=== PATIENT | male | born 1955 | race African-American/Black ===

== ENCOUNTER 2016-09-16 13:58 | Inpatient (IN) | payer OTHER ==
[2016-09-16 15:07] VITALS: BMI 22.8
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
[2016-09-16] MEDS ORDERED: guaiFENesin/D-METHORPHAN HB 10 ML UNIT-DOSE CUPS PO PRN (16:48)
[2016-09-16] MEDS ORDERED: LOPERAMIDE HCL 2 MG CAPSULE PO PRN (16:48)
[2016-09-16] MEDS ORDERED: chlordiazePOXIDE HCL 25 MG CAPSULE PO PRN (16:48)
[2016-09-16] MEDS ORDERED: MAG HYDROX/AL HYDROX/SIMETH 30 ML UNIT-DOSE CUP PO PRN (16:48)
[2016-09-16] MEDS ORDERED: ACETAMINOPHEN 325 MG TABLET (FP) PO PRN (16:48)
[2016-09-16] MEDS ORDERED: hydrOXYzine PAMOATE 25 MG CAPSULE (FP) PO PRN (16:48)
[2016-09-16] MEDS ORDERED: diphenhydrAMINE HCL 50 MG CAPSULE PO PRN (16:48)
[2016-09-16] MEDS ORDERED: P-EPHED 60MG/TRIPROLIDI 2.5MG TABLET PO PRN (16:48)
[2016-09-16] MEDS ORDERED: MAGNESIUM CITRATE 300 ML BOTTLE PO PRN (16:48)
[2016-09-16] MEDS ORDERED: MAGNESIUM HYDROX 2400MG/30ML ORAL SUSPENSION 30 ML CUP PO PRN (16:48)
[2016-09-16] MEDS ORDERED: MENTHOL/PHENOL 1 EACH UD MM PRN (16:48)
[2016-09-16] MEDS ORDERED: IBUPROFEN 400 MG TABLET (FP) PO PRN (16:48)
[2016-09-16] MEDS: chlordiazePOXIDE HCL 25 MG CAPSULE PO SCH ×2 (18:49→22:37)
[2016-09-16] MEDS: THIAMINE HCL 100 MG TABLET (FP) PO SCH (22:37)
[2016-09-16 22:38] LABS: URINE APPEARANCE CLEAR; URINE BILIRUBIN NEGATIVE (NEGATIVE); URINE BLOOD NEGATIVE (NEGATIVE); URINE COLOR STRAW; URINE GLUCOSE (UA) NEGATIVE (NEGATIVE); URINE KETONE NEGATIVE (NEGATIVE); URINE LEUK ESTERASE NEGATIVE (NEGATIVE); URINE NITRITE NEGATIVE (NEGATIVE); URINE PROTEIN NEGATIVE (NEGATIVE); URINE UROBILINOGEN NEGATIVE E.U./dl (0.2-1.0)
[2016-09-16] MEDS: LATANOPROST 0.005% OPHTH SOLN 2.5ML BOTTLE OD SCH (22:38)
[2016-09-16] MEDS: NICOTINE POLACRILEX 4 MG GUM BC PRN (22:43)
[2016-09-17] MEDS: chlordiazePOXIDE HCL 25 MG CAPSULE PO SCH ×4 (06:03→22:43)
[2016-09-17] MEDS: NICOTINE POLACRILEX 4 MG GUM BC PRN ×3 (06:06→22:47)
--- NOTE | 2016-09-17 09:26 | HP ---
Psychiatrist Admission - Data Date of interview: 09/17/16 Vital Signs: Vital Signs - 24 hr 09/16/16 09/16/16 09/17/16 15:04 22:09 00:42 Temperature 97.1 F L 98.2 F Pulse Rate 96 H 94 H Respiratory 20 19 18 Rate Blood Pressure 140/95 134/84 09/17/16 09/17/16 03:37 06:17 Temperature 98.1 F Pulse Rate 92 H Respiratory 18 18 Rate Blood Pressure 133/89 Allergies/Adverse Reactions: Allergies Allergy/AdvReac Type Severity Reaction Status Date / Time No Known Drug Allergies Allergy Verified 09/16/16 17:40 rice Allergy Verified 09/16/16 17:40 shellfish derived Allergy Verified 09/16/16 17:40
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
[2016-09-17 10:32] LABS: MCH 28.8 pg (25.7-33.7); MCHC 33.3 g/dl (32.0-35.9); MEAN CELL VOLUME 86.3 fl (80-96); PLATELET COUNT 248 K/MM3 (134-434)
[2016-09-17] MEDS: NICOTINE 14 MG/24 HOURS TOPICAL PATCH TD SCH (10:59)
[2016-09-17] MEDS: PRENATAL VITAMINS W/ FOLIC ACID TABLET (FP) PO SCH (10:59)
--- NOTE | 2016-09-17 11:09 | PN ---
[facility] CIWA - CIWA Score Nausea/Vomitin-No Nausea/No Vomiting Muscle Tremors: 4-Moderate,w/Arms Extend Anxiety: 4-Mod. Anxious/Guarded Agitation: 4-Moderately Restless Paroxysmal Sweats: 1-Minimal Palms Moist Orientation: 0-Oriented Tacttile Disturbances: 3-Moderate Itch/Numb/Burn Auditory Disturbances: 0-None Visual Disturbances: 0-None Headache: 0-None Present CIWA-Ar Total Score: 16 BHS Progress Note (SOAP) Subjective: ANXIETY,BODY ACHES,INTERMITTENT SLEEP. Objective: 09/17/16 11:09 Vital Signs Temperature 96.3 F L 09/17/16 09:38 Pulse Rate 80 09/17/16 09:38 Respiratory Rate 18 09/17/16 09:38 Blood Pressure 122/79 09/17/16 09:38 O2 Sat by Pulse Oximetry (%) Laboratory Last Values WBC 7.0 K/mm3 (4.0-10.0) 09/17/16 07:20 RBC 4.42 M/mm3 (4.00-5.60) 09/17/16 07:20 Hgb 12.7 GM/dL (11.7-16.9) 09/17/16 07:20 Hct 38.1 % (35.4-49) 09/17/16 07:20 MCV 86.3 fl (80-96) 09/17/16 07:20 MCHC 33.3 g/dl (32.0-35.9) 09/17/16 07:20 RDW 15.0 % (11.9-15.9) 09/17/16 07:20 Plt Count 248 K/MM3 (134-434) 09/17/16 07:20 MPV 8.0 fl (7.5-11.1) 09/17/16 07:20 Sodium 139 mmol/L (136-145) 09/17/16 07:20 Potassium 4.6 mmol/L (3.5-5.1) 09/17/16 07:20 Chloride 105 mmol/L (98-107) 09/17/16 07:20 Urine Color Straw 09/16/16 19:21 Urine Appearance Clear 09/16/16 19:21 Urine pH 5.0 (5.0-8.0) 09/16/16 19:21 Ur Specific [place] 1.008 (1.001-1.035) 09/16/16 19:21 Urine Protein Negative (NEGATIVE) 09/16/16 19:21 Urine Glucose (UA) Negative (NEGATIVE) 09/16/16 19:21 Urine Ketones Negative (NEGATIVE) 09/16/16 19:21 Urine Blood Negative (NEGATIVE) 09/16/16 19:21 Urine Nitrite Negative (NEGATIVE) 09/16/16 19:21 Urine Bilirubin Negative (NEGATIVE) 09/16/16 19:21 Urine Urobilinogen Negative E.U./dl (0.2-1.0) 09/16/16 19:21 Ur Leukocyte Esterase Negative (NEGATIVE) 09/16/16 19:21 RPR Titer Nonreactive (NONREACTIVE) 09/17/16 07:20 Assessment: 09/17/16 11:09 WITHDRAWAL SX Plan: CONTINUE DETOX
[2016-09-17 11:33] LABS: ALBUMIN 3.1 g/dl (3.4-5.0); ALK PHOS 50 U/L (45-117); ANION GAP 10 (8-16); BILIRUBIN,TOTAL 0.2 mg/dL (0.2-1.0); CALCIUM 8.2 mg/dL (8.5-10.1); CO2 24 mmol/L (21-32); CREATININE 1.2 mg/dL (0.7-1.3); GLUCOSE,RANDOM 105 mg/dL (74-106); SGOT/AST 14 U/L (15-37); SGPT/ALT 16 U/L (12-78); TOT PROT 6.4 g/dl (6.4-8.2)
[2016-09-17] MEDS: NAPROXEN 500 MG TABLET (FP) PO SCH ×2 (13:25→22:43)
--- NOTE | 2016-09-17 15:30 | EKG ---
Test Reason : Blood Pressure : / mmHG Vent. Rate : 074 BPM Atrial Rate : 074 BPM P-R Int : 158 ms QRS Dur : 096 ms QT Int : 382 ms P-R-T Axes : 069 063 044 degrees QTc Int : 424 ms NORMAL SINUS RHYTHM POSSIBLE LEFT ATRIAL ENLARGEMENT LEFT VENTRICULAR HYPERTROPHY ABNORMAL ECG NO PREVIOUS ECGS AVAILABLE Confirmed by RAE ONEILL MD ([id number]) on 09/17/2016 3:30:26 PM Referred By: Confirmed By:RAE ONEILL MD
[2016-09-17] MEDS: QUEtiapine FUMARATE 100 MG TABLET (FP) PO SCH (22:43)
[2016-09-17] MEDS: LATANOPROST 0.005% OPHTH SOLN 2.5ML BOTTLE OD SCH (22:43)
[2016-09-17] MEDS: THIAMINE HCL 100 MG TABLET (FP) PO SCH (22:43)
[2016-09-18] MEDS: chlordiazePOXIDE HCL 25 MG CAPSULE PO SCH ×2 (05:42→10:50)
[2016-09-18] MEDS: NICOTINE POLACRILEX 4 MG GUM BC PRN ×3 (05:44→22:48)
[2016-09-18] MEDS: NICOTINE 14 MG/24 HOURS TOPICAL PATCH TD SCH (10:50)
[2016-09-18] MEDS: NAPROXEN 500 MG TABLET (FP) PO SCH ×2 (10:50→22:43)
[2016-09-18] MEDS: PRENATAL VITAMINS W/ FOLIC ACID TABLET (FP) PO SCH (10:51)
--- NOTE | 2016-09-18 11:47 | PN ---
S CIWA - CIWA Score Nausea/Vomitin Muscle Tremors: 3 Anxiety: 3 Agitation: 2 Paroxysmal Sweats: 3 Orientation: 0-Oriented Tacttile Disturbances: 1-Very Mild Itch/Numbness Auditory Disturbances: 0-None Visual Disturbances: 0-None Headache: 2-Mild CIWA-Ar Total Score: 16 S Progress Note (SOAP) Subjective: shakes, sweats, irritability, N/V Objective: 09/18/16 11:46 Vital Signs - 8 hr 09/18/16 09/18/16 06:33 10:51 Temperature 97.2 F L 96.4 F L Pulse Rate 93 H 75 Respiratory 18 20 Rate Blood Pressure 144/95 138/86 Laboratory Last Values WBC 7.0 K/mm3 (4.0-10.0) 09/17/16 07:20 RBC 4.42 M/mm3 (4.00-5.60) 09/17/16 07:20 Hgb 12.7 GM/dL (11.7-16.9) 09/17/16 07:20 Hct 38.1 % (35.4-49) 09/17/16 07:20 MCV 86.3 fl (80-96) 09/17/16 07:20 MCHC 33.3 g/dl (32.0-35.9) 09/17/16 07:20 RDW 15.0 % (11.9-15.9) 09/17/16 07:20 Plt Count 248 K/MM3 (134-434) 09/17/16 07:20 MPV 8.0 fl (7.5-11.1) 09/17/16 07:20 Sodium 139 mmol/L (136-145) 09/17/16 07:20 Potassium 4.6 mmol/L (3.5-5.1) 09/17/16 07:20 Chloride 105 mmol/L (98-107) 09/17/16 07:20 Carbon Dioxide 24 mmol/L (21-32) 09/17/16 07:20 Anion Gap 10 (8-16) 09/17/16 07:20 BUN 17 mg/dL (7-18) D 09/17/16 07:20 Creatinine 1.2 mg/dL (0.7-1.3) 09/17/16 07:20 Creat Clearance w eGFR > 60 (>60) 09/17/16 07:20 Random Glucose 105 mg/dL (74-106) 09/17/16 07:20 Calcium 8.2 mg/dL (8.5-10.1) L 09/17/16 07:20 Total Bilirubin 0.2 mg/dL (0.2-1.0) D 09/17/16 07:20 AST 14 U/L (15-37) L 09/17/16 07:20 ALT 16 U/L (12-78) D 09/17/16 07:20 Alkaline Phosphatase 50 U/L (45-117) 09/17/16 07:20 Total Protein 6.4 g/dl (6.4-8.2) 09/17/16 07:20 Albumin 3.1 g/dl (3.4-5.0) L 09/17/16 07:20 Urine Color Straw 09/16/16 19:21 Urine Appearance Clear 09/16/16 19:21 Urine pH 5.0 (5.0-8.0) 09/16/16 19:21 Ur Specific [place] 1.008 (1.001-1.035) 09/16/16 19:21 Urine Protein Negative (NEGATIVE) 09/16/16 19:21 Urine Glucose (UA) Negative (NEGATIVE) 09/16/16 19:21 Urine Ketones Negative (NEGATIVE) 09/16/16 19:21 Urine Blood Negative (NEGATIVE) 09/16/16 19:21 Urine Nitrite Negative (NEGATIVE) 09/16/16 19:21 Urine Bilirubin Negative (NEGATIVE) 09/16/16 19:21 Urine Urobilinogen Negative E.U./dl (0.2-1.0) 09/16/16 19:21 Ur Leukocyte Esterase Negative (NEGATIVE) 09/16/16 19:21 RPR Titer Nonreactive (NONREACTIVE) 09/17/16 07:20 Labs noted Assessment: 09/18/16 11:47 withdrawal sx Plan: continue detox
[2016-09-18] MEDS: chlordiazePOXIDE 5 MG CAPSULE PO SCH ×2 (17:29→22:43)
[2016-09-18] MEDS: LATANOPROST 0.005% OPHTH SOLN 2.5ML BOTTLE OD SCH (22:42)
[2016-09-18] MEDS: QUEtiapine FUMARATE 100 MG TABLET (FP) PO SCH (22:43)
[2016-09-18] MEDS: THIAMINE HCL 100 MG TABLET (FP) PO SCH (22:44)
[2016-09-19] MEDS: chlordiazePOXIDE 5 MG CAPSULE PO SCH ×2 (05:52→10:17)
[2016-09-19] MEDS: NICOTINE 14 MG/24 HOURS TOPICAL PATCH TD SCH (10:17)
[2016-09-19] MEDS: PRENATAL VITAMINS W/ FOLIC ACID TABLET (FP) PO SCH (10:17)
[2016-09-19] MEDS: NAPROXEN 500 MG TABLET (FP) PO SCH ×2 (10:17→22:13)
[2016-09-19] MEDS: NICOTINE POLACRILEX 4 MG GUM BC PRN ×2 (10:19→22:15)
--- NOTE | 2016-09-19 12:13 | PN ---
BHS Progress Note (SOAP) Subjective: Body aches, tremor, sweating, nausea, anxious Objective: 09/19/16 12:12 Last Vital Signs Temp Pulse Resp BP Pulse Ox 95.9 F L 94 H 20 142/87 09/19/16 11:27 09/19/16 11:27 09/19/16 11:27 09/19/16 11:27 Laboratory Tests 09/16/16 09/17/16 09/17/16 19:21 07:20 07:20 WBC 7.0 RBC 4.42 Hgb 12.7 Hct 38.1 MCV 86.3 MCHC 33.3 RDW 15.0 Plt Count 248 MPV 8.0 Sodium 139 Potassium 4.6 Chloride 105 Carbon Dioxide 24 Anion Gap 10 BUN 17 D Creatinine 1.2 Creat Clearance w eGFR > 60 Random Glucose 105 Calcium 8.2 L Total Bilirubin 0.2 D AST 14 L ALT 16 D Alkaline Phosphatase 50 Total Protein 6.4 Albumin 3.1 L Urine Color Straw Urine Appearance Clear Urine pH 5.0 Ur Specific [place] 1.008 Urine Protein Negative Urine Glucose (UA) Negative Urine Ketones Negative Urine Blood Negative Urine Nitrite Negative Urine Bilirubin Negative Urine Urobilinogen Negative Ur Leukocyte Esterase Negative RPR Titer 09/17/16 07:20 WBC RBC Hgb Hct MCV MCHC RDW Plt Count MPV Sodium Potassium Chloride Carbon Dioxide Anion Gap BUN Creatinine Creat Clearance w eGFR Random Glucose Calcium Total Bilirubin AST ALT Alkaline Phosphatase Total Protein Albumin Urine Color Urine Appearance Urine pH Ur Specific [place] Urine Protein Urine Glucose (UA) Urine Ketones Urine Blood Urine Nitrite Urine Bilirubin Urine Urobilinogen Ur Leukocyte Esterase RPR Titer Nonreactive Labs noted Assessment: 09/19/16 12:13 Withdrawal symptoms Plan: Continue detox
[2016-09-19] MEDS: chlordiazePOXIDE HCL 10 MG CAPSULE PO SCH ×2 (17:02→22:13)
[2016-09-19] MEDS: THIAMINE HCL 100 MG TABLET (FP) PO SCH (22:12)
[2016-09-19] MEDS: LATANOPROST 0.005% OPHTH SOLN 2.5ML BOTTLE OD SCH (22:13)
[2016-09-19] MEDS: QUEtiapine FUMARATE 100 MG TABLET (FP) PO SCH (22:13)
[2016-09-20] MEDS: chlordiazePOXIDE HCL 10 MG CAPSULE PO SCH (05:53)
[2016-09-20] MEDS: NICOTINE POLACRILEX 4 MG GUM BC PRN (05:54)
[2016-09-20 06:11] VITALS: BP 143/83; PULSE 89; TEMP 996.8
--- NOTE | 2016-09-20 08:45 | PN ---
BHS Progress Note (SOAP) Subjective: no complaints, still has anxiety and agitation wants to go to rehab Objective: 09/20/16 08:45 Vital Signs - 8 hr 09/20/16 09/20/16 03:40 06:10 Temperature 996.8 F H Pulse Rate 89 Respiratory 18 18 Rate Blood Pressure 143/83 Laboratory Tests 09/16/16 09/17/16 09/17/16 19:21 07:20 07:20 WBC 7.0 RBC 4.42 Hgb 12.7 Hct 38.1 MCV 86.3 MCHC 33.3 RDW 15.0 Plt Count 248 MPV 8.0 Sodium 139 Potassium 4.6 Chloride 105 Carbon Dioxide 24 Anion Gap 10 BUN 17 D Creatinine 1.2 Creat Clearance w eGFR > 60 Random Glucose 105 Calcium 8.2 L Total Bilirubin 0.2 D AST 14 L ALT 16 D Alkaline Phosphatase 50 Total Protein 6.4 Albumin 3.1 L Urine Color Straw Urine Appearance Clear Urine pH 5.0 Ur Specific [place] 1.008 Urine Protein Negative Urine Glucose (UA) Negative Urine Ketones Negative Urine Blood Negative Urine Nitrite Negative Urine Bilirubin Negative Urine Urobilinogen Negative Ur Leukocyte Esterase Negative RPR Titer 09/17/16 07:20 WBC RBC Hgb Hct MCV MCHC RDW Plt Count MPV Sodium Potassium Chloride Carbon Dioxide Anion Gap BUN Creatinine Creat Clearance w eGFR Random Glucose Calcium Total Bilirubin AST ALT Alkaline Phosphatase Total Protein Albumin Urine Color Urine Appearance Urine pH Ur Specific [place] Urine Protein Urine Glucose (UA) Urine Ketones Urine Blood Urine Nitrite Urine Bilirubin Urine Urobilinogen Ur Leukocyte Esterase RPR Titer Nonreactive Assessment: 09/20/16 08:45 completed detox, medically stable Plan: d/c [facility] f/u PCP for medical care, would like to speak with counselor to arrange for rehab
--- NOTE | 2016-09-20 08:47 | DS ---
[facility] Detox Discharge Summary Admission Date: 09/16/16 Discharge Date: 09/20/16 - History Present History: Alcohol Dependence, Cocaine Dependence Pertinent Past History: HTN, glaucoma, nicotine dependence - Physical Exam Results Vital Signs: Vital Signs Temperature 996.8 F H 09/20/16 06:10 Pulse Rate 89 09/20/16 06:10 Respiratory Rate 18 09/20/16 06:10 Blood Pressure 143/83 09/20/16 06:10 O2 Sat by Pulse Oximetry (%) Pertinent Admission Physical Exam Findings: withdrawal sx - Treatment Hospital Course: Detox Protocol Followed, Detoxed Safely, Responded well, Discharged Condition Good, Rehab Referral Accepted Patient has Accepted a Rehab Referral to: Yes - Medication Discharge Medications: Ambulatory Orders Latanoprost 0.005% Eye Drops [Xalatan 0.005% Eye Drops -] 1 drop OD HS #1 drops 11/18/15 Haloperidol [Haldol -] 1 mg PO HS 09/16/16 Quetiapine Fumarate [Seroquel -] 100 mg PO HS 09/16/16 Quetiapine Fumarate [Seroquel] 100 mg PO HS #30 tablet 09/17/16 - Diagnosis (1) Cocaine dependence Current Visit: Yes Status: Acute (2) HTN (hypertension) Current Visit: Yes Status: Acute (3) Hyperlipidemia Current Visit: Yes Status: Acute (4) Impulse control disorder Current Visit: Yes Status: Acute (5) Substance-induced sleep disorder Current Visit: Yes Status: Acute (6) Alcohol dependence with uncomplicated withdrawal Current Visit: Yes Status: Chronic (7) Glaucoma Current Visit: Yes Status: Chronic Qualifiers: Glaucoma type: open-angle Open angle glaucoma type: unspecified type Laterality: bilateral Glaucoma stage: mild stage Qualified Code(s) : H40.10X1 - Unspecified open-angle glaucoma, mild stage - AMA Did Patient Leave Against Medical Advice: No
== END 2016-09-20 09:58 | disposition home or self-care (01) | DRG 774 ==
LOC: YASAS 13:58 → Y3N 18:10
PROVIDERS: ADMIT Internal Medicine; ATTEND Internal Medicine
PROC: HZ2ZZZZ Detoxification Services for Substance Abuse Treatment (ICD-10-PCS; principal; 2016-09-16)
DX: F10.230 Alcohol dependence with withdrawal, uncomplicated (principal); F14.20 Cocaine dependence, uncomplicated; F17.210 Nicotine dependence, cigarettes, uncomplicated; F19.282 Other psychoactive substance dependence with psychoactive substance-induced sleep disorder; F63.9 Impulse disorder, unspecified; I10 Essential (primary) hypertension; E78.5 Hyperlipidemia, unspecified; H40.10X1 Unspecified open-angle glaucoma, mild stage; K21.9 Gastro-esophageal reflux disease without esophagitis; M54.5 Low back pain; G89.29 Other chronic pain
CPT/HCPCS: 36415; 80053; 81003; 85027; 86593; 93005; 93010

== ENCOUNTER 2016-11-22 15:04 | Inpatient (IN) | payer OTHER ==
[2016-11-22 16:33] VITALS: BMI 23.1
[2016-11-22] MEDS ORDERED: MAGNESIUM CITRATE 300 ML BOTTLE PO PRN (19:42)
[2016-11-22] MEDS ORDERED: chlordiazePOXIDE HCL 25 MG CAPSULE PO PRN (19:42)
[2016-11-22] MEDS ORDERED: P-EPHED 60MG/TRIPROLIDI 2.5MG TABLET PO PRN (19:42)
[2016-11-22] MEDS ORDERED: MAGNESIUM HYDROX 2400MG/30ML ORAL SUSPENSION 30 ML CUP PO PRN (19:42)
[2016-11-22] MEDS ORDERED: LOPERAMIDE HCL 2 MG CAPSULE PO PRN (19:42)
[2016-11-22] MEDS ORDERED: MAG HYDROX/AL HYDROX/SIMETH 30 ML UNIT-DOSE CUP PO PRN (19:42)
[2016-11-22] MEDS ORDERED: hydrOXYzine PAMOATE 50 MG CAPSULE (FP) PO PRN (19:42)
[2016-11-22] MEDS ORDERED: ACETAMINOPHEN 325 MG TABLET (FP) PO PRN (19:42)
[2016-11-22] MEDS ORDERED: IBUPROFEN 400 MG TABLET (FP) PO PRN (19:42)
[2016-11-22] MEDS ORDERED: MENTHOL/PHENOL 1 EACH UD MM PRN (19:42)
[2016-11-22] MEDS ORDERED: guaiFENesin/D-METHORPHAN HB 10 ML UNIT-DOSE CUPS PO PRN (19:42)
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
[2016-11-22] MEDS: chlordiazePOXIDE HCL 25 MG CAPSULE PO SCH (22:13)
[2016-11-22] MEDS: diphenhydrAMINE HCL 50 MG CAPSULE PO PRN (22:14)
[2016-11-22] MEDS: THIAMINE HCL 100 MG TABLET (FP) PO SCH (22:14)
[2016-11-22] MEDS: LATANOPROST 0.005% OPHTH SOLN 2.5ML BOTTLE OU SCH (22:16)
[2016-11-23 03:56] LABS: URINE APPEARANCE CLEAR; URINE BILIRUBIN NEGATIVE (NEGATIVE); URINE BLOOD NEGATIVE (NEGATIVE); URINE COLOR COLORLESS; URINE GLUCOSE (UA) NEGATIVE (NEGATIVE); URINE KETONE NEGATIVE (NEGATIVE); URINE LEUK ESTERASE NEGATIVE (NEGATIVE); URINE NITRITE NEGATIVE (NEGATIVE); URINE PROTEIN NEGATIVE (NEGATIVE); URINE UROBILINOGEN NEGATIVE E.U./dl (0.2-1.0)
[2016-11-23] MEDS: chlordiazePOXIDE HCL 25 MG CAPSULE PO SCH ×4 (05:41→22:09)
[2016-11-23] MEDS: NICOTINE POLACRILEX 2 MG GUM BC PRN ×2 (05:44→22:11)
[2016-11-23] MEDS: PRENATAL VITAMINS W/ FOLIC ACID TABLET (FP) PO SCH (10:06)
[2016-11-23] MEDS: NICOTINE 14 MG/24 HOURS TOPICAL PATCH TD SCH (10:06)
[2016-11-23 10:08] LABS: MCH 28.4 pg (25.7-33.7); PLATELET COUNT 277 K/MM3 (134-434); RDW 15.3 % (11.9-15.9); WHITE BLOOD COUNT 5.6 K/mm3 (4.0-10.0)
[2016-11-23 10:24] LABS: BILIRUBIN,TOTAL 0.2 mg/dL (0.2-1.0); CALCIUM 8.6 mg/dL (8.5-10.1); CREATININE 1.3 mg/dL (0.7-1.3); TOT PROT 6.6 g/dl (6.4-8.2)
--- NOTE | 2016-11-23 10:35 | PN ---
S CIWA - CIWA Score Nausea/Vomitin Muscle Tremors: 3 Anxiety: 3 Agitation: 3 Paroxysmal Sweats: 1-Minimal Palms Moist Orientation: 0-Oriented Tacttile Disturbances: 1-Very Mild Itch/Numbness Auditory Disturbances: 1-Very Mild Visual Disturbances: 1-Very Mild Sensitivity Headache: 2-Mild CIWA-Ar Total Score: 18 BHS Progress Note (SOAP) Subjective: ALERT,IRRITABLE,ANXIOUS,INTERRUPTED SLEEP,TREMOR Objective: 11/23/16 10:33 Vital Signs Temperature 97 F L 11/23/16 09:56 Pulse Rate 72 11/23/16 09:56 Respiratory Rate 17 11/23/16 09:56 Blood Pressure 139/78 11/23/16 09:56 O2 Sat by Pulse Oximetry (%) EKG NSR,NORMAL ECG Laboratory Last Values Urine Color Colorless 11/23/16 01:00 Urine Appearance Clear 11/23/16 01:00 Urine pH 6.0 (5.0-8.0) 11/23/16 01:00 Ur Specific [place] 1.002 (1.001-1.035) 11/23/16 01:00 Urine Protein Negative (NEGATIVE) 11/23/16 01:00 Urine Glucose (UA) Negative (NEGATIVE) 11/23/16 01:00 Urine Ketones Negative (NEGATIVE) 11/23/16 01:00 Urine Blood Negative (NEGATIVE) 11/23/16 01:00 Urine Nitrite Negative (NEGATIVE) 11/23/16 01:00 Urine Bilirubin Negative (NEGATIVE) 11/23/16 01:00 Urine Urobilinogen Negative E.U./dl (0.2-1.0) 11/23/16 01:00 Ur Leukocyte Esterase Negative (NEGATIVE) 11/23/16 01:00 LABS PENDING Assessment: 11/23/16 10:34 WITHDRAWAL SYMPTOM Plan: CONTINUE DETOX
--- NOTE | 2016-11-23 13:42 | EKG ---
Test Reason : Blood Pressure : / mmHG Vent. Rate : 072 BPM Atrial Rate : 072 BPM P-R Int : 142 ms QRS Dur : 092 ms QT Int : 386 ms P-R-T Axes : 018 064 039 degrees QTc Int : 422 ms NORMAL SINUS RHYTHM NORMAL ECG WHEN COMPARED WITH ECG OF 16-SEP-2016 18:54, NO SIGNIFICANT CHANGE WAS FOUND Confirmed by DUANE FIGUEROA MD ([id number]) on 11/23/2016 1:42:19 PM Referred By: Confirmed By:DUANE FIGUEROA MD
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
[2016-11-23] MEDS: THIAMINE HCL 100 MG TABLET (FP) PO SCH (22:09)
[2016-11-23] MEDS: LATANOPROST 0.005% OPHTH SOLN 2.5ML BOTTLE OU SCH (22:09)
[2016-11-23] MEDS: QUEtiapine FUMARATE 100 MG TABLET (FP) PO SCH (22:09)
[2016-11-24] MEDS: chlordiazePOXIDE HCL 25 MG CAPSULE PO SCH ×3 (06:26→16:55)
[2016-11-24] MEDS: PRENATAL VITAMINS W/ FOLIC ACID TABLET (FP) PO SCH (10:39)
[2016-11-24] MEDS: NICOTINE 14 MG/24 HOURS TOPICAL PATCH TD SCH (10:39)
[2016-11-24] MEDS ORDERED: IBUPROFEN 600 MG TABLET (FP) PO PRN (11:13)
--- NOTE | 2016-11-24 11:18 | PN ---
[facility] CIWA - CIWA Score Nausea/Vomitin-No Nausea/No Vomiting Muscle Tremors: 3 Anxiety: 3 Agitation: 3 Paroxysmal Sweats: 3 Orientation: 0-Oriented Tacttile Disturbances: 0-None Auditory Disturbances: 0-None Visual Disturbances: 0-None Headache: 0-None Present CIWA-Ar Total Score: 12 [facility] Progress Note (SOAP) Subjective: shakes sweats muscle aches tired interrupted sleep Objective: 11/24/16 11:16 Vital Signs Temperature 96.6 F L 11/24/16 10:00 Pulse Rate 93 H 11/24/16 10:00 Respiratory Rate 16 11/24/16 10:00 Blood Pressure 147/74 11/24/16 10:00 O2 Sat by Pulse Oximetry (%) Laboratory Tests 11/23/16 11/23/16 11/23/16 01:00 07:00 07:00 WBC 5.6 RBC 4.73 Hgb 13.4 Hct 40.6 MCV 86.0 MCHC 33.0 RDW 15.3 Plt Count 277 MPV 8.0 Sodium 140 Potassium 4.2 Chloride 104 Carbon Dioxide 26 Anion Gap 10 BUN 17 Creatinine 1.3 Creat Clearance w eGFR 55.75 Random Glucose 123 H Calcium 8.6 Total Bilirubin 0.2 AST 15 ALT 18 Alkaline Phosphatase 54 Total Protein 6.6 Albumin 3.0 L Urine Color Colorless Urine Appearance Clear Urine pH 6.0 Ur Specific [place] 1.002 Urine Protein Negative Urine Glucose (UA) Negative Urine Ketones Negative Urine Blood Negative Urine Nitrite Negative Urine Bilirubin Negative Urine Urobilinogen Negative Ur Leukocyte Esterase Negative RPR Titer 11/23/16 07:00 WBC RBC Hgb Hct MCV MCHC RDW Plt Count MPV Sodium Potassium Chloride Carbon Dioxide Anion Gap BUN Creatinine Creat Clearance w eGFR Random Glucose Calcium Total Bilirubin AST ALT Alkaline Phosphatase Total Protein Albumin Urine Color Urine Appearance Urine pH Ur Specific [place] Urine Protein Urine Glucose (UA) Urine Ketones Urine Blood Urine Nitrite Urine Bilirubin Urine Urobilinogen Ur Leukocyte Esterase RPR Titer Nonreactive awake/alert ambulating no acute distress Assessment: 11/24/16 11:17 withdrawal sx Plan: continue detox increase fluids motrin 600mg prn
[2016-11-24] MEDS: LATANOPROST 0.005% OPHTH SOLN 2.5ML BOTTLE OU SCH (22:52)
[2016-11-24] MEDS: chlordiazePOXIDE 5 MG CAPSULE PO SCH (22:53)
[2016-11-24] MEDS: THIAMINE HCL 100 MG TABLET (FP) PO SCH (22:53)
[2016-11-24] MEDS: diphenhydrAMINE HCL 50 MG CAPSULE PO PRN (22:53)
[2016-11-24] MEDS: QUEtiapine FUMARATE 100 MG TABLET (FP) PO SCH (22:55)
[2016-11-25] MEDS: chlordiazePOXIDE 5 MG CAPSULE PO SCH ×3 (06:14→17:55)
[2016-11-25] MEDS: NICOTINE POLACRILEX 2 MG GUM BC PRN ×2 (06:17→22:46)
[2016-11-25] MEDS: PRENATAL VITAMINS W/ FOLIC ACID TABLET (FP) PO SCH (11:09)
[2016-11-25] MEDS: NICOTINE 14 MG/24 HOURS TOPICAL PATCH TD SCH (11:10)
[2016-11-25] MEDS ORDERED: CYCLOBENZAPRINE HCL 10 MG TABLET (FP) PO PRN (12:29)
--- NOTE | 2016-11-25 12:32 | PN ---
BHS Progress Note (SOAP) Subjective: interrupted sleep, sweats, diarrhea, spasms Objective: 11/25/16 12:31 Vital Signs Temperature 97.9 F 11/25/16 10:26 Pulse Rate 92 H 11/25/16 10:26 Respiratory Rate 18 11/25/16 10:26 Blood Pressure 137/75 11/25/16 10:26 O2 Sat by Pulse Oximetry (%) Laboratory Tests 11/23/16 11/23/16 11/23/16 01:00 07:00 07:00 WBC 5.6 RBC 4.73 Hgb 13.4 Hct 40.6 MCV 86.0 MCHC 33.0 RDW 15.3 Plt Count 277 MPV 8.0 Sodium 140 Potassium 4.2 Chloride 104 Carbon Dioxide 26 Anion Gap 10 BUN 17 Creatinine 1.3 Creat Clearance w eGFR 55.75 Random Glucose 123 H Calcium 8.6 Total Bilirubin 0.2 AST 15 ALT 18 Alkaline Phosphatase 54 Total Protein 6.6 Albumin 3.0 L Urine Color Colorless Urine Appearance Clear Urine pH 6.0 Ur Specific [place] 1.002 Urine Protein Negative Urine Glucose (UA) Negative Urine Ketones Negative Urine Blood Negative Urine Nitrite Negative Urine Bilirubin Negative Urine Urobilinogen Negative Ur Leukocyte Esterase Negative RPR Titer 11/23/16 07:00 WBC RBC Hgb Hct MCV MCHC RDW Plt Count MPV Sodium Potassium Chloride Carbon Dioxide Anion Gap BUN Creatinine Creat Clearance w eGFR Random Glucose Calcium Total Bilirubin AST ALT Alkaline Phosphatase Total Protein Albumin Urine Color Urine Appearance Urine pH Ur Specific [place] Urine Protein Urine Glucose (UA) Urine Ketones Urine Blood Urine Nitrite Urine Bilirubin Urine Urobilinogen Ur Leukocyte Esterase RPR Titer Nonreactive pt aox3 in nad lying in bed Assessment: 11/25/16 12:32 withdrawal sx;s Plan: cont. detox increase fluids imodium prn
[2016-11-25] MEDS: THIAMINE HCL 100 MG TABLET (FP) PO SCH (22:43)
[2016-11-25] MEDS: LATANOPROST 0.005% OPHTH SOLN 2.5ML BOTTLE OU SCH (22:43)
[2016-11-25] MEDS: chlordiazePOXIDE HCL 10 MG CAPSULE PO SCH (22:44)
[2016-11-25] MEDS: QUEtiapine FUMARATE 100 MG TABLET (FP) PO SCH (22:44)
[2016-11-26] MEDS: chlordiazePOXIDE HCL 10 MG CAPSULE PO SCH ×2 (05:36→10:17)
--- NOTE | 2016-11-26 08:25 | PN ---
S Progress Note (SOAP) Subjective: alert,no complaint Objective: 11/26/16 08:24 Vital Signs Temperature 97.9 F 11/26/16 06:00 Pulse Rate 86 11/26/16 06:00 Respiratory Rate 18 11/26/16 06:00 Blood Pressure 132/81 11/26/16 06:00 O2 Sat by Pulse Oximetry (%) Assessment: 11/26/16 08:24 detox completed,no withdrawal symptom Plan: discharge today,follow up with after care program as arrangement
--- NOTE | 2016-11-26 08:32 | DS ---
[facility] Detox Discharge Summary Admission Date: 11/22/16 Discharge Date: 11/26/16 - History Present History: Alcohol Dependence Additional Comments: follow up with after care program as arrangement Pertinent Past History: glaucoma nicotine dependence weight loss - Physical Exam Results Vital Signs: Vital Signs Temperature 97.9 F 11/26/16 06:00 Pulse Rate 86 11/26/16 06:00 Respiratory Rate 18 11/26/16 06:00 Blood Pressure 132/81 11/26/16 06:00 O2 Sat by Pulse Oximetry (%) Pertinent Admission Physical Exam Findings: withdrawal symptom - Treatment Hospital Course: Detox Protocol Followed, Detoxed Safely, Responded well, Discharged Condition Good, Rehab Referral Accepted Patient has Accepted a Rehab Referral to: [facility] - Medication Discharge Medications: Ambulatory Orders Latanoprost 0.005% Eye Drops [Xalatan 0.005% Eye Drops -] 1 drop OD HS #1 drops 11/18/15 Haloperidol [Haldol -] 1 mg PO HS 09/16/16 Quetiapine Fumarate [Seroquel -] 100 mg PO HS 09/16/16 Quetiapine Fumarate [Seroquel] 100 mg PO HS #30 tablet 11/23/16 - AMA Did Patient Leave Against Medical Advice: No
[2016-11-26] MEDS: PRENATAL VITAMINS W/ FOLIC ACID TABLET (FP) PO SCH (10:17)
[2016-11-26] MEDS: NICOTINE 14 MG/24 HOURS TOPICAL PATCH TD SCH (10:18)
[2016-11-26 10:25] VITALS: BP 132/80; PULSE 106; TEMP 97.3
== END 2016-11-26 11:55 | disposition home or self-care (01) | DRG 774 ==
LOC: YASAS 15:04 → Y6N 17:51
PROVIDERS: ADMIT Internal Medicine Addiction Medicine; ATTEND Internal Medicine Addiction Medicine
PROC: HZ2ZZZZ Detoxification Services for Substance Abuse Treatment (ICD-10-PCS; principal; 2016-11-22)
DX: F10.230 Alcohol dependence with withdrawal, uncomplicated (principal); F14.20 Cocaine dependence, uncomplicated; F17.210 Nicotine dependence, cigarettes, uncomplicated; F19.24 Other psychoactive substance dependence with psychoactive substance-induced mood disorder; H40.10X1 Unspecified open-angle glaucoma, mild stage; K21.9 Gastro-esophageal reflux disease without esophagitis; M54.5 Low back pain; G89.29 Other chronic pain; E78.5 Hyperlipidemia, unspecified; G47.00 Insomnia, unspecified; R00.0 Tachycardia, unspecified; Z87.898 Personal history of other specified conditions
CPT/HCPCS: 36415; 80053; 81003; 85027; 86593; 93005; 93010

== ENCOUNTER 2017-05-03 14:42 | Inpatient (IN) | payer OTHER ==
[2017-05-03 15:15] VITALS: BMI 22.9
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
[2017-05-03] MEDS ORDERED: MAGNESIUM HYDROX 2400MG/30ML ORAL SUSPENSION 30 ML CUP PO PRN (16:41)
[2017-05-03] MEDS ORDERED: ACETAMINOPHEN 325 MG TABLET (FP) PO PRN (16:41)
[2017-05-03] MEDS ORDERED: LOPERAMIDE HCL 2 MG CAPSULE PO PRN (16:41)
[2017-05-03] MEDS ORDERED: MENTHOL/PHENOL 1 EACH UD MM PRN (16:41)
[2017-05-03] MEDS ORDERED: hydrOXYzine PAMOATE 50 MG CAPSULE (FP) PO PRN (16:41)
[2017-05-03] MEDS ORDERED: NICOTINE POLACRILEX 2 MG GUM BC PRN (16:41)
[2017-05-03] MEDS ORDERED: diphenhydrAMINE HCL 50 MG CAPSULE PO PRN (16:41)
[2017-05-03] MEDS ORDERED: P-EPHED 60MG/TRIPROLIDI 2.5MG TABLET PO PRN (16:41)
[2017-05-03] MEDS ORDERED: guaiFENesin/D-METHORPHAN HB 10 ML UNIT-DOSE CUPS PO PRN (16:41)
[2017-05-03] MEDS ORDERED: MAGNESIUM CITRATE 300 ML BOTTLE PO PRN (16:41)
[2017-05-03] MEDS ORDERED: MAG HYDROX/AL HYDROX/SIMETH 30 ML UNIT-DOSE CUP PO PRN (16:41)
[2017-05-03] MEDS ORDERED: chlordiazePOXIDE HCL 25 MG CAPSULE PO PRN (16:41)
[2017-05-03] MEDS ORDERED: COLLOIDAL OATMEAL 1 BAR EACH TP PRN (16:45)
[2017-05-03 22:27] LABS: URINE APPEARANCE CLOUDY; URINE BILIRUBIN NEGATIVE (NEGATIVE); URINE BLOOD NEGATIVE (NEGATIVE); URINE COLOR LTYELLOW; URINE GLUCOSE (UA) NEGATIVE (NEGATIVE); URINE KETONE NEGATIVE (NEGATIVE); URINE LEUK ESTERASE NEGATIVE (NEGATIVE); URINE NITRITE NEGATIVE (NEGATIVE); URINE PROTEIN NEGATIVE (NEGATIVE); URINE UROBILINOGEN NEGATIVE mg/dL (0.2-1.0)
[2017-05-03] MEDS: THIAMINE HCL 100 MG TABLET (FP) PO SCH (22:54)
[2017-05-03] MEDS: RANITIDINE HCL 150 MG TABLET (FP) PO SCH (22:54)
[2017-05-03] MEDS: LATANOPROST 0.005% OPHTH SOLN 2.5ML BOTTLE OU SCH (22:54)
[2017-05-03] MEDS: CYCLOBENZAPRINE HCL 10 MG TABLET (FP) PO SCH (22:54)
[2017-05-03] MEDS: MINERAL OIL/PETROLAT/WATER TOPICAL CREAM 113 GM JAR TP SCH (22:54)
[2017-05-03] MEDS: chlordiazePOXIDE HCL 25 MG CAPSULE PO SCH (22:55)
[2017-05-04] MEDS: CYCLOBENZAPRINE HCL 10 MG TABLET (FP) PO SCH ×3 (05:35→22:15)
[2017-05-04] MEDS: chlordiazePOXIDE HCL 25 MG CAPSULE PO SCH ×5 (05:35→22:16)
[2017-05-04 09:49] LABS: MCH 27.8 pg (25.7-33.7); MCHC 32.9 g/dl (32.0-35.9); MEAN CELL VOLUME 84.5 fl (80-96); PLATELET COUNT 298 K/MM3 (134-434); RDW 15.5 % (11.9-15.9); WHITE BLOOD COUNT 5.8 K/mm3 (4.0-10.0)
[2017-05-04] MEDS: RANITIDINE HCL 150 MG TABLET (FP) PO SCH ×2 (10:31→22:15)
[2017-05-04] MEDS: PRENATAL VITAMINS W/ FOLIC ACID TABLET (FP) PO SCH (10:31)
[2017-05-04] MEDS: LIDOCAINE 5% TOPICAL PATCH TP SCH (10:32)
[2017-05-04] MEDS: NICOTINE 14 MG/24 HOURS TOPICAL PATCH TD SCH (10:32)
--- NOTE | 2017-05-04 10:45 | EKG ---
Test Reason : Blood Pressure : / mmHG Vent. Rate : 072 BPM Atrial Rate : 072 BPM P-R Int : 156 ms QRS Dur : 094 ms QT Int : 380 ms P-R-T Axes : 074 073 061 degrees QTc Int : 416 ms NORMAL SINUS RHYTHM POSSIBLE LEFT ATRIAL ENLARGEMENT BORDERLINE ECG WHEN COMPARED WITH ECG OF 22-NOV-2016 21:19, NO SIGNIFICANT CHANGE WAS FOUND Confirmed by DREW PRICE MD ([id number]) on 05/04/2017 10:45:13 AM Referred By: Confirmed By:DREW PRICE MD
[2017-05-04 11:09] LABS: ALK PHOS 54 U/L (45-117); ANION GAP 10 (8-16); BILIRUBIN,TOTAL 0.2 mg/dL (0.2-1.0); CALCIUM 8.9 mg/dL (8.5-10.1); CO2 25 mmol/L (21-32); CREATININE 1.1 mg/dL (0.7-1.3); GLUCOSE,RANDOM 103 mg/dL (74-106); SGOT/AST 11 U/L (15-37); SGPT/ALT 16 U/L (12-78); TOT PROT 6.3 g/dl (6.4-8.2)
--- NOTE | 2017-05-04 11:18 | PN ---
[facility] CIWA - CIWA Score Nausea/Vomitin-No Nausea/No Vomiting Muscle Tremors: 4-Moderate,w/Arms Extend Anxiety: 4-Mod. Anxious/Guarded Agitation: 4-Moderately Restless Paroxysmal Sweats: 1-Minimal Palms Moist Orientation: 0-Oriented Tacttile Disturbances: 3-Moderate Itch/Numb/Burn Auditory Disturbances: 0-None Visual Disturbances: 0-None Headache: 0-None Present CIWA-Ar Total Score: 16 BHS Progress Note (SOAP) Subjective: ANXIETY,SWEATS,TREMORS,INTERMITTENT SLEEP Objective: 05/04/17 11:17 Vital Signs Temperature 97.0 F L 05/04/17 09:38 Pulse Rate 82 05/04/17 09:38 Respiratory Rate 18 05/04/17 09:38 Blood Pressure 130/74 05/04/17 09:38 O2 Sat by Pulse Oximetry (%) Laboratory Last Values WBC 5.8 K/mm3 (4.0-10.0) 05/04/17 07:00 RBC 4.56 M/mm3 (4.00-5.60) 05/04/17 07:00 Hgb 12.7 GM/dL (11.7-16.9) 05/04/17 07:00 Hct 38.5 % (35.4-49) 05/04/17 07:00 MCV 84.5 fl (80-96) 05/04/17 07:00 MCH 27.8 pg (25.7-33.7) 05/04/17 07:00 MCHC 32.9 g/dl (32.0-35.9) 05/04/17 07:00 RDW 15.5 % (11.9-15.9) 05/04/17 07:00 Plt Count 298 K/MM3 (134-434) 05/04/17 07:00 MPV 8.0 fl (7.5-11.1) 05/04/17 07:00 Sodium 140 mmol/L (136-145) 05/04/17 07:00 Potassium 4.6 mmol/L (3.5-5.1) 05/04/17 07:00 Chloride 105 mmol/L (98-107) 05/04/17 07:00 Carbon Dioxide 25 mmol/L (21-32) 05/04/17 07:00 Anion Gap 10 (8-16) 05/04/17 07:00 BUN 14 mg/dL (7-18) 05/04/17 07:00 Creatinine 1.1 mg/dL (0.7-1.3) 05/04/17 07:00 Creat Clearance w eGFR > 60 (>60) 05/04/17 07:00 Random Glucose 103 mg/dL (74-106) 05/04/17 07:00 Calcium 8.9 mg/dL (8.5-10.1) 05/04/17 07:00 Total Bilirubin 0.2 mg/dL (0.2-1.0) 05/04/17 07:00 AST 11 U/L (15-37) L D 05/04/17 07:00 ALT 16 U/L (12-78) 05/04/17 07:00 Alkaline Phosphatase 54 U/L (45-117) 05/04/17 07:00 Total Protein 6.3 g/dl (6.4-8.2) L 05/04/17 07:00 Albumin 3.0 g/dl (3.4-5.0) L 05/04/17 07:00 Urine Color Ltyellow 05/03/17 21:57 Urine Appearance Cloudy 05/03/17 21:57 Urine pH 5.0 (5.0-8.0) 05/03/17 21:57 Ur Specific [place] >= 1.030 (1.005-1.025) H 05/03/17 21:57 Urine Protein Negative (NEGATIVE) 05/03/17 21:57 Urine Glucose (UA) Negative (NEGATIVE) 05/03/17 21:57 Urine Ketones Negative (NEGATIVE) 05/03/17 21:57 Urine Blood Negative (NEGATIVE) 05/03/17 21:57 Urine Nitrite Negative (NEGATIVE) 05/03/17 21:57 Urine Bilirubin Negative (NEGATIVE) 05/03/17 21:57 Urine Urobilinogen Negative mg/dL (0.2-1.0) 05/03/17 21:57 Ur Leukocyte Esterase Negative (NEGATIVE) 05/03/17 21:57 RPR Titer Nonreactive (NONREACTIVE) 05/04/17 07:00 Assessment: 05/04/17 11:18 WITHDRAWAL SX Plan: CONTINUE DETOX
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
[2017-05-04] MEDS: THIAMINE HCL 100 MG TABLET (FP) PO SCH (22:15)
[2017-05-04] MEDS: ZOLPIDEM TARTRATE 10 MG TABLET (PARK CARE ONLY) PO PRN (22:15)
[2017-05-04] MEDS: LATANOPROST 0.005% OPHTH SOLN 2.5ML BOTTLE OU SCH (22:16)
[2017-05-04] MEDS: LIDOCAINE PATCH REMOVAL MC SCH (22:16)
[2017-05-04] MEDS: MINERAL OIL/PETROLAT/WATER TOPICAL CREAM 113 GM JAR TP SCH (22:17)
[2017-05-05] MEDS: CYCLOBENZAPRINE HCL 10 MG TABLET (FP) PO SCH ×3 (06:16→22:26)
[2017-05-05] MEDS: chlordiazePOXIDE HCL 25 MG CAPSULE PO SCH ×3 (06:16→17:44)
[2017-05-05] MEDS: PRENATAL VITAMINS W/ FOLIC ACID TABLET (FP) PO SCH (10:50)
[2017-05-05] MEDS: LIDOCAINE 5% TOPICAL PATCH TP SCH (10:50)
[2017-05-05] MEDS: RANITIDINE HCL 150 MG TABLET (FP) PO SCH ×2 (10:50→22:26)
[2017-05-05] MEDS: NICOTINE 14 MG/24 HOURS TOPICAL PATCH TD SCH (10:51)
--- NOTE | 2017-05-05 11:36 | PN ---
[facility] CIWA - CIWA Score Nausea/Vomitin-No Nausea/No Vomiting Muscle Tremors: 4-Moderate,w/Arms Extend Anxiety: 4-Mod. Anxious/Guarded Agitation: 4-Moderately Restless Paroxysmal Sweats: 1-Minimal Palms Moist Orientation: 0-Oriented Tacttile Disturbances: 3-Moderate Itch/Numb/Burn Auditory Disturbances: 0-None Visual Disturbances: 0-None Headache: 0-None Present CIWA-Ar Total Score: 16 BHS Progress Note (SOAP) Subjective: ANXIETY,SWEATS,FATIGUE. Objective: 05/05/17 11:35 Vital Signs Temperature 98.1 F 05/05/17 09:42 Pulse Rate 77 05/05/17 09:42 Respiratory Rate 18 05/05/17 09:42 Blood Pressure 133/88 05/05/17 09:42 O2 Sat by Pulse Oximetry (%) Laboratory Last Values WBC 5.8 K/mm3 (4.0-10.0) 05/04/17 07:00 RBC 4.56 M/mm3 (4.00-5.60) 05/04/17 07:00 Hgb 12.7 GM/dL (11.7-16.9) 05/04/17 07:00 Hct 38.5 % (35.4-49) 05/04/17 07:00 MCV 84.5 fl (80-96) 05/04/17 07:00 MCH 27.8 pg (25.7-33.7) 05/04/17 07:00 MCHC 32.9 g/dl (32.0-35.9) 05/04/17 07:00 RDW 15.5 % (11.9-15.9) 05/04/17 07:00 Plt Count 298 K/MM3 (134-434) 05/04/17 07:00 MPV 8.0 fl (7.5-11.1) 05/04/17 07:00 Sodium 140 mmol/L (136-145) 05/04/17 07:00 Potassium 4.6 mmol/L (3.5-5.1) 05/04/17 07:00 Chloride 105 mmol/L (98-107) 05/04/17 07:00 Carbon Dioxide 25 mmol/L (21-32) 05/04/17 07:00 Anion Gap 10 (8-16) 05/04/17 07:00 BUN 14 mg/dL (7-18) 05/04/17 07:00 Creatinine 1.1 mg/dL (0.7-1.3) 05/04/17 07:00 Creat Clearance w eGFR > 60 (>60) 05/04/17 07:00 Random Glucose 103 mg/dL (74-106) 05/04/17 07:00 Calcium 8.9 mg/dL (8.5-10.1) 05/04/17 07:00 Total Bilirubin 0.2 mg/dL (0.2-1.0) 05/04/17 07:00 AST 11 U/L (15-37) L D 05/04/17 07:00 ALT 16 U/L (12-78) 05/04/17 07:00 Alkaline Phosphatase 54 U/L (45-117) 05/04/17 07:00 Total Protein 6.3 g/dl (6.4-8.2) L 05/04/17 07:00 Albumin 3.0 g/dl (3.4-5.0) L 05/04/17 07:00 Urine Color Ltyellow 05/03/17 21:57 Urine Appearance Cloudy 05/03/17 21:57 Urine pH 5.0 (5.0-8.0) 05/03/17 21:57 Ur Specific [place] >= 1.030 (1.005-1.025) H 05/03/17 21:57 Urine Protein Negative (NEGATIVE) 05/03/17 21:57 Urine Glucose (UA) Negative (NEGATIVE) 05/03/17 21:57 Urine Ketones Negative (NEGATIVE) 05/03/17 21:57 Urine Blood Negative (NEGATIVE) 05/03/17 21:57 Urine Nitrite Negative (NEGATIVE) 05/03/17 21:57 Urine Bilirubin Negative (NEGATIVE) 05/03/17 21:57 Urine Urobilinogen Negative mg/dL (0.2-1.0) 05/03/17 21:57 Ur Leukocyte Esterase Negative (NEGATIVE) 05/03/17 21:57 RPR Titer Nonreactive (NONREACTIVE) 05/04/17 07:00 Assessment: 05/05/17 11:36 WITHDRAWAL SX Plan: CONTINUE DETOX
[2017-05-05] MEDS: ZOLPIDEM TARTRATE 10 MG TABLET (PARK CARE ONLY) PO PRN (22:26)
[2017-05-05] MEDS: THIAMINE HCL 100 MG TABLET (FP) PO SCH (22:26)
[2017-05-05] MEDS: chlordiazePOXIDE 5 MG CAPSULE PO SCH (22:26)
[2017-05-05] MEDS: MINERAL OIL/PETROLAT/WATER TOPICAL CREAM 113 GM JAR TP SCH (23:09)
[2017-05-05] MEDS: LIDOCAINE PATCH REMOVAL MC SCH (23:10)
[2017-05-05] MEDS: LATANOPROST 0.005% OPHTH SOLN 2.5ML BOTTLE OU SCH (23:10)
[2017-05-06] MEDS: chlordiazePOXIDE 5 MG CAPSULE PO SCH ×3 (06:05→17:30)
[2017-05-06] MEDS: CYCLOBENZAPRINE HCL 10 MG TABLET (FP) PO SCH ×3 (06:05→22:22)
[2017-05-06] MEDS: NICOTINE 14 MG/24 HOURS TOPICAL PATCH TD SCH (10:54)
[2017-05-06] MEDS: RANITIDINE HCL 150 MG TABLET (FP) PO SCH ×2 (10:54→22:22)
[2017-05-06] MEDS: PRENATAL VITAMINS W/ FOLIC ACID TABLET (FP) PO SCH (10:54)
[2017-05-06] MEDS: LIDOCAINE 5% TOPICAL PATCH TP SCH (10:55)
--- NOTE | 2017-05-06 11:41 | PN ---
BHS Progress Note (SOAP) Subjective: DECREASED ANXIETY,SWEATS. Objective: 05/06/17 11:40 Vital Signs Temperature 96.5 F L 05/06/17 11:02 Pulse Rate 79 05/06/17 11:02 Respiratory Rate 18 05/06/17 11:02 Blood Pressure 125/83 05/06/17 11:02 O2 Sat by Pulse Oximetry (%) Laboratory Last Values WBC 5.8 K/mm3 (4.0-10.0) 05/04/17 07:00 RBC 4.56 M/mm3 (4.00-5.60) 05/04/17 07:00 Hgb 12.7 GM/dL (11.7-16.9) 05/04/17 07:00 Hct 38.5 % (35.4-49) 05/04/17 07:00 MCV 84.5 fl (80-96) 05/04/17 07:00 MCH 27.8 pg (25.7-33.7) 05/04/17 07:00 MCHC 32.9 g/dl (32.0-35.9) 05/04/17 07:00 RDW 15.5 % (11.9-15.9) 05/04/17 07:00 Plt Count 298 K/MM3 (134-434) 05/04/17 07:00 MPV 8.0 fl (7.5-11.1) 05/04/17 07:00 Sodium 140 mmol/L (136-145) 05/04/17 07:00 Potassium 4.6 mmol/L (3.5-5.1) 05/04/17 07:00 Chloride 105 mmol/L (98-107) 05/04/17 07:00 Carbon Dioxide 25 mmol/L (21-32) 05/04/17 07:00 Anion Gap 10 (8-16) 05/04/17 07:00 BUN 14 mg/dL (7-18) 05/04/17 07:00 Creatinine 1.1 mg/dL (0.7-1.3) 05/04/17 07:00 Creat Clearance w eGFR > 60 (>60) 05/04/17 07:00 Random Glucose 103 mg/dL (74-106) 05/04/17 07:00 Calcium 8.9 mg/dL (8.5-10.1) 05/04/17 07:00 Total Bilirubin 0.2 mg/dL (0.2-1.0) 05/04/17 07:00 AST 11 U/L (15-37) L D 05/04/17 07:00 ALT 16 U/L (12-78) 05/04/17 07:00 Alkaline Phosphatase 54 U/L (45-117) 05/04/17 07:00 Total Protein 6.3 g/dl (6.4-8.2) L 05/04/17 07:00 Albumin 3.0 g/dl (3.4-5.0) L 05/04/17 07:00 Urine Color Ltyellow 05/03/17 21:57 Urine Appearance Cloudy 05/03/17 21:57 Urine pH 5.0 (5.0-8.0) 05/03/17 21:57 Ur Specific [place] >= 1.030 (1.005-1.025) H 05/03/17 21:57 Urine Protein Negative (NEGATIVE) 05/03/17 21:57 Urine Glucose (UA) Negative (NEGATIVE) 05/03/17 21:57 Urine Ketones Negative (NEGATIVE) 05/03/17 21:57 Urine Blood Negative (NEGATIVE) 05/03/17 21:57 Urine Nitrite Negative (NEGATIVE) 05/03/17 21:57 Urine Bilirubin Negative (NEGATIVE) 05/03/17 21:57 Urine Urobilinogen Negative mg/dL (0.2-1.0) 05/03/17 21:57 Ur Leukocyte Esterase Negative (NEGATIVE) 05/03/17 21:57 RPR Titer Nonreactive (NONREACTIVE) 05/04/17 07:00 Assessment: 05/06/17 11:41 WITHDRAWAL SX Plan: CONTINUE DETOX
[2017-05-06] MEDS: chlordiazePOXIDE HCL 10 MG CAPSULE PO SCH (22:22)
[2017-05-06] MEDS: ZOLPIDEM TARTRATE 10 MG TABLET (PARK CARE ONLY) PO PRN (22:22)
[2017-05-06] MEDS: THIAMINE HCL 100 MG TABLET (FP) PO SCH (22:22)
[2017-05-06] MEDS: MINERAL OIL/PETROLAT/WATER TOPICAL CREAM 113 GM JAR TP SCH (22:22)
[2017-05-06] MEDS: LIDOCAINE PATCH REMOVAL MC SCH (22:22)
[2017-05-06] MEDS: LATANOPROST 0.005% OPHTH SOLN 2.5ML BOTTLE OU SCH (22:22)
[2017-05-07 06:54] VITALS: BP 127/86; PULSE 97; TEMP 95.8
[2017-05-07] MEDS: CYCLOBENZAPRINE HCL 10 MG TABLET (FP) PO SCH (07:46)
[2017-05-07] MEDS: chlordiazePOXIDE HCL 10 MG CAPSULE PO SCH (07:46)
--- NOTE | 2017-05-07 23:11 | DS ---
[facility] Detox Discharge Summary Admission Date: 05/03/17 Discharge Date: 05/07/17 - History Present History: Alcohol Dependence, Cocaine Dependence Additional Comments: PATIENT REPORTS THAT HE IS INTENT ON GOING TO [facility]. PATIENT WAS DISCHARGED FROM UNIT IN STABLE MEDICAL CONDITION. Pertinent Past History: G.E.R.D., Depression, Glaucoma, Chronic Low Back Pain, Insomnia. - Physical Exam Results Vital Signs: Vital Signs Temperature 95.8 F L 05/07/17 06:00 Pulse Rate 97 H 05/07/17 06:00 Respiratory Rate 18 05/07/17 06:00 Blood Pressure 127/86 05/07/17 06:00 O2 Sat by Pulse Oximetry (%) Pertinent Admission Physical Exam Findings: WITHDRAWAL SYMPTOMS. Laboratory Tests 05/03/17 05/04/17 05/04/17 21:57 07:00 07:00 WBC 5.8 RBC 4.56 Hgb 12.7 Hct 38.5 MCV 84.5 MCH 27.8 MCHC 32.9 RDW 15.5 Plt Count 298 MPV 8.0 Sodium 140 Potassium 4.6 Chloride 105 Carbon Dioxide 25 Anion Gap 10 BUN 14 Creatinine 1.1 Creat Clearance w eGFR > 60 Random Glucose 103 Calcium 8.9 Total Bilirubin 0.2 AST 11 L D ALT 16 Alkaline Phosphatase 54 Total Protein 6.3 L Albumin 3.0 L Urine Color Ltyellow Urine Appearance Cloudy Urine pH 5.0 Ur Specific [place] >= 1.030 H Urine Protein Negative Urine Glucose (UA) Negative Urine Ketones Negative Urine Blood Negative Urine Nitrite Negative Urine Bilirubin Negative Urine Urobilinogen Negative Ur Leukocyte Esterase Negative RPR Titer 05/04/17 07:00 WBC RBC Hgb Hct MCV MCH MCHC RDW Plt Count MPV Sodium Potassium Chloride Carbon Dioxide Anion Gap BUN Creatinine Creat Clearance w eGFR Random Glucose Calcium Total Bilirubin AST ALT Alkaline Phosphatase Total Protein Albumin Urine Color Urine Appearance Urine pH Ur Specific [place] Urine Protein Urine Glucose (UA) Urine Ketones Urine Blood Urine Nitrite Urine Bilirubin Urine Urobilinogen Ur Leukocyte Esterase RPR Titer Nonreactive LABS NOTED. - Treatment Hospital Course: Detox Protocol Followed, Detoxed Safely, Responded well, Discharged Condition Good, Rehab Referral Accepted Patient has Accepted a Rehab Referral to: [facility]. - Medication Discharge Medications: Ambulatory Orders Latanoprost 0.005% Eye Drops [Xalatan 0.005% Eye Drops -] 1 drop OD HS #1 drops 11/18/15 - Diagnosis (1) Alcohol dependence with uncomplicated withdrawal Status: Acute (2) Cocaine dependence, uncomplicated Status: Acute (3) Impulse control disorder Status: Acute (4) Insomnia Status: Acute Qualifiers: Insomnia type: unspecified Qualified Code(s): G47.00 - Insomnia, unspecified (5) Nicotine dependence Status: Chronic Qualifiers: Nicotine product type: cigarettes Substance use status: in withdrawal Qualified Code(s): F17.213 - Nicotine dependence, cigarettes, with withdrawal (6) Substance induced mood disorder Status: Acute (7) Chronic lower back pain Status: Chronic Qualifiers: Back pain laterality: right Sciatica presence: without sciatica Qualified Code(s): M54.5 - Low back pain; G89.29 - Other chronic pain (8) GERD (gastroesophageal reflux disease) Status: Chronic Qualifiers: Esophagitis presence: without esophagitis Qualified Code(s): K21.9 - Gastro-esophageal reflux disease without esophagitis (9) Glaucoma Status: Chronic Qualifiers: Glaucoma type: open-angle Open angle glaucoma type: unspecified type Laterality: bilateral Glaucoma stage: mild stage Qualified Code(s) : H40.10X1 - Unspecified open-angle glaucoma, mild stage (10) HTN (hypertension) Status: Chronic Qualifiers: Hypertension type: essential hypertension Qualified Code(s): I10 - Essential (primary) hypertension - AMA Did Patient Leave Against Medical Advice: No
== END 2017-05-07 09:37 | disposition home or self-care (01) | DRG 774 ==
LOC: YASAS 14:42 → Y3N 18:23
PROVIDERS: ADMIT Internal Medicine Addiction Medicine; ATTEND Internal Medicine Addiction Medicine
PROC: HZ2ZZZZ Detoxification Services for Substance Abuse Treatment (ICD-10-PCS; principal; 2017-05-03)
DX: F10.230 Alcohol dependence with withdrawal, uncomplicated (principal); F14.20 Cocaine dependence, uncomplicated; F17.213 Nicotine dependence, cigarettes, with withdrawal; F63.9 Impulse disorder, unspecified; F19.24 Other psychoactive substance dependence with psychoactive substance-induced mood disorder; I10 Essential (primary) hypertension; K21.9 Gastro-esophageal reflux disease without esophagitis; G47.00 Insomnia, unspecified; M54.5 Low back pain; G89.29 Other chronic pain; R00.0 Tachycardia, unspecified; H40.10X1 Unspecified open-angle glaucoma, mild stage; Z88.0 Allergy status to penicillin; Z91.013 Allergy to seafood; Z91.018 Allergy to other foods
CPT/HCPCS: 36415; 80053; 81003; 85027; 86593; 93005; 93010

== ENCOUNTER 2017-07-29 12:35 | Inpatient (IN) | payer OTHER ==
[2017-07-29 12:44] VITALS: BMI 21.8
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
[2017-07-29] MEDS ORDERED: NICOTINE POLACRILEX 2 MG GUM BC PRN (14:13)
[2017-07-29] MEDS ORDERED: MAGNESIUM HYDROX 2400MG/30ML ORAL SUSPENSION 30 ML CUP PO PRN (14:13)
[2017-07-29] MEDS ORDERED: LOPERAMIDE HCL 2 MG CAPSULE PO PRN (14:13)
[2017-07-29] MEDS ORDERED: guaiFENesin/D-METHORPHAN HB 10 ML UNIT-DOSE CUPS PO PRN (14:13)
[2017-07-29] MEDS ORDERED: IBUPROFEN 400 MG TABLET (FP) PO PRN (14:13)
[2017-07-29] MEDS ORDERED: chlordiazePOXIDE HCL 25 MG CAPSULE PO PRN (14:13)
[2017-07-29] MEDS ORDERED: P-EPHED 60MG/TRIPROLIDI 2.5MG TABLET PO PRN (14:13)
[2017-07-29] MEDS ORDERED: MAGNESIUM CITRATE 300 ML BOTTLE PO PRN (14:13)
[2017-07-29] MEDS ORDERED: MAG HYDROX/AL HYDROX/SIMETH 30 ML UNIT-DOSE CUP PO PRN (14:13)
[2017-07-29] MEDS ORDERED: ACETAMINOPHEN 325 MG TABLET (FP) PO PRN (14:13)
[2017-07-29] MEDS ORDERED: MENTHOL/PHENOL 1 EACH UD MM PRN (14:13)
[2017-07-29] MEDS: ONDANSETRON *ODT* 4 MG TABLET SL PRN ×2 (15:41→22:30)
[2017-07-29] MEDS: NICOTINE 14 MG/24 HOURS TOPICAL PATCH TD SCH (15:44)
[2017-07-29] MEDS ORDERED: chlordiazePOXIDE HCL 25 MG CAPSULE PO ONE (15:45)
[2017-07-29 16:40] LABS: MCH 28.5 pg (25.7-33.7); MCHC 33.3 g/dl (32.0-35.9); MEAN CELL VOLUME 85.5 fl (80-96); MEAN PLT VOLUME 8.2 fl (7.5-11.1); PLATELET COUNT 343 K/MM3 (134-434); RDW 15.2 % (11.9-15.9); WHITE BLOOD COUNT 7.5 K/mm3 (4.0-10.0)
[2017-07-29 16:55] LABS: ALBUMIN 3.6 g/dl (3.4-5.0); ANION GAP 6 (8-16); BILIRUBIN,TOTAL 0.7 mg/dL (0.2-1.0); CALCIUM 9.2 mg/dL (8.5-10.1); CO2 29 mmol/L (21-32); CREATININE 1.2 mg/dL (0.7-1.3); GLUCOSE,RANDOM 93 mg/dL (74-106); SGOT/AST 14 U/L (15-37); SGPT/ALT 20 U/L (12-78)
[2017-07-29 16:56] LABS: ALK PHOS 67 U/L (45-117)
[2017-07-29] MEDS: chlordiazePOXIDE HCL 25 MG CAPSULE PO SCH ×2 (17:34→22:26)
[2017-07-29] MEDS: THIAMINE HCL 100 MG TABLET (FP) PO SCH (22:26)
[2017-07-29] MEDS: LATANOPROST 0.005% OPHTH SOLN 2.5ML BOTTLE OU SCH (22:28)
[2017-07-29] MEDS: AMMONIUM LACTATE 12% LOTION 225 GM BOTTLE TP SCH (22:28)
[2017-07-30 01:37] LABS: URINE APPEARANCE CLEAR; URINE BILIRUBIN NEGATIVE (NEGATIVE); URINE BLOOD NEGATIVE (NEGATIVE); URINE COLOR YELLOW; URINE GLUCOSE (UA) NEGATIVE (NEGATIVE); URINE KETONE NEGATIVE (NEGATIVE); URINE NITRITE NEGATIVE (NEGATIVE); URINE PROTEIN NEGATIVE (NEGATIVE); URINE UROBILINOGEN NEGATIVE mg/dL (0.2-1.0)
[2017-07-30] MEDS: chlordiazePOXIDE HCL 25 MG CAPSULE PO SCH ×4 (06:20→22:16)
--- NOTE | 2017-07-30 09:03 | EKG ---
Test Reason : Blood Pressure : / mmHG Vent. Rate : 079 BPM Atrial Rate : 079 BPM P-R Int : 162 ms QRS Dur : 082 ms QT Int : 368 ms P-R-T Axes : 071 059 048 degrees QTc Int : 421 ms NORMAL SINUS RHYTHM POSSIBLE LEFT ATRIAL ENLARGEMENT BORDERLINE ECG WHEN COMPARED WITH ECG OF 03-MAY-2017 19:48, NO SIGNIFICANT CHANGE WAS FOUND Confirmed by DREW PRICE MD ([id number]) on 07/30/2017 9:02:57 AM Referred By: Confirmed By:DREW PRICE MD
[2017-07-30] MEDS: AMMONIUM LACTATE 12% LOTION 225 GM BOTTLE TP SCH ×2 (10:04→22:19)
[2017-07-30] MEDS: PRENATAL VITAMINS W/ FOLIC ACID TABLET (FP) PO SCH (10:04)
[2017-07-30] MEDS: NICOTINE 14 MG/24 HOURS TOPICAL PATCH TD SCH (10:05)
[2017-07-30] MEDS: PANTOPRAZOLE 40 MG TABLET (FP) PO SCH (10:07)
[2017-07-30 11:17] LABS: URINE LEUK ESTERASE Negative (NEGATIVE)
--- NOTE | 2017-07-30 14:24 | PN ---
S CIWA - CIWA Score Nausea/Vomitin-No Nausea/No Vomiting Muscle Tremors: 3 Anxiety: 3 Agitation: 4-Moderately Restless Paroxysmal Sweats: 3 Orientation: 0-Oriented Tacttile Disturbances: 1-Very Mild Itch/Numbness Auditory Disturbances: 0-None Visual Disturbances: 0-None Headache: 0-None Present CIWA-Ar Total Score: 14 BHS Progress Note (SOAP) Subjective: Anxiety,tremors,sweating,interrupted sleep,restless Objective: 07/30/17 14:23 Vital Signs - 8 hr 07/30/17 10:00 Temperature 97.7 F Pulse Rate 73 Respiratory 18 Rate Blood Pressure 123/78 Laboratory Tests 07/29/17 07/29/17 07/29/17 15:30 15:30 15:30 WBC 7.5 RBC 5.05 Hgb 14.4 D Hct 43.2 MCV 85.5 MCH 28.5 MCHC 33.3 RDW 15.2 Plt Count 343 MPV 8.2 Sodium 138 Potassium 4.7 Chloride 103 Carbon Dioxide 29 Anion Gap 6 L BUN 12 Creatinine 1.2 Creat Clearance w eGFR > 60 Random Glucose 93 Calcium 9.2 Total Bilirubin 0.7 D AST 14 L D ALT 20 D Alkaline Phosphatase 67 D Total Protein 8.0 D Albumin 3.6 Urine Color Urine Appearance Urine pH Ur Specific [place] Urine Protein Urine Glucose (UA) Urine Ketones Urine Blood Urine Nitrite Urine Bilirubin Urine Urobilinogen Ur Leukocyte Esterase RPR Titer Nonreactive 07/29/17 15:47 WBC RBC Hgb Hct MCV MCH MCHC RDW Plt Count MPV Sodium Potassium Chloride Carbon Dioxide Anion Gap BUN Creatinine Creat Clearance w eGFR Random Glucose Calcium Total Bilirubin AST ALT Alkaline Phosphatase Total Protein Albumin Urine Color Yellow Urine Appearance Clear Urine pH 5.0 Ur Specific [place] 1.020 Urine Protein Negative Urine Glucose (UA) Negative Urine Ketones Negative Urine Blood Negative Urine Nitrite Negative Urine Bilirubin Negative Urine Urobilinogen Negative Ur Leukocyte Esterase Negative RPR Titer labs noted Assessment: 07/30/17 14:24 Withdrawal sx. Plan: Continue detox
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
[2017-07-30] MEDS: LATANOPROST 0.005% OPHTH SOLN 2.5ML BOTTLE OU SCH (22:15)
[2017-07-30] MEDS: THIAMINE HCL 100 MG TABLET (FP) PO SCH (22:16)
[2017-07-30] MEDS: QUEtiapine FUMARATE 50 MG TABLET PO SCH (22:16)
[2017-07-30] MEDS: ONDANSETRON *ODT* 4 MG TABLET SL PRN (22:19)
[2017-07-31] MEDS: chlordiazePOXIDE HCL 25 MG CAPSULE PO SCH ×2 (05:37→10:12)
[2017-07-31] MEDS: PANTOPRAZOLE 40 MG TABLET (FP) PO SCH (10:12)
[2017-07-31] MEDS: AMMONIUM LACTATE 12% LOTION 225 GM BOTTLE TP SCH ×2 (10:12→22:10)
[2017-07-31] MEDS: PRENATAL VITAMINS W/ FOLIC ACID TABLET (FP) PO SCH (10:12)
[2017-07-31] MEDS: NICOTINE 14 MG/24 HOURS TOPICAL PATCH TD SCH (10:12)
[2017-07-31] MEDS: ONDANSETRON *ODT* 4 MG TABLET SL PRN (10:12)
--- NOTE | 2017-07-31 10:31 | PN ---
[facility] CIWA - CIWA Score Nausea/Vomitin-Mild Nausea/No Vomiting Muscle Tremors: 3 Anxiety: 2 Agitation: 1-Slight > Activity Paroxysmal Sweats: 2 Orientation: 0-Oriented Tacttile Disturbances: 0-None Auditory Disturbances: 0-None Visual Disturbances: 0-None Headache: 0-None Present CIWA-Ar Total Score: 9 BHS Progress Note (SOAP) Subjective: nausea tremor anxiety sweating Objective: 07/31/17 10:31 Vital Signs Temperature 96.1 F L 07/31/17 09:49 Pulse Rate 74 07/31/17 09:49 Respiratory Rate 18 07/31/17 09:49 Blood Pressure 140/92 07/31/17 09:49 O2 Sat by Pulse Oximetry (%) Laboratory Last Values WBC 7.5 K/mm3 (4.0-10.0) 07/29/17 15:30 RBC 5.05 M/mm3 (4.00-5.60) 07/29/17 15:30 Hgb 14.4 GM/dL (11.7-16.9) D 07/29/17 15:30 Hct 43.2 % (35.4-49) 07/29/17 15:30 MCV 85.5 fl (80-96) 07/29/17 15:30 MCH 28.5 pg (25.7-33.7) 07/29/17 15:30 MCHC 33.3 g/dl (32.0-35.9) 07/29/17 15:30 RDW 15.2 % (11.9-15.9) 07/29/17 15:30 Plt Count 343 K/MM3 (134-434) 07/29/17 15:30 MPV 8.2 fl (7.5-11.1) 07/29/17 15:30 Sodium 138 mmol/L (136-145) 07/29/17 15:30 Potassium 4.7 mmol/L (3.5-5.1) 07/29/17 15:30 Chloride 103 mmol/L (98-107) 07/29/17 15:30 Carbon Dioxide 29 mmol/L (21-32) 07/29/17 15:30 Anion Gap 6 (8-16) L 07/29/17 15:30 BUN 12 mg/dL (7-18) 07/29/17 15:30 Creatinine 1.2 mg/dL (0.7-1.3) 07/29/17 15:30 Creat Clearance w eGFR > 60 (>60) 07/29/17 15:30 Random Glucose 93 mg/dL (74-106) 07/29/17 15:30 Calcium 9.2 mg/dL (8.5-10.1) 07/29/17 15:30 Total Bilirubin 0.7 mg/dL (0.2-1.0) D 07/29/17 15:30 AST 14 U/L (15-37) L D 07/29/17 15:30 ALT 20 U/L (12-78) D 07/29/17 15:30 Alkaline Phosphatase 67 U/L (45-117) D 07/29/17 15:30 Total Protein 8.0 g/dl (6.4-8.2) D 07/29/17 15:30 Albumin 3.6 g/dl (3.4-5.0) 07/29/17 15:30 Urine Color Yellow 07/29/17 15:47 Urine Appearance Clear 07/29/17 15:47 Urine pH 5.0 (5.0-8.0) 07/29/17 15:47 Ur Specific [place] 1.020 (1.001-1.035) 07/29/17 15:47 Urine Protein Negative (NEGATIVE) 07/29/17 15:47 Urine Glucose (UA) Negative (NEGATIVE) 07/29/17 15:47 Urine Ketones Negative (NEGATIVE) 07/29/17 15:47 Urine Blood Negative (NEGATIVE) 07/29/17 15:47 Urine Nitrite Negative (NEGATIVE) 07/29/17 15:47 Urine Bilirubin Negative (NEGATIVE) 07/29/17 15:47 Urine Urobilinogen Negative mg/dL (0.2-1.0) 07/29/17 15:47 Ur Leukocyte Esterase Negative (NEGATIVE) 07/29/17 15:47 RPR Titer Nonreactive (NONREACTIVE) 07/29/17 15:30 lab noted Assessment: 07/31/17 10:31 withdrawal sx Plan: continue detox
[2017-07-31] MEDS: chlordiazePOXIDE 5 MG CAPSULE PO SCH ×2 (18:41→22:08)
[2017-07-31] MEDS: QUEtiapine FUMARATE 50 MG TABLET PO SCH (22:08)
[2017-07-31] MEDS: LATANOPROST 0.005% OPHTH SOLN 2.5ML BOTTLE OU SCH (22:08)
[2017-07-31] MEDS: THIAMINE HCL 100 MG TABLET (FP) PO SCH (22:09)
[2017-08-01] MEDS: chlordiazePOXIDE 5 MG CAPSULE PO SCH ×2 (06:04→10:13)
[2017-08-01] MEDS: NICOTINE 14 MG/24 HOURS TOPICAL PATCH TD SCH (10:12)
[2017-08-01] MEDS: PRENATAL VITAMINS W/ FOLIC ACID TABLET (FP) PO SCH (10:12)
[2017-08-01] MEDS: PANTOPRAZOLE 40 MG TABLET (FP) PO SCH (10:13)
[2017-08-01] MEDS: AMMONIUM LACTATE 12% LOTION 225 GM BOTTLE TP SCH ×2 (10:14→22:27)
--- NOTE | 2017-08-01 12:16 | PN ---
BHS Progress Note (SOAP) Subjective: body aches sweats Objective: 08/01/17 12:15 Vital Signs Temperature 98.1 F 08/01/17 09:37 Pulse Rate 99 H 08/01/17 09:37 Respiratory Rate 18 08/01/17 09:37 Blood Pressure 130/85 08/01/17 09:37 O2 Sat by Pulse Oximetry (%) aaox3 ambulating no acute distress Assessment: 08/01/17 12:16 withdrawal sx Plan: continue detox increase fluids d/c in am
[2017-08-01] MEDS: chlordiazePOXIDE HCL 10 MG CAPSULE PO SCH ×2 (18:08→22:24)
[2017-08-01] MEDS: LATANOPROST 0.005% OPHTH SOLN 2.5ML BOTTLE OU SCH (22:23)
[2017-08-01] MEDS: THIAMINE HCL 100 MG TABLET (FP) PO SCH (22:24)
[2017-08-01] MEDS: QUEtiapine FUMARATE 50 MG TABLET PO SCH (22:24)
[2017-08-02] MEDS: chlordiazePOXIDE HCL 10 MG CAPSULE PO SCH (06:05)
--- NOTE | 2017-08-02 09:08 | DS ---
[facility] Detox Discharge Summary Admission Date: 07/29/17 Discharge Date: 08/02/17 - History Present History: Alcohol Dependence, Cocaine Dependence - Physical Exam Results Vital Signs: Vital Signs Temperature 96.1 F L 08/02/17 06:10 Pulse Rate 92 H 08/02/17 06:10 Respiratory Rate 20 08/02/17 06:10 Blood Pressure 145/76 08/02/17 06:10 O2 Sat by Pulse Oximetry (%) - Treatment Hospital Course: Detox Protocol Followed, Detoxed Safely, Responded well, Discharged Condition Good, Rehab Referral Accepted - Medication Discharge Medications: Ambulatory Orders Latanoprost 0.005% Eye Drops [Xalatan 0.005% Eye Drops -] 1 drop OU HS 07/29/17 Pantoprazole Sodium [Protonix -] 40 mg PO DAILY 07/29/17 Quetiapine Fumarate [Seroquel -] 50 mg PO HS #30 tablet 07/30/17 - Diagnosis (1) Alcohol dependence with uncomplicated withdrawal Current Visit: Yes Status: Chronic (2) Cocaine dependence, uncomplicated Current Visit: Yes Status: Chronic (3) Insomnia Current Visit: Yes Status: Acute Qualifiers: Insomnia type: unspecified Qualified Code(s): G47.00 - Insomnia, unspecified (4) Nicotine dependence Current Visit: Yes Status: Chronic Qualifiers: Nicotine product type: cigarettes Substance use status: uncomplicated Qualified Code(s): F17.210 - Nicotine dependence, cigarettes, uncomplicated (5) Substance induced mood disorder Current Visit: Yes Status: Acute (6) Chronic lower back pain Current Visit: Yes Status: Chronic Qualifiers: Back pain laterality: right Sciatica presence: without sciatica Qualified Code(s): M54.5 - Low back pain (7) GERD (gastroesophageal reflux disease) Current Visit: Yes Status: Chronic Qualifiers: Esophagitis presence: esophagitis presence not specified Qualified Code(s) : K21.9 - Gastro-esophageal reflux disease without esophagitis (8) Glaucoma Current Visit: Yes Status: Chronic Qualifiers: Glaucoma type: open-angle Open angle glaucoma type: unspecified type Laterality: bilateral Glaucoma stage: mild stage Qualified Code(s): H40.10X1 - Unspecified open-angle glaucoma, mild stage (9) Depression (emotion) Current Visit: Yes Status: Suspected Qualifiers: Depression Type: unspecified Qualified Code(s): F32.9 - Major depressive disorder, single episode, unspecified (10) Cocaine dependence Current Visit: No Status: Acute Qualifiers: Substance use status: uncomplicated Qualified Code(s): F14.20 - Cocaine dependence, uncomplicated (11) Impulse control disorder Current Visit: No Status: Acute (12) Substance-induced sleep disorder Current Visit: No Status: Acute (13) Weight loss Current Visit: No Status: Acute (14) Gastroesophageal reflux disease Current Visit: No Status: Chronic (15) HTN (hypertension) Current Visit: No Status: Chronic Qualifiers: Hypertension type: essential hypertension Qualified Code(s): I10 - Essential (primary) hypertension (16) Herniated disc Current Visit: No Status: Chronic Qualifiers: Mid-cervical spinal level: unspecified (17) Hyperlipidemia Current Visit: No Status: Chronic (18) Superficial bruising of lower leg Current Visit: No Status: Chronic Qualifiers: Encounter type: initial encounter Laterality: right Qualified Code(s): S80.11XA - Contusion of right lower leg, initial encounter - AMA Did Patient Leave Against Medical Advice: No
[2017-08-02 09:30] VITALS: BP 143/99; PULSE 98; TEMP 97.7
[2017-08-02] MEDS: PANTOPRAZOLE 40 MG TABLET (FP) PO SCH (09:50)
[2017-08-02] MEDS: PRENATAL VITAMINS W/ FOLIC ACID TABLET (FP) PO SCH (09:50)
[2017-08-02] MEDS: NICOTINE 14 MG/24 HOURS TOPICAL PATCH TD SCH (09:52)
== END 2017-08-02 10:00 | disposition home or self-care (01) | DRG 774 ==
LOC: YASAS 12:35 → Y6N 13:32
PROVIDERS: ADMIT Internal Medicine; ATTEND Internal Medicine
PROC: HZ2ZZZZ Detoxification Services for Substance Abuse Treatment (ICD-10-PCS; principal; 2017-07-29)
DX: F14.20 Cocaine dependence, uncomplicated (principal); F10.230 Alcohol dependence with withdrawal, uncomplicated; F17.210 Nicotine dependence, cigarettes, uncomplicated; F19.24 Other psychoactive substance dependence with psychoactive substance-induced mood disorder; F19.282 Other psychoactive substance dependence with psychoactive substance-induced sleep disorder; F32.9 Major depressive disorder, single episode, unspecified; F63.9 Impulse disorder, unspecified; K21.9 Gastro-esophageal reflux disease without esophagitis; M54.5 Low back pain; G89.29 Other chronic pain; R63.4 Abnormal weight loss; Z68.21 Body mass index [BMI] 21.0-21.9, adult
CPT/HCPCS: 36415; 80053; 81003; 85027; 86593; 93005; 93010

== ENCOUNTER 2017-10-25 15:31 | Inpatient (IN) | payer OTHER ==
[2017-10-25 16:43] VITALS: BMI 21.2
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
[2017-10-25] MEDS ORDERED: MAG HYDROX/AL HYDROX/SIMETH 30 ML UNIT-DOSE CUP PO PRN (17:50)
[2017-10-25] MEDS ORDERED: MAGNESIUM HYDROX 2400MG/30ML ORAL SUSPENSION 30 ML CUP PO PRN (17:50)
[2017-10-25] MEDS ORDERED: guaiFENesin/D-METHORPHAN HB 10 ML UNIT-DOSE CUPS PO PRN (17:50)
[2017-10-25] MEDS ORDERED: MENTHOL/PHENOL 1 EACH UD MM PRN (17:50)
[2017-10-25] MEDS ORDERED: IBUPROFEN 400 MG TABLET (FP) PO PRN (17:50)
[2017-10-25] MEDS ORDERED: NICOTINE POLACRILEX 4 MG GUM BC PRN (17:50)
[2017-10-25] MEDS ORDERED: diazePAM 5 MG TABLET PO PRN (17:50)
[2017-10-25] MEDS ORDERED: P-EPHED 60MG/TRIPROLIDI 2.5MG TABLET PO PRN (17:50)
[2017-10-25] MEDS ORDERED: MAGNESIUM CITRATE 300 ML BOTTLE PO PRN (17:50)
[2017-10-25] MEDS ORDERED: LOPERAMIDE HCL 2 MG CAPSULE PO PRN (17:50)
[2017-10-25] MEDS ORDERED: ACETAMINOPHEN 325 MG TABLET (FP) PO PRN (17:50)
[2017-10-25] MEDS ORDERED: AMMONIUM LACTATE 12% LOTION 225 GM BOTTLE TP PRN (17:54)
[2017-10-25] MEDS ORDERED: diazePAM 5 MG TABLET PO ONE (19:45)
[2017-10-25] MEDS: hydrOXYzine PAMOATE 50 MG CAPSULE (FP) PO PRN (20:53)
[2017-10-25] MEDS: diazePAM 5 MG TABLET PO SCH (22:32)
[2017-10-25] MEDS: THIAMINE HCL 100 MG TABLET (FP) PO SCH (22:32)
[2017-10-25] MEDS: LIDOCAINE PATCH REMOVAL MC SCH (22:32)
[2017-10-25 23:12] LABS: URINE APPEARANCE CLEAR; URINE BILIRUBIN NEGATIVE (NEGATIVE); URINE BLOOD NEGATIVE (NEGATIVE); URINE COLOR YELLOW; URINE GLUCOSE (UA) NEGATIVE (NEGATIVE); URINE KETONE NEGATIVE (NEGATIVE); URINE LEUK ESTERASE NEGATIVE (NEGATIVE); URINE NITRITE NEGATIVE (NEGATIVE); URINE PROTEIN NEGATIVE (NEGATIVE)
[2017-10-26] MEDS: DORZOLAMIDE 2% HCL OPHTHALMIC SOLUTION 10 ML BOTTLE OU SCH ×3 (00:09→22:31)
[2017-10-26] MEDS: diazePAM 5 MG TABLET PO SCH ×3 (05:47→22:31)
[2017-10-26] MEDS: PANTOPRAZOLE 40 MG TABLET (FP) PO SCH (10:15)
[2017-10-26] MEDS: PRENATAL VITAMINS W/ FOLIC ACID TABLET (FP) PO SCH (10:15)
[2017-10-26] MEDS: LIDOCAINE 5% TOPICAL PATCH TP SCH (10:16)
[2017-10-26] MEDS: NICOTINE 14 MG/24 HOURS TOPICAL PATCH TD SCH (10:16)
[2017-10-26 10:29] LABS: ALBUMIN 3.4 g/dl (3.4-5.0); ANION GAP 4 (8-16); BILIRUBIN,TOTAL 0.5 mg/dL (0.2-1.0); BLOOD UREA NITROGEN 17 mg/dL (7-18); CALCIUM 8.6 mg/dL (8.5-10.1); CHLORIDE 105 mmol/L (98-107); CO2 28 mmol/L (21-32); CREATININE 1.3 mg/dL (0.7-1.3); GLUCOSE,RANDOM 105 mg/dL (74-106); HEMATOCRIT 43.4 % (35.4-49); HEMOGLOBIN 13.9 GM/dL (11.7-16.9); MCH 27.7 pg (25.7-33.7); MEAN CELL VOLUME 86.4 fl (80-96); MEAN PLT VOLUME 8.4 fl (7.5-11.1); PLATELET COUNT 293 K/MM3 (134-434); POTASSIUM 4.7 mmol/L (3.5-5.1); RBC 5.03 M/mm3 (4.00-5.60); RDW 15.8 % (11.9-15.9); SGOT/AST 15 U/L (15-37); SODIUM 137 mmol/L (136-145); TOT PROT 7.1 g/dl (6.4-8.2); WHITE BLOOD COUNT 6.4 K/mm3 (4.0-10.0)
--- NOTE | 2017-10-26 10:29 | EKG ---
Test Reason : Blood Pressure : / mmHG Vent. Rate : 080 BPM Atrial Rate : 080 BPM P-R Int : 154 ms QRS Dur : 084 ms QT Int : 368 ms P-R-T Axes : 058 064 056 degrees QTc Int : 424 ms NORMAL SINUS RHYTHM NORMAL ECG WHEN COMPARED WITH ECG OF 29-JUL-2017 15:50, NO SIGNIFICANT CHANGE WAS FOUND Confirmed by DREW PRICE MD ([id number]) on 10/26/2017 10:29:01 AM Referred By: Confirmed By:DREW PRICE MD
--- NOTE | 2017-10-26 10:33 | PN ---
S CIWA - CIWA Score Nausea/Vomitin-No Nausea/No Vomiting Muscle Tremors: 4-Moderate,w/Arms Extend Anxiety: 4-Mod. Anxious/Guarded Agitation: 4-Moderately Restless Paroxysmal Sweats: 1-Minimal Palms Moist Orientation: 0-Oriented Tacttile Disturbances: 3-Moderate Itch/Numb/Burn Auditory Disturbances: 0-None Visual Disturbances: 0-None Headache: 0-None Present CIWA-Ar Total Score: 16 BHS Progress Note (SOAP) Subjective: ANXIETY, SWEATS,SLIGHT TREMORS. Objective: 10/26/17 10:32 Vital Signs Temperature 95.6 F L 10/26/17 09:16 Pulse Rate 81 10/26/17 09:16 Respiratory Rate 18 10/26/17 09:16 Blood Pressure 139/89 10/26/17 09:16 O2 Sat by Pulse Oximetry (%) Laboratory Last Values Urine Color Yellow 10/25/17 21:44 Urine Appearance Clear 10/25/17 21:44 Urine pH 5.0 (5.0-8.0) 10/25/17 21:44 Ur Specific [place] 1.023 (1.001-1.035) 10/25/17 21:44 Urine Protein Negative (NEGATIVE) 10/25/17 21:44 Urine Glucose (UA) Negative (NEGATIVE) 10/25/17 21:44 Urine Ketones Negative (NEGATIVE) 10/25/17 21:44 Urine Blood Negative (NEGATIVE) 10/25/17 21:44 Urine Nitrite Negative (NEGATIVE) 10/25/17 21:44 Urine Bilirubin Negative (NEGATIVE) 10/25/17 21:44 Urine Urobilinogen 2.0 mg/dL (0.2-1.0) 10/25/17 21:44 Ur Leukocyte Esterase Negative (NEGATIVE) 10/25/17 21:44 OTHER LABS PENDING Assessment: 10/26/17 10:32 WITHDRAWAL SX Plan: CONTINUE DETOX
[2017-10-26 10:44] LABS: ALK PHOS 67 U/L (45-117); SGPT/ALT 18 U/L (12-78)
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
--- NOTE | 2017-10-26 13:58 | PN ---
[facility] Progress Note Note: PT HAS A HX OF HTN. HAD EEN GIVEN NORVASC 10 MG IN THE PAST AND MORE RECENTLY LOSARTAN 25 MG PO DAILY REGISTERED IN HIS HOME PHARMACY IN 2017. PT REPORTS TODAY THAT [place] STOPPED HIS HTN MED BECAUSE HIS BLOOD PRESSURE WAS UNDER CONTROL. PT DECLINED TO RESTART BP MED. ALERT O X 3. NAD. Vital Signs 10/26/17 10/26/17 10/26/17 06:36 09:16 13:22 Temperature 97.4 F L 95.6 F L 97.2 F L Pulse Rate 75 81 83 Respiratory 18 18 18 Rate Blood Pressure 133/89 139/89 125/78 PLAN: MONITOR BP AND RE-EVALUATE NEEDED.
[2017-10-26] MEDS: hydrOXYzine PAMOATE 50 MG CAPSULE (FP) PO PRN (20:13)
[2017-10-26] MEDS: THIAMINE HCL 100 MG TABLET (FP) PO SCH (22:30)
[2017-10-26] MEDS: LIDOCAINE PATCH REMOVAL MC SCH (22:31)
[2017-10-26] MEDS: QUEtiapine FUMARATE 50 MG TABLET PO SCH (22:31)
[2017-10-27] MEDS: LIDOCAINE 5% TOPICAL PATCH TP SCH (10:15)
[2017-10-27] MEDS: PRENATAL VITAMINS W/ FOLIC ACID TABLET (FP) PO SCH (10:15)
[2017-10-27] MEDS: NICOTINE 14 MG/24 HOURS TOPICAL PATCH TD SCH (10:16)
[2017-10-27] MEDS: diazePAM 5 MG TABLET PO SCH ×2 (10:17→22:18)
[2017-10-27] MEDS: DORZOLAMIDE 2% HCL OPHTHALMIC SOLUTION 10 ML BOTTLE OU SCH ×2 (10:17→22:18)
[2017-10-27] MEDS: PANTOPRAZOLE 40 MG TABLET (FP) PO SCH (10:17)
--- NOTE | 2017-10-27 10:18 | PN ---
[facility] CIWA - CIWA Score Nausea/Vomitin-No Nausea/No Vomiting Muscle Tremors: 4-Moderate,w/Arms Extend Anxiety: 4-Mod. Anxious/Guarded Agitation: 4-Moderately Restless Paroxysmal Sweats: 1-Minimal Palms Moist Orientation: 0-Oriented Tacttile Disturbances: 3-Moderate Itch/Numb/Burn Auditory Disturbances: 0-None Visual Disturbances: 0-None Headache: 0-None Present CIWA-Ar Total Score: 16 BHS Progress Note (SOAP) Subjective: ANXIETY,TREMORS,SWEATS. PT DECLINED TO GET BACK ON HIS BP MED LOSARTAN 25 MG DAILY OR NORVASC STATING HE HAS APPOINTMENT TO SEE HIS PRIMARY TRAVELING FREIGHT AGENT ONMONDAY AND WILL RATHER HAVE HIM RE-EVALUATE HIS HTN AFTER DETOX. MEANWHILE, PT WAS REMINDED BY THIS PLANT EQUIPMENT ENGINEER THAT WE WILL MONITOR HIS BP AND INTERVENE IF NEEDED. PT IS AGREEABLE. NO C/O HEADACHE OR DIZZINESS. Objective: 10/27/17 10:18 Vital Signs Temperature 96.0 F L 10/27/17 06:43 Pulse Rate 78 10/27/17 06:43 Respiratory Rate 19 10/27/17 06:43 Blood Pressure 141/84 10/27/17 06:43 O2 Sat by Pulse Oximetry (%) Laboratory Last Values WBC 6.4 K/mm3 (4.0-10.0) 10/26/17 06:15 RBC 5.03 M/mm3 (4.00-5.60) 10/26/17 06:15 Hgb 13.9 GM/dL (11.7-16.9) 10/26/17 06:15 Hct 43.4 % (35.4-49) 10/26/17 06:15 MCV 86.4 fl (80-96) 10/26/17 06:15 MCH 27.7 pg (25.7-33.7) 10/26/17 06:15 MCHC 32.0 g/dl (32.0-35.9) 10/26/17 06:15 RDW 15.8 % (11.9-15.9) 10/26/17 06:15 Plt Count 293 K/MM3 (134-434) 10/26/17 06:15 MPV 8.4 fl (7.5-11.1) 10/26/17 06:15 Sodium 137 mmol/L (136-145) 10/26/17 06:15 Potassium 4.7 mmol/L (3.5-5.1) 10/26/17 06:15 Chloride 105 mmol/L (98-107) 10/26/17 06:15 Carbon Dioxide 28 mmol/L (21-32) 10/26/17 06:15 Anion Gap 4 (8-16) L 10/26/17 06:15 BUN 17 mg/dL (7-18) D 10/26/17 06:15 Creatinine 1.3 mg/dL (0.7-1.3) 10/26/17 06:15 Creat Clearance w eGFR 55.58 (>60) 10/26/17 06:15 Random Glucose 105 mg/dL (74-106) 10/26/17 06:15 Calcium 8.6 mg/dL (8.5-10.1) 10/26/17 06:15 Total Bilirubin 0.5 mg/dL (0.2-1.0) D 10/26/17 06:15 AST 15 U/L (15-37) 10/26/17 06:15 ALT 18 U/L (12-78) 10/26/17 06:15 Alkaline Phosphatase 67 U/L (45-117) 10/26/17 06:15 Total Protein 7.1 g/dl (6.4-8.2) 10/26/17 06:15 Albumin 3.4 g/dl (3.4-5.0) 10/26/17 06:15 Urine Color Yellow 10/25/17 21:44 Urine Appearance Clear 10/25/17 21:44 Urine pH 5.0 (5.0-8.0) 10/25/17 21:44 Ur Specific [place] 1.023 (1.001-1.035) 10/25/17 21:44 Urine Protein Negative (NEGATIVE) 10/25/17 21:44 Urine Glucose (UA) Negative (NEGATIVE) 10/25/17 21:44 Urine Ketones Negative (NEGATIVE) 10/25/17 21:44 Urine Blood Negative (NEGATIVE) 10/25/17 21:44 Urine Nitrite Negative (NEGATIVE) 10/25/17 21:44 Urine Bilirubin Negative (NEGATIVE) 10/25/17 21:44 Urine Urobilinogen 2.0 mg/dL (0.2-1.0) 10/25/17 21:44 Ur Leukocyte Esterase Negative (NEGATIVE) 10/25/17 21:44 RPR Titer Nonreactive (NONREACTIVE) 10/26/17 06:15 Assessment: 10/27/17 10:18 WITHDRAWAL SX Plan: CONTINUE DETOX
[2017-10-27] MEDS: QUEtiapine FUMARATE 50 MG TABLET PO SCH (22:18)
[2017-10-27] MEDS: THIAMINE HCL 100 MG TABLET (FP) PO SCH (22:18)
[2017-10-27] MEDS: LIDOCAINE PATCH REMOVAL MC SCH (22:19)
[2017-10-28] MEDS: PRENATAL VITAMINS W/ FOLIC ACID TABLET (FP) PO SCH (10:15)
[2017-10-28] MEDS: DORZOLAMIDE 2% HCL OPHTHALMIC SOLUTION 10 ML BOTTLE OU SCH ×2 (10:15→22:19)
[2017-10-28] MEDS: PANTOPRAZOLE 40 MG TABLET (FP) PO SCH (10:15)
[2017-10-28] MEDS: diazePAM 5 MG TABLET PO SCH ×2 (10:15→22:20)
[2017-10-28] MEDS: NICOTINE 14 MG/24 HOURS TOPICAL PATCH TD SCH (10:15)
[2017-10-28] MEDS: LIDOCAINE 5% TOPICAL PATCH TP SCH (10:16)
--- NOTE | 2017-10-28 10:55 | PN ---
S Progress Note (SOAP) Subjective: DECREASED ANXIETY,TREMORS. ALERT O X 3. DETOX PROCEEDING WELL. Objective: 10/28/17 10:54 Vital Signs Temperature 96.9 F L 10/28/17 09:34 Pulse Rate 99 H 10/28/17 09:34 Respiratory Rate 20 10/28/17 09:34 Blood Pressure 133/82 10/28/17 09:34 O2 Sat by Pulse Oximetry (%) Laboratory Last Values WBC 6.4 K/mm3 (4.0-10.0) 10/26/17 06:15 RBC 5.03 M/mm3 (4.00-5.60) 10/26/17 06:15 Hgb 13.9 GM/dL (11.7-16.9) 10/26/17 06:15 Hct 43.4 % (35.4-49) 10/26/17 06:15 MCV 86.4 fl (80-96) 10/26/17 06:15 MCH 27.7 pg (25.7-33.7) 10/26/17 06:15 MCHC 32.0 g/dl (32.0-35.9) 10/26/17 06:15 RDW 15.8 % (11.9-15.9) 10/26/17 06:15 Plt Count 293 K/MM3 (134-434) 10/26/17 06:15 MPV 8.4 fl (7.5-11.1) 10/26/17 06:15 Sodium 137 mmol/L (136-145) 10/26/17 06:15 Potassium 4.7 mmol/L (3.5-5.1) 10/26/17 06:15 Chloride 105 mmol/L (98-107) 10/26/17 06:15 Carbon Dioxide 28 mmol/L (21-32) 10/26/17 06:15 Anion Gap 4 (8-16) L 10/26/17 06:15 BUN 17 mg/dL (7-18) D 10/26/17 06:15 Creatinine 1.3 mg/dL (0.7-1.3) 10/26/17 06:15 Creat Clearance w eGFR 55.58 (>60) 10/26/17 06:15 Random Glucose 105 mg/dL (74-106) 10/26/17 06:15 Calcium 8.6 mg/dL (8.5-10.1) 10/26/17 06:15 Total Bilirubin 0.5 mg/dL (0.2-1.0) D 10/26/17 06:15 AST 15 U/L (15-37) 10/26/17 06:15 ALT 18 U/L (12-78) 10/26/17 06:15 Alkaline Phosphatase 67 U/L (45-117) 10/26/17 06:15 Total Protein 7.1 g/dl (6.4-8.2) 10/26/17 06:15 Albumin 3.4 g/dl (3.4-5.0) 10/26/17 06:15 Urine Color Yellow 10/25/17 21:44 Urine Appearance Clear 10/25/17 21:44 Urine pH 5.0 (5.0-8.0) 10/25/17 21:44 Ur Specific [place] 1.023 (1.001-1.035) 10/25/17 21:44 Urine Protein Negative (NEGATIVE) 10/25/17 21:44 Urine Glucose (UA) Negative (NEGATIVE) 10/25/17 21:44 Urine Ketones Negative (NEGATIVE) 10/25/17 21:44 Urine Blood Negative (NEGATIVE) 10/25/17 21:44 Urine Nitrite Negative (NEGATIVE) 10/25/17 21:44 Urine Bilirubin Negative (NEGATIVE) 10/25/17 21:44 Urine Urobilinogen 2.0 mg/dL (0.2-1.0) 10/25/17 21:44 Ur Leukocyte Esterase Negative (NEGATIVE) 10/25/17 21:44 RPR Titer Nonreactive (NONREACTIVE) 10/26/17 06:15 Assessment: 10/28/17 10:54 WITHDRAWAL SX Plan: CONTINUE DETOX
[2017-10-28] MEDS: QUEtiapine FUMARATE 50 MG TABLET PO SCH (22:19)
[2017-10-28] MEDS: THIAMINE HCL 100 MG TABLET (FP) PO SCH (22:20)
[2017-10-28] MEDS: LIDOCAINE PATCH REMOVAL MC SCH (22:21)
[2017-10-29 06:22] VITALS: BP 143/92; PULSE 87; TEMP 97.6
[2017-10-29] MEDS ORDERED: diazePAM 5 MG TABLET PO SCH (10:00)
--- NOTE | 2017-10-29 10:02 | PN ---
S Progress Note Note: Psychiatry Attending's note : Patient declines script for seroquel. Mr Foreman is at his baseline.Stable.
--- NOTE | 2017-10-29 16:54 | DS ---
[facility] Detox Discharge Summary Admission Date: 10/25/17 Discharge Date: 10/29/17 - History Present History: Alcohol Dependence, Cocaine Dependence Additional Comments: NO BEDS ARE AVAILABLE AT [facility] ([facility] PATIENT WILL GO HOME FOR THE TIME BEING AND [facility] ON 10/31/2017 TO INQUIRE ABOUT POSSIBLE REHAB ADMISSION AT [facility] AT THAT TIME. PATIENT WAS DISCHARGED FROM DETOX UNIT IN STABLE MEDICAL CONDITION. Pertinent Past History: History of Anemia, GERD, Depression, Nicotine Dependence, Glaucoma, History of Herniated Disc in back, Osteoarthritis, Chronic Low Back Pain. - Physical Exam Results Vital Signs: Vital Signs Temperature 97.6 F 10/29/17 06:21 Pulse Rate 87 10/29/17 06:21 Respiratory Rate 18 10/29/17 06:21 Blood Pressure 143/92 10/29/17 06:21 O2 Sat by Pulse Oximetry (%) Pertinent Admission Physical Exam Findings: WITHDRAWAL SYMPTOMS. Laboratory Tests 10/25/17 10/26/17 10/26/17 21:44 06:15 06:15 WBC 6.4 RBC 5.03 Hgb 13.9 Hct 43.4 MCV 86.4 MCH 27.7 MCHC 32.0 RDW 15.8 Plt Count 293 MPV 8.4 Sodium 137 Potassium 4.7 Chloride 105 Carbon Dioxide 28 Anion Gap 4 L BUN 17 D Creatinine 1.3 Creat Clearance w eGFR 55.58 Random Glucose 105 Calcium 8.6 Total Bilirubin 0.5 D AST 15 ALT 18 Alkaline Phosphatase 67 Total Protein 7.1 Albumin 3.4 Urine Color Yellow Urine Appearance Clear Urine pH 5.0 Ur Specific [place] 1.023 Urine Protein Negative Urine Glucose (UA) Negative Urine Ketones Negative Urine Blood Negative Urine Nitrite Negative Urine Bilirubin Negative Urine Urobilinogen 2.0 Ur Leukocyte Esterase Negative RPR Titer 10/26/17 06:15 WBC RBC Hgb Hct MCV MCH MCHC RDW Plt Count MPV Sodium Potassium Chloride Carbon Dioxide Anion Gap BUN Creatinine Creat Clearance w eGFR Random Glucose Calcium Total Bilirubin AST ALT Alkaline Phosphatase Total Protein Albumin Urine Color Urine Appearance Urine pH Ur Specific [place] Urine Protein Urine Glucose (UA) Urine Ketones Urine Blood Urine Nitrite Urine Bilirubin Urine Urobilinogen Ur Leukocyte Esterase RPR Titer Nonreactive LABS NOTED. - Treatment Hospital Course: Detox Protocol Followed, Detoxed Safely, Responded well, Discharged Condition Good, Rehab Referral Accepted Patient has Accepted a Rehab Referral to: [facility] ([place] [address] ). - Medication Discharge Medications: Ambulatory Orders Latanoprost 0.005% Eye Drops [Xalatan 0.005% Eye Drops -] 1 drop OU HS 07/29/17 Pantoprazole Sodium [Protonix -] 40 mg PO DAILY 07/29/17 Quetiapine Fumarate [Seroquel -] 50 mg PO HS #30 tablet 07/30/17 Dorzolamide HCl [Trusopt 2%] 1 drop OU BID 10/25/17 - Diagnosis (1) Alcohol dependence with uncomplicated withdrawal Status: Acute (2) Cocaine dependence, uncomplicated Status: Acute (3) Nicotine dependence Status: Acute Qualifiers: Nicotine product type: cigarettes Substance use status: in withdrawal Qualified Code(s): F17.213 - Nicotine dependence, cigarettes, with withdrawal (4) Chronic lower back pain Status: Chronic Qualifiers: Back pain laterality: right Sciatica presence: without sciatica Qualified Code(s): M54.5 - Low back pain; G89.29 - Other chronic pain; G89.29 - Other chronic pain (5) GERD (gastroesophageal reflux disease) Status: Chronic Qualifiers: Esophagitis presence: esophagitis presence not specified Qualified Code(s) : K21.9 - Gastro-esophageal reflux disease without esophagitis (6) Glaucoma Status: Chronic Qualifiers: Glaucoma type: open-angle Open angle glaucoma type: unspecified type Laterality: bilateral Glaucoma stage: mild stage Qualified Code(s): H40.10X1 - Unspecified open-angle glaucoma, mild stage (7) Herniated disc Status: Chronic Qualifiers: Spinal region: mid-cervical Mid-cervical spinal level: unspecified Qualified Code(s): M50.220 - Other cervical disc displacement, mid-cervical region, unspecified level (8) Osteoarthritis Status: Chronic Qualifiers: Osteoarthritis location: unspecified site Osteoarthritis type: unspecified Qualified Code(s): M19.90 - Unspecified osteoarthritis, unspecified site (9) Insomnia Status: Acute Qualifiers: Insomnia type: unspecified Qualified Code(s): G47.00 - Insomnia, unspecified (10) Substance induced mood disorder Status: Acute - AMA Did Patient Leave Against Medical Advice: No
== END 2017-10-29 10:07 | disposition home or self-care (01) | DRG 774 ==
LOC: YASAS 15:31 → Y3N 19:34
PROVIDERS: ADMIT Internal Medicine; ATTEND Internal Medicine
PROC: HZ2ZZZZ Detoxification Services for Substance Abuse Treatment (ICD-10-PCS; principal; 2017-10-25)
DX: F10.230 Alcohol dependence with withdrawal, uncomplicated (principal); F14.20 Cocaine dependence, uncomplicated; F17.213 Nicotine dependence, cigarettes, with withdrawal; F19.24 Other psychoactive substance dependence with psychoactive substance-induced mood disorder; K21.9 Gastro-esophageal reflux disease without esophagitis; M54.5 Low back pain; G89.29 Other chronic pain; H40.10X1 Unspecified open-angle glaucoma, mild stage; M50.220 Other cervical disc displacement, mid-cervical region, unspecified level; D50.9 Iron deficiency anemia, unspecified; M19.90 Unspecified osteoarthritis, unspecified site; G47.00 Insomnia, unspecified; E78.5 Hyperlipidemia, unspecified; Z88.0 Allergy status to penicillin; Z91.013 Allergy to seafood; Z87.898 Personal history of other specified conditions
CPT/HCPCS: 36415; 80053; 81003; 85027; 86593; 93005; 93010

== ENCOUNTER 2017-12-29 08:44 | Inpatient (IN) | payer OTHER ==
[2017-12-29 09:14] VITALS: BMI 22.2
--- NOTE | 2017-12-29 12:02 | HP ---
CIWA Score - CIWA Score Nausea/Vomitin (N/V) Muscle Tremors: 3 Anxiety: 4-Mod. Anxious/Guarded Agitation: 3 Paroxysmal Sweats: 1-Minimal Palms Moist Orientation: 0-Oriented Tacttile Disturbances: 0-None Auditory Disturbances: 0-None Visual Disturbances: 0-None Headache: 1-Very Mild CIWA-Ar Total Score: 17 Admission ROS BHS - HPI Chief Complaint: ALCOHOL WITHDRAWAL SX Allergies/Adverse Reactions: Allergies Allergy/AdvReac Type Severity Reaction Status Date / Time Penicillins Allergy Severe Hives Verified 12/29/17 10:06 rice Allergy Hives Verified 12/29/17 10:06 shellfish derived Allergy Hives Verified 12/29/17 10:06 History of Present Illness: 62 Y/O AA/MALE WITH A HX OF ALCOHOL AND COCAINE DEPENDENCE SEEKING DETOX TX. PT HAS MULTIPLE DRUG TREATMENT EPISODES. Exam Limitations: No Limitations - Ebola screening Have you traveled outside of the country in the last 21 days: No (N) Have you had contact with anyone from an Ebola affected area: No Have you been sick,other than usual withdrawal symptoms: No Do you have a fever: No - Review of Systems Constitutional: Chills, Loss of Appetite, Night Sweats, Changes in sleep, Unintentional Wgt. Loss EENT: reports: Blurred Vision (HX GLAUCOMA BOTH EYES), Tearing, Tinnitus ( SOMETIMES), Nose Congestion, Dental Problems (UPPER/LOWER DENTURES. PT WITH ONLY UPPER TODAY.) Respiratory: reports: No Symptoms reported Cardiac: reports: Lightheadedness GI: reports: Constipated, Diarrhea, Nausea, Poor Appetite, Poor Fluid Intake, Vomiting, Indigestion (HX GERD--PRILOSEC) : reports: Frequency Musculoskeletal: reports: Back Pain (HX HERNIATED DISC), Joint Pain, Muscle Pain Integumentary: reports: Dryness Neuro: reports: Headache, Tremors, Unsteady Gait, Dizziness Endocrine: reports: No Symptoms Reported Hematology: reports: Anemia (ON IRON SUPPLEMENT) Psychiatric: reports: Orientated x3, Agitated, Anxious, Depressed Other Systems: Reviewed and Negative Patient History - Patient Medical History Hx Anemia: Yes (Iron-Deficiency type.) Hx Asthma: No Hx Chronic Obstructive Pulmonary Disease (COPD): No Hx Cancer: No Hx Cardiac Disorders: No Hx Congestive Heart Failure: No Hx Hypertension: Yes (NO CURRENT MED BUT WAS ON HCTZ) Hx Hypercholesterolemia: No Hx Pacemaker: No HX Cerebrovascular Accident: No Hx Seizures: No Hx Dementia: No Hx Diabetes: No Hx Gastrointestinal Disorders: Yes (acid reflux-PRILOSEC) Hx Liver Disease: No Hx Genitourinary Disorders: No Hx Sexually Transmitted Disorders: No Hx Renal Disease (ESRD): No Hx Thyroid Disease: No Hx Human Immunodeficiency Virus (HIV): No (NEGATIVE HX) Hx Hepatitis C: No Hx Depression: Yes (SEROQUEL) Hx Suicide Attempt: No (DENIES S/I) Hx Bipolar Disorder: No Hx Schizophrenia: No - Patient Surgical History Past Surgical History: Yes Hx Neurologic Surgery: No Hx Cataract Extraction: No Hx Cardiac Surgery: No Hx Lung Surgery: No Hx Breast Surgery: No Hx Breast Biopsy: No Hx Abdominal Surgery: No Hx Appendectomy: No Hx Cholecystectomy: No Hx Genitourinary Surgery: No Hx Orthopedic Surgery: Yes (fx, right forearm in 1997) Other Surgical History: Lipoma removed from Left shoulder 01/10 Anesthesia Reaction: No - PPD History Previous Implant?: Yes Documented Results: Negative w/proof Implanted On Prior [facility] Admission?: Yes Date: 05/05/17 Results: 0 mm PPD to be Administered?: No - Reproductive History Patient is a Female of Child Bearing Age (11 -55 yrs old): No (MALE) - Smoking Cessation Smoking history: Current every day smoker Have you smoked in the past 12 months: Yes Aproximately how many cigarettes per day: 10 Cigars Per Day: 0 Hx Chewing Tobacco Use: No Initiated information on smoking cessation: Yes 'Breaking Loose' booklet given: 12/29/17 - Substance & Tx. History Hx Alcohol Use: Yes (VODKA) Hx Substance Use: Yes (COCAINE) Substance Use Type: Alcohol, Cocaine Hx Substance Use Treatment: Yes (LAST TX AT [facility]) - Substances Abused Cocaine Route: Inhalation Frequency: Daily Amount used: $40-50 Age of first use: 26 Date of Last Use: 12/27/17 Alcohol-vodka/beer Route: Oral Frequency: Daily Amount used: 4 pts./2-6 pks. Age of first use: 12 Date of Last Use: 12/28/17 Family Disease History - Family Disease History Family Disease History: Diabetes: Grandparent (Lupus.), Mother (LUPUS,ARTHRITIS- MOTHER SIDE OF FAMILY), Heart Disease: Grandparent, Mother, Other: Grandparent, Father (unknown, ), Mother, Sister (lupus ) Admission Physical Exam S - Vital Signs Vital Signs: Vital Signs - 24 hr 12/29/17 09:05 Temperature 96.9 F L Pulse Rate 79 Respiratory 18 Rate Blood Pressure 140/83 - Physical General Appearance: Yes: Moderate Distress, Thin, Irritable, Anxious HEENTM: Yes: EOMI, Normocephalic, ARNIE, Pharynx Normal Respiratory: Yes: Chest Non-Tender, Lungs Clear, Normal Breath Sounds, No Respiratory Distress Neck: Yes: Supple, Trachea in good position Breast: Yes: Breast Exam Deferred Cardiology: Yes: Regular Rhythm, Regular Rate, S1, S2 Abdominal: Yes: Normal Bowel Sounds, Non Tender, Flat, Soft Genitourinary: Yes: Other (N/C) Back: Yes: Within Normal Limits Musculoskeletal: Yes: full range of Motion, Gait Steady Extremities: Yes: Normal Range of Motion, Non-Tender Neurological: Yes: 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 II-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 NML intact, Fully Oriented, Alert, Motor Strength 5/5 Integumentary: Yes: Dry, Warm Lymphatic: Yes: Within Normal Limits - Diagnostic (1) Alcohol dependence with uncomplicated withdrawal Current Visit: Yes Status: Acute (2) Cocaine dependence, uncomplicated Current Visit: Yes Status: Acute (3) Nicotine dependence Current Visit: Yes Status: Acute Qualifiers: Nicotine product type: cigarettes Substance use status: in withdrawal Qualified Code(s): F17.213 - Nicotine dependence, cigarettes, with withdrawal (4) Weight loss Current Visit: Yes Status: Acute (5) Chronic lower back pain Current Visit: Yes Status: Chronic Qualifiers: Back pain laterality: right Sciatica presence: without sciatica Qualified Code(s): M54.5 - Low back pain; G89.29 - Other chronic pain; G89.29 - Other chronic pain (6) GERD (gastroesophageal reflux disease) Current Visit: Yes Status: Chronic Qualifiers: Esophagitis presence: esophagitis presence not specified Qualified Code(s) : K21.9 - Gastro-esophageal reflux disease without esophagitis (7) Glaucoma Current Visit: Yes Status: Chronic Qualifiers: Glaucoma type: open-angle Open angle glaucoma type: unspecified type Laterality: bilateral Glaucoma stage: mild stage Qualified Code(s): H40.10X1 - Unspecified open-angle glaucoma, mild stage (8) HTN (hypertension) Current Visit: Yes Status: Chronic Qualifiers: Hypertension type: essential hypertension Qualified Code(s): I10 - Essential (primary) hypertension (9) Osteoarthritis Current Visit: Yes Status: Chronic Qualifiers: Osteoarthritis location: unspecified site Osteoarthritis type: unspecified Qualified Code(s): M19.90 - Unspecified osteoarthritis, unspecified site (10) Herniated disc Current Visit: Yes Status: Chronic Qualifiers: Spinal region: mid-cervical Mid-cervical spinal level: unspecified Qualified Code(s): M50.220 - Other cervical disc displacement, mid-cervical region, unspecified level Cleared for Admission BHS - Detox or Rehab S Level of Care: Medically Managed Detox Regimen/Protocol: Valium BHS Breath Alcohol Content Breath Alcohol Content: 0 Urine Drug Screen - Results Drug Screen Negative: No Urine Drug Screen Results: LEYLA-Cocaine
[2017-12-29] MEDS ORDERED: NICOTINE POLACRILEX 2 MG GUM BC PRN (12:13)
[2017-12-29] MEDS ORDERED: MAG HYDROX/AL HYDROX/SIMETH 30 ML UNIT-DOSE CUP PO PRN (12:13)
[2017-12-29] MEDS ORDERED: MAGNESIUM HYDROX 2400MG/30ML ORAL SUSPENSION 30 ML CUP PO PRN (12:13)
[2017-12-29] MEDS ORDERED: P-EPHED 60MG/TRIPROLIDI 2.5MG TABLET PO PRN (12:13)
[2017-12-29] MEDS ORDERED: IBUPROFEN 400 MG TABLET (FP) PO PRN (12:13)
[2017-12-29] MEDS ORDERED: MENTHOL/PHENOL 1 EACH UD MM PRN (12:13)
[2017-12-29] MEDS ORDERED: ACETAMINOPHEN 325 MG TABLET (FP) PO PRN (12:13)
[2017-12-29] MEDS ORDERED: MAGNESIUM CITRATE 300 ML BOTTLE PO PRN (12:13)
[2017-12-29] MEDS ORDERED: hydrOXYzine PAMOATE 50 MG CAPSULE (FP) PO PRN (12:13)
[2017-12-29] MEDS ORDERED: guaiFENesin/D-METHORPHAN HB 10 ML UNIT-DOSE CUPS PO PRN (12:13)
[2017-12-29] MEDS ORDERED: LOPERAMIDE HCL 2 MG CAPSULE PO PRN (12:13)
[2017-12-29] MEDS ORDERED: diazePAM 5 MG TABLET PO ONE (12:30)
[2017-12-29] MEDS: NICOTINE 14 MG/24 HOURS TOPICAL PATCH TD SCH (14:09)
[2017-12-29] MEDS: PANTOPRAZOLE 40 MG TABLET (FP) PO SCH (14:10)
--- NOTE | 2017-12-29 14:36 | EKG ---
Test Reason : Blood Pressure : / mmHG Vent. Rate : 078 BPM Atrial Rate : 078 BPM P-R Int : 156 ms QRS Dur : 086 ms QT Int : 368 ms P-R-T Axes : 060 063 048 degrees QTc Int : 419 ms NORMAL SINUS RHYTHM NORMAL ECG WHEN COMPARED WITH ECG OF 25-OCT-2017 21:03, NO SIGNIFICANT CHANGE WAS FOUND Confirmed by DEBORA STRINGER MD ([id number]) on 12/29/2017 2:36:00 PM Referred By: Confirmed By:DEBORA STRINGER MD
[2017-12-29 14:46] LABS: HEMOGLOBIN 12.5 GM/dL (11.7-16.9); MEAN CELL VOLUME 84.9 fl (80-96); MEAN PLT VOLUME 8.4 fl (7.5-11.1); PLATELET COUNT 288 K/MM3 (134-434); RBC 4.47 M/mm3 (4.00-5.60); RDW 15.5 % (11.9-15.9); WHITE BLOOD COUNT 6.1 K/mm3 (4.0-10.0)
[2017-12-29] MEDS: diazePAM 5 MG TABLET PO SCH ×2 (14:58→22:40)
[2017-12-29 15:11] LABS: ALBUMIN 3.4 g/dl (3.4-5.0); ANION GAP 10 (8-16); BLOOD UREA NITROGEN 15 mg/dL (7-18); CHLORIDE 104 mmol/L (98-107); CO2 24 mmol/L (21-32); CREATININE 1.2 mg/dL (0.7-1.3); GLUCOSE,RANDOM 121 mg/dL (74-106); POTASSIUM 4.9 mmol/L (3.5-5.1); SGOT/AST 16 U/L (15-37); SGPT/ALT 14 U/L (12-78); SODIUM 138 mmol/L (136-145)
[2017-12-29 15:13] LABS: ALK PHOS 62 U/L (45-117); BILIRUBIN,TOTAL 0.4 mg/dL (0.2-1.0); TOT PROT 7.7 g/dl (6.4-8.2)
[2017-12-29 17:13] LABS: URINE APPEARANCE CLEAR; URINE BILIRUBIN NEGATIVE (<2.0 mg/dL); URINE COLOR YELLOW; URINE GLUCOSE (UA) NEGATIVE (NEGATIVE); URINE KETONE NEGATIVE (NEGATIVE); URINE NITRITE NEGATIVE (NEGATIVE); URINE PROTEIN NEGATIVE (NEGATIVE); URINE UROBILINOGEN NEGATIVE mg/dL (0.2-1.0)
[2017-12-29 17:21] LABS: URINE LEUK ESTERASE 1+ (NEGATIVE)
[2017-12-29 17:31] LABS: EPI CELLS RARE /HPF (FEW)
[2017-12-29] MEDS ORDERED: MELATONIN 5 MG TABLETS PO PRN (22:00)
[2017-12-29] MEDS: THIAMINE HCL 100 MG TABLET (FP) PO SCH (22:40)
[2017-12-29] MEDS: DORZOLAMIDE 2% HCL OPHTHALMIC SOLUTION 10 ML BOTTLE OU SCH (22:41)
[2017-12-29] MEDS: LATANOPROST 0.005% OPHTH SOLN 2.5ML BOTTLE OU SCH (22:41)
[2017-12-30] MEDS: diazePAM 5 MG TABLET PO SCH ×3 (07:13→22:25)
--- NOTE | 2017-12-30 09:05 | CONSULT ---
[facility] Psychiatric Consult - Data Date of interview: 12/30/17 Admission source: [facility] Identifying data: Patient is a 62 year single male, father of five, unemployed, and living with mother. This is one of multiple admissions. Pt. admitted to for alcohol and cocaine dependence. Substance Abuse History: Following information confirmed with Mr. Foreman: Smoking Cessation. Smoking history: Current every day smoker. Have you smoked in the past 12 months: Yes. Aproximately how many cigarettes per day: 10. Cigars Per Day: 0. Hx Chewing Tobacco Use: No. Initiated information on smoking cessation: Yes. 'Breaking Loose' booklet given: 12/29/17. - Substance & Tx. History. Hx Alcohol Use: Yes (VODKA). Hx Substance Use: Yes (COCAINE). Substance Use Type: Alcohol, Cocaine. Hx Substance Use Treatment: Yes (LAST TX AT [facility]). - Substances Abused. Cocaine. Route: Inhalation. Frequency: Daily. Amount used: $40-50. Age of first use: 26. Date of Last Use: . Alcohol-vodka/beer. Route: Oral. Frequency: Daily. Amount used: 4 pts./2-6 pks. Age of first use: 12. Date of Last Use: 12/28/17 Medical History: Anemia, hypertension, acid reflux, Lipoma removed from Left shoulder 01/10 Psychiatric History: Patient denies h/o psychiatric hospitalizations, and suicide attempts. Patient is currently prescribed seroquel 50mg and states he was first prescribed seroquel while in detox at [facility]. [facility] and was continued on the seroquel. Reports receiving refills when he admits self to detox and rehab facilites. Pt. denies h/o suicide attempts. Physical/Sexual Abuse/Trauma History: Denies. Mental Status Exam - Mental Status Exam Alert and Oriented to: Time, Place, Person Cognitive Function: Good Patient Appearance: Well Groomed Mood: Hopeful Affect: Mood Congruent Patient Behavior: Appropriate, Cooperative Speech Pattern: Clear, Appropriate Voice Loudness: Normal Thought Process: Goal Oriented Thought Disorder: Not Present Hallucinations: Denies Suicidal Ideation: Denies Homicidal Ideation: Denies Insight/Judgement: Poor Sleep: Poorly Appetite: Fair Muscle strength/Tone: Normal Gait/Station: Normal Psychiatric Findings - Problem List ([place] 1, 2,3) (1) Alcohol dependence with uncomplicated withdrawal Current Visit: Yes Status: Acute (2) Cocaine dependence, uncomplicated Current Visit: Yes Status: Acute (3) Nicotine dependence Current Visit: Yes Status: Acute Qualifiers: Nicotine product type: cigarettes Substance use status: in withdrawal Qualified Code(s): F17.213 - Nicotine dependence, cigarettes, with withdrawal (4) Substance induced mood disorder Current Visit: Yes Status: Acute (5) Insomnia Current Visit: Yes Status: Acute Qualifiers: Insomnia type: unspecified Qualified Code(s): G47.00 - Insomnia, unspecified - Initial Treatment Plan Initial Treatment Plan: Psychoeducation provided. Detoxification in progress. Seroquel 50mg qhs ordered. Benefits and side effects discussed. Verbal consent given. Will continue to monitor.
[2017-12-30] MEDS: DORZOLAMIDE 2% HCL OPHTHALMIC SOLUTION 10 ML BOTTLE OU SCH ×2 (10:44→22:26)
[2017-12-30] MEDS: diazePAM 5 MG TABLET PO PRN (10:44)
[2017-12-30] MEDS: PRENATAL VITAMINS W/ FOLIC ACID TABLET (FP) PO SCH (10:44)
[2017-12-30] MEDS: PANTOPRAZOLE 40 MG TABLET (FP) PO SCH (10:44)
[2017-12-30] MEDS: NICOTINE 14 MG/24 HOURS TOPICAL PATCH TD SCH (10:45)
--- NOTE | 2017-12-30 11:11 | PN ---
[facility] CIWA - CIWA Score Nausea/Vomitin-Mild Nausea/No Vomiting Muscle Tremors: 4-Moderate,w/Arms Extend Anxiety: 4-Mod. Anxious/Guarded Agitation: 4-Moderately Restless Paroxysmal Sweats: 1-Minimal Palms Moist Orientation: 0-Oriented Tacttile Disturbances: 0-None Auditory Disturbances: 0-None Visual Disturbances: 0-None Headache: 0-None Present CIWA-Ar Total Score: 14 S Progress Note (SOAP) Subjective: sweat tremor trouble sleeping at night anxiety restlessness Objective: 12/30/17 11:10 Vital Signs Temperature 98.2 F 12/30/17 10:40 Pulse Rate 84 12/30/17 10:40 Respiratory Rate 20 12/30/17 10:40 Blood Pressure 143/79 12/30/17 10:40 O2 Sat by Pulse Oximetry (%) Laboratory Last Values WBC 6.1 K/mm3 (4.0-10.0) 12/29/17 12:40 RBC 4.47 M/mm3 (4.00-5.60) 12/29/17 12:40 Hgb 12.5 GM/dL (11.7-16.9) D 12/29/17 12:40 Hct 38.0 % (35.4-49) 12/29/17 12:40 MCV 84.9 fl (80-96) 12/29/17 12:40 MCH 28.0 pg (25.7-33.7) 12/29/17 12:40 MCHC 33.0 g/dl (32.0-35.9) 12/29/17 12:40 RDW 15.5 % (11.9-15.9) 12/29/17 12:40 Plt Count 288 K/MM3 (134-434) 12/29/17 12:40 MPV 8.4 fl (7.5-11.1) 12/29/17 12:40 Sodium 138 mmol/L (136-145) 12/29/17 12:40 Potassium 4.9 mmol/L (3.5-5.1) 12/29/17 12:40 Chloride 104 mmol/L (98-107) 12/29/17 12:40 Carbon Dioxide 24 mmol/L (21-32) 12/29/17 12:40 Anion Gap 10 (8-16) 12/29/17 12:40 BUN 15 mg/dL (7-18) 12/29/17 12:40 Creatinine 1.2 mg/dL (0.7-1.3) 12/29/17 12:40 Creat Clearance w eGFR > 60 (>60) 12/29/17 12:40 Random Glucose 121 mg/dL (74-106) H 12/29/17 12:40 Calcium 9.0 mg/dL (8.5-10.1) 12/29/17 12:40 Total Bilirubin 0.4 mg/dL (0.2-1.0) 12/29/17 12:40 AST 16 U/L (15-37) 12/29/17 12:40 ALT 14 U/L (12-78) D 12/29/17 12:40 Alkaline Phosphatase 62 U/L (45-117) 12/29/17 12:40 Total Protein 7.7 g/dl (6.4-8.2) 12/29/17 12:40 Albumin 3.4 g/dl (3.4-5.0) 12/29/17 12:40 Urine Color Yellow 12/29/17 14:40 Urine Appearance Clear 12/29/17 14:40 Urine pH 5.0 (5.0-8.0) 12/29/17 14:40 Ur Specific [place] 1.017 (1.001-1.035) 12/29/17 14:40 Urine Protein Negative (NEGATIVE) 12/29/17 14:40 Urine Glucose (UA) Negative (NEGATIVE) 12/29/17 14:40 Urine Ketones Negative (NEGATIVE) 12/29/17 14:40 Urine Blood Negative (NEGATIVE) 12/29/17 14:40 Urine Nitrite Negative (NEGATIVE) 12/29/17 14:40 Urine Bilirubin Negative (<2.0 mg/dL) 12/29/17 14:40 Urine Urobilinogen Negative mg/dL (0.2-1.0) 12/29/17 14:40 Ur Leukocyte Esterase 1+ (NEGATIVE) H 12/29/17 14:40 Urine WBC (Auto) 1 /hpf (3-5) 12/29/17 14:40 Urine RBC (Auto) 1 /hpf (0-3) 12/29/17 14:40 Ur Epithelial Cells Rare /HPF (FEW) 12/29/17 14:40 RPR Titer Nonreactive (NONREACTIVE) 12/29/17 12:40 lab noted Assessment: 12/30/17 11:11 withdrawal sx Plan: continue detox
[2017-12-30] MEDS: THIAMINE HCL 100 MG TABLET (FP) PO SCH (22:25)
[2017-12-30] MEDS: QUEtiapine FUMARATE 50 MG TABLET PO SCH (22:26)
[2017-12-30] MEDS: LATANOPROST 0.005% OPHTH SOLN 2.5ML BOTTLE OU SCH (22:27)
[2017-12-31] MEDS: DORZOLAMIDE 2% HCL OPHTHALMIC SOLUTION 10 ML BOTTLE OU SCH ×2 (10:21→22:14)
[2017-12-31] MEDS: diazePAM 5 MG TABLET PO SCH ×2 (10:21→22:14)
[2017-12-31] MEDS: PANTOPRAZOLE 40 MG TABLET (FP) PO SCH (10:21)
[2017-12-31] MEDS: PRENATAL VITAMINS W/ FOLIC ACID TABLET (FP) PO SCH (10:21)
[2017-12-31] MEDS: NICOTINE 14 MG/24 HOURS TOPICAL PATCH TD SCH (10:23)
--- NOTE | 2017-12-31 13:12 | PN ---
[facility] CIWA - CIWA Score Nausea/Vomitin Muscle Tremors: 2 Anxiety: 2 Agitation: 2 Paroxysmal Sweats: 2 Orientation: 0-Oriented Tacttile Disturbances: 2-Mild Itch/Numbness/Burn Auditory Disturbances: 0-None Visual Disturbances: 0-None Headache: 2-Mild CIWA-Ar Total Score: 15 S Progress Note (SOAP) Subjective: Back pain, restlessness, nausea, shakes, interrupted sleep Objective: 12/31/17 13:11 Vital Signs 12/31/17 12/31/17 06:22 10:00 Temperature 98.2 F 97.7 F Pulse Rate 84 90 Respiratory 18 18 Rate Blood Pressure 140/83 146/90 Laboratory Last Values WBC 6.1 K/mm3 (4.0-10.0) 12/29/17 12:40 RBC 4.47 M/mm3 (4.00-5.60) 12/29/17 12:40 Hgb 12.5 GM/dL (11.7-16.9) D 12/29/17 12:40 Hct 38.0 % (35.4-49) 12/29/17 12:40 MCV 84.9 fl (80-96) 12/29/17 12:40 MCH 28.0 pg (25.7-33.7) 12/29/17 12:40 MCHC 33.0 g/dl (32.0-35.9) 12/29/17 12:40 RDW 15.5 % (11.9-15.9) 12/29/17 12:40 Plt Count 288 K/MM3 (134-434) 12/29/17 12:40 MPV 8.4 fl (7.5-11.1) 12/29/17 12:40 Sodium 138 mmol/L (136-145) 12/29/17 12:40 Potassium 4.9 mmol/L (3.5-5.1) 12/29/17 12:40 Chloride 104 mmol/L (98-107) 12/29/17 12:40 Carbon Dioxide 24 mmol/L (21-32) 12/29/17 12:40 Anion Gap 10 (8-16) 12/29/17 12:40 BUN 15 mg/dL (7-18) 12/29/17 12:40 Creatinine 1.2 mg/dL (0.7-1.3) 12/29/17 12:40 Creat Clearance w eGFR > 60 (>60) 12/29/17 12:40 Random Glucose 121 mg/dL (74-106) H 12/29/17 12:40 Calcium 9.0 mg/dL (8.5-10.1) 12/29/17 12:40 Total Bilirubin 0.4 mg/dL (0.2-1.0) 12/29/17 12:40 AST 16 U/L (15-37) 12/29/17 12:40 ALT 14 U/L (12-78) D 12/29/17 12:40 Alkaline Phosphatase 62 U/L (45-117) 12/29/17 12:40 Total Protein 7.7 g/dl (6.4-8.2) 12/29/17 12:40 Albumin 3.4 g/dl (3.4-5.0) 12/29/17 12:40 Urine Color Yellow 12/29/17 14:40 Urine Appearance Clear 12/29/17 14:40 Urine pH 5.0 (5.0-8.0) 12/29/17 14:40 Ur Specific [place] 1.017 (1.001-1.035) 12/29/17 14:40 Urine Protein Negative (NEGATIVE) 12/29/17 14:40 Urine Glucose (UA) Negative (NEGATIVE) 12/29/17 14:40 Urine Ketones Negative (NEGATIVE) 12/29/17 14:40 Urine Blood Negative (NEGATIVE) 12/29/17 14:40 Urine Nitrite Negative (NEGATIVE) 12/29/17 14:40 Urine Bilirubin Negative (<2.0 mg/dL) 12/29/17 14:40 Urine Urobilinogen Negative mg/dL (0.2-1.0) 12/29/17 14:40 Ur Leukocyte Esterase 1+ (NEGATIVE) H 12/29/17 14:40 Urine WBC (Auto) 1 /hpf (3-5) 12/29/17 14:40 Urine RBC (Auto) 1 /hpf (0-3) 12/29/17 14:40 Ur Epithelial Cells Rare /HPF (FEW) 12/29/17 14:40 RPR Titer Nonreactive (NONREACTIVE) 12/29/17 12:40 HIV 1&2 Antibody Screen Negative 12/29/17 12:40 HIV P24 Antigen Negative 12/29/17 12:40 Labs noted Assessment: 12/31/17 13:11 Withdrawal sx Plan: Continue detox
[2017-12-31] MEDS: diazePAM 5 MG TABLET PO PRN (17:15)
[2017-12-31] MEDS: THIAMINE HCL 100 MG TABLET (FP) PO SCH (22:14)
[2017-12-31] MEDS: QUEtiapine FUMARATE 50 MG TABLET PO SCH (22:14)
[2017-12-31] MEDS: LATANOPROST 0.005% OPHTH SOLN 2.5ML BOTTLE OU SCH (22:14)
[2018-01-01] MEDS: PRENATAL VITAMINS W/ FOLIC ACID TABLET (FP) PO SCH (10:09)
[2018-01-01] MEDS: diazePAM 5 MG TABLET PO SCH ×2 (10:09→22:10)
[2018-01-01] MEDS: PANTOPRAZOLE 40 MG TABLET (FP) PO SCH (10:09)
[2018-01-01] MEDS: NICOTINE 14 MG/24 HOURS TOPICAL PATCH TD SCH (10:10)
[2018-01-01] MEDS: DORZOLAMIDE 2% HCL OPHTHALMIC SOLUTION 10 ML BOTTLE OU SCH ×2 (10:11→22:10)
[2018-01-01] MEDS ORDERED: diazePAM 5 MG TABLET PO ONE (14:44)
--- NOTE | 2018-01-01 15:03 | PN ---
S Progress Note (SOAP) Subjective: Nausea, chills, interrupted sleep, anxious Objective: 01/01/18 15:01 Last Vital Signs Temp Pulse Resp BP Pulse Ox 98.2 F 92 H 18 136/89 01/01/18 13:06 01/01/18 13:06 01/01/18 13:06 01/01/18 13:06 Laboratory Tests 12/29/17 12/29/17 12/29/17 12:40 12:40 12:40 WBC 6.1 RBC 4.47 Hgb 12.5 D Hct 38.0 MCV 84.9 MCH 28.0 MCHC 33.0 RDW 15.5 Plt Count 288 MPV 8.4 Sodium 138 Potassium 4.9 Chloride 104 Carbon Dioxide 24 Anion Gap 10 BUN 15 Creatinine 1.2 Creat Clearance w eGFR > 60 Random Glucose 121 H Calcium 9.0 Total Bilirubin 0.4 AST 16 ALT 14 D Alkaline Phosphatase 62 Total Protein 7.7 Albumin 3.4 Urine Color Urine Appearance Urine pH Ur Specific [place] Urine Protein Urine Glucose (UA) Urine Ketones Urine Blood Urine Nitrite Urine Bilirubin Urine Urobilinogen Ur Leukocyte Esterase Urine WBC (Auto) Urine RBC (Auto) Ur Epithelial Cells RPR Titer HIV 1&2 Antibody Screen Negative HIV P24 Antigen Negative 12/29/17 12/29/17 12:40 14:40 WBC RBC Hgb Hct MCV MCH MCHC RDW Plt Count MPV Sodium Potassium Chloride Carbon Dioxide Anion Gap BUN Creatinine Creat Clearance w eGFR Random Glucose Calcium Total Bilirubin AST ALT Alkaline Phosphatase Total Protein Albumin Urine Color Yellow Urine Appearance Clear Urine pH 5.0 Ur Specific [place] 1.017 Urine Protein Negative Urine Glucose (UA) Negative Urine Ketones Negative Urine Blood Negative Urine Nitrite Negative Urine Bilirubin Negative Urine Urobilinogen Negative Ur Leukocyte Esterase 1+ H Urine WBC (Auto) 1 Urine RBC (Auto) 1 Ur Epithelial Cells Rare RPR Titer Nonreactive HIV 1&2 Antibody Screen HIV P24 Antigen Labs noted Assessment: 01/01/18 15:01 Withdrawal symptoms Plan: Continue detox Valium 5mg PO x 1 dose for increased anxiety
[2018-01-01] MEDS: THIAMINE HCL 100 MG TABLET (FP) PO SCH (22:10)
[2018-01-01] MEDS: QUEtiapine FUMARATE 50 MG TABLET PO SCH (22:10)
[2018-01-01] MEDS: LATANOPROST 0.005% OPHTH SOLN 2.5ML BOTTLE OU SCH (22:11)
--- NOTE | 2018-01-02 08:44 | DS ---
[facility] Detox Discharge Summary Admission Date: 12/29/17 Discharge Date: 01/02/18 - History Present History: Alcohol Dependence Additional Comments: 62 years old male - Physical Exam Results Vital Signs: Vital Signs Temperature 97.7 F 01/02/18 06:37 Pulse Rate 105 H 01/02/18 06:37 Respiratory Rate 20 01/02/18 06:37 Blood Pressure 149/87 01/02/18 06:37 O2 Sat by Pulse Oximetry (%) Pertinent Admission Physical Exam Findings: 62 years old male admitted on 12/29/17 for alcohol withdrawal sx completed alcohol detox regimen, tolerated well, denies alcohol withdrawal sx alert oriented x 3 no acute distress wants to go [facility] continue abstinence longest sobriety 4 years and determines to remain sober Vital Signs Temperature 97.7 F 01/02/18 06:37 Pulse Rate 105 H 01/02/18 06:37 Respiratory Rate 20 01/02/18 06:37 Blood Pressure 149/87 01/02/18 06:37 O2 Sat by Pulse Oximetry (%) Laboratory Last Values WBC 6.1 K/mm3 (4.0-10.0) 12/29/17 12:40 RBC 4.47 M/mm3 (4.00-5.60) 12/29/17 12:40 Hgb 12.5 GM/dL (11.7-16.9) D 12/29/17 12:40 Hct 38.0 % (35.4-49) 12/29/17 12:40 MCV 84.9 fl (80-96) 12/29/17 12:40 MCH 28.0 pg (25.7-33.7) 12/29/17 12:40 MCHC 33.0 g/dl (32.0-35.9) 12/29/17 12:40 RDW 15.5 % (11.9-15.9) 12/29/17 12:40 Plt Count 288 K/MM3 (134-434) 12/29/17 12:40 MPV 8.4 fl (7.5-11.1) 12/29/17 12:40 Sodium 138 mmol/L (136-145) 12/29/17 12:40 Potassium 4.9 mmol/L (3.5-5.1) 12/29/17 12:40 Chloride 104 mmol/L (98-107) 12/29/17 12:40 Carbon Dioxide 24 mmol/L (21-32) 12/29/17 12:40 Anion Gap 10 (8-16) 12/29/17 12:40 BUN 15 mg/dL (7-18) 12/29/17 12:40 Creatinine 1.2 mg/dL (0.7-1.3) 12/29/17 12:40 Creat Clearance w eGFR > 60 (>60) 12/29/17 12:40 Random Glucose 121 mg/dL (74-106) H 12/29/17 12:40 Calcium 9.0 mg/dL (8.5-10.1) 12/29/17 12:40 Total Bilirubin 0.4 mg/dL (0.2-1.0) 12/29/17 12:40 AST 16 U/L (15-37) 12/29/17 12:40 ALT 14 U/L (12-78) D 12/29/17 12:40 Alkaline Phosphatase 62 U/L (45-117) 12/29/17 12:40 Total Protein 7.7 g/dl (6.4-8.2) 12/29/17 12:40 Albumin 3.4 g/dl (3.4-5.0) 12/29/17 12:40 Urine Color Yellow 12/29/17 14:40 Urine Appearance Clear 12/29/17 14:40 Urine pH 5.0 (5.0-8.0) 12/29/17 14:40 Ur Specific [place] 1.017 (1.001-1.035) 12/29/17 14:40 Urine Protein Negative (NEGATIVE) 12/29/17 14:40 Urine Glucose (UA) Negative (NEGATIVE) 12/29/17 14:40 Urine Ketones Negative (NEGATIVE) 12/29/17 14:40 Urine Blood Negative (NEGATIVE) 12/29/17 14:40 Urine Nitrite Negative (NEGATIVE) 12/29/17 14:40 Urine Bilirubin Negative (<2.0 mg/dL) 12/29/17 14:40 Urine Urobilinogen Negative mg/dL (0.2-1.0) 12/29/17 14:40 Ur Leukocyte Esterase 1+ (NEGATIVE) H 12/29/17 14:40 Urine WBC (Auto) 1 /hpf (3-5) 12/29/17 14:40 Urine RBC (Auto) 1 /hpf (0-3) 12/29/17 14:40 Ur Epithelial Cells Rare /HPF (FEW) 12/29/17 14:40 RPR Titer Nonreactive (NONREACTIVE) 12/29/17 12:40 HIV 1&2 Antibody Screen Negative 12/29/17 12:40 HIV P24 Antigen Negative 12/29/17 12:40 lab noted - Treatment Hospital Course: Detox Protocol Followed, Detoxed Safely, Responded well, Discharged Condition Good, Rehab Referral Accepted Patient has Accepted a Rehab Referral to: [facility] - Medication Discharge Medications: Ambulatory Orders Latanoprost 0.005% Eye Drops [Xalatan 0.005% Eye Drops -] 1 drop OU HS 07/29/17 Quetiapine Fumarate [Seroquel] 100 mg PO HS 12/29/17 Dorzolamide HCl [Trusopt 2% -] 1 drop OU BID #1 drops 01/02/18 Losartan Potassium [Cozaar -] 25 mg PO DAILY 01/02/18 Pantoprazole Sodium [Protonix -] 40 mg PO DAILY #14 tablet.ec 01/02/18 Thiamine HCl [Vitamin B1 -] 100 mg PO HS tablet 01/02/18 - Diagnosis (1) Alcohol dependence with uncomplicated withdrawal Current Visit: Yes Status: Acute (2) Weight loss Current Visit: Yes Status: Acute (3) GERD (gastroesophageal reflux disease) Current Visit: Yes Status: Chronic Qualifiers: Esophagitis presence: esophagitis presence not specified Qualified Code(s) : K21.9 - Gastro-esophageal reflux disease without esophagitis (4) Glaucoma Current Visit: Yes Status: Chronic Qualifiers: Glaucoma type: open-angle Open angle glaucoma type: unspecified type Laterality: bilateral Glaucoma stage: mild stage Qualified Code(s): H40.10X1 - Unspecified open-angle glaucoma, mild stage (5) Nicotine dependence Current Visit: Yes Status: Acute Qualifiers: Nicotine product type: cigarettes Substance use status: in withdrawal Qualified Code(s): F17.213 - Nicotine dependence, cigarettes, with withdrawal - AMA Did Patient Leave Against Medical Advice: No
[2018-01-02] MEDS ORDERED: diazePAM 5 MG TABLET PO SCH (10:00)
[2018-01-02] MEDS: NICOTINE 14 MG/24 HOURS TOPICAL PATCH TD SCH (10:05)
[2018-01-02] MEDS: DORZOLAMIDE 2% HCL OPHTHALMIC SOLUTION 10 ML BOTTLE OU SCH (10:05)
[2018-01-02] MEDS: PRENATAL VITAMINS W/ FOLIC ACID TABLET (FP) PO SCH (10:05)
[2018-01-02] MEDS: PANTOPRAZOLE 40 MG TABLET (FP) PO SCH (10:05)
[2018-01-02 10:20] VITALS: BP 154/98; PULSE 103; TEMP 98.2
== END 2018-01-02 10:22 | disposition home or self-care (01) | DRG 775 ==
LOC: YASAS 08:44 → Y6N 13:13
PROVIDERS: ADMIT Surgery; ATTEND Surgery
PROC: HZ2ZZZZ Detoxification Services for Substance Abuse Treatment (ICD-10-PCS; principal; 2017-12-29)
DX: F10.230 Alcohol dependence with withdrawal, uncomplicated (principal); F17.213 Nicotine dependence, cigarettes, with withdrawal; F19.24 Other psychoactive substance dependence with psychoactive substance-induced mood disorder; I10 Essential (primary) hypertension; K21.9 Gastro-esophageal reflux disease without esophagitis; G47.00 Insomnia, unspecified; H40.10X1 Unspecified open-angle glaucoma, mild stage; M54.5 Low back pain; G89.29 Other chronic pain; D50.8 Other iron deficiency anemias; R63.4 Abnormal weight loss; Z68.22 Body mass index [BMI] 22.0-22.9, adult
CPT/HCPCS: 36415; 80053; 81003; 81015; 85027; 86593; 87389; 93005; 93010

== ENCOUNTER 2018-02-28 12:55 | Inpatient (IN) | payer OTHER ==
[2018-02-28 14:06] VITALS: BMI 23.1
--- NOTE | 2018-02-28 19:14 | HP ---
CIWA Score - CIWA Score Nausea/Vomitin Muscle Tremors: 3 Anxiety: 2 Agitation: 1-Slight > Activity Paroxysmal Sweats: 3 Orientation: 0-Oriented Tacttile Disturbances: 2-Mild Itch/Numbness/Burn (bottom of feet and ankles b/l) Auditory Disturbances: 0-None Visual Disturbances: 0-None Headache: 3-Moderate CIWA-Ar Total Score: 17 Admission ROS S - HPI Chief Complaint: alcohol and xanax withdrawal symptoms Allergies/Adverse Reactions: Allergies Allergy/AdvReac Type Severity Reaction Status Date / Time Penicillins Allergy Severe Hives Verified 02/28/18 16:59 rice Allergy Hives Verified 02/28/18 16:59 shellfish derived Allergy Hives Verified 02/28/18 16:59 History of Present Illness: 62 yo male with hx of nicotine, alcohol,xanax, and cocaine dependence is here seeking detox, this is one of multiple admissions. Last detox 12/29/17 -01/02/18. PMHX: Hernia disc L3 - L, B/L carpal Tunnel, Plantar Faciatis (R), OA, GERD, HTN, glaucoma bilateral, depression and anxiety. Denies hx of seizures, reports frequent blackouts, last episode one week ago. Denies homicidal / homicidal ideation or hx of suicide attempt. Longest period of sobriety three years. Exam Limitations: No Limitations - Ebola screening Have you traveled outside of the country in the last 21 days: No (N) Have you had contact with anyone from an Ebola affected area: No Have you been sick,other than usual withdrawal symptoms: No Do you have a fever: No - Review of Systems Constitutional: Chills, Diaphoresis, Loss of Appetite, Changes in sleep, Unintentional Wgt. Loss (15 lbs in past month) EENT: reports: See HPI Respiratory: reports: SOB with Exertion (and with excessive heat) Cardiac: reports: No Symptoms Reported GI: reports: Diarrhea, Nausea, Poor Appetite, Poor Fluid Intake : reports: No Symptoms Reported Musculoskeletal: reports: Back Pain, Joint Pain Integumentary: reports: No Symptoms Reported Neuro: reports: Headache, Numbness (both feet and ankle) Endocrine: reports: Increased Thirst Hematology: reports: Anemia (no hx of blood tranfussion) Psychiatric: reports: Orientated x3, Depressed Other Systems: Reviewed and Negative Patient History - Patient Medical History Hx Anemia: Yes (Iron-Deficiency type.) Hx Asthma: No Hx Chronic Obstructive Pulmonary Disease (COPD): No Hx Cancer: No Hx Cardiac Disorders: No Hx Congestive Heart Failure: No Hx Hypertension: Yes (NO CURRENT MED BUT WAS ON HCTZ) Hx Hypercholesterolemia: No Hx Pacemaker: No HX Cerebrovascular Accident: No Hx Seizures: No Hx Dementia: No Hx Diabetes: No Hx Gastrointestinal Disorders: Yes (acid reflux-PRILOSEC) Hx Liver Disease: No Hx Genitourinary Disorders: No Hx Sexually Transmitted Disorders: No Hx Renal Disease (ESRD): No Hx Thyroid Disease: No Hx Human Immunodeficiency Virus (HIV): No (NEGATIVE HX) Hx Hepatitis C: No Hx Depression: Yes (SEROQUEL) Hx Suicide Attempt: No (DENIES S/I) Hx Bipolar Disorder: No Hx Schizophrenia: No - Patient Surgical History Past Surgical History: Yes Hx Neurologic Surgery: No Hx Cataract Extraction: No Hx Cardiac Surgery: No Hx Lung Surgery: No Hx Breast Surgery: No Hx Breast Biopsy: No Hx Abdominal Surgery: No Hx Appendectomy: No Hx Cholecystectomy: No Hx Genitourinary Surgery: No Hx Section: No Hx Orthopedic Surgery: Yes (fx, right forearm in 1997) Other Surgical History: Lipoma removed from Left shoulder 01/10 Anesthesia Reaction: No - PPD History Previous Implant?: Yes Documented Results: Negative w/proof Date: 05/05/17 Results: 0 mm PPD to be Administered?: No - Reproductive History Patient : No - Smoking Cessation Smoking history: Current every day smoker Have you smoked in the past 12 months: Yes Aproximately how many cigarettes per day: 10 Cigars Per Day: 0 Hx Chewing Tobacco Use: No Initiated information on smoking cessation: Yes 'Breaking Loose' booklet given: 02/28/18 - Substance & Tx. History Hx Alcohol Use: Yes Hx Substance Use: Yes Substance Use Type: Alcohol, Cocaine, Tranquilizers Hx Substance Use Treatment: Yes (Last detox 12/29/17 -01/02/18) - Substances Abused Alcohol Route: Oral Frequency: Daily Amount used: LIQUOR- 4 PINTS, BEER- 4 SIX PACK Age of first use: 15 Date of Last Use: 02/28/18 Cocaine Route: Inhalation Frequency: Daily Amount used: 8 BAGS Age of first use: 24 Date of Last Use: 02/27/18 Alprazolam (Xanax) Route: Oral Frequency: Daily Amount used: 4 - 6 ( 2mg tabs) Age of first use: 62 Date of Last Use: 02/28/18 Family Disease History - Family Disease History Family Disease History: Diabetes: Grandparent (Lupus.), Mother (LUPUS,ARTHRITIS- MOTHER SIDE OF FAMILY), Heart Disease: Grandparent, Mother, Other: Grandparent, Father (unknown, ), Mother, Sister (lupus ) Admission Physical Exam [facility] - Vital Signs Vital Signs: Vital Signs - 24 hr 02/28/18 14:03 Temperature 97.9 F Pulse Rate 68 Respiratory 18 Rate Blood Pressure 143/84 - Physical General Appearance: Yes: Mild Distress, Thin, Sweating, Anxious HEENTM: Yes: EOMI, Hearing grossly Normal, Normal ENT Inspection, Pharynx Normal , Tm's normal, Other (poor dentition) Respiratory: Yes: Chest Non-Tender, Lungs Clear, Normal Breath Sounds, No Respiratory Distress, No Accessory Muscle Use Neck: Yes: No masses,lesions,Nodules, Trachea in good position Breast: Yes: Breast Exam Deferred Cardiology: Yes: Regular Rhythm, Regular Rate Abdominal: Yes: Normal Bowel Sounds, Non Tender, Flat, Soft Genitourinary: Yes: Within Normal Limits Back: Yes: Normal Inspection Musculoskeletal: Yes: full range of Motion, Gait Steady, Pelvis Stable, Back pain Extremities: Yes: Normal Capillary Refill, Normal Inspection, Normal Range of Motion, Non-Tender 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 NML intact, Fully Oriented, Alert, Motor Strength 5/5, Depressed Affect Integumentary: Yes: Normal Color, Warm, Diaphoresis Lymphatic: Yes: Within Normal Limits - Diagnostic (1) Sedative, hypnotic or anxiolytic dependence with withdrawal, unspecified Current Visit: Yes Status: Acute (2) Alcohol dependence with uncomplicated withdrawal Current Visit: No Status: Acute (3) Nicotine dependence Current Visit: Yes Status: Acute Qualifiers: Nicotine product type: cigarettes Substance use status: in withdrawal Qualified Code(s): F17.213 - Nicotine dependence, cigarettes, with withdrawal (4) Weight loss Current Visit: Yes Status: Acute (5) Chronic lower back pain Current Visit: Yes Status: Chronic Qualifiers: Back pain laterality: right Sciatica presence: without sciatica Qualified Code(s): M54.5 - Low back pain; G89.29 - Other chronic pain (6) GERD (gastroesophageal reflux disease) Current Visit: Yes Status: Chronic Qualifiers: Esophagitis presence: esophagitis presence not specified Qualified Code(s) : K21.9 - Gastro-esophageal reflux disease without esophagitis (7) Glaucoma Current Visit: Yes Status: Chronic Qualifiers: Glaucoma type: open-angle Open angle glaucoma type: unspecified type Laterality: bilateral Glaucoma stage: mild stage Qualified Code(s): H40.10X1 - Unspecified open-angle glaucoma, mild stage (8) HTN (hypertension) Current Visit: Yes Status: Chronic Qualifiers: Hypertension type: essential hypertension Qualified Code(s): I10 - Essential (primary) hypertension (9) Herniated disc Current Visit: Yes Status: Chronic Qualifiers: Spinal region: mid-cervical Mid-cervical spinal level: unspecified Qualified Code(s): M50.220 - Other cervical disc displacement, mid-cervical region, unspecified level (10) Hyperlipidemia Current Visit: Yes Status: Chronic Qualifiers: Hyperlipidemia type: unspecified Qualified Code(s): E78.5 - Hyperlipidemia , unspecified (11) Osteoarthritis Current Visit: Yes Status: Chronic Qualifiers: Osteoarthritis location: unspecified site Osteoarthritis type: unspecified Qualified Code(s): M19.90 - Unspecified osteoarthritis, unspecified site (12) Depression (emotion) Current Visit: Yes Status: Acute Qualifiers: Depression Type: unspecified Qualified Code(s): F32.9 - Major depressive disorder, single episode, unspecified (13) Cocaine dependence Current Visit: Yes Status: Acute Qualifiers: Substance use status: uncomplicated Qualified Code(s): F14.20 - Cocaine dependence, uncomplicated Cleared for Admission S - Detox or Rehab [facility] Level of Care: Medically Managed Detox Regimen/Protocol: Valium [facility] Breath Alcohol Content Breath Alcohol Content: 0 Urine Drug Screen - Results Drug Screen Negative: No Urine Drug Screen Results: LEYLA-Cocaine, BZO-Benzodiazepines
[2018-02-28] MEDS ORDERED: P-EPHED 60MG/TRIPROLIDI 2.5MG TABLET PO PRN (19:23)
[2018-02-28] MEDS ORDERED: MAGNESIUM HYDROX 2400MG/30ML ORAL SUSPENSION 30 ML CUP PO PRN (19:23)
[2018-02-28] MEDS ORDERED: guaiFENesin/D-METHORPHAN HB 10 ML UNIT-DOSE CUPS PO PRN (19:23)
[2018-02-28] MEDS ORDERED: NICOTINE POLACRILEX 2 MG GUM BC PRN (19:23)
[2018-02-28] MEDS ORDERED: ACETAMINOPHEN 325 MG TABLET (FP) PO PRN (19:23)
[2018-02-28] MEDS ORDERED: chlordiazePOXIDE HCL 25 MG CAPSULE PO PRN (19:23)
[2018-02-28] MEDS ORDERED: LOPERAMIDE HCL 2 MG CAPSULE PO PRN (19:23)
[2018-02-28] MEDS ORDERED: MENTHOL/PHENOL 1 EACH UD MM PRN (19:23)
[2018-02-28] MEDS ORDERED: MAGNESIUM CITRATE 300 ML BOTTLE PO PRN (19:23)
[2018-02-28] MEDS ORDERED: MAG HYDROX/AL HYDROX/SIMETH 30 ML UNIT-DOSE CUP PO PRN (19:23)
[2018-02-28] MEDS ORDERED: hydrOXYzine PAMOATE 50 MG CAPSULE (FP) PO PRN (19:23)
[2018-02-28] MEDS ORDERED: IBUPROFEN 400 MG TABLET (FP) PO PRN (19:23)
[2018-02-28] MEDS ORDERED: chlordiazePOXIDE HCL 25 MG CAPSULE PO ONE (19:45)
[2018-02-28] MEDS ORDERED: MELATONIN 5 MG TABLETS PO PRN (22:00)
[2018-02-28] MEDS ORDERED: diazePAM 5 MG TABLET PO PRN (22:41)
[2018-02-28] MEDS ORDERED: diazePAM 5 MG TABLET PO ONE (22:45)
[2018-02-28] MEDS ORDERED: chlordiazePOXIDE HCL 25 MG CAPSULE PO SCH (23:00)
[2018-02-28] MEDS: THIAMINE HCL 100 MG TABLET (FP) PO SCH (23:06)
[2018-02-28] MEDS: LATANOPROST 0.005% OPHTH SOLN 2.5ML BOTTLE OU SCH (23:06)
[2018-02-28] MEDS: DORZOLAMIDE 2% HCL OPHTHALMIC SOLUTION 10 ML BOTTLE OU SCH (23:07)
[2018-02-28] MEDS: diazePAM 5 MG TABLET PO SCH (23:08)
[2018-03-01] MEDS: diazePAM 5 MG TABLET PO SCH ×3 (06:05→22:17)
--- NOTE | 2018-03-01 09:02 | EKG ---
Test Reason : Blood Pressure : / mmHG Vent. Rate : 065 BPM Atrial Rate : 065 BPM P-R Int : 154 ms QRS Dur : 096 ms QT Int : 412 ms P-R-T Axes : 016 060 044 degrees QTc Int : 428 ms NORMAL SINUS RHYTHM NORMAL ECG WHEN COMPARED WITH ECG OF 29-DEC-2017 13:57, NO SIGNIFICANT CHANGE WAS FOUND Confirmed by DREW PRICE MD ([id number]) on 03/01/2018 9:01:29 AM Referred By: Confirmed By:DREW PRICE MD
[2018-03-01 09:42] LABS: ALBUMIN 2.8 g/dl (3.4-5.0); BLOOD UREA NITROGEN 24 mg/dL (7-18); CHLORIDE 106 mmol/L (98-107); POTASSIUM 4.5 mmol/L (3.5-5.1); SGOT/AST 16 U/L (15-37); SGPT/ALT 20 U/L (12-78); SODIUM 139 mmol/L (136-145)
[2018-03-01 09:43] LABS: HEMATOCRIT 36.5 % (35.4-49); HEMOGLOBIN 12.1 GM/dL (11.7-16.9); MCHC 33.2 g/dl (32.0-35.9); MEAN CELL VOLUME 84.4 fl (80-96); MEAN PLT VOLUME 8.3 fl (7.5-11.1); PLATELET COUNT 301 K/MM3 (134-434); RBC 4.33 M/mm3 (4.00-5.60); RDW 15.6 % (11.9-15.9); WHITE BLOOD COUNT 6.5 K/mm3 (4.0-10.0)
[2018-03-01 10:14] LABS: ALK PHOS 60 U/L (45-117); ANION GAP 11 (8-16); BILIRUBIN,TOTAL 0.2 mg/dL (0.2-1.0); CALCIUM 8.3 mg/dL (8.5-10.1); CO2 22 mmol/L (21-32); CREATININE 1.1 mg/dL (0.7-1.3); GLUCOSE,RANDOM 131 mg/dL (74-106); TOT PROT 6.8 g/dl (6.4-8.2)
[2018-03-01] MEDS: PANTOPRAZOLE 40 MG TABLET (FP) PO SCH (10:39)
[2018-03-01] MEDS: DORZOLAMIDE 2% HCL OPHTHALMIC SOLUTION 10 ML BOTTLE OU SCH ×2 (10:39→22:17)
[2018-03-01] MEDS: PRENATAL VITAMINS W/ FOLIC ACID TABLET (FP) PO SCH (10:40)
[2018-03-01] MEDS: NICOTINE 14 MG/24 HOURS TOPICAL PATCH TD SCH (10:40)
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
[2018-03-01] MEDS: LIDOCAINE 5% TOPICAL PATCH TP SCH (11:42)
--- NOTE | 2018-03-01 17:04 | PN ---
S CIWA - CIWA Score Nausea/Vomitin Muscle Tremors: 4-Moderate,w/Arms Extend Anxiety: 2 Agitation: 2 Paroxysmal Sweats: No Perspiration Orientation: 0-Oriented Tacttile Disturbances: 3-Moderate Itch/Numb/Burn Auditory Disturbances: 0-None Visual Disturbances: 2-Mild Sensitivity Headache: 0-None Present CIWA-Ar Total Score: 16 BHS Progress Note (SOAP) Subjective: Nausea, Body Aches, Stomach Cramping, Tremors, H/A. Objective: PATIENT A & O X 3, OBSERVED AMBULATING ON UNIT. NO ACUTE DISTRESS. 03/01/18 17:03 Vital Signs Temperature 97.3 F L 03/01/18 14:12 Pulse Rate 73 03/01/18 14:12 Respiratory Rate 20 03/01/18 14:12 Blood Pressure 132/76 03/01/18 14:12 O2 Sat by Pulse Oximetry (%) Laboratory Tests 03/01/18 03/01/18 03/01/18 08:00 08:00 08:00 WBC 6.5 RBC 4.33 Hgb 12.1 Hct 36.5 MCV 84.4 MCH 28.0 MCHC 33.2 RDW 15.6 Plt Count 301 MPV 8.3 Sodium 139 Potassium 4.5 Chloride 106 Carbon Dioxide 22 Anion Gap 11 BUN 24 H Creatinine 1.1 Creat Clearance w eGFR > 60 Random Glucose 131 H Calcium 8.3 L Total Bilirubin 0.2 AST 16 ALT 20 D Alkaline Phosphatase 60 Total Protein 6.8 Albumin 2.8 L RPR Titer Nonreactive LABS NOTED. UA RESULTS PENDING. 03/01/18 17:04 Assessment: 03/01/18 17:03 WITHDRAWAL SYMPTOMS. Plan: CONTINUE DETOX. INCREASE DAILY PO FLUID INTAKE. LIDODERM PATCH FOR BACK PAIN.
[2018-03-01 17:55] LABS: URINE APPEARANCE CLEAR; URINE BILIRUBIN NEGATIVE (<2.0 mg/dL); URINE COLOR YELLOW; URINE GLUCOSE (UA) NEGATIVE (NEGATIVE); URINE KETONE NEGATIVE (NEGATIVE); URINE LEUK ESTERASE NEGATIVE (NEGATIVE); URINE NITRITE NEGATIVE (NEGATIVE); URINE PROTEIN NEGATIVE (NEGATIVE); URINE UROBILINOGEN NEGATIVE mg/dL (0.2-1.0)
[2018-03-01] MEDS ORDERED: QUEtiapine FUMARATE 100 MG TABLET (FP) ONE (20:36)
[2018-03-01] MEDS: THIAMINE HCL 100 MG TABLET (FP) PO SCH (22:17)
[2018-03-01] MEDS: QUEtiapine FUMARATE 50 MG TABLET PO SCH (22:17)
[2018-03-01] MEDS: LATANOPROST 0.005% OPHTH SOLN 2.5ML BOTTLE OU SCH (22:18)
[2018-03-01] MEDS: LIDOCAINE PATCH REMOVAL MC SCH (22:21)
[2018-03-01] MEDS ORDERED: chlordiazePOXIDE HCL 25 MG CAPSULE PO SCH (23:00)
[2018-03-02] MEDS: PANTOPRAZOLE 40 MG TABLET (FP) PO SCH (10:29)
[2018-03-02] MEDS: DORZOLAMIDE 2% HCL OPHTHALMIC SOLUTION 10 ML BOTTLE OU SCH ×2 (10:29→22:26)
[2018-03-02] MEDS: diazePAM 5 MG TABLET PO SCH ×2 (10:29→22:26)
[2018-03-02] MEDS: PRENATAL VITAMINS W/ FOLIC ACID TABLET (FP) PO SCH (10:29)
[2018-03-02] MEDS: NICOTINE 14 MG/24 HOURS TOPICAL PATCH TD SCH (10:29)
[2018-03-02] MEDS: LIDOCAINE 5% TOPICAL PATCH TP SCH (10:31)
[2018-03-02] MEDS ORDERED: diphenhydrAMINE HCL 50 MG CAPSULE PO PRN (13:10)
--- NOTE | 2018-03-02 13:12 | PN ---
S CIWA - CIWA Score Nausea/Vomitin-No Nausea/No Vomiting Muscle Tremors: 3 Anxiety: 3 Agitation: 2 Paroxysmal Sweats: 3 Orientation: 3-Disoriented Date>2 days Tacttile Disturbances: 0-None Auditory Disturbances: 1-Very Mild Visual Disturbances: 1-Very Mild Sensitivity Headache: 0-None Present CIWA-Ar Total Score: 16 BHS Progress Note (SOAP) Subjective: Tremors, Interrupted Sleep, Body Aches, Sweating. Objective: PATIENT A & O X 3, OBSERVED AMBULATING ON UNIT. NO ACUTE DISTRESS. 03/02/18 13:11 Vital Signs Temperature 96.8 F L 03/02/18 09:27 Pulse Rate 76 03/02/18 09:27 Respiratory Rate 18 03/02/18 09:27 Blood Pressure 129/79 03/02/18 09:27 O2 Sat by Pulse Oximetry (%) Laboratory Tests 03/01/18 03/01/18 03/01/18 08:00 08:00 08:00 WBC 6.5 RBC 4.33 Hgb 12.1 Hct 36.5 MCV 84.4 MCH 28.0 MCHC 33.2 RDW 15.6 Plt Count 301 MPV 8.3 Sodium 139 Potassium 4.5 Chloride 106 Carbon Dioxide 22 Anion Gap 11 BUN 24 H Creatinine 1.1 Creat Clearance w eGFR > 60 POC Glucometer Random Glucose 131 H Calcium 8.3 L Total Bilirubin 0.2 AST 16 ALT 20 D Alkaline Phosphatase 60 Total Protein 6.8 Albumin 2.8 L Urine Color Urine Appearance Urine pH Ur Specific [place] Urine Protein Urine Glucose (UA) Urine Ketones Urine Blood Urine Nitrite Urine Bilirubin Urine Urobilinogen Ur Leukocyte Esterase RPR Titer Nonreactive 03/01/18 03/02/18 16:45 06:34 WBC RBC Hgb Hct MCV MCH MCHC RDW Plt Count MPV Sodium Potassium Chloride Carbon Dioxide Anion Gap BUN Creatinine Creat Clearance w eGFR POC Glucometer 97 Random Glucose Calcium Total Bilirubin AST ALT Alkaline Phosphatase Total Protein Albumin Urine Color Yellow Urine Appearance Clear Urine pH 6.0 Ur Specific [place] 1.023 Urine Protein Negative Urine Glucose (UA) Negative Urine Ketones Negative Urine Blood Negative Urine Nitrite Negative Urine Bilirubin Negative Urine Urobilinogen Negative Ur Leukocyte Esterase Negative RPR Titer LABS NOTED. Assessment: 03/02/18 13:11 WITHDRAWAL SYMPTOMS. Plan: CONTINUE DETOX. INCREASE DAILY PO FLUID INTAKE.
[2018-03-02] MEDS: THIAMINE HCL 100 MG TABLET (FP) PO SCH (22:25)
[2018-03-02] MEDS: QUEtiapine FUMARATE 50 MG TABLET PO SCH (22:25)
[2018-03-02] MEDS: LATANOPROST 0.005% OPHTH SOLN 2.5ML BOTTLE OU SCH (22:26)
[2018-03-02] MEDS ORDERED: chlordiazePOXIDE 5 MG CAPSULE PO SCH (23:00)
[2018-03-02] MEDS: LIDOCAINE PATCH REMOVAL MC SCH (23:28)
[2018-03-03] MEDS: PANTOPRAZOLE 40 MG TABLET (FP) PO SCH (10:30)
[2018-03-03] MEDS: diazePAM 5 MG TABLET PO SCH ×2 (10:30→22:06)
[2018-03-03] MEDS: PRENATAL VITAMINS W/ FOLIC ACID TABLET (FP) PO SCH (10:30)
[2018-03-03] MEDS: LIDOCAINE 5% TOPICAL PATCH TP SCH (10:30)
[2018-03-03] MEDS: NICOTINE 14 MG/24 HOURS TOPICAL PATCH TD SCH (10:30)
[2018-03-03] MEDS: DORZOLAMIDE 2% HCL OPHTHALMIC SOLUTION 10 ML BOTTLE OU SCH ×2 (12:02→22:06)
--- NOTE | 2018-03-03 14:19 | PN ---
BHS Progress Note (SOAP) Subjective: Fatigue, Body Aches. Objective: PATIENT A & O X 3, OBSERVED AMBULATING ON UNIT. NO ACUTE DISTRESS. 03/03/18 14:17 Vital Signs Temperature 98 F 03/03/18 13:14 Pulse Rate 87 03/03/18 13:14 Respiratory Rate 18 03/03/18 13:14 Blood Pressure 115/71 03/03/18 13:14 O2 Sat by Pulse Oximetry (%) Laboratory Tests 03/01/18 03/01/18 03/01/18 08:00 08:00 08:00 WBC 6.5 RBC 4.33 Hgb 12.1 Hct 36.5 MCV 84.4 MCH 28.0 MCHC 33.2 RDW 15.6 Plt Count 301 MPV 8.3 Sodium 139 Potassium 4.5 Chloride 106 Carbon Dioxide 22 Anion Gap 11 BUN 24 H Creatinine 1.1 Creat Clearance w eGFR > 60 POC Glucometer Random Glucose 131 H Calcium 8.3 L Total Bilirubin 0.2 AST 16 ALT 20 D Alkaline Phosphatase 60 Total Protein 6.8 Albumin 2.8 L Urine Color Urine Appearance Urine pH Ur Specific Lane Urine Protein Urine Glucose (UA) Urine Ketones Urine Blood Urine Nitrite Urine Bilirubin Urine Urobilinogen Ur Leukocyte Esterase RPR Titer Nonreactive 03/01/18 03/02/18 03/03/18 16:45 06:34 06:25 WBC RBC Hgb Hct MCV MCH MCHC RDW Plt Count MPV Sodium Potassium Chloride Carbon Dioxide Anion Gap BUN Creatinine Creat Clearance w eGFR POC Glucometer 97 127 Random Glucose Calcium Total Bilirubin AST ALT Alkaline Phosphatase Total Protein Albumin Urine Color Yellow Urine Appearance Clear Urine pH [address] 1.023 Urine Protein Negative Urine Glucose (UA) Negative Urine Ketones Negative Urine Blood Negative Urine Nitrite Negative Urine Bilirubin Negative Urine Urobilinogen Negative Ur Leukocyte Esterase Negative RPR Titer LABS NOTED. Assessment: 03/03/18 14:17 WITHDRAWAL SYMPTOMS. Plan: CONTINUE DETOX. INCREASE DAILY PO FLUID INTAKE. PATIENT SCHEDULED FOR D/C TOMORROW.
[2018-03-03] MEDS: THIAMINE HCL 100 MG TABLET (FP) PO SCH (22:06)
[2018-03-03] MEDS: LATANOPROST 0.005% OPHTH SOLN 2.5ML BOTTLE OU SCH (22:06)
[2018-03-03] MEDS: QUEtiapine FUMARATE 50 MG TABLET PO SCH (22:06)
[2018-03-03] MEDS: LIDOCAINE PATCH REMOVAL MC SCH (22:15)
[2018-03-03] MEDS ORDERED: chlordiazePOXIDE HCL 10 MG CAPSULE PO SCH (23:00)
[2018-03-04] MEDS ORDERED: diazePAM 5 MG TABLET PO SCH (10:00)
[2018-03-04] MEDS: PANTOPRAZOLE 40 MG TABLET (FP) PO SCH (10:21)
[2018-03-04] MEDS: LIDOCAINE 5% TOPICAL PATCH TP SCH (10:22)
[2018-03-04] MEDS: DORZOLAMIDE 2% HCL OPHTHALMIC SOLUTION 10 ML BOTTLE OU SCH (10:22)
[2018-03-04] MEDS: NICOTINE 14 MG/24 HOURS TOPICAL PATCH TD SCH (10:23)
[2018-03-04] MEDS: PRENATAL VITAMINS W/ FOLIC ACID TABLET (FP) PO SCH (10:23)
[2018-03-04 11:05] VITALS: BP 140/91; PULSE 86; TEMP 97.9
--- NOTE | 2018-03-04 17:56 | PN ---
S Progress Note (SOAP) Subjective: Patient denies current Detox symptoms and reports that he feels well overall. Objective: PATIENT A & O X 3, OBSERVED AMBULATING ON UNIT. NO ACUTE DISTRESS. 03/04/18 17:55 Vital Signs Temperature 97.9 F 03/04/18 11:04 Pulse Rate 86 03/04/18 11:04 Respiratory Rate 20 03/04/18 11:04 Blood Pressure 140/91 03/04/18 11:04 O2 Sat by Pulse Oximetry (%) Laboratory Tests 03/01/18 03/01/18 03/01/18 08:00 08:00 08:00 WBC 6.5 RBC 4.33 Hgb 12.1 Hct 36.5 MCV 84.4 MCH 28.0 MCHC 33.2 RDW 15.6 Plt Count 301 MPV 8.3 Sodium 139 Potassium 4.5 Chloride 106 Carbon Dioxide 22 Anion Gap 11 BUN 24 H Creatinine 1.1 Creat Clearance w eGFR > 60 POC Glucometer Random Glucose 131 H Calcium 8.3 L Total Bilirubin 0.2 AST 16 ALT 20 D Alkaline Phosphatase 60 Total Protein 6.8 Albumin 2.8 L Urine Color Urine Appearance Urine pH Ur Specific [place] Urine Protein Urine Glucose (UA) Urine Ketones Urine Blood Urine Nitrite Urine Bilirubin Urine Urobilinogen Ur Leukocyte Esterase RPR Titer Nonreactive 03/01/18 03/02/18 03/03/18 16:45 06:34 06:25 WBC RBC Hgb Hct MCV MCH MCHC RDW Plt Count MPV Sodium Potassium Chloride Carbon Dioxide Anion Gap BUN Creatinine Creat Clearance w eGFR POC Glucometer 97 127 Random Glucose Calcium Total Bilirubin AST ALT Alkaline Phosphatase Total Protein Albumin Urine Color Yellow Urine Appearance Clear Urine pH 6.0 Ur Specific [place] 1.023 Urine Protein Negative Urine Glucose (UA) Negative Urine Ketones Negative Urine Blood Negative Urine Nitrite Negative Urine Bilirubin Negative Urine Urobilinogen Negative Ur Leukocyte Esterase Negative RPR Titer 03/04/18 06:22 WBC RBC Hgb Hct MCV MCH MCHC RDW Plt Count MPV Sodium Potassium Chloride Carbon Dioxide Anion Gap BUN Creatinine Creat Clearance w eGFR POC Glucometer 113 Random Glucose Calcium Total Bilirubin AST ALT Alkaline Phosphatase Total Protein Albumin Urine Color Urine Appearance Urine pH Ur Specific [place] Urine Protein Urine Glucose (UA) Urine Ketones Urine Blood Urine Nitrite Urine Bilirubin Urine Urobilinogen Ur Leukocyte Esterase RPR Titer LABS NOTED. Assessment: 03/04/18 17:56 COMPLETION OF DETOX REGIMEN. Plan: PATIENT SCHEDULED FOR DISCHARGE FROM DETOX UNIT TODAY.
--- NOTE | 2018-03-04 18:03 | DS ---
[facility] Detox Discharge Summary Admission Date: 02/28/18 Discharge Date: 03/04/18 - History Present History: Alcohol Dependence, Cocaine Dependence, Sedative Dependence Additional Comments: NO BEDS ARE AVAILABLE AT [facility] TODAY, PATIENT WILL CONTACT [facility] ADMISSION DEPT. ON 03/06/2018 TO INQUIRE ABOUT POSSIBLE ADMISSION AT THAT TIME. PATIENT WAS DISCHARGED FROM DETOX UNIT IN STABLE MEDICAL CONDITION. Pertinent Past History: HTN, G.E.R.D., History of Herniated Disc, Nicotine Dependence, Weight Loss, History of Glaucoma, History of Hyperlipidemia, Depression, History of Osteoarthritis, Chronic Low Back Pain, Insomnia. - Physical Exam Results Vital Signs: Vital Signs Temperature 97.9 F 03/04/18 11:04 Pulse Rate 86 03/04/18 11:04 Respiratory Rate 20 03/04/18 11:04 Blood Pressure 140/91 03/04/18 11:04 O2 Sat by Pulse Oximetry (%) Pertinent Admission Physical Exam Findings: WITHDRAWAL SYMPTOMS. Laboratory Tests 03/01/18 03/01/18 03/01/18 08:00 08:00 08:00 WBC 6.5 RBC 4.33 Hgb 12.1 Hct 36.5 MCV 84.4 MCH 28.0 MCHC 33.2 RDW 15.6 Plt Count 301 MPV 8.3 Sodium 139 Potassium 4.5 Chloride 106 Carbon Dioxide 22 Anion Gap 11 BUN 24 H Creatinine 1.1 Creat Clearance w eGFR > 60 POC Glucometer Random Glucose 131 H Calcium 8.3 L Total Bilirubin 0.2 AST 16 ALT 20 D Alkaline Phosphatase 60 Total Protein 6.8 Albumin 2.8 L Urine Color Urine Appearance Urine pH Ur Specific [place] Urine Protein Urine Glucose (UA) Urine Ketones Urine Blood Urine Nitrite Urine Bilirubin Urine Urobilinogen Ur Leukocyte Esterase RPR Titer Nonreactive 03/01/18 03/02/18 03/03/18 16:45 06:34 06:25 WBC RBC Hgb Hct MCV MCH MCHC RDW Plt Count MPV Sodium Potassium Chloride Carbon Dioxide Anion Gap BUN Creatinine Creat Clearance w eGFR POC Glucometer 97 127 Random Glucose Calcium Total Bilirubin AST ALT Alkaline Phosphatase Total Protein Albumin Urine Color Yellow Urine Appearance Clear Urine pH 6.0 Ur Specific [place] 1.023 Urine Protein Negative Urine Glucose (UA) Negative Urine Ketones Negative Urine Blood Negative Urine Nitrite Negative Urine Bilirubin Negative Urine Urobilinogen Negative Ur Leukocyte Esterase Negative RPR Titer 03/04/18 06:22 WBC RBC Hgb Hct MCV MCH MCHC RDW Plt Count MPV Sodium Potassium Chloride Carbon Dioxide Anion Gap BUN Creatinine Creat Clearance w eGFR POC Glucometer 113 Random Glucose Calcium Total Bilirubin AST ALT Alkaline Phosphatase Total Protein Albumin Urine Color Urine Appearance Urine pH Ur Specific [place] Urine Protein Urine Glucose (UA) Urine Ketones Urine Blood Urine Nitrite Urine Bilirubin Urine Urobilinogen Ur Leukocyte Esterase RPR Titer LABS NOTED. - Treatment Hospital Course: Detox Protocol Followed, Detoxed Safely, Responded well, Discharged Condition Good, Rehab Referral Accepted Patient has Accepted a Rehab Referral to: [facility] ([email or web address] . - Medication Discharge Medications: Ambulatory Orders Latanoprost 0.005% Eye Drops [Xalatan 0.005% Eye Drops -] 1 drop OU HS 07/29/17 Quetiapine Fumarate [Seroquel] 100 mg PO HS 12/29/17 Dorzolamide HCl [Trusopt 2% -] 1 drop OU BID #1 drops 01/02/18 Losartan Potassium [Cozaar -] 25 mg PO DAILY 01/02/18 Pantoprazole Sodium [Protonix -] 40 mg PO DAILY #14 tablet.ec 01/02/18 Thiamine HCl [Vitamin B1 -] 100 mg PO HS tablet 01/02/18 - Diagnosis (1) Nicotine dependence Status: Acute Qualifiers: Nicotine product type: cigarettes Substance use status: in withdrawal Qualified Code(s): F17.213 - Nicotine dependence, cigarettes, with withdrawal (2) Sedative, hypnotic or anxiolytic dependence with withdrawal, unspecified Status: Acute (3) Weight loss Status: Acute (4) GERD (gastroesophageal reflux disease) Status: Chronic Qualifiers: Esophagitis presence: esophagitis presence not specified Qualified Code(s) : K21.9 - Gastro-esophageal reflux disease without esophagitis (5) Alcohol dependence with uncomplicated withdrawal Status: Acute (6) Glaucoma Status: Chronic Qualifiers: Glaucoma type: open-angle Open angle glaucoma type: unspecified type Laterality: bilateral Glaucoma stage: mild stage Qualified Code(s): H40.10X1 - Unspecified open-angle glaucoma, mild stage (7) HTN (hypertension) Status: Chronic Qualifiers: Hypertension type: essential hypertension Qualified Code(s): I10 - Essential (primary) hypertension (8) Herniated disc Status: Chronic Qualifiers: Spinal region: mid-cervical Mid-cervical spinal level: unspecified Qualified Code(s): M50.220 - Other cervical disc displacement, mid-cervical region, unspecified level (9) Hyperlipidemia Status: Chronic Qualifiers: Hyperlipidemia type: unspecified Qualified Code(s): E78.5 - Hyperlipidemia , unspecified (10) Cocaine dependence Status: Acute Qualifiers: Substance use status: uncomplicated Qualified Code(s): F14.20 - Cocaine dependence, uncomplicated (11) Depression (emotion) Status: Acute Qualifiers: Depression Type: unspecified Qualified Code(s): F32.9 - Major depressive disorder, single episode, unspecified (12) Chronic lower back pain Status: Chronic Qualifiers: Back pain laterality: right Sciatica presence: without sciatica Qualified Code(s): M54.5 - Low back pain; G89.29 - Other chronic pain (13) Osteoarthritis Status: Chronic Qualifiers: Osteoarthritis location: unspecified site Osteoarthritis type: unspecified Qualified Code(s): M19.90 - Unspecified osteoarthritis, unspecified site (14) Insomnia Status: Acute Qualifiers: Insomnia type: unspecified Qualified Code(s): G47.00 - Insomnia, unspecified (15) Substance induced mood disorder Status: Acute - AMA Did Patient Leave Against Medical Advice: No
== END 2018-03-04 12:57 | disposition home or self-care (01) | DRG 774 ==
LOC: YASAS 12:55 → Y3N 17:48
PROVIDERS: ADMIT Surgery; ATTEND Surgery
PROC: HZ2ZZZZ Detoxification Services for Substance Abuse Treatment (ICD-10-PCS; principal; 2018-02-28)
DX: F10.230 Alcohol dependence with withdrawal, uncomplicated (principal); F13.230 Sedative, hypnotic or anxiolytic dependence with withdrawal, uncomplicated; F14.20 Cocaine dependence, uncomplicated; F17.213 Nicotine dependence, cigarettes, with withdrawal; F32.9 Major depressive disorder, single episode, unspecified; F19.24 Other psychoactive substance dependence with psychoactive substance-induced mood disorder; I10 Essential (primary) hypertension; E78.5 Hyperlipidemia, unspecified; M54.5 Low back pain; G89.29 Other chronic pain; D50.8 Other iron deficiency anemias; M19.90 Unspecified osteoarthritis, unspecified site; M50.220 Other cervical disc displacement, mid-cervical region, unspecified level; H40.10X1 Unspecified open-angle glaucoma, mild stage; K21.9 Gastro-esophageal reflux disease without esophagitis; R63.4 Abnormal weight loss; Z88.0 Allergy status to penicillin; Z91.018 Allergy to other foods
CPT/HCPCS: 36415; 80053; 81003; 82962; 85027; 86593; 93005; 93010

== ENCOUNTER 2018-04-25 14:19 | Inpatient (IN) | payer OTHER ==
[2018-04-25 15:43] VITALS: BMI 22.6
--- NOTE | 2018-04-25 17:25 | HP ---
COWS - Scale Resting Pulse: 0= [place] 80 or Below Sweatin= Chills/Flushing Restless Observation: 1= Difficult to Sit Still Pupil Size: 1= Pupils >than Normal Bone or Joint Aches: 1= Mild Discomfort Runny Nose/ Eye Tearin= Nasal Congestion GI Upset > 30mins: 3= Vomiting/Diarrhea Tremor Observation: 2= Slight Tremor Visible Yawning Observation: 1= 1-2x During Session Anxiety or Irritability: 2=Irritable/Anxious Goose Flesh Skin: 3=Piloerection COWS Score: 16 CIWA Score - CIWA Score Nausea/Vomitin-Int. Nausea w/Dry Heave Muscle Tremors: 2 Anxiety: 3 Agitation: 3 Paroxysmal Sweats: 2 Orientation: 1-Uncertain about Date (no distress) Tacttile Disturbances: 0-None Auditory Disturbances: 1-Very Mild Visual Disturbances: 0-None Headache: 2-Mild CIWA-Ar Total Score: 18 Admission ROS S - HPI Chief Complaint: alcohol and opioid withdrawal symptoms Allergies/Adverse Reactions: Allergies Allergy/AdvReac Type Severity Reaction Status Date / Time Penicillins Allergy Severe Hives Verified 04/25/18 16:52 rice Allergy Hives Verified 04/25/18 16:52 shellfish derived Allergy Hives Verified 04/25/18 16:52 History of Present Illness: 62 yo male with hx of nicotine, alcohol, and cocaine dependence is here seeking detox, this is one of multiple admissions. Last detox [facility] 02/28/18 -03/04/18. PMHX: Hernia disc L3 - L, B/L carpal Tunnel, Plantar Faciatis (R), OA, GERD, HTN (reports not taking meds), glaucoma bilateral, depression and anxiety. Reports frequent blackouts, about one month ago. Denies homicidal / homicidal ideation or hx of suicide attempt. Longest period of sobriety three years. Exam Limitations: No Limitations - Ebola screening Have you traveled outside of the country in the last 21 days: No Have you had contact with anyone from an Ebola affected area: No Have you been sick,other than usual withdrawal symptoms: No Do you have a fever: No - Review of Systems Constitutional: Chills, Loss of Appetite, Changes in sleep, Unintentional Wgt. Loss EENT: reports: See HPI Respiratory: reports: No Symptoms reported Cardiac: reports: No Symptoms Reported GI: reports: Diarrhea, Nausea, Poor Appetite, Poor Fluid Intake, Vomiting, Abdominal cramping : reports: No Symptoms Reported Musculoskeletal: reports: Back Pain, Joint Pain Integumentary: reports: No Symptoms Reported Neuro: reports: Headache Endocrine: reports: Increased Thirst Hematology: reports: No Symptoms Reported Psychiatric: reports: Orientated x3, Anxious, Depressed (97 yo mother medically deterriorating) Other Systems: Reviewed and Negative Patient History - Patient Medical History Hx Anemia: Yes (Iron-Deficiency type.) Hx Asthma: No Hx Chronic Obstructive Pulmonary Disease (COPD): No Hx Cancer: No Hx Cardiac Disorders: No Hx Congestive Heart Failure: No Hx Hypertension: No Hx Hypercholesterolemia: No Hx Pacemaker: No HX Cerebrovascular Accident: No Hx Seizures: No Hx Dementia: No Hx Diabetes: No Hx Gastrointestinal Disorders: Yes (ACID REFLUX) Hx Liver Disease: No Hx Genitourinary Disorders: No Hx Sexually Transmitted Disorders: No Hx Renal Disease (ESRD): No Hx Thyroid Disease: No Hx Human Immunodeficiency Virus (HIV): No (NEGATIVE HX) Hx Hepatitis C: No Hx Depression: Yes Hx Suicide Attempt: No Hx Bipolar Disorder: No Hx Schizophrenia: No - Patient Surgical History Past Surgical History: Yes Hx Neurologic Surgery: No Hx Cataract Extraction: No Hx Cardiac Surgery: No Hx Lung Surgery: No Hx Breast Surgery: No Hx Breast Biopsy: No Hx Abdominal Surgery: No Hx Appendectomy: No Hx Cholecystectomy: No Hx Genitourinary Surgery: No Hx Section: No Hx Orthopedic Surgery: Yes (fx, right forearm in 1997) Other Surgical History: Lipoma removed from Left shoulder 01/10 Anesthesia Reaction: No - PPD History Previous Implant?: Yes Documented Results: Negative w/proof Implanted On Prior [facility] Admission?: Yes Date: 05/05/17 Results: 0 MM PPD to be Administered?: Yes - Smoking Cessation Smoking history: Current every day smoker Have you smoked in the past 12 months: Yes Aproximately how many cigarettes per day: 10 Cigars Per Day: 0 Hx Chewing Tobacco Use: No Initiated information on smoking cessation: Yes 'Breaking Loose' booklet given: 04/25/18 - Substance & Tx. History Hx Alcohol Use: Yes Hx Substance Use: Yes Substance Use Type: Alcohol, Cocaine, Heroin, Tranquilizers - Substances Abused Alcohol Route: Oral Frequency: Daily Amount used: 1 QT VODKA/6PK BEER Age of first use: 13 Date of Last Use: 04/24/18 Cocaine Route: Smoking Frequency: Daily Amount used: $50 Age of first use: 25 Date of Last Use: 04/24/18 Heroin Route: Inhalation Frequency: 1-2 times per week Amount used: 2 BAGS Age of first use: 27 Date of Last Use: 04/22/18 Family Disease History - Family Disease History Family Disease History: Diabetes: Grandparent (Lupus.), Mother (LUPUS,ARTHRITIS- MOTHER SIDE OF FAMILY), Heart Disease: Grandparent, Mother, Other: Grandparent, Father (unknown, ), Mother, Sister (lupus ) Admission Physical Exam S - Vital Signs Vital Signs: Vital Signs - 24 hr 04/25/18 15:39 Temperature 98.1 F Pulse Rate 73 Respiratory 19 Rate Blood Pressure 152/83 - Physical General Appearance: Yes: Disheveled, Sweating, Anxious HEENTM: Yes: Other (poor dentition) Respiratory: Yes: Chest Non-Tender, Lungs Clear, Normal Breath Sounds, No Respiratory Distress, No Accessory Muscle Use Neck: Yes: Within Normal Limits Breast: Yes: Breast Exam Deferred Cardiology: Yes: Regular Rhythm, Regular Rate Abdominal: Yes: Normal Bowel Sounds, Non Tender, Flat, Soft Genitourinary: Yes: Within Normal Limits Back: Yes: Normal Inspection Musculoskeletal: Yes: full range of Motion, Gait Steady, Pelvis Stable Extremities: Yes: Normal Capillary Refill, Normal Inspection, Normal Range of Motion, Non-Tender Neurological: Yes: dado operator II-XII NML intact, Fully Oriented, Alert, Motor Strength 5/5, Depressed Affect Integumentary: Yes: Normal Color, Warm, Diaphoresis Lymphatic: Yes: Within Normal Limits - Diagnostic (1) Opioid dependence with withdrawal Current Visit: Yes Status: Acute (2) Alcohol dependence with uncomplicated withdrawal Current Visit: Yes Status: Acute (3) Cocaine dependence Current Visit: No Status: Acute Qualifiers: Substance use status: uncomplicated Qualified Code(s): F14.20 - Cocaine dependence, uncomplicated (4) Depression (emotion) Current Visit: Yes Status: Suspected Qualifiers: Depression Type: dysthymia Qualified Code(s): F34.1 - Dysthymic disorder (5) Nicotine dependence Current Visit: Yes Status: Acute Qualifiers: Nicotine product type: cigarettes Substance use status: in withdrawal Qualified Code(s): F17.213 - Nicotine dependence, cigarettes, with withdrawal (6) Weight loss Current Visit: Yes Status: Acute (7) Chronic lower back pain Current Visit: Yes Status: Chronic Qualifiers: Back pain laterality: right Sciatica presence: without sciatica Qualified Code(s): M54.5 - Low back pain; G89.29 - Other chronic pain (8) Glaucoma Current Visit: Yes Status: Chronic Qualifiers: Glaucoma type: open-angle Open angle glaucoma type: unspecified type Laterality: bilateral Glaucoma stage: mild stage Qualified Code(s): H40.10X1 - Unspecified open-angle glaucoma, mild stage (9) HTN (hypertension) Current Visit: Yes Status: Chronic Qualifiers: Hypertension type: essential hypertension Qualified Code(s): I10 - Essential (primary) hypertension (10) Herniated disc Current Visit: Yes Status: Chronic Qualifiers: Spinal region: mid-cervical Mid-cervical spinal level: unspecified Qualified Code(s): M50.220 - Other cervical disc displacement, mid-cervical region, unspecified level (11) Osteoarthritis Current Visit: Yes Status: Chronic Qualifiers: Osteoarthritis location: unspecified site Osteoarthritis type: unspecified Qualified Code(s): M19.90 - Unspecified osteoarthritis, unspecified site Cleared for Admission BHS - Detox or Rehab S Level of Care: Medically Managed Detox Regimen/Protocol: Methadone/Valium BHS Breath Alcohol Content Breath Alcohol Content: 0 Urine Drug Screen - Results Drug Screen Negative: No Urine Drug Screen Results: LEYLA-Cocaine, BZO-Benzodiazepines, MTD-Methadone
[2018-04-25] MEDS ORDERED: diazePAM 5 MG TABLET PO PRN (17:38)
[2018-04-25] MEDS ORDERED: diazePAM 5 MG TABLET PO ONE (18:30)
[2018-04-25] MEDS ORDERED: METHADONE HCL 10 MG TABLET (FOR DETOX USE ONLY) PO ONE ×2 (18:30→23:00)
[2018-04-25] MEDS ORDERED: MAGNESIUM HYDROX 2400MG/30ML ORAL SUSPENSION 30 ML CUP PO PRN (19:37)
[2018-04-25] MEDS ORDERED: LOPERAMIDE HCL 2 MG CAPSULE PO PRN (19:37)
[2018-04-25] MEDS ORDERED: hydrOXYzine PAMOATE 50 MG CAPSULE (FP) PO PRN (19:37)
[2018-04-25] MEDS ORDERED: ACETAMINOPHEN 325 MG TABLET (FP) PO PRN (19:37)
[2018-04-25] MEDS ORDERED: P-EPHED 60MG/TRIPROLIDI 2.5MG TABLET PO PRN (19:37)
[2018-04-25] MEDS ORDERED: guaiFENesin/D-METHORPHAN HB 10 ML UNIT-DOSE CUPS PO PRN (19:37)
[2018-04-25] MEDS ORDERED: MAG HYDROX/AL HYDROX/SIMETH 30 ML UNIT-DOSE CUP PO PRN (19:37)
[2018-04-25] MEDS ORDERED: IBUPROFEN 400 MG TABLET (FP) PO PRN (19:37)
[2018-04-25] MEDS ORDERED: MENTHOL/PHENOL 1 EACH UD MM PRN (19:37)
[2018-04-25] MEDS ORDERED: MAGNESIUM CITRATE 300 ML BOTTLE PO PRN (19:37)
[2018-04-25] MEDS ORDERED: NICOTINE POLACRILEX 2 MG GUM BC PRN (19:37)
[2018-04-25] MEDS ORDERED: MELATONIN 5 MG TABLETS PO PRN (22:00)
[2018-04-25] MEDS: DORZOLAMIDE 2% HCL OPHTHALMIC SOLUTION 10 ML BOTTLE OU SCH (22:47)
[2018-04-25] MEDS: diazePAM 5 MG TABLET PO SCH (22:47)
[2018-04-25] MEDS: THIAMINE HCL 100 MG TABLET (FP) PO SCH (22:48)
[2018-04-25 23:31] LABS: URINE APPEARANCE CLEAR; URINE BILIRUBIN NEGATIVE (<2.0 mg/dL); URINE COLOR YELLOW; URINE GLUCOSE (UA) NEGATIVE (NEGATIVE); URINE KETONE NEGATIVE (NEGATIVE); URINE LEUK ESTERASE NEGATIVE (NEGATIVE); URINE NITRITE NEGATIVE (NEGATIVE); URINE PROTEIN NEGATIVE (NEGATIVE); URINE UROBILINOGEN NEGATIVE mg/dL (0.2-1.0)
[2018-04-25] MEDS: LATANOPROST 0.005% OPHTH SOLN 2.5ML BOTTLE OU SCH (23:42)
[2018-04-26] MEDS: diazePAM 5 MG TABLET PO SCH ×3 (05:47→22:43)
--- NOTE | 2018-04-26 08:34 | CONSULT ---
[facility] Psychiatric Consult - Data Date of interview: 04/26/18 Admission source: [facility] Identifying data: This is a 62 years old male, single fathjer of five, living with family, unemployed, on PA, with no psychiatric hospitalization history, with hxistory of Alcohol, Heroin, Cocaine, Nicotine dependence is here reporting withdrawal symptoms and seeking detox, Substance Abuse History: Smoking history: Current every day smoker. Have you smoked in the past 12 months: Yes. Aproximately how many cigarettes per day: 10. Cigars Per Day: 0. Hx Chewing Tobacco Use: No. Initiated information on smoking cessation: Yes. 'Breaking Loose' booklet given: 04/25/18. - Substance & Tx. History. Hx Alcohol Use: Yes. Hx Substance Use: Yes. Substance Use Type : Alcohol, Cocaine, Heroin, Tranquilizers. - Substances Abused. Alcohol. Route: Oral. Frequency: Daily. Amount used: 1 QT VODKA/6PK BEER. Age of first use: 13. Date of Last Use: 04/24/18. Cocaine. Route: Smoking. Frequency: Daily. Amount used: $50. Age of first use: 25. Date of Last Use: 04/24/18. Heroin. Route: Inhalation. Frequency: 1-2 times per week. Amount used: 2 BAGS. Age of first use: 27. Date of Last Use: 04/22/18 Medical History: GERD, Weight loss history, Glaucoma, HTN, LBP, Osteoarthritis history Psychiatric History: Patient reports anxiety, depression and insomnia, reports taking prior to admission: Seroquel 100mg po qhs Physical/Sexual Abuse/Trauma History: Denies Additional Comment: Seroquel 100mg po qhs Mental Status Exam - Mental Status Exam Alert and Oriented to: Person Cognitive Function: Fair Patient Appearance: Unkempt Mood: Sad Affect: Flat Patient Behavior: Sedated Speech Pattern: Delayed Voice Loudness: Normal Thought Process: Goal Oriented Thought Disorder: Being Controlled Hallucinations: Denies Suicidal Ideation: Denies Homicidal Ideation: Denies Insight/Judgement: Fair Sleep: Difficulty falling asleep Appetite: Weight loss Muscle strength/Tone: Mild Hypotonicity Gait/Station: Shuffling Additional Comments: Seroquel 100mg po qhs Psychiatric Findings - Problem List (Industry 1, 2,3) (1) Alcohol dependence with uncomplicated withdrawal Current Visit: Yes Status: Chronic (2) Nicotine dependence Current Visit: Yes Status: Chronic Qualifiers: Nicotine product type: cigarettes Substance use status: in withdrawal Qualified Code(s): F17.213 - Nicotine dependence, cigarettes, with withdrawal (3) Opioid dependence with withdrawal Current Visit: Yes Status: Chronic (4) Cocaine dependence Current Visit: No Status: Acute Qualifiers: Substance use status: uncomplicated Qualified Code(s): F14.20 - Cocaine dependence, uncomplicated (5) Sedative, hypnotic or anxiolytic dependence with withdrawal, unspecified Current Visit: No Status: Acute (6) Substance induced mood disorder Current Visit: No Status: Acute (7) Substance-induced sleep disorder Current Visit: No Status: Acute (8) GERD (gastroesophageal reflux disease) Current Visit: No Status: Chronic Qualifiers: Esophagitis presence: esophagitis presence not specified Qualified Code(s) : K21.9 - Gastro-esophageal reflux disease without esophagitis (9) Hyperlipidemia Current Visit: No Status: Chronic Qualifiers: Hyperlipidemia type: unspecified Qualified Code(s): E78.5 - Hyperlipidemia , unspecified - Initial Treatment Plan Initial Treatment Plan: Seroquel 100mg po qhs
--- NOTE | 2018-04-26 09:22 | PN ---
[facility] CIWA - CIWA Score Nausea/Vomitin Muscle Tremors: 2 Anxiety: 2 Agitation: 2 Paroxysmal Sweats: 3 Orientation: 0-Oriented Tacttile Disturbances: 2-Mild Itch/Numbness/Burn Auditory Disturbances: 0-None Visual Disturbances: 0-None Headache: 0-None Present CIWA-Ar Total Score: 14 S COWS - Scale Resting Pulse: 0= [place] 80 or Below Sweatin=Flushed/Facial Moisture Restless Observation: 1= Difficult to Sit Still Pupil Size: 1= Pupils >than Normal Bone or Joint Aches: 2= Severe Diffuse Aches Runny Nose/ Eye Tearin= Nasal Congestion GI Upset > 30mins: 2= Nausea/Diarrhea Tremor Observation of Outstretched Hands: 1= Tremor [place], Not Seen Yawning Observation: 0= None Anxiety or Irritability: 1=Feels Anxious/Irritable Goose Flesh Skin: 0=Smooth Skin COWS Score: 11 [facility] Progress Note (SOAP) Subjective: interrupted sleep, sweats, shakes, diarrhea , lbp Objective: 04/26/18 09:19 Vital Signs Temperature 97.3 F L 04/26/18 06:41 Pulse Rate 72 04/26/18 06:41 Respiratory Rate 18 04/26/18 06:41 Blood Pressure 149/92 04/26/18 06:41 O2 Sat by Pulse Oximetry (%) pt aox3 in nad ambulating well Laboratory Tests 04/25/18 22:11 Urine Color Yellow Urine Appearance Clear Urine pH 5.0 Ur Specific [place] 1.029 Urine Protein Negative Urine Glucose (UA) Negative Urine Ketones Negative Urine Blood Negative Urine Nitrite Negative Urine Bilirubin Negative Urine Urobilinogen Negative Ur Leukocyte Esterase Negative pending labs Assessment: 04/26/18 09:20 withdrawal sx's 2 elevated bp /htn gerd lbp 04/26/18 09:24 Plan: cont. detox increase fluids imodium prn motrin prn f/up pending labs norvasc 5mg /d
[2018-04-26] MEDS ORDERED: METHADONE HCL 10 MG TABLET (FOR DETOX USE ONLY) PO SCH (10:00)
[2018-04-26 10:03] LABS: HEMATOCRIT 37.7 % (35.4-49); HEMOGLOBIN 12.2 GM/dL (11.7-16.9); MCH 27.3 pg (25.7-33.7); MCHC 32.5 g/dl (32.0-35.9); MEAN PLT VOLUME 8.2 fl (7.5-11.1); PLATELET COUNT 304 K/MM3 (134-434); RBC 4.48 M/mm3 (4.00-5.60); RDW 16.4 % (11.9-15.9); WHITE BLOOD COUNT 6.2 K/mm3 (4.0-10.0)
[2018-04-26 10:12] LABS: CHLORIDE 105 mmol/L (98-107); POTASSIUM 4.5 mmol/L (3.5-5.1); SODIUM 141 mmol/L (136-145)
[2018-04-26 10:20] LABS: ALBUMIN 3.2 g/dl (3.4-5.0); ALK PHOS 62 U/L (45-117); ANION GAP 8 MMOL/L (8-16); BILIRUBIN,TOTAL 0.2 mg/dL (0.2-1.0); BLOOD UREA NITROGEN 20 mg/dL (7-18); CALCIUM 8.7 mg/dL (8.5-10.1); CO2 28 mmol/L (21-32); GLUCOSE,RANDOM 96 mg/dL (74-106); SGOT/AST 17 U/L (15-37); SGPT/ALT 21 U/L (12-78)
[2018-04-26] MEDS: DORZOLAMIDE 2% HCL OPHTHALMIC SOLUTION 10 ML BOTTLE OU SCH ×2 (10:33→22:45)
[2018-04-26] MEDS: amLODIPine BESYLATE 5 MG TABLET (FP) PO SCH (10:33)
[2018-04-26] MEDS: PANTOPRAZOLE 40 MG TABLET (FP) PO SCH (10:33)
[2018-04-26] MEDS: NICOTINE 14 MG/24 HOURS TOPICAL PATCH TD SCH (10:33)
[2018-04-26] MEDS: PRENATAL VITAMINS W/ FOLIC ACID TABLET (FP) PO SCH (10:33)
--- NOTE | 2018-04-26 10:44 | EKG ---
Test Reason : Blood Pressure : / mmHG Vent. Rate : 067 BPM Atrial Rate : 067 BPM P-R Int : 158 ms QRS Dur : 092 ms QT Int : 414 ms P-R-T Axes : 050 060 043 degrees QTc Int : 437 ms NORMAL SINUS RHYTHM POSSIBLE LEFT ATRIAL ENLARGEMENT BORDERLINE ECG WHEN COMPARED WITH ECG OF 28-FEB-2018 22:00, NO SIGNIFICANT CHANGE WAS FOUND Confirmed by DREW PRICE MD ([id number]) on 04/26/2018 10:44:20 AM Referred By: Confirmed By:DREW PRICE MD
[2018-04-26] MEDS: THIAMINE HCL 100 MG TABLET (FP) PO SCH (22:43)
[2018-04-26] MEDS: QUEtiapine FUMARATE 100 MG TABLET (FP) PO SCH (22:43)
[2018-04-26] MEDS: LATANOPROST 0.005% OPHTH SOLN 2.5ML BOTTLE OU SCH (22:45)
[2018-04-27] MEDS: PRENATAL VITAMINS W/ FOLIC ACID TABLET (FP) PO SCH (10:15)
[2018-04-27] MEDS: NICOTINE 14 MG/24 HOURS TOPICAL PATCH TD SCH (10:15)
[2018-04-27] MEDS: PANTOPRAZOLE 40 MG TABLET (FP) PO SCH (10:15)
[2018-04-27] MEDS: diazePAM 5 MG TABLET PO SCH ×2 (10:15→22:24)
[2018-04-27] MEDS: METHADONE HCL 5 MG TABLET (FOR DETOX USE ONLY) PO SCH (10:15)
[2018-04-27] MEDS: amLODIPine BESYLATE 5 MG TABLET (FP) PO SCH (10:15)
[2018-04-27] MEDS: DORZOLAMIDE 2% HCL OPHTHALMIC SOLUTION 10 ML BOTTLE OU SCH ×2 (10:16→22:25)
--- NOTE | 2018-04-27 12:26 | PN ---
[facility] CIWA - CIWA Score Nausea/Vomitin-No Nausea/No Vomiting Muscle Tremors: 3 Anxiety: 3 Agitation: 3 Paroxysmal Sweats: 1-Minimal Palms Moist Orientation: 0-Oriented Tacttile Disturbances: 0-None Auditory Disturbances: 0-None Visual Disturbances: 0-None Headache: 0-None Present CIWA-Ar Total Score: 10 [facility] COWS - Scale Resting Pulse: 0= [place] 80 or Below Sweatin= Chills/Flushing Restless Observation: 1= Difficult to Sit Still Pupil Size: 0= Normal to Room Light Bone or Joint Aches: 2= Severe Diffuse Aches Runny Nose/ Eye Tearin= Nasal Congestion GI Upset > 30mins: 1= Stomach Cramp Tremor Observation of Outstretched Hands: 2= Slight Tremor Visible Yawning Observation: 1= 1-2x During Session Anxiety or Irritability: 1=Feels Anxious/Irritable Goose Flesh Skin: 0=Smooth Skin COWS Score: 10 [facility] Progress Note (SOAP) Subjective: JOINTS PAIN SWEAT TREMOR BODY ACHES ANXIETY TROUBLE SLEEP AT NIGHT Objective: 04/27/18 12:25 Vital Signs Temperature 97.9 F 04/27/18 09:28 Pulse Rate 72 04/27/18 09:28 Respiratory Rate 18 04/27/18 09:28 Blood Pressure 122/71 04/27/18 09:28 O2 Sat by Pulse Oximetry (%) Laboratory Last Values WBC 6.2 K/mm3 (4.0-10.0) 04/26/18 07:00 RBC 4.48 M/mm3 (4.00-5.60) 04/26/18 07:00 Hgb 12.2 GM/dL (11.7-16.9) 04/26/18 07:00 Hct 37.7 % (35.4-49) 04/26/18 07:00 MCV 84.0 fl (80-96) 04/26/18 07:00 MCH 27.3 pg (25.7-33.7) 04/26/18 07:00 MCHC 32.5 g/dl (32.0-35.9) 04/26/18 07:00 RDW 16.4 % (11.9-15.9) H 04/26/18 07:00 Plt Count 304 K/MM3 (134-434) 04/26/18 07:00 MPV 8.2 fl (7.5-11.1) 04/26/18 07:00 Sodium 141 mmol/L (136-145) 04/26/18 07:00 Potassium 4.5 mmol/L (3.5-5.1) 04/26/18 07:00 Chloride 105 mmol/L (98-107) 04/26/18 07:00 Carbon Dioxide 28 mmol/L (21-32) D 04/26/18 07:00 Anion Gap 8 MMOL/L (8-16) 04/26/18 07:00 BUN 20 mg/dL (7-18) H 04/26/18 07:00 Creatinine 1.0 mg/dL (0.7-1.3) 04/26/18 07:00 Creat Clearance w eGFR > 60 (>60) 04/26/18 07:00 Random Glucose 96 mg/dL (74-106) D 04/26/18 07:00 Calcium 8.7 mg/dL (8.5-10.1) 04/26/18 07:00 Total Bilirubin 0.2 mg/dL (0.2-1.0) 04/26/18 07:00 AST 17 U/L (15-37) 04/26/18 07:00 ALT 21 U/L (12-78) 04/26/18 07:00 Alkaline Phosphatase 62 U/L (45-117) 04/26/18 07:00 Total Protein 7.0 g/dl (6.4-8.2) 04/26/18 07:00 Albumin 3.2 g/dl (3.4-5.0) L 04/26/18 07:00 Urine Color Yellow 04/25/18 22:11 Urine Appearance Clear 04/25/18 22:11 Urine pH 5.0 (5.0-8.0) 04/25/18 22:11 Ur Specific [place] 1.029 (1.001-1.035) 04/25/18 22:11 Urine Protein Negative (NEGATIVE) 04/25/18 22:11 Urine Glucose (UA) Negative (NEGATIVE) 04/25/18 22:11 Urine Ketones Negative (NEGATIVE) 04/25/18 22:11 Urine Blood Negative (NEGATIVE) 04/25/18 22:11 Urine Nitrite Negative (NEGATIVE) 04/25/18 22:11 Urine Bilirubin Negative (<2.0 mg/dL) 04/25/18 22:11 Urine Urobilinogen Negative mg/dL (0.2-1.0) 04/25/18 22:11 Ur Leukocyte Esterase Negative (NEGATIVE) 04/25/18 22:11 RPR Titer Nonreactive (NONREACTIVE) 04/26/18 07:00 LAB NOTED Assessment: 04/27/18 12:26 WITHDRAWAL SX Plan: CONTINUE DETOX PATIENT REQUESTS REGULAR DIET, ENSURE, AND MEDICATION FOR GERD
[2018-04-27] MEDS ORDERED: RANITIDINE HCL 150 MG TABLET (FP) PO SCH (12:30)
[2018-04-27] MEDS: THIAMINE HCL 100 MG TABLET (FP) PO SCH (22:24)
[2018-04-27] MEDS: QUEtiapine FUMARATE 100 MG TABLET (FP) PO SCH (22:24)
[2018-04-27] MEDS: LATANOPROST 0.005% OPHTH SOLN 2.5ML BOTTLE OU SCH (22:25)
[2018-04-28] MEDS: NICOTINE 14 MG/24 HOURS TOPICAL PATCH TD SCH (11:00)
[2018-04-28] MEDS: PRENATAL VITAMINS W/ FOLIC ACID TABLET (FP) PO SCH (11:00)
[2018-04-28] MEDS: METHADONE HCL 5 MG TABLET (FOR DETOX USE ONLY) PO SCH (11:00)
[2018-04-28] MEDS: amLODIPine BESYLATE 5 MG TABLET (FP) PO SCH (11:00)
[2018-04-28] MEDS: DORZOLAMIDE 2% HCL OPHTHALMIC SOLUTION 10 ML BOTTLE OU SCH ×2 (11:01→22:29)
[2018-04-28] MEDS: diazePAM 5 MG TABLET PO SCH ×2 (11:01→22:32)
[2018-04-28] MEDS: PANTOPRAZOLE 40 MG TABLET (FP) PO SCH (11:01)
--- NOTE | 2018-04-28 11:03 | PN ---
[facility] Progress Note (SOAP) Subjective: interrupted sleep, sweats , lbp, leg pains Objective: 04/28/18 11:02 Vital Signs Temperature 98.1 F 04/28/18 06:00 Pulse Rate 62 04/28/18 06:00 Respiratory Rate 18 04/28/18 06:00 Blood Pressure 121/71 04/28/18 06:00 O2 Sat by Pulse Oximetry (%) Laboratory Tests 04/25/18 04/26/18 04/26/18 22:11 07:00 07:00 WBC 6.2 RBC 4.48 Hgb 12.2 Hct 37.7 MCV 84.0 MCH 27.3 MCHC 32.5 RDW 16.4 H Plt Count 304 MPV 8.2 Sodium 141 Potassium 4.5 Chloride 105 Carbon Dioxide 28 D Anion Gap 8 BUN 20 H Creatinine 1.0 Creat Clearance w eGFR > 60 Random Glucose 96 D Calcium 8.7 Total Bilirubin 0.2 AST 17 ALT 21 Alkaline Phosphatase 62 Total Protein 7.0 Albumin 3.2 L Urine Color Yellow Urine Appearance Clear Urine pH 5.0 Ur Specific [place] 1.029 Urine Protein Negative Urine Glucose (UA) Negative Urine Ketones Negative Urine Blood Negative Urine Nitrite Negative Urine Bilirubin Negative Urine Urobilinogen Negative Ur Leukocyte Esterase Negative RPR Titer 04/26/18 07:00 WBC RBC Hgb Hct MCV MCH MCHC RDW Plt Count MPV Sodium Potassium Chloride Carbon Dioxide Anion Gap BUN Creatinine Creat Clearance w eGFR Random Glucose Calcium Total Bilirubin AST ALT Alkaline Phosphatase Total Protein Albumin Urine Color Urine Appearance Urine pH Ur Specific [place] Urine Protein Urine Glucose (UA) Urine Ketones Urine Blood Urine Nitrite Urine Bilirubin Urine Urobilinogen Ur Leukocyte Esterase RPR Titer Nonreactive pt aox3 in nad ambulating well Assessment: 04/28/18 11:02 withdrawal sx's Plan: cont. detox increase fluids motrin prn
[2018-04-28] MEDS: QUEtiapine FUMARATE 100 MG TABLET (FP) PO SCH (22:28)
[2018-04-28] MEDS: THIAMINE HCL 100 MG TABLET (FP) PO SCH (22:28)
[2018-04-28] MEDS: LATANOPROST 0.005% OPHTH SOLN 2.5ML BOTTLE OU SCH (22:29)
[2018-04-29] MEDS ORDERED: METHADONE HCL 10 MG TABLET (FOR DETOX USE ONLY) PO SCH (10:00)
[2018-04-29] MEDS ORDERED: diazePAM 5 MG TABLET PO SCH (10:00)
[2018-04-29] MEDS: amLODIPine BESYLATE 5 MG TABLET (FP) PO SCH (10:01)
[2018-04-29] MEDS: PRENATAL VITAMINS W/ FOLIC ACID TABLET (FP) PO SCH (10:01)
[2018-04-29] MEDS: PANTOPRAZOLE 40 MG TABLET (FP) PO SCH (10:01)
[2018-04-29] MEDS: DORZOLAMIDE 2% HCL OPHTHALMIC SOLUTION 10 ML BOTTLE OU SCH ×2 (10:02→23:04)
[2018-04-29] MEDS: NICOTINE 14 MG/24 HOURS TOPICAL PATCH TD SCH (10:02)
--- NOTE | 2018-04-29 14:15 | PN ---
[facility] Progress Note (SOAP) Subjective: feeling better, no tremor less sweat no gi distress no body aches sleep better at night Objective: 04/29/18 14:14 Vital Signs Temperature 96.8 F L 04/29/18 13:47 Pulse Rate 88 04/29/18 13:47 Respiratory Rate 18 04/29/18 13:47 Blood Pressure 133/72 04/29/18 13:47 O2 Sat by Pulse Oximetry (%) Laboratory Last Values WBC 6.2 K/mm3 (4.0-10.0) 04/26/18 07:00 RBC 4.48 M/mm3 (4.00-5.60) 04/26/18 07:00 Hgb 12.2 GM/dL (11.7-16.9) 04/26/18 07:00 Hct 37.7 % (35.4-49) 04/26/18 07:00 MCV 84.0 fl (80-96) 04/26/18 07:00 MCH 27.3 pg (25.7-33.7) 04/26/18 07:00 MCHC 32.5 g/dl (32.0-35.9) 04/26/18 07:00 RDW 16.4 % (11.9-15.9) H 04/26/18 07:00 Plt Count 304 K/MM3 (134-434) 04/26/18 07:00 MPV 8.2 fl (7.5-11.1) 04/26/18 07:00 Sodium 141 mmol/L (136-145) 04/26/18 07:00 Potassium 4.5 mmol/L (3.5-5.1) 04/26/18 07:00 Chloride 105 mmol/L (98-107) 04/26/18 07:00 Carbon Dioxide 28 mmol/L (21-32) D 04/26/18 07:00 Anion Gap 8 MMOL/L (8-16) 04/26/18 07:00 BUN 20 mg/dL (7-18) H 04/26/18 07:00 Creatinine 1.0 mg/dL (0.7-1.3) 04/26/18 07:00 Creat Clearance w eGFR > 60 (>60) 04/26/18 07:00 Random Glucose 96 mg/dL (74-106) D 04/26/18 07:00 Calcium 8.7 mg/dL (8.5-10.1) 04/26/18 07:00 Total Bilirubin 0.2 mg/dL (0.2-1.0) 04/26/18 07:00 AST 17 U/L (15-37) 04/26/18 07:00 ALT 21 U/L (12-78) 04/26/18 07:00 Alkaline Phosphatase 62 U/L (45-117) 04/26/18 07:00 Total Protein 7.0 g/dl (6.4-8.2) 04/26/18 07:00 Albumin 3.2 g/dl (3.4-5.0) L 04/26/18 07:00 Urine Color Yellow 04/25/18 22:11 Urine Appearance Clear 04/25/18 22:11 Urine pH 5.0 (5.0-8.0) 04/25/18 22:11 Ur Specific [place] 1.029 (1.001-1.035) 04/25/18 22:11 Urine Protein Negative (NEGATIVE) 04/25/18 22:11 Urine Glucose (UA) Negative (NEGATIVE) 04/25/18 22:11 Urine Ketones Negative (NEGATIVE) 04/25/18 22:11 Urine Blood Negative (NEGATIVE) 04/25/18 22:11 Urine Nitrite Negative (NEGATIVE) 04/25/18 22:11 Urine Bilirubin Negative (<2.0 mg/dL) 04/25/18 22:11 Urine Urobilinogen Negative mg/dL (0.2-1.0) 04/25/18 22:11 Ur Leukocyte Esterase Negative (NEGATIVE) 04/25/18 22:11 RPR Titer Nonreactive (NONREACTIVE) 04/26/18 07:00 lab noted Assessment: 04/29/18 14:15 mild withdrawal sx Plan: medically supervised detox
[2018-04-29] MEDS: THIAMINE HCL 100 MG TABLET (FP) PO SCH (23:02)
[2018-04-29] MEDS: QUEtiapine FUMARATE 100 MG TABLET (FP) PO SCH (23:02)
[2018-04-29] MEDS: LATANOPROST 0.005% OPHTH SOLN 2.5ML BOTTLE OU SCH (23:03)
[2018-04-30] MEDS ORDERED: METHADONE HCL 5 MG TABLET (FOR DETOX USE ONLY) PO SCH (06:00)
[2018-04-30 07:00] VITALS: PULSE 76
[2018-04-30 09:33] VITALS: BP 137/76; TEMP 97.9
[2018-04-30] MEDS: PANTOPRAZOLE 40 MG TABLET (FP) PO SCH (09:57)
[2018-04-30] MEDS: PRENATAL VITAMINS W/ FOLIC ACID TABLET (FP) PO SCH (09:57)
[2018-04-30] MEDS: amLODIPine BESYLATE 5 MG TABLET (FP) PO SCH (09:57)
[2018-04-30] MEDS: NICOTINE 14 MG/24 HOURS TOPICAL PATCH TD SCH (09:58)
--- NOTE | 2018-04-30 10:28 | DS ---
[facility] Detox Discharge Summary Admission Date: 04/25/18 Discharge Date: 04/30/18 - History Present History: Alcohol Dependence, Opioid Dependence Additional Comments: 62 years old male admitted on 04/25/18 for alcohol and opiate withdrawal sx completed alcohol and opiate detox regimen tolerated well denies alcohol and opiate withdrawal sx alert oriented x 3 no acute distress aftercare [facility] - Physical Exam Results Vital Signs: Vital Signs Temperature 97.9 F 04/30/18 09:32 Pulse Rate 76 04/30/18 09:32 Respiratory Rate 16 04/30/18 09:32 Blood Pressure 137/76 04/30/18 09:32 O2 Sat by Pulse Oximetry (%) Pertinent Admission Physical Exam Findings: alcohol and opiate withdrawal sx Vital Signs Temperature 97.9 F 04/30/18 09:32 Pulse Rate 76 04/30/18 09:32 Respiratory Rate 16 04/30/18 09:32 Blood Pressure 137/76 04/30/18 09:32 O2 Sat by Pulse Oximetry (%) Laboratory Last Values WBC 6.2 K/mm3 (4.0-10.0) 04/26/18 07:00 RBC 4.48 M/mm3 (4.00-5.60) 04/26/18 07:00 Hgb 12.2 GM/dL (11.7-16.9) 04/26/18 07:00 Hct 37.7 % (35.4-49) 04/26/18 07:00 MCV 84.0 fl (80-96) 04/26/18 07:00 MCH 27.3 pg (25.7-33.7) 04/26/18 07:00 MCHC 32.5 g/dl (32.0-35.9) 04/26/18 07:00 RDW 16.4 % (11.9-15.9) H 04/26/18 07:00 Plt Count 304 K/MM3 (134-434) 04/26/18 07:00 MPV 8.2 fl (7.5-11.1) 04/26/18 07:00 Sodium 141 mmol/L (136-145) 04/26/18 07:00 Potassium 4.5 mmol/L (3.5-5.1) 04/26/18 07:00 Chloride 105 mmol/L (98-107) 04/26/18 07:00 Carbon Dioxide 28 mmol/L (21-32) D 04/26/18 07:00 Anion Gap 8 MMOL/L (8-16) 04/26/18 07:00 BUN 20 mg/dL (7-18) H 04/26/18 07:00 Creatinine 1.0 mg/dL (0.7-1.3) 04/26/18 07:00 Creat Clearance w eGFR > 60 (>60) 04/26/18 07:00 Random Glucose 96 mg/dL (74-106) D 04/26/18 07:00 Calcium 8.7 mg/dL (8.5-10.1) 04/26/18 07:00 Total Bilirubin 0.2 mg/dL (0.2-1.0) 04/26/18 07:00 AST 17 U/L (15-37) 04/26/18 07:00 ALT 21 U/L (12-78) 04/26/18 07:00 Alkaline Phosphatase 62 U/L (45-117) 04/26/18 07:00 Total Protein 7.0 g/dl (6.4-8.2) 04/26/18 07:00 Albumin 3.2 g/dl (3.4-5.0) L 04/26/18 07:00 Urine Color Yellow 04/25/18 22:11 Urine Appearance Clear 04/25/18 22:11 Urine pH 5.0 (5.0-8.0) 04/25/18 22:11 Ur Specific [place] 1.029 (1.001-1.035) 04/25/18 22:11 Urine Protein Negative (NEGATIVE) 04/25/18 22:11 Urine Glucose (UA) Negative (NEGATIVE) 04/25/18 22:11 Urine Ketones Negative (NEGATIVE) 04/25/18 22:11 Urine Blood Negative (NEGATIVE) 04/25/18 22:11 Urine Nitrite Negative (NEGATIVE) 04/25/18 22:11 Urine Bilirubin Negative (<2.0 mg/dL) 04/25/18 22:11 Urine Urobilinogen Negative mg/dL (0.2-1.0) 04/25/18 22:11 Ur Leukocyte Esterase Negative (NEGATIVE) 04/25/18 22:11 RPR Titer Nonreactive (NONREACTIVE) 04/26/18 07:00 lab noted - Treatment Hospital Course: Detox Protocol Followed, Detoxed Safely, Responded well, Discharged Condition Good, Rehab Referral Accepted Patient has Accepted a Rehab Referral to: [facility] - Medication Discharge Medications: Ambulatory Orders Quetiapine Fumarate [Seroquel] 100 mg PO HS 12/29/17 Pantoprazole Sodium [Protonix -] 40 mg PO DAILY #14 tablet.ec 01/02/18 Thiamine HCl [Vitamin B1 -] 100 mg PO HS tablet 01/02/18 Quetiapine Fumarate [Seroquel] 100 mg PO HS #30 tablet 04/26/18 Dorzolamide HCl [Trusopt 2% -] 1 drop OU BID #1 drops 04/29/18 Latanoprost 0.005% Eye Drops [Xalatan 0.005% Eye Drops -] 1 drop OU HS #1 drops 04/29/18 - Diagnosis (1) Alcohol dependence with uncomplicated withdrawal Current Visit: Yes Status: Acute (2) Glaucoma Current Visit: Yes Status: Chronic Qualifiers: Glaucoma type: open-angle Open angle glaucoma type: unspecified type Laterality: bilateral Glaucoma stage: mild stage Qualified Code(s): H40.10X1 - Unspecified open-angle glaucoma, mild stage (3) HTN (hypertension) Current Visit: Yes Status: Chronic Qualifiers: Hypertension type: essential hypertension Qualified Code(s): I10 - Essential (primary) hypertension (4) Nicotine dependence Current Visit: Yes Status: Acute Qualifiers: Nicotine product type: cigarettes Substance use status: in withdrawal Qualified Code(s): F17.213 - Nicotine dependence, cigarettes, with withdrawal (5) Opioid dependence with withdrawal Current Visit: Yes Status: Acute (6) GERD (gastroesophageal reflux disease) Current Visit: Yes Status: Chronic Qualifiers: Esophagitis presence: esophagitis presence not specified Qualified Code(s) : K21.9 - Gastro-esophageal reflux disease without esophagitis (7) Hyperlipidemia Current Visit: Yes Status: Chronic Qualifiers: Hyperlipidemia type: unspecified Qualified Code(s): E78.5 - Hyperlipidemia , unspecified - AMA Did Patient Leave Against Medical Advice: No
== END 2018-04-30 12:58 | disposition other institution (70) | DRG 773 ==
LOC: YASAS 14:19 → Y6N 18:02
PROC: HZ2ZZZZ Detoxification Services for Substance Abuse Treatment (ICD-10-PCS; principal; 2018-04-25)
DX: F11.23 Opioid dependence with withdrawal (principal); F10.230 Alcohol dependence with withdrawal, uncomplicated; F13.230 Sedative, hypnotic or anxiolytic dependence with withdrawal, uncomplicated; F14.10 Cocaine abuse, uncomplicated; F17.213 Nicotine dependence, cigarettes, with withdrawal; F32.9 Major depressive disorder, single episode, unspecified; F19.24 Other psychoactive substance dependence with psychoactive substance-induced mood disorder; F19.282 Other psychoactive substance dependence with psychoactive substance-induced sleep disorder; I10 Essential (primary) hypertension; E78.5 Hyperlipidemia, unspecified; K21.9 Gastro-esophageal reflux disease without esophagitis; H40.10X1 Unspecified open-angle glaucoma, mild stage; M50.222 Other cervical disc displacement at C5-C6 level; M19.90 Unspecified osteoarthritis, unspecified site; M54.5 Low back pain; G89.29 Other chronic pain; D50.9 Iron deficiency anemia, unspecified; R63.4 Abnormal weight loss; Z68.22 Body mass index [BMI] 22.0-22.9, adult
CPT/HCPCS: 36415; 80053; 81003; 85027; 86593; 93005; 93010

== ENCOUNTER 2018-04-30 14:35 | Inpatient (IN) | payer OTHER ==
--- NOTE | 2018-04-30 15:52 | PN ---
[facility] Progress Note Note: Psychiatrist credit controller: As per nursing report patient started on Seroquel 100mg po qhs
[2018-04-30] MEDS ORDERED: MAG HYDROX/AL HYDROX/SIMETH 30 ML UNIT-DOSE CUP PO PRN (15:59)
[2018-04-30] MEDS ORDERED: hydrOXYzine PAMOATE 50 MG CAPSULE (FP) PO PRN (15:59)
[2018-04-30] MEDS ORDERED: NICOTINE POLACRILEX 2 MG GUM BUC PRN (15:59)
[2018-04-30] MEDS ORDERED: IBUPROFEN 400 MG TABLET (FP) PO PRN (15:59)
[2018-04-30] MEDS ORDERED: ACETAMINOPHEN 325 MG TABLET (FP) PO PRN (15:59)
[2018-04-30] MEDS ORDERED: LOPERAMIDE HCL 2 MG CAPSULE PO PRN (15:59)
[2018-04-30] MEDS ORDERED: MAGNESIUM HYDROX 2400MG/30ML ORAL SUSPENSION 30 ML CUP PO PRN (15:59)
[2018-04-30] MEDS ORDERED: guaiFENesin/D-METHORPHAN HB 10 ML UNIT-DOSE CUPS PO PRN (15:59)
[2018-04-30] MEDS ORDERED: MENTHOL/PHENOL 1 EACH UD MM PRN (15:59)
[2018-04-30] MEDS ORDERED: MAGNESIUM CITRATE 300 ML BOTTLE PO PRN (15:59)
[2018-04-30] MEDS ORDERED: P-EPHED 60MG/TRIPROLIDI 2.5MG TABLET PO PRN (15:59)
[2018-04-30] MEDS: THIAMINE HCL 100 MG TABLET (FP) PO SCH (21:40)
[2018-04-30] MEDS: MELATONIN 5 MG TABLETS PO PRN (21:40)
[2018-04-30] MEDS: LATANOPROST 0.005% OPHTH SOLN 2.5ML BOTTLE OU SCH (21:40)
[2018-04-30] MEDS: QUEtiapine FUMARATE 100 MG TABLET (FP) PO SCH (21:40)
[2018-04-30] MEDS: DORZOLAMIDE 2% HCL OPHTHALMIC SOLUTION 10 ML BOTTLE OU SCH (21:41)
[2018-05-01] MEDS: PANTOPRAZOLE 40 MG TABLET (FP) PO SCH (09:39)
[2018-05-01] MEDS: PRENATAL VITAMINS W/ FOLIC ACID TABLET (FP) PO SCH (09:39)
[2018-05-01] MEDS: NICOTINE 14 MG/24 HOURS TOPICAL PATCH TD SCH (09:39)
[2018-05-01] MEDS: DORZOLAMIDE 2% HCL OPHTHALMIC SOLUTION 10 ML BOTTLE OU SCH ×2 (09:40→21:31)
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
[2018-05-01] MEDS: THIAMINE HCL 100 MG TABLET (FP) PO SCH (21:29)
[2018-05-01] MEDS: QUEtiapine FUMARATE 100 MG TABLET (FP) PO SCH (21:29)
[2018-05-01] MEDS: LATANOPROST 0.005% OPHTH SOLN 2.5ML BOTTLE OU SCH (21:30)
[2018-05-01] MEDS ORDERED: PT OWN MED DRAWER 7, Y5N ONE (21:33)
[2018-05-02] MEDS ORDERED: PT OWN MED DRAWER 7, Y5N ONE ×3 (08:47→20:04)
[2018-05-02] MEDS: DORZOLAMIDE 2% HCL OPHTHALMIC SOLUTION 10 ML BOTTLE OU SCH ×2 (09:45→21:20)
[2018-05-02] MEDS: PRENATAL VITAMINS W/ FOLIC ACID TABLET (FP) PO SCH (09:45)
[2018-05-02] MEDS: PANTOPRAZOLE 40 MG TABLET (FP) PO SCH (09:45)
[2018-05-02] MEDS: NICOTINE 14 MG/24 HOURS TOPICAL PATCH TD SCH (09:45)
--- NOTE | 2018-05-02 14:01 | PN ---
[facility] Progress Note Note: Vital Signs Temperature 97.6 F 05/02/18 06:53 Pulse Rate 88 05/02/18 09:57 Respiratory Rate 18 05/02/18 09:57 Blood Pressure 137/75 05/02/18 09:57 O2 Sat by Pulse Oximetry (%) Laboratory Last Values HIV 1&2 Antibody Screen Negative 05/01/18 07:30 HIV P24 Antigen Negative 05/01/18 07:30 Patient evaluated by membership coordinator rec: ensure [address] as per membership coordinator recommendations. Continue to monitor.
[2018-05-02] MEDS: LATANOPROST 0.005% OPHTH SOLN 2.5ML BOTTLE OU SCH (21:20)
[2018-05-02] MEDS: QUEtiapine FUMARATE 100 MG TABLET (FP) PO SCH (21:21)
[2018-05-02] MEDS: THIAMINE HCL 100 MG TABLET (FP) PO SCH (21:21)
[2018-05-03] MEDS: DORZOLAMIDE 2% HCL OPHTHALMIC SOLUTION 10 ML BOTTLE OU SCH ×2 (09:44→21:42)
[2018-05-03] MEDS: PRENATAL VITAMINS W/ FOLIC ACID TABLET (FP) PO SCH (09:45)
[2018-05-03] MEDS: PANTOPRAZOLE 40 MG TABLET (FP) PO SCH (09:45)
[2018-05-03] MEDS: NICOTINE 14 MG/24 HOURS TOPICAL PATCH TD SCH (09:45)
[2018-05-03] MEDS: LATANOPROST 0.005% OPHTH SOLN 2.5ML BOTTLE OU SCH (21:42)
[2018-05-03] MEDS: QUEtiapine FUMARATE 100 MG TABLET (FP) PO SCH (21:43)
[2018-05-03] MEDS: THIAMINE HCL 100 MG TABLET (FP) PO SCH (21:43)
[2018-05-04] MEDS: NICOTINE 14 MG/24 HOURS TOPICAL PATCH TD SCH (09:51)
[2018-05-04] MEDS: DORZOLAMIDE 2% HCL OPHTHALMIC SOLUTION 10 ML BOTTLE OU SCH ×2 (09:51→22:14)
[2018-05-04] MEDS: PRENATAL VITAMINS W/ FOLIC ACID TABLET (FP) PO SCH (09:51)
[2018-05-04] MEDS: PANTOPRAZOLE 40 MG TABLET (FP) PO SCH (09:51)
[2018-05-04] MEDS: LATANOPROST 0.005% OPHTH SOLN 2.5ML BOTTLE OU SCH (22:14)
[2018-05-04] MEDS: THIAMINE HCL 100 MG TABLET (FP) PO SCH (22:14)
[2018-05-04] MEDS: QUEtiapine FUMARATE 100 MG TABLET (FP) PO SCH (22:14)
[2018-05-05] MEDS: NICOTINE 14 MG/24 HOURS TOPICAL PATCH TD SCH (09:59)
[2018-05-05] MEDS: PRENATAL VITAMINS W/ FOLIC ACID TABLET (FP) PO SCH (09:59)
[2018-05-05] MEDS: DORZOLAMIDE 2% HCL OPHTHALMIC SOLUTION 10 ML BOTTLE OU SCH ×2 (09:59→21:59)
[2018-05-05] MEDS: PANTOPRAZOLE 40 MG TABLET (FP) PO SCH (09:59)
[2018-05-05] MEDS: LATANOPROST 0.005% OPHTH SOLN 2.5ML BOTTLE OU SCH (21:59)
[2018-05-05] MEDS: THIAMINE HCL 100 MG TABLET (FP) PO SCH (21:59)
[2018-05-05] MEDS: QUEtiapine FUMARATE 100 MG TABLET (FP) PO SCH (21:59)
[2018-05-06] MEDS: NICOTINE 14 MG/24 HOURS TOPICAL PATCH TD SCH (09:39)
[2018-05-06] MEDS: PRENATAL VITAMINS W/ FOLIC ACID TABLET (FP) PO SCH (09:39)
[2018-05-06] MEDS: PANTOPRAZOLE 40 MG TABLET (FP) PO SCH (09:39)
[2018-05-06] MEDS: DORZOLAMIDE 2% HCL OPHTHALMIC SOLUTION 10 ML BOTTLE OU SCH ×2 (09:40→21:41)
[2018-05-06] MEDS ORDERED: PT OWN MED DRAWER 7, Y5N ONE (19:48)
[2018-05-06] MEDS: THIAMINE HCL 100 MG TABLET (FP) PO SCH (21:41)
[2018-05-06] MEDS: LATANOPROST 0.005% OPHTH SOLN 2.5ML BOTTLE OU SCH (21:41)
[2018-05-06] MEDS: QUEtiapine FUMARATE 100 MG TABLET (FP) PO SCH (21:41)
[2018-05-07] MEDS: PRENATAL VITAMINS W/ FOLIC ACID TABLET (FP) PO SCH (09:37)
[2018-05-07] MEDS: DORZOLAMIDE 2% HCL OPHTHALMIC SOLUTION 10 ML BOTTLE OU SCH ×2 (09:37→21:12)
[2018-05-07] MEDS: NICOTINE 14 MG/24 HOURS TOPICAL PATCH TD SCH (09:37)
[2018-05-07] MEDS: PANTOPRAZOLE 40 MG TABLET (FP) PO SCH (09:37)
[2018-05-07] MEDS ORDERED: PT OWN MED DRAWER 7, Y5N ONE (18:50)
[2018-05-07] MEDS: THIAMINE HCL 100 MG TABLET (FP) PO SCH (21:12)
[2018-05-07] MEDS: MELATONIN 5 MG TABLETS PO PRN (21:12)
[2018-05-07] MEDS: QUEtiapine FUMARATE 100 MG TABLET (FP) PO SCH (21:12)
[2018-05-07] MEDS: LATANOPROST 0.005% OPHTH SOLN 2.5ML BOTTLE OU SCH (21:13)
[2018-05-08] MEDS: PRENATAL VITAMINS W/ FOLIC ACID TABLET (FP) PO SCH (10:02)
[2018-05-08] MEDS: DORZOLAMIDE 2% HCL OPHTHALMIC SOLUTION 10 ML BOTTLE OU SCH ×2 (10:02→21:46)
[2018-05-08] MEDS: PANTOPRAZOLE 40 MG TABLET (FP) PO SCH (10:03)
[2018-05-08] MEDS: NICOTINE 14 MG/24 HOURS TOPICAL PATCH TD SCH (10:03)
[2018-05-08] MEDS: QUEtiapine FUMARATE 100 MG TABLET (FP) PO SCH (21:46)
[2018-05-08] MEDS: LATANOPROST 0.005% OPHTH SOLN 2.5ML BOTTLE OU SCH (21:46)
[2018-05-08] MEDS: MELATONIN 5 MG TABLETS PO PRN (21:46)
[2018-05-08] MEDS: THIAMINE HCL 100 MG TABLET (FP) PO SCH (21:46)
[2018-05-09] MEDS: NICOTINE 14 MG/24 HOURS TOPICAL PATCH TD SCH (10:01)
[2018-05-09] MEDS: PANTOPRAZOLE 40 MG TABLET (FP) PO SCH (10:01)
[2018-05-09] MEDS: PRENATAL VITAMINS W/ FOLIC ACID TABLET (FP) PO SCH (10:01)
[2018-05-09] MEDS: DORZOLAMIDE 2% HCL OPHTHALMIC SOLUTION 10 ML BOTTLE OU SCH ×2 (10:01→22:13)
--- NOTE | 2018-05-09 12:15 | PN ---
Psychiatric Progress Note Vital Signs: Vital Signs Period Temp Pulse Resp BP Sys/Tello Pulse Ox Last 24 Hr 97.5 F 77 18-18 158/97 Date of Session: 05/09/18 Chief Complaint:: Discharge Note HPI: Patient addressing Alcohol, Opioid, Cocaine and Sedative Dependence comorbid with Nicotine Dependence, Substance-Induced Mood Disorder and Substance -Induced Sleep Disorder ROS: GERD, Glaucoma, Anemia Current Medications: Active Medications Generic Name Dose Route Start Last Admin Trade Name Freq PRN Reason Stop Dose Admin Acetaminophen 650 mg 04/30/18 15:59 Tylenol - PO Q4H PRN FEVER Al Hydroxide/Mg Hydroxide 30 ml 04/30/18 15:59 Mylanta Oral Suspension - PO Q6H PRN DYSPEPSIA Dorzolamide HCl 1 drop 04/30/18 22:00 05/09/18 10:01 Trusopt 2% OU 1 drop BID MIGUEL Administration Eucalyptus/Menthol/Phenol/Sorbitol 1 each 04/30/18 15:59 Cepastat Lozenge - MM Q4H PRN SORE THROAT Guaifenesin 10 ml 04/30/18 15:59 Robitussin Dm - PO Q6H PRN COUGH Hydroxyzine Pamoate 50 mg 04/30/18 15:59 Vistaril - PO Q4H PRN AGITATION Ibuprofen 400 mg 04/30/18 15:59 Motrin - PO Q6H PRN Pain Level 4-6 Latanoprost 1 drop 04/30/18 22:00 05/08/18 21:46 Xalatan 0.005% Eye Drops - OU 1 drop HS MIGUEL Administration Loperamide HCl 4 mg 04/30/18 15:59 Imodium - PO Q6H PRN DIARRHEA Magnesium Citrate 300 ml 04/30/18 15:59 Citroma - PO Q48H PRN CONSTIPATION Magnesium Hydroxide 30 ml 04/30/18 15:59 Milk Of Magnesia - PO DAILY PRN CONSTIPATION Melatonin 5 mg 04/30/18 22:00 05/08/18 21:46 Melatonin PO 5 mg HS PRN Administration INSOMNIA Nicotine 14 mg 05/01/18 10:00 05/09/18 10:01 Nicoderm Patch - TD 14 mg DAILY MIGUEL Administration Nicotine Polacrilex 2 mg 04/30/18 15:59 Nicorette Gum - BUC Q2H PRN NICOTINE REPLACEMENT RX Pantoprazole Sodium 40 mg 05/01/18 10:00 05/09/18 10:01 Protonix - PO 40 mg DAILY MIGUEL Administration Multivit/Folic Acid/Iron 1 tab 05/01/18 10:00 05/09/18 10:01 Vitamins (Sjr) - PO 1 tab DAILY MIGUEL Administration Pseudoephedrine/Triprolidine 1 combo 04/30/18 15:59 Actifed - PO TID PRN NASAL CONGESTION Quetiapine Fumarate 100 mg 04/30/18 22:00 05/08/18 21:46 Seroquel - PO 100 mg HS MIGUEL Administration Thiamine HCl 100 mg 04/30/18 22:00 05/08/18 21:46 Vitamin B1 - PO 100 mg HS MIGUEL Administration Current Side Effect: No Lab tests ordered: Yes Lab tests reviewed: Yes Provider note:: Patient will complete this program on 05/10/18. He has met his treatment goals and will continue to address his issues in outpatient treatment at [facility] at [address], [address], [place] [address]. Told publicity writer that from his participation in this program, he has learned. He responding well to Seroquel 100 mg po HDS. Script for 30 days supply of that medication will be electronically transmitted to [id number] at [address], [place] [address]. He is stable for discharge on 05/10/18 Total face to face time:: 35 Mental Status Exam - Mental Status Exam Alert and Oriented to: Time, Place, Person Cognitive Function: Fair Patient Appearance: Well Groomed Mood: Hopeful, Euthymic Affect: Appropriate Patient Behavior: Cooperative Speech Pattern: Clear Voice Loudness: Normal Thought Process: Intact, Goal Oriented Thought Disorder: Not Present Hallucinations: Denies Suicidal Ideation: Denies Homicidal Ideation: Denies Insight/Judgement: Fair Sleep: Fair Appetite: Good Muscle strength/Tone: Normal Gait/Station: Normal Psychiatric Treatment Plan - Problem List (1) Alcohol dependence Current Visit: Yes (2) Opioid dependence Current Visit: Yes (3) Cocaine dependence Current Visit: Yes Qualifiers: Substance use status: uncomplicated Qualified Code(s): F14.20 - Cocaine dependence, uncomplicated (4) Sedative hypnotic or anxiolytic dependence Current Visit: Yes (5) Nicotine dependence Current Visit: No Qualifiers: Nicotine product type: cigarettes Substance use status: in withdrawal Qualified Code(s): F17.213 - Nicotine dependence, cigarettes, with withdrawal (6) Substance induced mood disorder Current Visit: Yes (7) Substance-induced sleep disorder Current Visit: Yes (8) Chronic lower back pain Current Visit: No Qualifiers: Back pain laterality: right Sciatica presence: without sciatica Qualified Code(s): M54.5 - Low back pain; G89.29 - Other chronic pain (9) GERD (gastroesophageal reflux disease) Current Visit: No Qualifiers: Esophagitis presence: esophagitis presence not specified Qualified Code(s) : K21.9 - Gastro-esophageal reflux disease without esophagitis (10) Glaucoma Current Visit: No Qualifiers: Glaucoma type: open-angle Open angle glaucoma type: unspecified type Laterality: bilateral Glaucoma stage: mild stage Qualified Code(s): H40.10X1 - Unspecified open-angle glaucoma, mild stage (11) HTN (hypertension) Current Visit: No Qualifiers: Hypertension type: essential hypertension Qualified Code(s): I10 - Essential (primary) hypertension (12) Herniated disc Current Visit: No Qualifiers: Spinal region: mid-cervical Mid-cervical spinal level: unspecified Qualified Code(s): M50.220 - Other cervical disc displacement, mid-cervical region, unspecified level Initial treatment plan: Patient will be discharged tomorrow and referred to [facility] for outpatient treatment
--- NOTE | 2018-05-09 14:00 | PN ---
[facility] Progress Note Note: Vital Signs Temperature 97.5 F L 05/09/18 07:13 Pulse Rate 77 05/09/18 07:13 Respiratory Rate 18 05/09/18 07:13 Blood Pressure 158/97 05/09/18 07:13 O2 Sat by Pulse Oximetry (%) Patient medically stable, will complete this program on 05/10/18. Patient to follow up with primary care provider 1 - 2 weeks. Patient to follow up for after care at at [facility] at [address], [address], [place] [address].
[2018-05-09] MEDS: QUEtiapine FUMARATE 100 MG TABLET (FP) PO SCH (21:37)
[2018-05-09] MEDS: MELATONIN 5 MG TABLETS PO PRN (21:37)
[2018-05-09] MEDS: THIAMINE HCL 100 MG TABLET (FP) PO SCH (21:37)
[2018-05-09] MEDS: LATANOPROST 0.005% OPHTH SOLN 2.5ML BOTTLE OU SCH (22:13)
[2018-05-10 06:54] VITALS: BP 152/86; PULSE 73; TEMP 97.3
[2018-05-10] MEDS: PRENATAL VITAMINS W/ FOLIC ACID TABLET (FP) PO SCH (09:12)
[2018-05-10] MEDS: PANTOPRAZOLE 40 MG TABLET (FP) PO SCH (09:12)
[2018-05-10] MEDS: DORZOLAMIDE 2% HCL OPHTHALMIC SOLUTION 10 ML BOTTLE OU SCH (09:12)
[2018-05-10] MEDS ORDERED: PT OWN MED DRAWER 7, Y5N ONE (09:16)
[2018-05-10] MEDS: NICOTINE 14 MG/24 HOURS TOPICAL PATCH TD SCH (09:17)
== END 2018-05-10 09:25 | disposition home or self-care (01) | DRG 772 ==
LOC: YASAS 14:35 → Y3W 14:37
PROVIDERS: ADMIT Psychiatry & Neurology Psychiatry; ATTEND Psychiatry & Neurology Psychiatry
PROC: HZ42ZZZ Group Counseling for Substance Abuse Treatment, Cognitive-Behavioral (ICD-10-PCS; principal; 2018-04-30)
DX: F11.20 Opioid dependence, uncomplicated (principal); F10.20 Alcohol dependence, uncomplicated; F13.20 Sedative, hypnotic or anxiolytic dependence, uncomplicated; F14.20 Cocaine dependence, uncomplicated; F17.213 Nicotine dependence, cigarettes, with withdrawal; F19.24 Other psychoactive substance dependence with psychoactive substance-induced mood disorder; F19.282 Other psychoactive substance dependence with psychoactive substance-induced sleep disorder; I10 Essential (primary) hypertension; M54.5 Low back pain; G89.29 Other chronic pain; K21.9 Gastro-esophageal reflux disease without esophagitis; H40.10X1 Unspecified open-angle glaucoma, mild stage; M50.220 Other cervical disc displacement, mid-cervical region, unspecified level
CPT/HCPCS: 36415; 87389

== ENCOUNTER 2018-06-17 08:55 | Inpatient (IN) | payer OTHER ==
[2018-06-17 09:23] VITALS: BMI 23.1
--- NOTE | 2018-06-17 09:56 | HP ---
COWS - Scale Resting Pulse: 0= [place] 80 or Below Sweatin= Chills/Flushing Restless Observation: 0= Sits Still Pupil Size: 0= Normal to Room Light Bone or Joint Aches: 1= Mild Discomfort Runny Nose/ Eye Tearin= Nasal Congestion GI Upset > 30mins: 2= Nausea/Diarrhea Tremor Observation: 1= Tremor [place], Not Seen Yawning Observation: 0= None Anxiety or Irritability: 2=Irritable/Anxious Goose Flesh Skin: 0=Smooth Skin COWS Score: 8 Admission ROS S - HPI Chief Complaint: Some people I know , I relapsed, I want detox, it's critical now, I'm drawing the line on myself, I have to stop, I'm 63, it's time Allergies/Adverse Reactions: Allergies Allergy/AdvReac Type Severity Reaction Status Date / Time Penicillins Allergy Severe Hives Verified 04/25/18 16:52 rice Allergy Hives Verified 04/25/18 16:52 shellfish derived Allergy Hives Verified 04/25/18 16:52 History of Present Illness: 63 yo gentleman here for detox from opiates, alcohol, also using cocaine. This is one of multiple admissions for treatment. Was here in rehab in April but relapsed shortly after. Hoping to get into [facility] six month treatment program after detox. No seizures, no overdose, does have black outs. Only drinking 1-2 times/week. Exam Limitations: Clinical Condition - Ebola screening Have you traveled outside of the country in the last 21 days: No (N) Have you had contact with anyone from an Ebola affected area: No Have you been sick,other than usual withdrawal symptoms: No Do you have a fever: No - Review of Systems Constitutional: Loss of Appetite, Night Sweats, Changes in sleep EENT: reports: Blurred Vision, Nose Congestion Respiratory: reports: No Symptoms reported Cardiac: reports: No Symptoms Reported GI: reports: Nausea, Poor Appetite, Indigestion : reports: Frequency Musculoskeletal: reports: Back Pain, Joint Pain, Muscle Pain Integumentary: reports: Dryness Neuro: reports: Headache Endocrine: reports: No Symptoms Reported Hematology: reports: No Symptoms Reported Psychiatric: reports: Judgement Intact, Mood/Affect Appropiate, Orientated x3, Anxious Other Systems: Reviewed and Negative Patient History - Patient Medical History Hx Anemia: Yes (Iron-Deficiency type.) Hx Asthma: No Hx Chronic Obstructive Pulmonary Disease (COPD): No Hx Cancer: No Hx Cardiac Disorders: No Hx Congestive Heart Failure: No Hx Hypertension: Yes Hx Hypercholesterolemia: No Hx Pacemaker: No HX Cerebrovascular Accident: No Hx Seizures: No Hx Dementia: No Hx Diabetes: No Hx Gastrointestinal Disorders: Yes (hx GERD) Hx Liver Disease: No Hx Genitourinary Disorders: No Hx Sexually Transmitted Disorders: No Hx Renal Disease (ESRD): No Hx Thyroid Disease: No Hx Human Immunodeficiency Virus (HIV): No (NEGATIVE HX) Hx Hepatitis C: No Hx Depression: Yes (on meds, no psych seen on a regular basis) Hx Suicide Attempt: No Hx Bipolar Disorder: No Hx Schizophrenia: No - Patient Surgical History Past Surgical History: Yes Hx Neurologic Surgery: No Hx Cataract Extraction: No Hx Cardiac Surgery: No Hx Lung Surgery: No Hx Breast Surgery: No Hx Breast Biopsy: No Hx Abdominal Surgery: No Hx Appendectomy: No Hx Cholecystectomy: No Hx Genitourinary Surgery: No Hx Section: No Hx Orthopedic Surgery: Yes (fx, right forearm in 1997) Other Surgical History: Lipoma removed from Left shoulder 01/10 Anesthesia Reaction: No - PPD History Previous Implant?: Yes Documented Results: Negative w/proof Implanted On Prior R Admission?: Yes Date: 04/27/18 Results: 0 MM PPD to be Administered?: No - Reproductive History Patient is a Female of Child Bearing Age (11 -55 yrs old): No (male) - Smoking Cessation Smoking history: Current every day smoker Have you smoked in the past 12 months: Yes Aproximately how many cigarettes per day: 10 Cigars Per Day: 0 Hx Chewing Tobacco Use: No Initiated information on smoking cessation: Yes 'Breaking Loose' booklet given: 06/17/18 ( give on floor) - Substance & Tx. History Hx Alcohol Use: Yes (1-2 times/week) Hx Substance Use: Yes Substance Use Type: Alcohol, Cocaine, Heroin Hx Substance Use Treatment: Yes (detox, rehab, methadone years ago) - Substances Abused Alcohol Route: Smoking Frequency: 1-2 times per week Amount used: 2 pints Vodka Age of first use: 13 Date of Last Use: 06/17/18 Heroin Route: Inhalation Frequency: Daily Amount used: 6-7bags Age of first use: 26 Date of Last Use: 06/16/18 Cocaine Route: Inhalation Frequency: 3-6 times per week Amount used: 1 gram Age of first use: 23 Date of Last Use: 06/16/18 Family Disease History - Family Disease History Family Disease History: Diabetes: Grandparent (Lupus.), Heart Disease: Grandparent, Mother (mom with dementia age 98), Other: Grandparent, Father ( unknown, ), Mother, Sister (two living, one has lupus ), Son (four - healthy), Daughter (one - healthy) Admission Physical Exam [facility] - Vital Signs Vital Signs: Vital Signs - 24 hr 06/17/18 09:19 Temperature 97.6 F Pulse Rate 73 Respiratory 18 Rate Blood Pressure 142/86 - Physical General Appearance: Yes: Nourished, Appropriately Dressed, Mild Distress, Anxious HEENTM: Yes: EOMI, Hearing grossly Normal, Normocephalic, Normal Voice Respiratory: Yes: Normal Breath Sounds, No Respiratory Distress Neck: Yes: No masses,lesions,Nodules, Supple Breast: Yes: Breast Exam Deferred Cardiology: Yes: Regular Rhythm, Regular Rate Abdominal: Yes: Non Tender Genitourinary: Yes: Frequency Back: Yes: Normal Inspection, Other (mild kyphosis) Musculoskeletal: Yes: full range of Motion Extremities: Yes: Normal Capillary Refill, Normal Inspection, Normal Range of Motion Neurological: Yes: Fully Oriented, Alert, Motor Strength 5/5, Normal Mood/Affect , Normal Response Integumentary: Yes: Normal Color, Dry, Warm Lymphatic: Yes: Within Normal Limits - Diagnostic (1) Opioid dependence with withdrawal Current Visit: Yes Status: Chronic (2) Alcohol dependence, episodic Current Visit: Yes Status: Chronic (3) Cocaine dependence, uncomplicated Current Visit: Yes Status: Chronic (4) GERD (gastroesophageal reflux disease) Current Visit: Yes Status: Chronic Qualifiers: Esophagitis presence: esophagitis presence not specified Qualified Code(s) : K21.9 - Gastro-esophageal reflux disease without esophagitis (5) Glaucoma Current Visit: Yes Status: Chronic Qualifiers: Glaucoma type: open-angle Open angle glaucoma type: unspecified type Laterality: bilateral Glaucoma stage: mild stage Qualified Code(s): H40.10X1 - Unspecified open-angle glaucoma, mild stage (6) HTN (hypertension) Current Visit: Yes Status: Chronic Qualifiers: Hypertension type: essential hypertension Qualified Code(s): I10 - Essential (primary) hypertension (7) Herniated disc Current Visit: Yes Status: Chronic Qualifiers: Spinal region: mid-cervical Mid-cervical spinal level: unspecified Qualified Code(s): M50.220 - Other cervical disc displacement, mid-cervical region, unspecified level Cleared for Admission [facility] - Detox or Rehab [facility] Level of Care: Medically Managed Detox Regimen/Protocol: Methadone S Breath Alcohol Content Breath Alcohol Content: 0 Urine Drug Screen - Results Drug Screen Negative: No Urine Drug Screen Results: LEYLA-Cocaine, OPI-Opiates, MTD-Methadone, FEN-Fentanyl
[2018-06-17] MEDS ORDERED: IBUPROFEN 400 MG TABLET (FP) PO PRN (10:14)
[2018-06-17] MEDS ORDERED: guaiFENesin/D-METHORPHAN HB 10 ML UNIT-DOSE CUPS PO PRN (10:14)
[2018-06-17] MEDS ORDERED: ACETAMINOPHEN 325 MG TABLET (FP) PO PRN (10:14)
[2018-06-17] MEDS ORDERED: P-EPHED 60MG/TRIPROLIDI 2.5MG TABLET PO PRN (10:14)
[2018-06-17] MEDS ORDERED: MAGNESIUM CITRATE 300 ML BOTTLE PO PRN (10:14)
[2018-06-17] MEDS ORDERED: LOPERAMIDE HCL 2 MG CAPSULE PO PRN (10:14)
[2018-06-17] MEDS ORDERED: MENTHOL/PHENOL 1 EACH UD MM PRN (10:14)
[2018-06-17] MEDS ORDERED: MAG HYDROX/AL HYDROX/SIMETH 30 ML UNIT-DOSE CUP PO PRN (10:14)
[2018-06-17] MEDS ORDERED: MAGNESIUM HYDROX 2400MG/30ML ORAL SUSPENSION 30 ML CUP PO PRN (10:14)
[2018-06-17] MEDS ORDERED: METHADONE HCL 10 MG TABLET (FOR DETOX USE ONLY) PO ONE ×2 (11:00→23:00)
[2018-06-17] MEDS: NICOTINE 21 MG/24 HOURS TOPICAL PATCH TD SCH (12:06)
[2018-06-17] MEDS: diazePAM 5 MG TABLET PO PRN ×2 (17:32→22:13)
--- NOTE | 2018-06-17 18:09 | EKG ---
Test Reason : Blood Pressure : / mmHG Vent. Rate : 074 BPM Atrial Rate : 074 BPM P-R Int : 158 ms QRS Dur : 090 ms QT Int : 382 ms P-R-T Axes : 036 048 040 degrees QTc Int : 424 ms NORMAL SINUS RHYTHM NORMAL ECG WHEN COMPARED WITH ECG OF 25-APR-2018 19:16, NO SIGNIFICANT CHANGE WAS FOUND Confirmed by DEBORA STRINGER MD ([id number]) on 06/17/2018 6:09:07 PM Referred By: Confirmed By:DEBORA STRINGER MD
[2018-06-17 18:12] LABS: URINE APPEARANCE CLEAR; URINE BILIRUBIN NEGATIVE (<2.0 mg/dL); URINE COLOR YELLOW; URINE GLUCOSE (UA) NEGATIVE (NEGATIVE); URINE KETONE NEGATIVE (NEGATIVE); URINE LEUK ESTERASE NEGATIVE (NEGATIVE); URINE NITRITE NEGATIVE (NEGATIVE); URINE PROTEIN NEGATIVE (NEGATIVE); URINE UROBILINOGEN NEGATIVE mg/dL (0.2-1.0)
[2018-06-17] MEDS ORDERED: MELATONIN 5 MG TABLETS PO PRN (22:00)
[2018-06-17] MEDS: THIAMINE HCL 100 MG TABLET (FP) PO SCH (22:13)
[2018-06-17] MEDS: DORZOLAMIDE 2% HCL OPHTHALMIC SOLUTION 10 ML BOTTLE OU SCH (22:15)
[2018-06-17] MEDS: LATANOPROST 0.005% OPHTH SOLN 2.5ML BOTTLE OU SCH (22:17)
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
[2018-06-18] MEDS: diazePAM 5 MG TABLET PO PRN (09:03)
[2018-06-18] MEDS ORDERED: METHADONE HCL 10 MG TABLET (FOR DETOX USE ONLY) PO ONE (10:00)
[2018-06-18] MEDS: DORZOLAMIDE 2% HCL OPHTHALMIC SOLUTION 10 ML BOTTLE OU SCH ×2 (10:07→22:19)
[2018-06-18] MEDS: NICOTINE 21 MG/24 HOURS TOPICAL PATCH TD SCH (10:08)
[2018-06-18] MEDS: PRENATAL VITAMINS W/ FOLIC ACID TABLET (FP) PO SCH (10:08)
[2018-06-18] MEDS ORDERED: FLU VACCINE QUAD 60 MCG/0.5 ML (MDV 18-19) IM ONE (12:00)
[2018-06-18] MEDS: NICOTINE 14 MG/24 HOURS TOPICAL PATCH TD SCH (12:31)
--- NOTE | 2018-06-18 12:48 | PN ---
[facility] COWS - Scale Resting Pulse: 0= [place] 80 or Below Sweatin= Chills/Flushing Restless Observation: 3= Extraneous Movement Pupil Size: 1= Pupils >than Normal Bone or Joint Aches: 2= Severe Diffuse Aches Runny Nose/ Eye Tearin= Runny Nose/Eyes GI Upset > 30mins: 3= Vomiting/Diarrhea Tremor Observation of Outstretched Hands: 2= Slight Tremor Visible Yawning Observation: 1= 1-2x During Session Anxiety or Irritability: 2=Irritable/Anxious Goose Flesh Skin: 0=Smooth Skin COWS Score: 17 S Progress Note (SOAP) Subjective: Nausea, chills, tremor, interrupted sleep Objective: 06/18/18 12:44 Last Vital Signs Temp Pulse Resp BP Pulse Ox 96.8 F L 70 18 142/79 06/18/18 09:25 06/18/18 09:25 06/18/18 09:25 06/18/18 09:25 Laboratory Tests 06/17/18 15:49 Urine Color Yellow Urine Appearance Clear Urine pH 5.0 Ur Specific [place] 1.018 Urine Protein Negative Urine Glucose (UA) Negative Urine Ketones Negative Urine Blood Negative Urine Nitrite Negative Urine Bilirubin Negative Urine Urobilinogen Negative Ur Leukocyte Esterase Negative UA noted Admission CBC, CMP, RPR cancelled due to patient's refusal Assessment: 06/18/18 12:48 Withdrawal symptoms Plan: Continue detox Encouraged PO water intake Admission labs reordered in AM (CBC, CMP, RPR)
[2018-06-18] MEDS: LATANOPROST 0.005% OPHTH SOLN 2.5ML BOTTLE OU SCH (22:19)
[2018-06-18] MEDS: THIAMINE HCL 100 MG TABLET (FP) PO SCH (22:21)
[2018-06-18] MEDS: QUEtiapine FUMARATE 100 MG TABLET (FP) PO SCH (22:21)
[2018-06-19] MEDS ORDERED: METHADONE HCL 5 MG TABLET (FOR DETOX USE ONLY) PO ONE (10:00)
[2018-06-19] MEDS: DORZOLAMIDE 2% HCL OPHTHALMIC SOLUTION 10 ML BOTTLE OU SCH ×2 (10:13→22:02)
[2018-06-19] MEDS: PRENATAL VITAMINS W/ FOLIC ACID TABLET (FP) PO SCH (10:13)
[2018-06-19] MEDS: NICOTINE 14 MG/24 HOURS TOPICAL PATCH TD SCH (10:13)
[2018-06-19 11:25] LABS: BASO % 0.5 % (0-2.0); EOS % 2.6 % (0-4.5); HEMATOCRIT 38.8 % (35.4-49); HEMOGLOBIN 12.3 GM/dL (11.7-16.9); LYMPH % 19.9 % (8-40); MCH 26.8 pg (25.7-33.7); MCHC 31.6 g/dl (32.0-35.9); MEAN CELL VOLUME 84.7 fl (80-96); MEAN PLT VOLUME 8.2 fl (7.5-11.1); MONO % 9.4 % (3.8-10.2); NEUT % 67.6 % (42.8-82.8); PLATELET COUNT 279 K/MM3 (134-434); RBC 4.58 M/mm3 (4.00-5.60); RDW 18.1 % (11.9-15.9); WHITE BLOOD COUNT 6.4 K/mm3 (4.0-10.0)
--- NOTE | 2018-06-19 11:26 | PN ---
S CIWA - CIWA Score Nausea/Vomitin Muscle Tremors: 3 Anxiety: 3 Agitation: 2 Paroxysmal Sweats: 2 Orientation: 0-Oriented Tacttile Disturbances: 0-None Auditory Disturbances: 5-Severe Hallucinations Visual Disturbances: 0-None Headache: 0-None Present CIWA-Ar Total Score: 17 [facility] Progress Note (SOAP) Subjective: Sweats chills diarrhea Objective: 06/19/18 11:42 A & O x 3 Ambulating steadily Vital Signs Temperature 97.8 F 06/19/18 09:57 Pulse Rate 88 06/19/18 09:57 Respiratory Rate 20 06/19/18 09:57 Blood Pressure 135/78 06/19/18 09:57 O2 Sat by Pulse Oximetry (%) Assessment: 06/19/18 11:44 withdrawal sx Plan: Continue detox
[2018-06-19 11:31] LABS: ALBUMIN 3.4 g/dl (3.4-5.0); ALK PHOS 60 U/L (45-117); ANION GAP 9 MMOL/L (8-16); BILIRUBIN,TOTAL 0.4 mg/dL (0.2-1); BLOOD UREA NITROGEN 15 mg/dL (7-18); CALCIUM 8.5 mg/dL (8.5-10.1); CHLORIDE 104 mmol/L (98-107); CO2 26 mmol/L (21-32); GLUCOSE,RANDOM 101 mg/dL (74-106); POTASSIUM 4.7 mmol/L (3.5-5.1); SGOT/AST 12 U/L (15-37); SGPT/ALT 18 U/L (13-61); SODIUM 139 mmol/L (136-145); TOT PROT 7.2 g/dl (6.4-8.2)
[2018-06-19] MEDS: diazePAM 5 MG TABLET PO PRN (20:02)
[2018-06-19] MEDS: LATANOPROST 0.005% OPHTH SOLN 2.5ML BOTTLE OU SCH (22:02)
[2018-06-19] MEDS: QUEtiapine FUMARATE 100 MG TABLET (FP) PO SCH (22:02)
[2018-06-19] MEDS: THIAMINE HCL 100 MG TABLET (FP) PO SCH (22:02)
[2018-06-20] MEDS ORDERED: METHADONE HCL 5 MG TABLET (FOR DETOX USE ONLY) PO ONE (10:00)
[2018-06-20] MEDS: DORZOLAMIDE 2% HCL OPHTHALMIC SOLUTION 10 ML BOTTLE OU SCH ×2 (10:06→21:13)
[2018-06-20] MEDS: PRENATAL VITAMINS W/ FOLIC ACID TABLET (FP) PO SCH (10:07)
[2018-06-20] MEDS: diazePAM 5 MG TABLET PO PRN (10:07)
[2018-06-20] MEDS: NICOTINE 14 MG/24 HOURS TOPICAL PATCH TD SCH (10:07)
--- NOTE | 2018-06-20 11:06 | PN ---
[facility] Progress Note Note: PATIENT CONTINUES WITH DETOX REGIMEN. STATES " I FEEL BETTER TODAY". C/O MILD SWEATING. Vital Signs Temperature 100.3 F H 06/20/18 09:21 Pulse Rate 113 H 06/20/18 09:21 Respiratory Rate 18 06/20/18 09:21 Blood Pressure 151/83 06/20/18 09:21 O2 Sat by Pulse Oximetry (%) Laboratory Tests 06/17/18 06/19/18 06/19/18 15:49 07:00 07:00 WBC 6.4 RBC 4.58 Hgb 12.3 Hct 38.8 MCV 84.7 MCH 26.8 MCHC 31.6 L RDW 18.1 H Plt Count 279 MPV 8.2 Absolute Neuts (auto) 4.3 Neutrophils % 67.6 Lymphocytes % 19.9 Monocytes % 9.4 Eosinophils % 2.6 Basophils % 0.5 Nucleated RBC % 0 Sodium Potassium Chloride Carbon Dioxide Anion Gap BUN Creatinine Creat Clearance w eGFR Random Glucose Calcium Total Bilirubin AST ALT Alkaline Phosphatase Total Protein Albumin Urine Color Yellow Urine Appearance Clear Urine pH 5.0 Ur Specific [place] 1.018 Urine Protein Negative Urine Glucose (UA) Negative Urine Ketones Negative Urine Blood Negative Urine Nitrite Negative Urine Bilirubin Negative Urine Urobilinogen Negative Ur Leukocyte Esterase Negative RPR Titer Nonreactive 06/19/18 07:00 WBC RBC Hgb Hct MCV MCH MCHC RDW Plt Count MPV Absolute Neuts (auto) Neutrophils % Lymphocytes % Monocytes % Eosinophils % Basophils % Nucleated RBC % Sodium 139 Potassium 4.7 Chloride 104 Carbon Dioxide 26 Anion Gap 9 BUN 15 Creatinine 1.0 Creat Clearance w eGFR > 60 Random Glucose 101 Calcium 8.5 Total Bilirubin 0.4 AST 12 L ALT 18 Alkaline Phosphatase 60 Total Protein 7.2 Albumin 3.4 Urine Color Urine Appearance Urine pH Ur Specific [place] Urine Protein Urine Glucose (UA) Urine Ketones Urine Blood Urine Nitrite Urine Bilirubin Urine Urobilinogen Ur Leukocyte Esterase RPR Titer PE; SKIN WARM AND DRY CAR S1S2 RESP CTA BL EXT FULL ROM ALERT AND ORIENTED X 3 AMB AD SILVIA A/P WITHDRAWAL SX CONTINUE DETOX ORDERED REPEAT TEMPERATURE IN 1 HOUR ENCOURAGE ORAL FLUIDS CONTINUE TO MONITOR CLINICALLY
[2018-06-20] MEDS: QUEtiapine FUMARATE 100 MG TABLET (FP) PO SCH (21:12)
[2018-06-20] MEDS: THIAMINE HCL 100 MG TABLET (FP) PO SCH (21:12)
[2018-06-20] MEDS: LATANOPROST 0.005% OPHTH SOLN 2.5ML BOTTLE OU SCH (21:14)
[2018-06-21] MEDS ORDERED: CYCLOBENZAPRINE HCL 10 MG TABLET (FP) PO PRN (09:52)
[2018-06-21] MEDS ORDERED: METHADONE HCL 10 MG TABLET (FOR DETOX USE ONLY) PO ONE (10:00)
[2018-06-21] MEDS: DORZOLAMIDE 2% HCL OPHTHALMIC SOLUTION 10 ML BOTTLE OU SCH ×2 (10:13→22:13)
[2018-06-21] MEDS: PRENATAL VITAMINS W/ FOLIC ACID TABLET (FP) PO SCH (10:13)
[2018-06-21] MEDS: NICOTINE 14 MG/24 HOURS TOPICAL PATCH TD SCH (10:13)
[2018-06-21] MEDS: MINERAL OIL/PETROLAT/WATER TOPICAL CREAM 113 GM JAR TP SCH ×2 (10:14→23:07)
--- NOTE | 2018-06-21 16:11 | PN ---
[facility] Progress Note Note: PATIENT CONTINUES WITH DETOX REGIMEN. PATIENT STATES SHE FEELS WELL. Vital Signs Temperature 98.6 F 06/21/18 14:03 Pulse Rate 90 06/21/18 14:03 Respiratory Rate 20 06/21/18 14:03 Blood Pressure 143/89 06/21/18 14:03 O2 Sat by Pulse Oximetry (%) Laboratory Tests 06/17/18 06/19/18 06/19/18 15:49 07:00 07:00 WBC 6.4 RBC 4.58 Hgb 12.3 Hct 38.8 MCV 84.7 MCH 26.8 MCHC 31.6 L RDW 18.1 H Plt Count 279 MPV 8.2 Absolute Neuts (auto) 4.3 Neutrophils % 67.6 Lymphocytes % 19.9 Monocytes % 9.4 Eosinophils % 2.6 Basophils % 0.5 Nucleated RBC % 0 Sodium Potassium Chloride Carbon Dioxide Anion Gap BUN Creatinine Creat Clearance w eGFR Random Glucose Calcium Total Bilirubin AST ALT Alkaline Phosphatase Total Protein Albumin Urine Color Yellow Urine Appearance Clear Urine pH 5.0 Ur Specific [place] 1.018 Urine Protein Negative Urine Glucose (UA) Negative Urine Ketones Negative Urine Blood Negative Urine Nitrite Negative Urine Bilirubin Negative Urine Urobilinogen Negative Ur Leukocyte Esterase Negative RPR Titer Nonreactive 06/19/18 07:00 WBC RBC Hgb Hct MCV MCH MCHC RDW Plt Count MPV Absolute Neuts (auto) Neutrophils % Lymphocytes % Monocytes % Eosinophils % Basophils % Nucleated RBC % Sodium 139 Potassium 4.7 Chloride 104 Carbon Dioxide 26 Anion Gap 9 BUN 15 Creatinine 1.0 Creat Clearance w eGFR > 60 Random Glucose 101 Calcium 8.5 Total Bilirubin 0.4 AST 12 L ALT 18 Alkaline Phosphatase 60 Total Protein 7.2 Albumin 3.4 Urine Color Urine Appearance Urine pH Ur Specific [place] Urine Protein Urine Glucose (UA) Urine Ketones Urine Blood Urine Nitrite Urine Bilirubin Urine Urobilinogen Ur Leukocyte Esterase RPR Titer PE: ALERT AND ORIENTED AMB AD SILVIA EXT FULL ROM SKIN WARM AND DRY A/P WITHDRAWAL SX CONTINUE DETOX ENCOURAGE ORAL FLUIDS CONTINUE TO MONITOR
[2018-06-21] MEDS: LATANOPROST 0.005% OPHTH SOLN 2.5ML BOTTLE OU SCH (22:13)
[2018-06-21] MEDS: QUEtiapine FUMARATE 100 MG TABLET (FP) PO SCH (22:14)
[2018-06-21] MEDS: THIAMINE HCL 100 MG TABLET (FP) PO SCH (22:14)
[2018-06-22] MEDS ORDERED: METHADONE HCL 5 MG TABLET (FOR DETOX USE ONLY) PO ONE (06:00)
[2018-06-22 06:19] VITALS: BP 134/81; PULSE 75; TEMP 97.8
--- NOTE | 2018-06-22 11:18 | DS ---
[facility] Detox Discharge Summary Admission Date: 06/17/18 - History Present History: Alcohol Dependence, Opioid Dependence - Physical Exam Results Vital Signs: Vital Signs Temperature 97.8 F 06/22/18 06:18 Pulse Rate 75 06/22/18 06:18 Respiratory Rate 18 06/22/18 06:18 Blood Pressure 134/81 06/22/18 06:18 O2 Sat by Pulse Oximetry (%) Pertinent Admission Physical Exam Findings: PATIENT COMPLETED DETOX REGIMEN WITHOUT ADVERSE EVENT. PATIENT AWAKE AND ORIENTED X 3, AMB AD SILVIA. MEDICALLY STABLE UPON DISCHARGE. DENIES SI/HI. PATIENT ACCEPTED REHAB REFERRAL FOR PRISON REHAB. PATIENT ENCOURAGED TO COMPLETE REHAB TO PREVENT RELAPSE. D/C INSTRUCTIONS GIVEN TO PATIENT UPON D/C. - Treatment Hospital Course: Detox Protocol Followed, Detoxed Safely, Responded well, Discharged Condition Good, Rehab Referral Accepted Patient has Accepted a Rehab Referral to: PAT - Medication Discharge Medications: Ambulatory Orders Quetiapine Fumarate [Seroquel] 100 mg PO HS #30 tablet 05/09/18 Quetiapine Fumarate [Seroquel] 100 mg PO HS #30 tablet 06/18/18 Dorzolamide HCl [Trusopt 2% -] 1 drop OU BID #1 bottle 06/21/18 Latanoprost 0.005% Eye Drops [Xalatan 0.005% Eye Drops -] 1 drop OU HS #1 drops 06/21/18 - Diagnosis (1) Alcohol dependence with uncomplicated withdrawal Status: Resolved (2) Opioid dependence with withdrawal Status: Resolved - AMA Did Patient Leave Against Medical Advice: No
== END 2018-06-22 08:48 | disposition home or self-care (01) | DRG 773 ==
LOC: YASAS 08:55 → Y3N 10:07
PROC: HZ2ZZZZ Detoxification Services for Substance Abuse Treatment (ICD-10-PCS; principal; 2018-06-17)
DX: F11.23 Opioid dependence with withdrawal (principal); F10.230 Alcohol dependence with withdrawal, uncomplicated; F14.20 Cocaine dependence, uncomplicated; F17.213 Nicotine dependence, cigarettes, with withdrawal; F19.282 Other psychoactive substance dependence with psychoactive substance-induced sleep disorder; F34.1 Dysthymic disorder; I10 Essential (primary) hypertension; D50.9 Iron deficiency anemia, unspecified; M54.5 Low back pain; G89.29 Other chronic pain; K21.9 Gastro-esophageal reflux disease without esophagitis; H40.10X1 Unspecified open-angle glaucoma, mild stage; M50.220 Other cervical disc displacement, mid-cervical region, unspecified level; M15.0 Primary generalized (osteo)arthritis; Z88.0 Allergy status to penicillin; Z91.013 Allergy to seafood
CPT/HCPCS: 36415; 80053; 81003; 85025; 86593; 90688; 93005; 93010; G0008

== ENCOUNTER 2018-09-20 11:18 | Inpatient (IN) | payer OTHER ==
[2018-09-20 12:21] VITALS: BMI 22.6
--- NOTE | 2018-09-20 14:03 | HP ---
CIWA Score - Admission Criteria OASAS Guidelines: Admission for Medically Managed Detox: Requires at least one of the followin. CIWA greater than 12 2. Seizures within the past 24 hours 3. Delirium tremens within the past 24 hours 4. Hallucinations within the past 24 hours 5. Acute intervention needed for co occurring medical disorder 6. Acute intervention needed for co occurring psychiatric disorder 7. Severe withdrawal that cannot be handled at a lower level of care (continued vomiting, continued diarrhea, abnormal vital signs) requiring intravenous medication and/or fluids 8. Admission ROS S - HPI Chief Complaint: "I Want to Complete The Foundation of My Sobriety to Get My Life Back Together Again." Patient is here for Rehab for Alcohol and Cocaine. Allergies/Adverse Reactions: Allergies Allergy/AdvReac Type Severity Reaction Status Date / Time Penicillins Allergy Severe Hives Verified 09/20/18 11:58 rice Allergy Hives Verified 09/20/18 11:58 shellfish derived Allergy Hives Verified 09/20/18 11:58 History of Present Illness: Patient is a 63 YO male here for Rehab for Alcohol and Cocaine use. Patient has had several previous Detox / Rehab admissions at [facility] in the past (Last: Detox: 07/2018, Completed). [facility] I-Stop Registry Reviewed: No Controlled Substance Prescriptions noted for Patient over last 12 months. Exam Limitations: No Limitations - Ebola screening Have you traveled outside of the country in the last 21 days: No Have you had contact with anyone from an Ebola affected area: No Have you been sick,other than usual withdrawal symptoms: No Do you have a fever: No - Review of Systems Constitutional: Loss of Appetite, Changes in sleep, Unintentional Wgt. Loss ( Lost approx. 15 lbs. over last 2-3 weeks.) EENT: reports: Nose Congestion, Sinus Pressure Respiratory: reports: No Symptoms reported Cardiac: reports: No Symptoms Reported GI: reports: Other (Heartburn.) : reports: Frequency, Urgency Musculoskeletal: reports: Back Pain, Joint Pain, Joint Stiffness Integumentary: reports: No Symptoms Reported Neuro: reports: No Symptoms reported Endocrine: reports: No Symptoms Reported Hematology: reports: Anemia (History of Iron-Deficiency Type.) Psychiatric: reports: Judgement Intact, Mood/Affect Appropiate, Orientated x3, Anxious, Depressed (Primarily Due to current Life Circumstances.) Other Systems: Reviewed and Negative Patient History - Patient Medical History Hx Anemia: Yes (Iron-Deficiency - Not on medication.) Hx Asthma: No Hx Chronic Obstructive Pulmonary Disease (COPD): No Hx Cancer: No Hx Cardiac Disorders: No Hx Congestive Heart Failure: No Hx Hypertension: Yes (On Medication in Past, Stopped by Medical Provider approx. 3 years ago.) Hx Hypercholesterolemia: No Hx Pacemaker: No HX Cerebrovascular Accident: No Hx Seizures: No Hx Dementia: No Hx Diabetes: No (Reprots History of "Pre-Diabetes". No medication in past.) Hx Gastrointestinal Disorders: Yes (acid reflux) Hx Liver Disease: No Hx Genitourinary Disorders: No Hx Sexually Transmitted Disorders: No Hx Renal Disease (ESRD): No Hx Thyroid Disease: No Hx Human Immunodeficiency Virus (HIV): No (NEGATIVE, 2018) Hx Hepatitis C: No (Last Teested: 2015.) Hx Depression: Yes Hx Suicide Attempt: No Hx Bipolar Disorder: No Hx Schizophrenia: No Other Medical History: Herniated Disc: L3-L4; Plantar Fascitis (Bilateral), Carpal Tunnel S.(Both) - Patient Surgical History Past Surgical History: Yes Hx Neurologic Surgery: No Hx Cataract Extraction: No Hx Cardiac Surgery: No Hx Lung Surgery: No Hx Breast Surgery: No Hx Breast Biopsy: No Hx Abdominal Surgery: No Hx Appendectomy: No Hx Cholecystectomy: No Hx Genitourinary Surgery: No Hx Section: No Hx Orthopedic Surgery: Yes (fx, right forearm in 1997; Titanium Platet Placed.) Other Surgical History: Lipoma removed from Left shoulder 01/10 Anesthesia Reaction: No - PPD History Previous Implant?: Yes Documented Results: Negative w/proof Implanted On Prior [facility] Admission?: Yes Date: 04/27/18 Results: 0 mm PPD to be Administered?: No - Reproductive History Patient is a Female of Child Bearing Age (11 -55 yrs old): No (PATIENT IS MALE.) - Smoking Cessation Smoking history: Current every day smoker Have you smoked in the past 12 months: Yes Aproximately how many cigarettes per day: 10 Cigars Per Day: 0 Hx Chewing Tobacco Use: No Initiated information on smoking cessation: Yes 'Breaking Loose' booklet given: 09/20/18 (GIVEN ON UNIT.) - Substance & Tx. History Hx Alcohol Use: Yes Hx Substance Use: Yes Substance Use Type: Alcohol, Cocaine Hx Substance Use Treatment: Yes (Previous Detox/Rehab admissions at [facility]. Last ( Detox, [facility]: 07/2018).) - Substances Abused Cocaine Route: Smoking Frequency: Daily Amount used: $50-100 Age of first use: 26 Date of Last Use: 09/18/18 Alcohol-cognac/vodka/beer Route: Oral Frequency: Daily Amount used: 2 pts./1-6 pk. Age of first use: 13 Date of Last Use: 09/13/18 Family Disease History - Family Disease History Family Disease History: Diabetes: Grandparent (Lupus.), Heart Disease: Grandparent, Mother (mom with dementia age 98), Other: Grandparent, Father ( unknown, ), Mother, Sister (two living, one has lupus ), Son (four - healthy), Daughter (one - healthy) Admission Physical Exam [facility] - Vital Signs Vital Signs: Vital Signs - 24 hr 09/20/18 12:19 Temperature 98 F Pulse Rate 70 Respiratory 20 Rate Blood Pressure 138/94 - Physical General Appearance: Yes: No Apparent Distress, Nourished, Appropriately Dressed HEENTM: Yes: Hearing grossly Normal, Normocephalic, Normal Voice, ARNIE, Pharynx Normal Respiratory: Yes: Chest Non-Tender, Lungs Clear, No Respiratory Distress, No Accessory Muscle Use Neck: Yes: No masses,lesions,Nodules, Supple, Trachea in good position Breast: Yes: Breast Exam Deferred Cardiology: Yes: Regular Rhythm, Regular Rate, S1, S2 Abdominal: Yes: Normal Bowel Sounds, Non Tender, Flat, Soft Genitourinary: Yes: Frequency (Admission UA Ordered.), Uregency (Admission UA Ordered.) Back: Yes: Decreased Range of Motion Musculoskeletal: Yes: Gait Steady, Back pain (Bilateral Hands and Wrists.), Joint Stiffness Extremities: Yes: Normal Capillary Refill Neurological: Yes: Fully Oriented, Alert, Normal Mood/Affect, Normal Response Integumentary: Yes: Normal Color, Dry, Warm, Other (Dry Skin Noted on Bilateral Lower Legs.) Lymphatic: Yes: Within Normal Limits - Diagnostic (1) Uncomplicated alcohol dependence Current Visit: Yes Status: Chronic (2) History of anemia Current Visit: Yes Status: Suspected (3) Carpal tunnel syndrome, bilateral Current Visit: Yes Status: Chronic (4) Plantar fasciitis Current Visit: Yes Status: Chronic (5) Nicotine dependence Current Visit: Yes Status: Chronic Qualifiers: Nicotine product type: cigarettes Substance use status: uncomplicated Qualified Code(s): F17.210 - Nicotine dependence, cigarettes, uncomplicated (6) Weight loss Current Visit: Yes Status: Acute (7) Anxiety Current Visit: Yes Status: Chronic (8) Chronic lower back pain Current Visit: Yes Status: Chronic Qualifiers: Back pain laterality: right Sciatica presence: without sciatica Qualified Code(s): M54.5 - Low back pain; G89.29 - Other chronic pain (9) GERD (gastroesophageal reflux disease) Current Visit: Yes Status: Chronic Qualifiers: Esophagitis presence: esophagitis presence not specified Qualified Code(s) : K21.9 - Gastro-esophageal reflux disease without esophagitis (10) Glaucoma Current Visit: Yes Status: Chronic Qualifiers: Glaucoma type: open-angle Open angle glaucoma type: unspecified type Laterality: bilateral Glaucoma stage: mild stage Qualified Code(s): H40.10X1 - Unspecified open-angle glaucoma, mild stage (11) Herniated intervertebral disc of lumbar spine Current Visit: Yes Status: Chronic Comment: L3-L4. Cleared for Admission [facility] - Detox or Rehab Claeared for Rehab Admission: Yes [facility] Breath Alcohol Content Breath Alcohol Content: 0 Urine Drug Screen - Results Drug Screen Negative: No Urine Drug Screen Results: LEYLA-Cocaine, BZO-Benzodiazepines Inpatient Rehab Admission - Initial Determination Are CD services needed?: Yes Free of communicable disease: Yes Not in need of hospitalization: Yes - Rehab Admission Criteria Previous failed treatment: Yes Comorbidities: Yes Patient is meeting Inpatient Rehab admission criteria:: Yes
[2018-09-20] MEDS ORDERED: guaiFENesin/D-METHORPHAN HB 10 ML UNIT-DOSE CUPS PO PRN (14:30)
[2018-09-20] MEDS ORDERED: NICOTINE POLACRILEX 2 MG GUM BUC PRN (14:30)
[2018-09-20] MEDS ORDERED: MAGNESIUM CITRATE 300 ML BOTTLE PO PRN (14:30)
[2018-09-20] MEDS ORDERED: IBUPROFEN 400 MG TABLET (FP) PO PRN (14:30)
[2018-09-20] MEDS ORDERED: MENTHOL/PHENOL 1 EACH UD MM PRN (14:30)
[2018-09-20] MEDS ORDERED: MAG HYDROX/AL HYDROX/SIMETH 30 ML UNIT-DOSE CUP PO PRN (14:30)
[2018-09-20] MEDS ORDERED: ACETAMINOPHEN 325 MG TABLET (FP) PO PRN (14:30)
[2018-09-20] MEDS ORDERED: P-EPHED 60MG/TRIPROLIDI 2.5MG TABLET PO PRN (14:30)
[2018-09-20] MEDS ORDERED: MAGNESIUM HYDROX 2400MG/30ML ORAL SUSPENSION 30 ML CUP PO PRN (14:30)
[2018-09-20] MEDS ORDERED: LOPERAMIDE HCL 2 MG CAPSULE PO PRN (14:30)
--- NOTE | 2018-09-20 16:33 | HP ---
Psychiatrist Admission - Data Date of interview: 09/20/18 Admission source: [facility] Identifying data: this is one of the multiple admissions to inpatient rehab treatment for this 63 years old AA father 5 grown children,redides with his mother,supported by [facility]. Medical History: GERD,Disk disease. Psychiatric History: patient reports anxiety,insomnia on and of for a few years.He denies previous psychiatric admissions,no suicidal attempts reported.Patient obtains SEroquel 100 mg po hs from his family doctor. Physical/Sexual Abuse/Trauma History: patient denies Vital Signs: Vital Signs - 24 hr 09/20/18 09/20/18 12:19 16:13 Temperature 98 F 98.6 F Pulse Rate 70 74 Respiratory 20 18 Rate Blood Pressure 138/94 138/88 Allergies/Adverse Reactions: Allergies Allergy/AdvReac Type Severity Reaction Status Date / Time Penicillins Allergy Severe Hives Verified 09/20/18 11:58 rice Allergy Hives Verified 09/20/18 11:58 shellfish derived Allergy Hives Verified 09/20/18 11:58 Concur with the findings of this exam: Yes - Substance Abuse/Tx History Hx Alcohol Use: Yes (drinking since 13 yo,progressed to heavy drinker) Hx Substance Use: Yes (cocaine since 25 yo,spending $50-100 daily,Xnanx since 2 yo) Substance Use Type: Alcohol, Cocaine, Tranquilizers Hx Substance Use Treatment: Yes (longest abstinence 3 years) Mental Status Exam - Mental Status Exam Alert and Oriented to: Time, Place, Person Cognitive Function: Grossly Intact Patient Appearance: Unkempt Mood: Euthymic Affect: Appropriate, Normal Range Patient Behavior: Cooperative Speech Pattern: Clear Voice Loudness: Normal Thought Process: Goal Oriented Thought Disorder: Not Present Hallucinations: Denies Suicidal Ideation: Denies Homicidal Ideation: Denies Insight/Judgement: Fair Sleep: Fair Appetite: Good Muscle strength/Tone: Normal Gait/Station: Normal Psychiatric Findings - Problem List ([place] 1, 2,3) (1) Carpal tunnel syndrome, bilateral Current Visit: Yes Status: Chronic (2) Chronic lower back pain Current Visit: Yes Status: Chronic Qualifiers: Back pain laterality: right Sciatica presence: without sciatica Qualified Code(s): M54.5 - Low back pain; G89.29 - Other chronic pain (3) GERD (gastroesophageal reflux disease) Current Visit: Yes Status: Chronic Qualifiers: Esophagitis presence: esophagitis presence not specified Qualified Code(s) : K21.9 - Gastro-esophageal reflux disease without esophagitis (4) Glaucoma Current Visit: Yes Status: Chronic Qualifiers: Glaucoma type: open-angle Open angle glaucoma type: unspecified type Laterality: bilateral Glaucoma stage: mild stage Qualified Code(s): H40.10X1 - Unspecified open-angle glaucoma, mild stage (5) Herniated intervertebral disc of lumbar spine Current Visit: Yes Status: Chronic Comment: L3-L4. 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 Will monitor progress.
[2018-09-20] MEDS: NICOTINE 14 MG/24 HOURS TOPICAL PATCH TD SCH (18:42)
[2018-09-20] MEDS: THIAMINE HCL 100 MG TABLET (FP) PO SCH (21:44)
[2018-09-20] MEDS: QUEtiapine FUMARATE 100 MG TABLET (FP) PO SCH (21:44)
[2018-09-20] MEDS: LATANOPROST 0.005% OPHTH SOLN 2.5ML BOTTLE OU SCH (21:44)
[2018-09-20] MEDS: DORZOLAMIDE 2% HCL OPHTHALMIC SOLUTION 10 ML BOTTLE OU SCH (21:45)
[2018-09-20] MEDS ORDERED: MELATONIN 5 MG TABLETS PO PRN (22:00)
[2018-09-20 23:57] LABS: URINE APPEARANCE CLEAR; URINE BILIRUBIN NEGATIVE (<2.0 mg/dL); URINE COLOR YELLOW; URINE GLUCOSE (UA) NEGATIVE (NEGATIVE); URINE KETONE NEGATIVE (NEGATIVE); URINE LEUK ESTERASE NEGATIVE (NEGATIVE); URINE NITRITE NEGATIVE (NEGATIVE); URINE PROTEIN NEGATIVE (NEGATIVE); URINE UROBILINOGEN NEGATIVE mg/dL (0.2-1.0)
[2018-09-21 10:12] LABS: HEMATOCRIT 41.2 % (35.4-49); HEMOGLOBIN 13.5 GM/dL (11.7-16.9); MCH 28.5 pg (25.7-33.7); MCHC 32.9 g/dl (32.0-35.9); MEAN CELL VOLUME 86.5 fl (80-96); PLATELET COUNT 277 K/MM3 (134-434); RBC 4.76 M/mm3 (4.00-5.60); RDW 15.7 % (11.9-15.9); WHITE BLOOD COUNT 5.2 K/mm3 (4.0-10.0)
[2018-09-21 10:27] LABS: ALBUMIN 3.7 g/dl (3.4-5.0); ALK PHOS 62 U/L (45-117); ANION GAP 8 MMOL/L (8-16); BILIRUBIN,TOTAL 0.2 mg/dL (0.2-1); BLOOD UREA NITROGEN 17 mg/dL (7-18); CALCIUM 9.2 mg/dL (8.5-10.1); CHLORIDE 106 mmol/L (98-107); CO2 25 mmol/L (21-32); CREATININE 1.2 mg/dL (0.55-1.3); GLUCOSE,RANDOM 133 mg/dL (74-106); POTASSIUM 4.8 mmol/L (3.5-5.1); SGOT/AST 18 U/L (15-37); SGPT/ALT 24 U/L (13-61); SODIUM 139 mmol/L (136-145); TOT PROT 7.6 g/dl (6.4-8.2)
[2018-09-21] MEDS: PRENATAL VITAMINS W/ FOLIC ACID TABLET (FP) PO SCH (10:57)
[2018-09-21] MEDS: NICOTINE 14 MG/24 HOURS TOPICAL PATCH TD SCH (10:57)
[2018-09-21] MEDS: LIDOCAINE 5% TOPICAL PATCH TP SCH (10:57)
[2018-09-21] MEDS: PANTOPRAZOLE 40 MG TABLET (FP) PO SCH (10:58)
[2018-09-21] MEDS: DORZOLAMIDE 2% HCL OPHTHALMIC SOLUTION 10 ML BOTTLE OU SCH ×2 (10:58→21:40)
[2018-09-21] MEDS: AMMONIUM LACTATE 12% LOTION 225 GM BOTTLE TP SCH (11:00)
--- NOTE | 2018-09-21 12:26 | EKG ---
Test Reason : Blood Pressure : / mmHG Vent. Rate : 069 BPM Atrial Rate : 069 BPM P-R Int : 148 ms QRS Dur : 090 ms QT Int : 380 ms P-R-T Axes : 022 057 043 degrees QTc Int : 407 ms NORMAL SINUS RHYTHM MINIMAL VOLTAGE CRITERIA FOR LVH, MAY BE NORMAL VARIANT BORDERLINE ECG WHEN COMPARED WITH ECG OF 17-JUN-2018 11:47, NO SIGNIFICANT CHANGE WAS FOUND Confirmed by SIOMARA KAHN, DEBORA ([id number]) on 09/21/2018 12:25:49 PM Referred By: Confirmed By:DEBORA STRINGER MD
[2018-09-21] MEDS: THIAMINE HCL 100 MG TABLET (FP) PO SCH (21:39)
[2018-09-21] MEDS: QUEtiapine FUMARATE 100 MG TABLET (FP) PO SCH (21:39)
[2018-09-21] MEDS: LATANOPROST 0.005% OPHTH SOLN 2.5ML BOTTLE OU SCH (21:40)
[2018-09-21] MEDS: LIDOCAINE PATCH REMOVAL MC SCH (21:40)
[2018-09-22] MEDS: PRENATAL VITAMINS W/ FOLIC ACID TABLET (FP) PO SCH (10:24)
[2018-09-22] MEDS: PANTOPRAZOLE 40 MG TABLET (FP) PO SCH (10:24)
[2018-09-22] MEDS: LIDOCAINE 5% TOPICAL PATCH TP SCH (10:25)
[2018-09-22] MEDS: DORZOLAMIDE 2% HCL OPHTHALMIC SOLUTION 10 ML BOTTLE OU SCH ×2 (10:26→22:01)
[2018-09-22] MEDS: NICOTINE 14 MG/24 HOURS TOPICAL PATCH TD SCH (10:27)
[2018-09-22] MEDS: AMMONIUM LACTATE 12% LOTION 225 GM BOTTLE TP SCH (10:28)
[2018-09-22] MEDS: QUEtiapine FUMARATE 100 MG TABLET (FP) PO SCH (22:01)
[2018-09-22] MEDS: THIAMINE HCL 100 MG TABLET (FP) PO SCH (22:01)
[2018-09-22] MEDS: LATANOPROST 0.005% OPHTH SOLN 2.5ML BOTTLE OU SCH (22:01)
[2018-09-22] MEDS: LIDOCAINE PATCH REMOVAL MC SCH (22:05)
[2018-09-23] MEDS: PRENATAL VITAMINS W/ FOLIC ACID TABLET (FP) PO SCH (10:34)
[2018-09-23] MEDS: PANTOPRAZOLE 40 MG TABLET (FP) PO SCH (10:34)
[2018-09-23] MEDS: LIDOCAINE 5% TOPICAL PATCH TP SCH (10:34)
[2018-09-23] MEDS: NICOTINE 14 MG/24 HOURS TOPICAL PATCH TD SCH (10:34)
[2018-09-23] MEDS: DORZOLAMIDE 2% HCL OPHTHALMIC SOLUTION 10 ML BOTTLE OU SCH ×2 (10:35→21:32)
[2018-09-23] MEDS: AMMONIUM LACTATE 12% LOTION 225 GM BOTTLE TP SCH (11:29)
[2018-09-23] MEDS: QUEtiapine FUMARATE 100 MG TABLET (FP) PO SCH (21:31)
[2018-09-23] MEDS: THIAMINE HCL 100 MG TABLET (FP) PO SCH (21:32)
[2018-09-23] MEDS: LATANOPROST 0.005% OPHTH SOLN 2.5ML BOTTLE OU SCH (21:32)
[2018-09-23] MEDS: LIDOCAINE PATCH REMOVAL MC SCH (21:32)
[2018-09-24 07:22] VITALS: BP 151/77; PULSE 79; TEMP 97.3
--- NOTE | 2018-09-24 07:57 | PN ---
[facility] Progress Note Note: INFORMED CLIENT LEFT UNIT AFTER SIGNING OUT AMA. DID NOT WANT TO WAIT TO SEE MEDICAL PROVIDER INFORMED CLIENT LEFT UNIT A/O X3 NAD AMBULATING W/O DIFFICULTY ESCORTED BY SECURITY UNIT RN REPORTED THAT ATTENDING DR. SUERO INFORMED OF AMA. Vital Signs Temperature 97.3 F L 09/24/18 07:21 Pulse Rate 79 09/24/18 07:21 Respiratory Rate 18 09/24/18 07:21 Blood Pressure 151/77 09/24/18 07:21 O2 Sat by Pulse Oximetry (%) Laboratory Tests 09/20/18 09/21/18 09/21/18 22:37 06:00 06:00 WBC 5.2 RBC 4.76 Hgb 13.5 Hct 41.2 MCV 86.5 MCH 28.5 MCHC 32.9 RDW 15.7 D Plt Count 277 MPV 9.0 Sodium Potassium Chloride Carbon Dioxide Anion Gap BUN Creatinine Creat Clearance w eGFR Random Glucose Calcium Total Bilirubin AST ALT Alkaline Phosphatase Total Protein Albumin Urine Color Yellow Urine Appearance Clear Urine pH 5.0 Ur Specific Bruce 1.021 Urine Protein Negative Urine Glucose (UA) Negative Urine Ketones Negative Urine Blood Negative Urine Nitrite Negative Urine Bilirubin Negative Urine Urobilinogen Negative Ur Leukocyte Esterase Negative RPR Titer Hep C Ab Diagnostic HIV 1&2 Antibody Screen Negative HIV P24 Antigen Negative 09/21/18 09/21/18 09/21/18 06:00 06:00 06:00 WBC RBC Hgb Hct MCV MCH MCHC RDW Plt Count MPV Sodium 139 Potassium 4.8 Chloride 106 Carbon Dioxide 25 Anion Gap 8 BUN 17 Creatinine 1.2 Creat Clearance w eGFR > 60 Random Glucose 133 H Calcium 9.2 Total Bilirubin 0.2 AST 18 ALT 24 Alkaline Phosphatase 62 Total Protein 7.6 Albumin 3.7 Urine Color Urine Appearance Urine pH Ur Specific Bruce Urine Protein Urine Glucose (UA) Urine Ketones Urine Blood Urine Nitrite Urine Bilirubin Urine Urobilinogen Ur Leukocyte Esterase RPR Titer Nonreactive Hep C Ab Diagnostic 0.1 HIV 1&2 Antibody Screen HIV P24 Antigen LABS NOTED
== END 2018-09-24 07:35 | disposition left against medical advice (07) | DRG 894 ==
LOC: YASAS 11:18 → Y5N 14:06
PROVIDERS: ADMIT Psychiatry & Neurology Psychiatry; ATTEND Psychiatry & Neurology Psychiatry
PROC: HZ2ZZZZ Detoxification Services for Substance Abuse Treatment (ICD-10-PCS; principal; 2018-09-20)
DX: F11.20 Opioid dependence, uncomplicated (principal); F13.20 Sedative, hypnotic or anxiolytic dependence, uncomplicated; F14.20 Cocaine dependence, uncomplicated; F10.20 Alcohol dependence, uncomplicated; F19.24 Other psychoactive substance dependence with psychoactive substance-induced mood disorder; F41.9 Anxiety disorder, unspecified; D50.9 Iron deficiency anemia, unspecified; E78.5 Hyperlipidemia, unspecified; I10 Essential (primary) hypertension; M51.26 Other intervertebral disc displacement, lumbar region; H40.10X1 Unspecified open-angle glaucoma, mild stage; M54.5 Low back pain; G89.29 Other chronic pain; M72.2 Plantar fascial fibromatosis; R63.4 Abnormal weight loss; Z68.22 Body mass index [BMI] 22.0-22.9, adult; G56.03 Carpal tunnel syndrome, bilateral upper limbs; Z88.0 Allergy status to penicillin; Z91.013 Allergy to seafood
CPT/HCPCS: 36415; 80053; 81003; 85027; 86593; 86803; 87389; 93005; 93010

== ENCOUNTER 2018-11-10 15:51 | Inpatient (IN) | payer OTHER ==
[2018-11-10 20:33] VITALS: BMI 21.8
--- NOTE | 2018-11-11 01:23 | HP ---
CIWA Score Nausea/Vomitin-Mild Nausea/No Vomiting Muscle Tremors: 4-Moderate,w/Arms Extend Anxiety: 3 Agitation: 2 Paroxysmal Sweats: 3 (Increased facial moisture) Orientation: 0-Oriented Tacttile Disturbances: 0-None Auditory Disturbances: 0-None Visual Disturbances: 0-None Headache: 3-Moderate CIWA-Ar Total Score: 16 - Admission Criteria OASAS Guidelines: Admission for Medically Managed Detox: Requires at least one of the followin. CIWA greater than 12 2. Seizures within the past 24 hours 3. Delirium tremens within the past 24 hours 4. Hallucinations within the past 24 hours 5. Acute intervention needed for co occurring medical disorder 6. Acute intervention needed for co occurring psychiatric disorder 7. Severe withdrawal that cannot be handled at a lower level of care (continued vomiting, continued diarrhea, abnormal vital signs) requiring intravenous medication and/or fluids 8. Patient presents the following: CIWA greater than 12 Admission Criteria Met: Admission criteria met Admission ROS [facility] Chief Complaint: Here with alcohol withdrawal. Allergies/Adverse Reactions: Allergies Allergy/AdvReac Type Severity Reaction Status Date / Time Penicillins Allergy Severe Hives Verified 09/20/18 11:58 rice Allergy Hives Verified 09/20/18 11:58 shellfish derived Allergy Hives Verified 09/20/18 11:58 History of Present Illness: Here for alcohol detox, mainly. I also use a little cocaine. Alcohol use began at age 13. Cocaine use began at age 25. Nicotine use began at age 15. Denies benzo use. Longest length of sobriety 4 years. Hx: blackouts - last 2 months ago. Denies hx seizures or over doses. PMHx: Glaucoma (increased ocular pressure); acid reflux, perforated nasal septum. Herniated disc L3-L4 - intermittent LBP, Plantar fasciitis, borderline DM States HTN - resolved MHHx: Anxiety (on seroquel sometimes), Depression. Denies thoughts of harming self or others. Search Terms: Jose Foreman, 1955 Search Date: 11/11/2018 01:17:36 AM The Drug Utilization Report below displays all of the controlled substance prescriptions, if any, that your patient has filled in the last twelve months. The information displayed on this report is compiled from pharmacy submissions to the Department, and accurately reflects the information as submitted by the pharmacies. This report was requested by: Filomena Nguyen | Reference #: [id number] There are no results for the search terms that you entered. Exam Limitations: No Limitations - Ebola screening Have you traveled outside of the country in the last 21 days: No Have you had contact with anyone from an Ebola affected area: No Have you been sick,other than usual withdrawal symptoms: No Do you have a fever: No - Review of Systems Constitutional: Diaphoresis, Changes in sleep (Difficulty falling and staying asleep. Helped by seroquel.) EENT: reports: Blurred Vision (Wears contact lenses.), Dental Problems (Wears dentures. Chews and swallows okay.), Other (Glaucoma - both eyes) Respiratory: reports: No Symptoms reported Cardiac: reports: No Symptoms Reported GI: reports: Nausea, Indigestion (acid reflux) : reports: No Symptoms Reported Musculoskeletal: reports: Back Pain (Herniated disc L3-L4 - intermittent LBP - moving/sleeping the wrong way. Slight achy pain at this time is "3-4". Uses lidocaine patch.), Other (Plantar fasciitis) Integumentary: reports: Other (Athlete's foot) Neuro: reports: Headache (Moderate headache), Tremors Endocrine: reports: Increased Thirst Hematology: reports: No Symptoms Reported Psychiatric: reports: Judgement Intact, Orientated x3, Agitated, Anxious, Depressed ( Denies thoughts of harming self or others.) Patient History - Patient Medical History Hx Anemia: Yes (Iron-Deficiency - Not on medication.) Hx Asthma: No Hx Chronic Obstructive Pulmonary Disease (COPD): No Hx Cancer: No Hx Cardiac Disorders: No Hx Congestive Heart Failure: No Hx Hypertension: Yes (On Medication in Past, Stopped by Medical Provider approx. 3 years ago.) Hx Hypercholesterolemia: No Hx Pacemaker: No HX Cerebrovascular Accident: No Hx Seizures: No Hx Dementia: No Hx Diabetes: No (Reprots History of "Pre-Diabetes". No medication in past.) Hx Gastrointestinal Disorders: Yes (acid reflux) Hx Liver Disease: No Hx Genitourinary Disorders: No Hx Sexually Transmitted Disorders: No Hx Renal Disease (ESRD): No Hx Thyroid Disease: No Hx Human Immunodeficiency Virus (HIV): No (NEGATIVE, 2018) Hx Hepatitis C: No (Last Teested: 2016.) Hx Depression: Yes Hx Suicide Attempt: No Hx Bipolar Disorder: No Hx Schizophrenia: No - Patient Surgical History Past Surgical History: Yes Hx Neurologic Surgery: No Hx Cataract Extraction: No Hx Cardiac Surgery: No Hx Lung Surgery: No Hx Breast Surgery: No Hx Breast Biopsy: No Hx Abdominal Surgery: No Hx Appendectomy: No Hx Cholecystectomy: No Hx Genitourinary Surgery: No Hx Section: No Hx Orthopedic Surgery: Yes (fx, right forearm in 1997; Titanium Platet Placed.) Other Surgical History: Lipoma removed from Left shoulder 01/10 Anesthesia Reaction: No - PPD History Previous Implant?: Yes Documented Results: Negative w/proof Implanted On Prior [facility] Admission?: Yes Date: 04/27/18 Results: 0 mm PPD to be Administered?: No - Smoking Cessation Smoking history: Current every day smoker Have you smoked in the past 12 months: Yes Aproximately how many cigarettes per day: 10 Cigars Per Day: 0 Hx Chewing Tobacco Use: No Initiated information on smoking cessation: Yes 'Breaking Loose' booklet given: 11/11/18 - Substance & Tx. History Hx Alcohol Use: Yes Hx Substance Use: Yes Substance Use Type: Alcohol, Cocaine Hx Substance Use Treatment: Yes (detox, rehab) - Substances Abused Alcohol Route: Oral Frequency: Daily Amount used: 3 pints Age of first use: 13 Date of Last Use: 11/10/18 Cocaine Route: Inhalation Frequency: Daily Age of first use: 25 Date of Last Use: 11/09/18 Family Disease History - Family Disease History Family Disease History: Diabetes: Grandparent (Lupus.), Heart Disease: Grandparent, Mother (mom with dementia age 98), Other: Grandparent, Father ( unknown, ), Mother, Sister (two living, one has lupus ), Son (four - healthy), Daughter (one - healthy) Admission Physical Exam S - Vital Signs Vital Signs: Vital Signs - 24 hr 11/10/18 20:30 Temperature 98.8 F Pulse Rate 79 Respiratory 17 Rate Blood Pressure 134/86 - Physical General Appearance: Yes: Nourished, Appropriately Dressed, Mild Distress, Tremorous, Sweating, Anxious HEENTM: Yes: EOMI, Hearing grossly Normal, Normocephalic, Normal Voice, ARNIE, Other (Perforated nasal septum) Respiratory: Yes: Lungs Clear, Normal Breath Sounds, No Respiratory Distress Neck: Yes: No masses,lesions,Nodules, Supple Breast: Yes: Breast Exam Deferred Cardiology: Yes: Regular Rhythm, Regular Rate, S1, S2, Murmur Abdominal: Yes: Non Tender, Soft, Increased Bowel Sounds Genitourinary: Yes: Within Normal Limits Back: Yes: Normal Inspection Musculoskeletal: Yes: full range of Motion, Gait Steady Extremities: Yes: Normal Capillary Refill, Normal Range of Motion, Tremors ( gross tremors when hands extended) Neurological: Yes: records clerk II-XII NML intact, Fully Oriented, Alert, Motor Strength 5/5 Integumentary: Yes: Normal Color, Dry (Except for increased facial moisture), Warm, Other (Cracked, dry flaky skin at toes and feet) Lymphatic: Yes: Within Normal Limits - Diagnostic (1) History of herniated intervertebral disc Current Visit: Yes Status: Chronic (2) Alcohol dependence with uncomplicated withdrawal Current Visit: Yes Status: Acute (3) Cocaine dependence, uncomplicated Current Visit: Yes Status: Chronic (4) GERD (gastroesophageal reflux disease) Current Visit: Yes Status: Chronic Qualifiers: Esophagitis presence: esophagitis presence not specified Qualified Code(s) : K21.9 - Gastro-esophageal reflux disease without esophagitis (5) Glaucoma Current Visit: Yes Status: Chronic Qualifiers: Glaucoma type: open-angle Open angle glaucoma type: unspecified type Laterality: bilateral Glaucoma stage: stage unspecified Qualified Code(s): H40.10X0 - Unspecified open-angle glaucoma, stage unspecified (6) Nicotine dependence Current Visit: Yes Status: Chronic Qualifiers: Nicotine product type: cigarettes Substance use status: uncomplicated Qualified Code(s): F17.210 - Nicotine dependence, cigarettes, uncomplicated (7) Cardiac murmur Current Visit: Yes Status: Suspected Comment: Unsure if has a history of murmur (8) Nontraumatic perforated nasal septum Current Visit: Yes Status: Chronic (9) Tinea pedis Current Visit: Yes Status: Chronic Qualifiers: Laterality: bilateral Qualified Code(s): B35.3 - Tinea pedis (10) History of borderline diabetes mellitus Current Visit: Yes Status: Chronic Cleared for Admission [facility] - Detox or Rehab [facility] Level of Care: Medically Managed Detox Regimen/Protocol: Valium S Breath Alcohol Content Breath Alcohol Content: 0 Urine Drug Screen - Results Drug Screen Negative: No Urine Drug Screen Results: BZO-Benzodiazepines Inpatient Rehab Admission - Rehab Decision to Admit Inpatient rehab admission?: No
[2018-11-11] MEDS ORDERED: diazePAM 5 MG TABLET PO ONE (01:58)
[2018-11-11] MEDS ORDERED: MAGNESIUM CITRATE 300 ML BOTTLE PO PRN (01:58)
[2018-11-11] MEDS ORDERED: NICOTINE POLACRILEX 2 MG GUM BUC PRN (01:58)
[2018-11-11] MEDS ORDERED: IBUPROFEN 400 MG TABLET (FP) PO PRN (01:58)
[2018-11-11] MEDS ORDERED: MAGNESIUM HYDROX 2400MG/30ML ORAL SUSPENSION 30 ML CUP PO PRN (01:58)
[2018-11-11] MEDS ORDERED: MAG HYDROX/AL HYDROX/SIMETH 30 ML UNIT-DOSE CUP PO PRN (01:58)
[2018-11-11] MEDS ORDERED: BACLOFEN 10 MG TABLET (FP) PO PRN (01:58)
[2018-11-11] MEDS ORDERED: ACETAMINOPHEN 325 MG TABLET (FP) PO PRN ×2 (01:58)
[2018-11-11] MEDS ORDERED: BISMUTH SUBSALICYLATE 524 MG/30 ML UD PO PRN (01:58)
[2018-11-11] MEDS ORDERED: MELATONIN 5 MG TABLETS PO PRN (01:58)
[2018-11-11] MEDS ORDERED: MENTHOL/PHENOL 1 EACH UD MM PRN (01:58)
[2018-11-11] MEDS: diazePAM 5 MG TABLET PO SCH ×3 (05:40→23:10)
[2018-11-11] MEDS: PANTOPRAZOLE 40 MG TABLET (FP) PO SCH (09:59)
[2018-11-11] MEDS: PRENATAL VITAMINS W/ FOLIC ACID TABLET (FP) PO SCH (09:59)
[2018-11-11] MEDS: TOLNAFTATE 1% CREAM 15 GM TUBE TP SCH ×2 (09:59→23:11)
[2018-11-11] MEDS: NICOTINE 14 MG/24 HOURS TOPICAL PATCH TD SCH (10:00)
[2018-11-11] MEDS: LIDOCAINE 5% TOPICAL PATCH TP SCH (10:02)
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
[2018-11-11] MEDS: DORZOLAMIDE 2% HCL OPHTHALMIC SOLUTION 10 ML BOTTLE OU SCH ×2 (12:58→23:11)
[2018-11-11] MEDS ORDERED: ONDANSETRON *ODT* 4 MG TABLET SL PRN (14:58)
--- NOTE | 2018-11-11 15:00 | PN ---
[facility] CIWA - CIWA Score Nausea/Vomitin Muscle Tremors: 3 Anxiety: 2 Agitation: 1-Slight > Activity Paroxysmal Sweats: 2 Orientation: 0-Oriented Tacttile Disturbances: 0-None Auditory Disturbances: 2-Mild Harshness/Frighten Visual Disturbances: 1-Very Mild Sensitivity Headache: 0-None Present CIWA-Ar Total Score: 14 BHS Progress Note (SOAP) Subjective: Tremors, Sweating, Nausea, Fatigue. Objective: PATIENT A & O X 3, OBSERVED AMBULATING ON UNIT. IN NO ACUTE DISTRESS. 11/11/18 14:59 Vital Signs Temperature 98.5 F 11/11/18 13:54 Pulse Rate 83 11/11/18 13:54 Respiratory Rate 18 11/11/18 13:54 Blood Pressure 143/82 11/11/18 13:54 O2 Sat by Pulse Oximetry (%) Laboratory Tests 11/11/18 12:57 POC Glucometer 113 ADMISSION LAB RESULTS PENDING. 11/11/18 15:00 Assessment: 11/11/18 15:00 WITHDRAWAL SYMPTOMS. Plan: CONTINUE DETOX. PRN ZOFRAN SL FOR NAUSEA.
[2018-11-11] MEDS: diazePAM 5 MG TABLET PO PRN (17:22)
[2018-11-11] MEDS: LIDOCAINE PATCH REMOVAL MC SCH (23:10)
[2018-11-11] MEDS: QUEtiapine FUMARATE 100 MG TABLET (FP) PO SCH (23:10)
[2018-11-11] MEDS: THIAMINE HCL 100 MG TABLET (FP) PO SCH (23:11)
[2018-11-11] MEDS: LATANOPROST 0.005% OPHTH SOLN 2.5ML BOTTLE OU SCH (23:12)
[2018-11-12] MEDS: diazePAM 5 MG TABLET PO SCH ×2 (05:58→17:54)
[2018-11-12] MEDS: PANTOPRAZOLE 40 MG TABLET (FP) PO SCH (10:25)
[2018-11-12] MEDS: TOLNAFTATE 1% CREAM 15 GM TUBE TP SCH ×2 (10:25→22:57)
[2018-11-12] MEDS: PRENATAL VITAMINS W/ FOLIC ACID TABLET (FP) PO SCH (10:25)
[2018-11-12] MEDS: DORZOLAMIDE 2% HCL OPHTHALMIC SOLUTION 10 ML BOTTLE OU SCH ×2 (10:25→22:56)
[2018-11-12] MEDS: diazePAM 5 MG TABLET PO PRN (10:25)
[2018-11-12] MEDS: NICOTINE 14 MG/24 HOURS TOPICAL PATCH TD SCH (10:26)
[2018-11-12] MEDS: LIDOCAINE 5% TOPICAL PATCH TP SCH (10:26)
--- NOTE | 2018-11-12 11:24 | PN ---
S CIWA - CIWA Score Nausea/Vomitin-No Nausea/No Vomiting Muscle Tremors: 3 Anxiety: 1-Mildly Anxious Agitation: 2 Paroxysmal Sweats: 1-Minimal Palms Moist Orientation: 1-Uncertain about Date Tacttile Disturbances: 0-None Auditory Disturbances: 0-None Visual Disturbances: 0-None Headache: 1-Very Mild CIWA-Ar Total Score: 9 BHS Progress Note (SOAP) Subjective: feeling better less tremor mild sweating sleep better today Objective: 11/12/18 11:24 Vital Signs Temperature 97.1 F L 11/12/18 09:36 Pulse Rate 83 11/12/18 09:36 Respiratory Rate 20 11/12/18 09:36 Blood Pressure 133/85 11/12/18 09:36 O2 Sat by Pulse Oximetry (%) Laboratory Last Values POC Glucometer 118 UNITS (80-120) 11/12/18 05:57 11/12/18 11:25 patient refusing blood work last blood work 08/2018 Assessment: 11/12/18 11:26 mild alcohol withdrawal sx Plan: continue detox
[2018-11-12] MEDS: LATANOPROST 0.005% OPHTH SOLN 2.5ML BOTTLE OU SCH (22:56)
[2018-11-12] MEDS: LIDOCAINE PATCH REMOVAL MC SCH (22:56)
[2018-11-12] MEDS: THIAMINE HCL 100 MG TABLET (FP) PO SCH (22:56)
[2018-11-12] MEDS: QUEtiapine FUMARATE 100 MG TABLET (FP) PO SCH (22:57)
[2018-11-13] MEDS ORDERED: diazePAM 5 MG TABLET PO ONE (06:00)
[2018-11-13 06:11] VITALS: BP 137/79; PULSE 88; TEMP 97.4
[2018-11-13 09:58] LABS: URINE APPEARANCE CLEAR; URINE BILIRUBIN NEGATIVE (<2.0 mg/dL); URINE COLOR STRAW; URINE GLUCOSE (UA) NEGATIVE (NEGATIVE); URINE KETONE NEGATIVE (NEGATIVE); URINE LEUK ESTERASE NEGATIVE (NEGATIVE); URINE NITRITE NEGATIVE (NEGATIVE); URINE PROTEIN NEGATIVE (NEGATIVE); URINE UROBILINOGEN NEGATIVE mg/dL (0.2-1.0)
[2018-11-13] MEDS: PANTOPRAZOLE 40 MG TABLET (FP) PO SCH (10:25)
[2018-11-13] MEDS: PRENATAL VITAMINS W/ FOLIC ACID TABLET (FP) PO SCH (10:25)
[2018-11-13] MEDS: LIDOCAINE 5% TOPICAL PATCH TP SCH (10:25)
[2018-11-13] MEDS: NICOTINE 14 MG/24 HOURS TOPICAL PATCH TD SCH (10:25)
[2018-11-13] MEDS: DORZOLAMIDE 2% HCL OPHTHALMIC SOLUTION 10 ML BOTTLE OU SCH (10:26)
[2018-11-13] MEDS: TOLNAFTATE 1% CREAM 15 GM TUBE TP SCH (10:26)
--- NOTE | 2018-11-13 16:40 | DS ---
[facility] Detox Discharge Summary Admission Date: 11/11/18 Discharge Date: 11/13/18 - History Present History: Alcohol Dependence Additional Comments: 63 years old male admitted on 11/11/18 for alcohol withdrawal stabilization completed detox regimen aftercare [facility] - Physical Exam Results Vital Signs: Vital Signs Temperature 97.4 F L 11/13/18 06:11 Pulse Rate 88 11/13/18 06:11 Respiratory Rate 18 11/13/18 06:11 Blood Pressure 137/79 11/13/18 06:11 O2 Sat by Pulse Oximetry (%) Pertinent Admission Physical Exam Findings: alcohol withdrawal sx Laboratory Last Values POC Glucometer 107 UNITS (80-120) 11/13/18 11:13 Urine Color Straw 11/13/18 07:40 Urine Appearance Clear 11/13/18 07:40 Urine pH 5.0 (5.0-8.0) 11/13/18 07:40 Ur Specific [place] 1.011 (1.010-1.035) 11/13/18 07:40 Urine Protein Negative (NEGATIVE) 11/13/18 07:40 Urine Glucose (UA) Negative (NEGATIVE) 11/13/18 07:40 Urine Ketones Negative (NEGATIVE) 11/13/18 07:40 Urine Blood Negative (NEGATIVE) 11/13/18 07:40 Urine Nitrite Negative (NEGATIVE) 11/13/18 07:40 Urine Bilirubin Negative (<2.0 mg/dL) 11/13/18 07:40 Urine Urobilinogen Negative mg/dL (0.2-1.0) 11/13/18 07:40 Ur Leukocyte Esterase Negative (NEGATIVE) 11/13/18 07:40 lab noted - Treatment Hospital Course: Detox Protocol Followed, Detoxed Safely, Responded well, Discharged Condition Good, Rehab Referral Accepted Patient has Accepted a Rehab Referral to: [facility] - Medication Discharge Medications: Ambulatory Orders Quetiapine Fumarate [Seroquel] 100 mg PO HS #30 tablet 06/18/18 Pantoprazole Sodium [Protonix -] 40 mg PO DAILY 08/21/18 Dorzolamide HCl [Trusopt 2% -] 1 drop OU BID #1 bottle 11/12/18 Latanoprost 0.005% Eye Drops [Xalatan 0.005% Eye Drops -] 1 drop OU HS #1 drops 11/12/18 - Diagnosis (1) Alcohol dependence with uncomplicated withdrawal Status: Acute (2) Weight loss Status: Acute (3) GERD (gastroesophageal reflux disease) Status: Chronic Qualifiers: Esophagitis presence: esophagitis presence not specified Qualified Code(s) : K21.9 - Gastro-esophageal reflux disease without esophagitis (4) Glaucoma Status: Chronic Qualifiers: Glaucoma type: open-angle Open angle glaucoma type: unspecified type Laterality: bilateral Glaucoma stage: stage unspecified Qualified Code(s): H40.10X0 - Unspecified open-angle glaucoma, stage unspecified (5) HTN (hypertension) Status: Chronic Qualifiers: Hypertension type: essential hypertension Qualified Code(s): I10 - Essential (primary) hypertension (6) Nicotine dependence Status: Acute Qualifiers: Nicotine product type: cigarettes Substance use status: in withdrawal Qualified Code(s): F17.213 - Nicotine dependence, cigarettes, with withdrawal (7) Substance induced mood disorder Status: Suspected - AMA Did Patient Leave Against Medical Advice: No
--- NOTE | 2018-11-13 22:53 | EKG ---
Test Reason : Blood Pressure : / mmHG Vent. Rate : 070 BPM Atrial Rate : 070 BPM P-R Int : 144 ms QRS Dur : 096 ms QT Int : 384 ms P-R-T Axes : 036 065 049 degrees QTc Int : 414 ms NORMAL SINUS RHYTHM MINIMAL VOLTAGE CRITERIA FOR LVH, MAY BE NORMAL VARIANT BORDERLINE ECG WHEN COMPARED WITH ECG OF 20-SEP-2018 15:44, NO SIGNIFICANT CHANGE WAS FOUND Confirmed by CAROLINA KAHN, DUANE ([id number]) on 11/13/2018 10:53:30 PM Referred By: Confirmed By:DUANE FIGUEROA MD
== END 2018-11-13 12:45 | disposition home or self-care (01) | DRG 897 ==
LOC: YASAS 15:51 → Y6N 23:13 → UNDOADMIN 23:13 → Y3N 11-11 02:00
PROVIDERS: ADMIT Surgery; ATTEND Surgery
PROC: HZ2ZZZZ Detoxification Services for Substance Abuse Treatment (ICD-10-PCS; principal; 2018-11-11)
DX: F10.230 Alcohol dependence with withdrawal, uncomplicated (principal); F14.20 Cocaine dependence, uncomplicated; F17.210 Nicotine dependence, cigarettes, uncomplicated; F19.24 Other psychoactive substance dependence with psychoactive substance-induced mood disorder; E78.5 Hyperlipidemia, unspecified; I10 Essential (primary) hypertension; K21.9 Gastro-esophageal reflux disease without esophagitis; H40.10X0 Unspecified open-angle glaucoma, stage unspecified; G47.00 Insomnia, unspecified; M72.2 Plantar fascial fibromatosis; R01.1 Cardiac murmur, unspecified; J34.89 Other specified disorders of nose and nasal sinuses; E11.9 Type 2 diabetes mellitus without complications; R63.4 Abnormal weight loss; Z68.21 Body mass index [BMI] 21.0-21.9, adult; Z88.0 Allergy status to penicillin; Z91.013 Allergy to seafood
CPT/HCPCS: 81003; 82962; 93005; 93010; J0475

== ENCOUNTER 2018-12-18 10:43 | Inpatient (IN) | payer OTHER ==
[2018-12-18 12:23] VITALS: BMI 21.8
--- NOTE | 2018-12-18 13:36 | HP ---
CIWA Score Nausea/Vomitin Muscle Tremors: 1-None Visible, but [place] Anxiety: 2 Agitation: 0-Normal Activity Paroxysmal Sweats: 2 Orientation: 0-Oriented Tacttile Disturbances: 2-Mild Itch/Numbness/Burn Auditory Disturbances: 1-Very Mild Visual Disturbances: 1-Very Mild Sensitivity Headache: 0-None Present CIWA-Ar Total Score: 12 - Admission Criteria [facility] Guidelines: Admission for Medically Managed Detox: Requires at least one of the followin. CIWA greater than 12 2. Seizures within the past 24 hours 3. Delirium tremens within the past 24 hours 4. Hallucinations within the past 24 hours 5. Acute intervention needed for co occurring medical disorder 6. Acute intervention needed for co occurring psychiatric disorder 7. Severe withdrawal that cannot be handled at a lower level of care (continued vomiting, continued diarrhea, abnormal vital signs) requiring intravenous medication and/or fluids 8. Patient presents the following: CIWA greater than 12 Admission Criteria Met: Admission criteria met Admission ROS [facility] - [facility] Chief Complaint: " withdrawal symptoms" Allergies/Adverse Reactions: Allergies Allergy/AdvReac Type Severity Reaction Status Date / Time Penicillins Allergy Severe Hives Verified 12/18/18 12:16 rice Allergy Hives Verified 12/18/18 12:16 shellfish derived Allergy Hives Verified 12/18/18 12:16 History of Present Illness: Patient is a 63 yo male with hx of alcohol and cocaine dependence is here seeking detox d/t withdrawal symptoms. Last detox [facility] 11/11/18 -11/13/18 utox positive for MTD, BZO, LEYLA . EOTH blackouts with last episode three weeks ago. Denies hx of seizure or overdose. Alcohol use began at age 13. Cocaine use began at age 25. Nicotine use began at age 15. Longest length of sobriety 4 years. Hx: blackouts - last 2 months ago. Denies hx seizures or over doses. PMHx: Glaucoma bilateral, GERD, perforated nasal septum, Herniated disc L3-L4 - intermittent LBP, Plantar fascitis, borderline DM, HTN Psyhc; Anxiety (on seroquel sometimes), Depression. Denies thoughts of harming self or others. Plans to go to [facility] for rehab after completing detoxc Exam Limitations: No Limitations - Ebola screening Have you traveled outside of the country in the last 21 days: No Have you had contact with anyone from an Ebola affected area: No - Review of Systems Constitutional: Loss of Appetite, Changes in sleep, Unintentional Wgt. Loss EENT: reports: See HPI Respiratory: reports: No Symptoms reported Cardiac: reports: No Symptoms Reported GI: reports: Constipated (last BM yesterday), Nausea, Vomiting, Abdominal cramping : reports: No Symptoms Reported Musculoskeletal: reports: Back Pain Integumentary: reports: Dryness, Pruritus Neuro: reports: No Symptoms reported Endocrine: reports: Increased Thirst Hematology: reports: No Symptoms Reported Psychiatric: reports: Orientated x3, Anxious Other Systems: Reviewed and Negative Patient History - Patient Medical History Hx Anemia: Yes (Iron-Deficiency - Not on medication.) Hx Asthma: No Hx Chronic Obstructive Pulmonary Disease (COPD): No Hx Cancer: No Hx Cardiac Disorders: No Hx Congestive Heart Failure: No Hx Hypertension: Yes (On Medication in Past, Stopped by Medical Provider approx. 3 years ago.) Hx Hypercholesterolemia: No Hx Pacemaker: No HX Cerebrovascular Accident: No Hx Seizures: No Hx Dementia: No Hx Diabetes: No (Reprots History of "Pre-Diabetes". No medication in past.) Hx Gastrointestinal Disorders: Yes (acid reflux) Hx Liver Disease: No Hx Genitourinary Disorders: No Hx Sexually Transmitted Disorders: No Hx Renal Disease (ESRD): No Hx Thyroid Disease: No Hx Human Immunodeficiency Virus (HIV): No (NEGATIVE, 2018) Hx Hepatitis C: No (Last Teested: 2016.) Hx Depression: Yes Hx Suicide Attempt: No Hx Bipolar Disorder: No Hx Schizophrenia: No - Patient Surgical History Past Surgical History: Yes Hx Neurologic Surgery: No Hx Cataract Extraction: No Hx Cardiac Surgery: No Hx Lung Surgery: No Hx Breast Surgery: No Hx Breast Biopsy: No Hx Abdominal Surgery: No Hx Appendectomy: No Hx Cholecystectomy: No Hx Genitourinary Surgery: No Hx Section: No Hx Orthopedic Surgery: Yes (fx, right forearm in 1997; Titanium Platet Placed.) Other Surgical History: Lipoma removed from Left shoulder 01/10 Anesthesia Reaction: No - PPD History Previous Implant?: No Documented Results: Negative w/proof Date: 04/27/18 Results: 0 mm PPD to be Administered?: No - Smoking Cessation Smoking history: Current every day smoker Have you smoked in the past 12 months: Yes Aproximately how many cigarettes per day: 10 Cigars Per Day: 0 Hx Chewing Tobacco Use: No Initiated information on smoking cessation: Yes 'Breaking Loose' booklet given: 12/18/18 - Substance & Tx. History Hx Alcohol Use: Yes Hx Substance Use: Yes Substance Use Type: Alcohol, Cocaine Hx Substance Use Treatment: Yes (ast detox [facility] 11/11/18 -11/13/18) - Substances abused Alprazolam (Xanax) Substance route: Oral Frequency: Daily Amount used: "6 footballs" Age of first use: 53 (use increase in last two weeks ) Date of last use: 12/17/18 Alcohol Substance route: Oral Frequency: Daily Amount used: 1 1/2 pt. vodka Age of first use: 13 (reports has been drinking current amount in past month ) Date of last use: 12/18/18 Family Disease History - Family Disease History Family Disease History: Diabetes: Grandparent (Lupus.), Heart Disease: Grandparent, Mother (mom with dementia age 98), Other: Grandparent, Father ( unknown, ), Mother, Sister (two living, one has lupus ), Son (four - healthy), Daughter (one - healthy) Admission Physical Exam [facility] - Vital Signs Vital Signs: Vital Signs - 24 hr 12/18/18 12:18 Temperature 98 F Pulse Rate 70 Respiratory 18 Rate Blood Pressure 149/100 - Physical General Appearance: Yes: Disheveled, Thin, Anxious HEENTM: Yes: EOMI, Hearing grossly Normal, Normal ENT Inspection, Normocephalic , Normal Voice, ARNIE, Pharynx Normal, Tm's normal Respiratory: Yes: Chest Non-Tender, Lungs Clear, Normal Breath Sounds, No Respiratory Distress, No Accessory Muscle Use Neck: Yes: Within Normal Limits Breast: Yes: Breast Exam Deferred Cardiology: Yes: Regular Rhythm, Regular Rate, Murmur Abdominal: Yes: Normal Bowel Sounds, Non Tender, Flat, Soft Genitourinary: Yes: Within Normal Limits Back: Yes: Normal Inspection Musculoskeletal: Yes: full range of Motion, Gait Steady, Pelvis Stable, Back pain Extremities: Yes: Normal Capillary Refill, Normal Inspection, Normal Range of Motion Neurological: Yes: options advisor II-XII NML intact, Fully Oriented, Alert, Motor Strength 5/5 Integumentary: Yes: Normal Color, Warm, Diaphoresis Lymphatic: Yes: Within Normal Limits - Diagnostic (1) Alcohol dependence with uncomplicated withdrawal Current Visit: Yes Status: Acute (2) Sedative, hypnotic or anxiolytic dependence with withdrawal, unspecified Current Visit: Yes Status: Acute (3) Anemia Current Visit: Yes Status: Chronic Qualifiers: Anemia type: iron deficiency (4) Chronic lower back pain Current Visit: Yes Status: Chronic Qualifiers: Back pain laterality: right Sciatica presence: without sciatica Qualified Code(s): M54.5 - Low back pain; G89.29 - Other chronic pain (5) Cocaine dependence Current Visit: Yes Status: Chronic (6) GERD (gastroesophageal reflux disease) Current Visit: Yes Status: Chronic Qualifiers: Esophagitis presence: esophagitis presence not specified Qualified Code(s) : K21.9 - Gastro-esophageal reflux disease without esophagitis (7) Glaucoma Current Visit: Yes Status: Chronic Qualifiers: Glaucoma type: open-angle Open angle glaucoma type: unspecified type Laterality: bilateral Glaucoma stage: stage unspecified Qualified Code(s): H40.10X0 - Unspecified open-angle glaucoma, stage unspecified (8) HTN (hypertension) Current Visit: Yes Status: Chronic Qualifiers: Hypertension type: essential hypertension Qualified Code(s): I10 - Essential (primary) hypertension Cleared for Admission S - Detox or Rehab [facility] Level of Care: Medically Managed Detox Regimen/Protocol: Valium Breathalyzer - Breathalyzer Breathalyzer: 0 Urine Drug Screen - Test Device Lot number: [id number] Expiration date: 07/28/20 - Results Drug screen NEGATIVE: No Urine drug screen results: LEYLA-Cocaine, MTD-Methadone, BZO-Benzodiazepines Inpatient Rehab Admission - Rehab Decision to Admit Inpatient rehab admission?: No
[2018-12-18] MEDS ORDERED: NICOTINE POLACRILEX 2 MG GUM BUC PRN (13:47)
[2018-12-18] MEDS ORDERED: guaiFENesin 200 MG/10 ML 10 ML UNIT-DOSE CUPS PO PRN (13:47)
[2018-12-18] MEDS ORDERED: MAGNESIUM CITRATE 300 ML BOTTLE PO PRN (13:47)
[2018-12-18] MEDS ORDERED: IBUPROFEN 400 MG TABLET (FP) PO PRN (13:47)
[2018-12-18] MEDS ORDERED: MAGNESIUM HYDROX 2400MG/30ML ORAL SUSPENSION 30 ML CUP PO PRN (13:47)
[2018-12-18] MEDS ORDERED: MENTHOL/PHENOL 1 EACH UD MM PRN (13:47)
[2018-12-18] MEDS ORDERED: MAG HYDROX/AL HYDROX/SIMETH 30 ML UNIT-DOSE CUP PO PRN (13:47)
[2018-12-18] MEDS ORDERED: P-EPHED 60MG/TRIPROLIDI 2.5MG TABLET PO PRN (13:47)
[2018-12-18] MEDS ORDERED: ACETAMINOPHEN 325 MG TABLET (FP) PO PRN (13:47)
[2018-12-18] MEDS ORDERED: LOPERAMIDE HCL 2 MG CAPSULE PO PRN (13:47)
[2018-12-18] MEDS: diazePAM 5 MG TABLET PO PRN ×2 (15:29→19:33)
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
[2018-12-18] MEDS: METHOCARBAMOL 500 MG TABLET PO PRN (17:17)
[2018-12-18 18:27] LABS: HEMATOCRIT 42.5 % (35.4-49); HEMOGLOBIN 13.8 GM/dL (11.7-16.9); MCH 28.1 pg (25.7-33.7); MCHC 32.5 g/dl (32.0-35.9); MEAN CELL VOLUME 86.4 fl (80-96); MEAN PLT VOLUME 8.8 fl (7.5-11.1); PLATELET COUNT 351 K/MM3 (134-434); RBC 4.93 M/mm3 (4.00-5.60); RDW 15.4 % (11.9-15.9); WHITE BLOOD COUNT 5.7 K/mm3 (4.0-10.0)
[2018-12-18 18:32] LABS: URINE APPEARANCE TURBID; URINE BILIRUBIN NEGATIVE (NEGATIVE); URINE COLOR YELLOW; URINE GLUCOSE (UA) NEGATIVE (NEGATIVE); URINE KETONE TRACE (NEGATIVE); URINE LEUK ESTERASE NEGATIVE (NEGATIVE); URINE NITRITE NEGATIVE (NEGATIVE); URINE PROTEIN NEGATIVE (NEGATIVE)
[2018-12-18 18:35] LABS: ALBUMIN 3.6 g/dl (3.4-5.0); ALK PHOS 61 U/L (45-117); ANION GAP 5 MMOL/L (8-16); BILIRUBIN,TOTAL 0.4 mg/dL (0.2-1); BLOOD UREA NITROGEN 12 mg/dL (7-18); CALCIUM 9.5 mg/dL (8.5-10.1); CHLORIDE 105 mmol/L (98-107); CO2 28 mmol/L (21-32); CREATININE 1.1 mg/dL (0.55-1.3); GLUCOSE,RANDOM 94 mg/dL (74-106); POTASSIUM 4.6 mmol/L (3.5-5.1); SGOT/AST 18 U/L (15-37); SGPT/ALT 22 U/L (13-61); SODIUM 137 mmol/L (136-145)
[2018-12-18] MEDS ORDERED: MELATONIN 5 MG TABLETS PO PRN (22:00)
[2018-12-18] MEDS: diazePAM 5 MG TABLET PO SCH (22:23)
[2018-12-18] MEDS: QUEtiapine FUMARATE 100 MG TABLET (FP) PO SCH (22:23)
[2018-12-18] MEDS: THIAMINE HCL 100 MG TABLET (FP) PO SCH (22:23)
[2018-12-18] MEDS: LATANOPROST 0.005% OPHTH SOLN 2.5ML BOTTLE OU SCH (22:23)
[2018-12-18] MEDS: DORZOLAMIDE 2% HCL OPHTHALMIC SOLUTION 10 ML BOTTLE OU SCH (22:24)
[2018-12-19] MEDS: diazePAM 5 MG TABLET PO SCH ×3 (05:45→22:15)
[2018-12-19] MEDS: METHOCARBAMOL 500 MG TABLET PO PRN (05:47)
[2018-12-19] MEDS: PRENATAL VITAMINS W/ FOLIC ACID TABLET (FP) PO SCH (10:15)
[2018-12-19] MEDS: NICOTINE 14 MG/24 HOURS TOPICAL PATCH TD SCH (10:15)
[2018-12-19] MEDS: diazePAM 5 MG TABLET PO PRN (10:16)
[2018-12-19] MEDS: PANTOPRAZOLE 40 MG TABLET (FP) PO SCH (10:16)
[2018-12-19] MEDS: DORZOLAMIDE 2% HCL OPHTHALMIC SOLUTION 10 ML BOTTLE OU SCH ×2 (10:17→22:13)
[2018-12-19] MEDS: LIDOCAINE 5% TOPICAL PATCH TP SCH (11:00)
--- NOTE | 2018-12-19 17:10 | PN ---
S CIWA - CIWA Score Nausea/Vomitin-No Nausea/No Vomiting Muscle Tremors: 4-Moderate,w/Arms Extend Anxiety: 2 Agitation: 1-Slight > Activity Paroxysmal Sweats: 3 Orientation: 0-Oriented Tacttile Disturbances: 3-Moderate Itch/Numb/Burn Auditory Disturbances: 0-None Visual Disturbances: 2-Mild Sensitivity Headache: 0-None Present CIWA-Ar Total Score: 15 BHS Progress Note (SOAP) Subjective: Body Aches, Interrupted Sleep, Tremors, Chills, Sweating. Objective: PATIENT A & O X 3, OBSERVED AMBULATING ON UNIT UNASSISTED. IN NO ACUTE DISTRESS. 12/19/18 17:09 Vital Signs Temperature 98.2 F 12/19/18 13:24 Pulse Rate 86 12/19/18 13:24 Respiratory Rate 18 12/19/18 13:24 Blood Pressure 137/83 12/19/18 13:24 O2 Sat by Pulse Oximetry (%) Laboratory Tests 12/18/18 12/18/18 12/18/18 14:00 14:15 14:15 WBC 5.7 RBC 4.93 Hgb 13.8 Hct 42.5 MCV 86.4 MCH 28.1 MCHC 32.5 RDW 15.4 Plt Count 351 D MPV 8.8 Sodium Potassium Chloride Carbon Dioxide Anion Gap BUN Creatinine Creat Clearance w eGFR Random Glucose Calcium Total Bilirubin AST ALT Alkaline Phosphatase Total Protein Albumin Urine Color Yellow Urine Appearance Turbid Urine pH 5.0 Ur Specific [place] 1.024 Urine Protein Negative Urine Glucose (UA) Negative Urine Ketones Trace H Urine Blood Negative Urine Nitrite Negative Urine Bilirubin Negative Urine Urobilinogen 1.0 Ur Leukocyte Esterase Negative RPR Titer Nonreactive 12/18/18 14:15 WBC RBC Hgb Hct MCV MCH MCHC RDW Plt Count MPV Sodium 137 Potassium 4.6 Chloride 105 Carbon Dioxide 28 Anion Gap 5 L BUN 12 Creatinine 1.1 Creat Clearance w eGFR 67.18 Random Glucose 94 Calcium 9.5 Total Bilirubin 0.4 AST 18 ALT 22 Alkaline Phosphatase 61 Total Protein 8.0 Albumin 3.6 Urine Color Urine Appearance Urine pH Ur Specific [place] Urine Protein Urine Glucose (UA) Urine Ketones Urine Blood Urine Nitrite Urine Bilirubin Urine Urobilinogen Ur Leukocyte Esterase RPR Titer LABS NOTED. Assessment: 12/19/18 17:10 WITHDRAWAL SYMPTOMS. Plan: CONTINUE DETOX.
[2018-12-19] MEDS ORDERED: ONDANSETRON *ODT* 4 MG TABLET SL PRN (19:38)
[2018-12-19] MEDS ORDERED: LIDOCAINE PATCH REMOVAL MC SCH (22:00)
[2018-12-19] MEDS: LATANOPROST 0.005% OPHTH SOLN 2.5ML BOTTLE OU SCH (22:14)
[2018-12-19] MEDS: THIAMINE HCL 100 MG TABLET (FP) PO SCH (22:14)
[2018-12-19] MEDS: QUEtiapine FUMARATE 100 MG TABLET (FP) PO SCH (22:16)
[2018-12-20] MEDS ORDERED: diazePAM 5 MG TABLET PO SCH (10:00)
[2018-12-20] MEDS: DORZOLAMIDE 2% HCL OPHTHALMIC SOLUTION 10 ML BOTTLE OU SCH (10:19)
[2018-12-20] MEDS: PRENATAL VITAMINS W/ FOLIC ACID TABLET (FP) PO SCH (10:19)
[2018-12-20] MEDS: LIDOCAINE 5% TOPICAL PATCH TP SCH (10:19)
[2018-12-20] MEDS: PANTOPRAZOLE 40 MG TABLET (FP) PO SCH (10:19)
[2018-12-20] MEDS: NICOTINE 14 MG/24 HOURS TOPICAL PATCH TD SCH (10:20)
--- NOTE | 2018-12-20 13:00 | PN ---
S CIWA - CIWA Score Nausea/Vomitin-No Nausea/No Vomiting Muscle Tremors: None Anxiety: 0-No Anxiety, at Ease Agitation: 0-Normal Activity Paroxysmal Sweats: No Perspiration Orientation: 0-Oriented Tacttile Disturbances: 0-None Auditory Disturbances: 0-None Visual Disturbances: 0-None Headache: 0-None Present CIWA-Ar Total Score: 0 BHS Progress Note (SOAP) Subjective: pt states [facility], doing well with alcohol detox protocol O: Vital Signs - 24 hr 12/19/18 12/19/18 12/19/18 13:24 18:00 22:00 Temperature 98.2 F 98.8 F 98.1 F Pulse Rate 86 84 72 Respiratory 18 18 18 Rate Blood Pressure 137/83 128/76 134/85 12/20/18 12/20/18 12/20/18 00:30 03:30 06:46 Temperature 97.1 F L Pulse Rate 73 Respiratory 18 18 18 Rate Blood Pressure 124/78 12/20/18 09:43 Temperature 97.3 F L Pulse Rate 79 Respiratory 18 Rate Blood Pressure 132/83 Laboratory Tests 12/18/18 12/18/18 12/18/18 14:00 14:15 14:15 WBC 5.7 RBC 4.93 Hgb 13.8 Hct 42.5 MCV 86.4 MCH 28.1 MCHC 32.5 RDW 15.4 Plt Count 351 D MPV 8.8 Sodium Potassium Chloride Carbon Dioxide Anion Gap BUN Creatinine Creat Clearance w eGFR Random Glucose Calcium Total Bilirubin AST ALT Alkaline Phosphatase Total Protein Albumin Urine Color Yellow Urine Appearance Turbid Urine pH 5.0 Ur Specific [place] 1.024 Urine Protein Negative Urine Glucose (UA) Negative Urine Ketones Trace H Urine Blood Negative Urine Nitrite Negative Urine Bilirubin Negative Urine Urobilinogen 1.0 Ur Leukocyte Esterase Negative RPR Titer Nonreactive 12/18/18 14:15 WBC RBC Hgb Hct MCV MCH MCHC RDW Plt Count MPV Sodium 137 Potassium 4.6 Chloride 105 Carbon Dioxide 28 Anion Gap 5 L BUN 12 Creatinine 1.1 Creat Clearance w eGFR 67.18 Random Glucose 94 Calcium 9.5 Total Bilirubin 0.4 AST 18 ALT 22 Alkaline Phosphatase 61 Total Protein 8.0 Albumin 3.6 Urine Color Urine Appearance Urine pH Ur Specific [place] Urine Protein Urine Glucose (UA) Urine Ketones Urine Blood Urine Nitrite Urine Bilirubin Urine Urobilinogen Ur Leukocyte Esterase RPR Titer labs WNL, VS WNL a/p: continue alcohol detox protocol, d/c tomorrow to rehab
[2018-12-20 18:36] VITALS: BP 139/86; PULSE 74; TEMP 97.7
--- NOTE | 2018-12-20 18:58 | PN ---
BHS Progress Note Note: Vital Signs Temperature 97.7 F 12/20/18 18:00 Pulse Rate 74 12/20/18 18:00 Respiratory Rate 18 12/20/18 18:00 Blood Pressure 139/86 12/20/18 18:00 O2 Sat by Pulse Oximetry (%) Patient left AMA. No SI/HI. Refuse to complete tx.
--- NOTE | 2018-12-20 21:20 | DS ---
[facility] Detox Discharge Summary Admission Date: 12/18/18 Discharge Date: 12/20/18 - History Present History: Alcohol Dependence Additional Comments: Patient left AMA. Follow up with attached referrals. If worsening symptoms follow up with the ED. - Physical Exam Results Vital Signs: Vital Signs Temperature 97.7 F 12/20/18 18:00 Pulse Rate 74 12/20/18 18:00 Respiratory Rate 18 12/20/18 18:00 Blood Pressure 139/86 12/20/18 18:00 O2 Sat by Pulse Oximetry (%) - Treatment Hospital Course: Discharged Condition Good - Medication Discharge Medications: Ambulatory Orders Quetiapine Fumarate [Seroquel] 100 mg PO HS #30 tablet 06/18/18 Pantoprazole Sodium [Protonix -] 40 mg PO DAILY 08/21/18 Dorzolamide HCl [Trusopt 2% -] 1 drop OU BID #1 bottle 11/12/18 Latanoprost 0.005% Eye Drops [Xalatan 0.005% Eye Drops -] 1 drop OU HS #1 drops 11/12/18 - Diagnosis (1) Alcohol dependence with uncomplicated withdrawal Status: Acute (2) Sedative, hypnotic or anxiolytic dependence with withdrawal, unspecified Status: Acute (3) Anemia Status: Chronic Qualifiers: Anemia type: iron deficiency (4) Chronic lower back pain Status: Chronic Qualifiers: Back pain laterality: right Sciatica presence: without sciatica Qualified Code(s): M54.5 - Low back pain; G89.29 - Other chronic pain (5) Cocaine dependence Status: Chronic (6) GERD (gastroesophageal reflux disease) Status: Chronic Qualifiers: Esophagitis presence: esophagitis presence not specified Qualified Code(s) : K21.9 - Gastro-esophageal reflux disease without esophagitis (7) Glaucoma Status: Chronic Qualifiers: Glaucoma type: open-angle Open angle glaucoma type: unspecified type Laterality: bilateral Glaucoma stage: stage unspecified Qualified Code(s): H40.10X0 - Unspecified open-angle glaucoma, stage unspecified (8) HTN (hypertension) Status: Chronic Qualifiers: Hypertension type: essential hypertension Qualified Code(s): I10 - Essential (primary) hypertension - AMA Did Patient Leave Against Medical Advice: Yes
[2018-12-21] MEDS ORDERED: diazePAM 5 MG TABLET PO SCH (06:00)
== END 2018-12-20 19:33 | disposition left against medical advice (07) | DRG 894 ==
LOC: YASAS 10:43 → Y3N 14:43
PROVIDERS: ADMIT Surgery; ATTEND Surgery
PROC: HZ2ZZZZ Detoxification Services for Substance Abuse Treatment (ICD-10-PCS; principal; 2018-12-18)
DX: F10.230 Alcohol dependence with withdrawal, uncomplicated (principal); F14.20 Cocaine dependence, uncomplicated; F13.230 Sedative, hypnotic or anxiolytic dependence with withdrawal, uncomplicated; F17.210 Nicotine dependence, cigarettes, uncomplicated; F19.24 Other psychoactive substance dependence with psychoactive substance-induced mood disorder; I10 Essential (primary) hypertension; D50.9 Iron deficiency anemia, unspecified; M54.5 Low back pain; G89.29 Other chronic pain; K21.9 Gastro-esophageal reflux disease without esophagitis; H40.10X0 Unspecified open-angle glaucoma, stage unspecified; G47.00 Insomnia, unspecified; E78.5 Hyperlipidemia, unspecified; E01.1 Iodine-deficiency related multinodular (endemic) goiter; Z88.0 Allergy status to penicillin; Z91.19 Patient's noncompliance with other medical treatment and regimen; Z91.013 Allergy to seafood
CPT/HCPCS: 36415; 80053; 81003; 85027; 86593

== ENCOUNTER 2019-01-26 09:10 | Inpatient (IN) | payer OTHER ==
[2019-01-26 09:38] VITALS: BMI 22.1
--- NOTE | 2019-01-26 10:26 | HP ---
CIWA Score Nausea/Vomitin Muscle Tremors: 4-Moderate,w/Arms Extend Anxiety: 4-Mod. Anxious/Guarded Agitation: 1-Slight > Activity Paroxysmal Sweats: No Perspiration Orientation: 0-Oriented Tacttile Disturbances: 0-None Auditory Disturbances: 2-Mild Harshness/Frighten Visual Disturbances: 0-None Headache: 2-Mild CIWA-Ar Total Score: 15 - Admission Criteria OASAS Guidelines: Admission for Medically Managed Detox: Requires at least one of the followin. CIWA greater than 12 2. Seizures within the past 24 hours 3. Delirium tremens within the past 24 hours 4. Hallucinations within the past 24 hours 5. Acute intervention needed for co occurring medical disorder 6. Acute intervention needed for co occurring psychiatric disorder 7. Severe withdrawal that cannot be handled at a lower level of care (continued vomiting, continued diarrhea, abnormal vital signs) requiring intravenous medication and/or fluids 8. Admission ROS BHS - HPI Allergies/Adverse Reactions: Allergies Allergy/AdvReac Type Severity Reaction Status Date / Time Penicillins Allergy Severe Hives Verified 01/26/19 09:21 shellfish derived Allergy Severe Hives Verified 01/26/19 09:23 rice Allergy Intermediate Hives Verified 01/26/19 09:22 History of Present Illness: 63 yo male with hx of alcohol and cocaine dependence requesting detox from etoh use , curent daily use 3-4 pints liquor , starts drinking around 10 am , denies seizures, + seizures , + tremors . Almost monthly detox at this facility since December 2017 , first age of use 13 , longest sobriety 4 years utox positive for THC BZO, LEYLA . Cocaine : since age 25, 1 gr /day denies IVDU Nicotine : since age 15. cannabis - denies , admits to [facility] PMHx: Glaucoma bilateral, GERD, perforated nasal septum, Herniated disc L3-L4 - intermittent LBP, Plantar fascitis, borderline DM, HTN Psyhc; Anxiety (on seroquel sometimes), Depression. Denies thoughts of harming self or others. Exam Limitations: Clinical Condition - Ebola screening Have you traveled outside of the country in the last 21 days: No (N) Have you had contact with anyone from an Ebola affected area: No Do you have a fever: No - Review of Systems Constitutional: See HPI, Loss of Appetite EENT: reports: Other (contacts , dentures upper) Respiratory: reports: No Symptoms reported Cardiac: reports: No Symptoms Reported GI: reports: Nausea : reports: No Symptoms Reported Musculoskeletal: reports: Muscle Pain Integumentary: reports: No Symptoms Reported Neuro: reports: Headache Endocrine: reports: See HPI Psychiatric: reports: Orientated x3, Anxious Patient History - Patient Medical History Hx Anemia: Yes (Iron-Deficiency - Not on medication.) Hx Asthma: No Hx Chronic Obstructive Pulmonary Disease (COPD): No Hx Cancer: No Hx Cardiac Disorders: No Hx Congestive Heart Failure: No Hx Hypertension: Yes Hx Hypercholesterolemia: No Hx Pacemaker: No HX Cerebrovascular Accident: No Hx Seizures: No Hx Dementia: No Hx Diabetes: No Hx Gastrointestinal Disorders: No Hx Liver Disease: No Hx Genitourinary Disorders: No Hx Sexually Transmitted Disorders: No Hx Renal Disease (ESRD): No Hx Thyroid Disease: No Hx Human Immunodeficiency Virus (HIV): No (NEGATIVE, 2018) Hx Hepatitis C: No (Last Teested: 2015.) Hx Depression: Yes Hx Suicide Attempt: No Hx Bipolar Disorder: No Hx Schizophrenia: No - Patient Surgical History Past Surgical History: Yes Hx Neurologic Surgery: No Hx Cataract Extraction: No Hx Cardiac Surgery: No Hx Lung Surgery: No Hx Breast Surgery: No Hx Breast Biopsy: No Hx Abdominal Surgery: No Hx Appendectomy: No Hx Cholecystectomy: No Hx Genitourinary Surgery: No Hx Section: No Hx Orthopedic Surgery: Yes (fx, right forearm in 1997; Titanium Platet Placed.) Other Surgical History: Lipoma removed from Left shoulder 01/10 Anesthesia Reaction: No - PPD History Date: 04/27/18 Results: 0 mm - Smoking Cessation Smoking history: Current every day smoker Have you smoked in the past 12 months: Yes Aproximately how many cigarettes per day: 10 Cigars Per Day: 0 Hx Chewing Tobacco Use: No Initiated information on smoking cessation: No - Substances abused Alprazolam (Xanax) Substance route: Inhalation Frequency: Daily Amount used: "6 footballs" Age of first use: 53 Date of last use: 01/23/19 Alcohol Substance route: Oral Frequency: Daily Amount used: 3 pints Age of first use: 13 Date of last use: 01/25/19 Cocaine Substance route: Inhalation Frequency: 3-6 times per week Amount used: 1 gram Age of first use: 25 Date of last use: 01/24/19 Family Disease History - Family Disease History Family Disease History: Diabetes: Grandparent (Lupus.), Heart Disease: Grandparent, Mother (mom with dementia age 98), Other: Grandparent, Father ( unknown, ), Mother, Sister (two living, one has lupus ), Son (four - healthy), Daughter (one - healthy) Admission Physical Exam BHS - Vital Signs Vital Signs: Vital Signs - 24 hr 01/26/19 01/26/19 09:31 10:04 Temperature 97.9 F 97.9 F Pulse Rate 80 80 Respiratory 18 18 Rate Blood Pressure 145/101 H 145/101 H - Physical General Appearance: Yes: Anxious HEENTM: Yes: EOMI, Hearing grossly Normal, Normocephalic, Normal Voice, Other ( dentures) Respiratory: Yes: Chest Non-Tender, Lungs Clear, Normal Breath Sounds, No Respiratory Distress, No Accessory Muscle Use Neck: Yes: No masses,lesions,Nodules, Trachea in good position Cardiology: Yes: Regular Rhythm, Regular Rate, S1, S2 Abdominal: Yes: Non Tender, Soft Musculoskeletal: Yes: full range of Motion, Gait Steady Extremities: Yes: Non-Tender, Tremors Neurological: Yes: Fully Oriented, Alert, Motor Strength 5/5 Integumentary: Yes: Warm - Diagnostic (1) Alcohol dependence with uncomplicated withdrawal Current Visit: Yes Status: Acute (2) Cocaine dependence Current Visit: Yes Status: Chronic Qualifiers: Substance use status: uncomplicated Qualified Code(s): F14.20 - Cocaine dependence, uncomplicated (3) Nicotine dependence Current Visit: Yes Status: Chronic Qualifiers: Nicotine product type: cigarettes Breathalyzer - Breathalyzer Breathalyzer: 0 Urine Drug Screen - Test Device Lot number: [id number] Expiration date: 10/26/20 - Control Is test valid?: Yes - Results Drug screen NEGATIVE: No Urine drug screen results: THC-Marijuana, LEYLA-Cocaine, BZO-Benzodiazepines Inpatient Rehab Admission - Rehab Decision to Admit Inpatient rehab admission?: No
[2019-01-26] MEDS ORDERED: MELATONIN 5 MG TABLETS PO PRN (10:31)
[2019-01-26] MEDS ORDERED: MAG HYDROX/AL HYDROX/SIMETH 30 ML UNIT-DOSE CUP PO PRN (10:31)
[2019-01-26] MEDS ORDERED: MAGNESIUM HYDROX 2400MG/30ML ORAL SUSPENSION 30 ML CUP PO PRN (10:31)
[2019-01-26] MEDS ORDERED: MAGNESIUM CITRATE 300 ML BOTTLE PO PRN (10:31)
[2019-01-26] MEDS ORDERED: MENTHOL/PHENOL 1 EACH UD MM PRN (10:31)
[2019-01-26] MEDS ORDERED: NICOTINE POLACRILEX 2 MG GUM BUC PRN (10:31)
[2019-01-26] MEDS ORDERED: BISMUTH SUBSALICYLATE 262 MG/15 ML BTL PO PRN (10:31)
[2019-01-26] MEDS ORDERED: IBUPROFEN 400 MG TABLET (FP) PO PRN (10:31)
[2019-01-26] MEDS ORDERED: ACETAMINOPHEN 325 MG TABLET (FP) PO PRN ×2 (10:31)
[2019-01-26] MEDS: hydrOXYzine PAMOATE 25 MG CAPSULE (FP) PO PRN (11:34)
[2019-01-26] MEDS: DORZOLAMIDE 2% HCL OPHTHALMIC SOLUTION 10 ML BOTTLE OU SCH ×2 (13:35→22:50)
[2019-01-26] MEDS: diazePAM 5 MG TABLET PO SCH ×2 (13:35→22:45)
[2019-01-26] MEDS: diazePAM 5 MG TABLET PO PRN (17:01)
[2019-01-26] MEDS: LATANOPROST 0.005% OPHTH SOLN 2.5ML BOTTLE OU SCH (22:45)
[2019-01-26] MEDS: THIAMINE HCL 100 MG TABLET (FP) PO SCH (22:45)
[2019-01-26] MEDS: cloNIDine HCL 0.1 MG TABLET PO SCH (22:45)
[2019-01-27] MEDS: diazePAM 5 MG TABLET PO SCH ×3 (06:00→22:39)
[2019-01-27 10:32] LABS: HEMATOCRIT 37.9 % (35.4-49); HEMOGLOBIN 12.4 GM/dL (11.7-16.9); MCH 28.5 pg (25.7-33.7); MCHC 32.9 g/dl (32.0-35.9); MEAN CELL VOLUME 86.8 fl (80-96); MEAN PLT VOLUME 8.4 fl (7.5-11.1); PLATELET COUNT 352 K/MM3 (134-434); RBC 4.37 M/mm3 (4.00-5.60); RDW 15.7 % (11.9-15.9); WHITE BLOOD COUNT 6.2 K/mm3 (4.0-10.0)
[2019-01-27] MEDS: PANTOPRAZOLE 40 MG TABLET (FP) PO SCH (10:48)
[2019-01-27] MEDS: PRENATAL VITAMINS W/ FOLIC ACID TABLET (FP) PO SCH (10:48)
[2019-01-27] MEDS: cloNIDine HCL 0.1 MG TABLET PO SCH ×2 (10:48→22:39)
[2019-01-27] MEDS: METHOCARBAMOL 500 MG TABLET PO SCH ×2 (10:50→22:39)
[2019-01-27] MEDS: DORZOLAMIDE 2% HCL OPHTHALMIC SOLUTION 10 ML BOTTLE OU SCH ×2 (10:52→22:40)
[2019-01-27] MEDS: NICOTINE 14 MG/24 HOURS TOPICAL PATCH TD SCH (10:53)
[2019-01-27] MEDS: diazePAM 5 MG TABLET PO PRN ×2 (10:54→18:28)
[2019-01-27 11:22] LABS: ALBUMIN 3.2 g/dl (3.4-5.0); BILIRUBIN,TOTAL 0.2 mg/dL (0.2-1); CALCIUM 9.2 mg/dL (8.5-10.1); POTASSIUM 4.7 mmol/L (3.5-5.1)
--- NOTE | 2019-01-27 11:36 | PN ---
S CIWA - CIWA Score Nausea/Vomitin-No Nausea/No Vomiting Muscle Tremors: 2 Anxiety: 2 Agitation: 2 Paroxysmal Sweats: 3 Orientation: 0-Oriented Tacttile Disturbances: 0-None Auditory Disturbances: 0-None Visual Disturbances: 0-None Headache: 2-Mild CIWA-Ar Total Score: 11 S Progress Note (SOAP) Subjective: c/o sweats, chills, headache, and anxiety. Objective: 01/27/19 11:35 Vital Signs 01/27/19 01/27/19 06:00 09:05 Temperature 97.9 F 98.7 F Pulse Rate 89 78 Respiratory 18 18 Rate Blood Pressure 123/81 130/72 Lab Results WBC 6.2 K/mm3 (4.0-10.0) 01/27/19 07:35 RBC 4.37 M/mm3 (4.00-5.60) 01/27/19 07:35 Hgb 12.4 GM/dL (11.7-16.9) 01/27/19 07:35 Hct 37.9 % (35.4-49) 01/27/19 07:35 MCV 86.8 fl (80-96) 01/27/19 07:35 MCHC 32.9 g/dl (32.0-35.9) 01/27/19 07:35 RDW 15.7 % (11.9-15.9) 01/27/19 07:35 Plt Count 352 K/MM3 (134-434) 01/27/19 07:35 Sodium 138 mmol/L (136-145) 01/27/19 07:35 Potassium 4.7 mmol/L (3.5-5.1) 01/27/19 07:35 Chloride 106 mmol/L (98-107) 01/27/19 07:35 Carbon Dioxide 25 mmol/L (21-32) 01/27/19 07:35 Anion Gap 8 MMOL/L (8-16) 01/27/19 07:35 BUN 17 mg/dL (7-18) 01/27/19 07:35 Creatinine 1.0 mg/dL (0.55-1.3) 01/27/19 07:35 Random Glucose 102 mg/dL (74-106) 01/27/19 07:35 Calcium 9.2 mg/dL (8.5-10.1) 01/27/19 07:35 Labs noted. Assessment: 01/27/19 11:36 AOX3, in no acute distress. full rom, ambulating in the unit withdrawal symptoms. Plan: continue detox increase fluids.
[2019-01-27] MEDS: THIAMINE HCL 100 MG TABLET (FP) PO SCH (22:39)
[2019-01-27] MEDS: LATANOPROST 0.005% OPHTH SOLN 2.5ML BOTTLE OU SCH (22:40)
[2019-01-28] MEDS ORDERED: diazePAM 5 MG TABLET PO ONE (06:00)
[2019-01-28] MEDS: PANTOPRAZOLE 40 MG TABLET (FP) PO SCH (10:28)
[2019-01-28] MEDS: cloNIDine HCL 0.1 MG TABLET PO SCH ×2 (10:28→22:49)
[2019-01-28] MEDS: METHOCARBAMOL 500 MG TABLET PO SCH ×2 (10:28→22:49)
[2019-01-28] MEDS: PRENATAL VITAMINS W/ FOLIC ACID TABLET (FP) PO SCH (10:28)
[2019-01-28] MEDS: DORZOLAMIDE 2% HCL OPHTHALMIC SOLUTION 10 ML BOTTLE OU SCH ×2 (10:29→22:49)
[2019-01-28] MEDS: diazePAM 5 MG TABLET PO PRN ×2 (10:29→22:53)
[2019-01-28] MEDS: NICOTINE 14 MG/24 HOURS TOPICAL PATCH TD SCH (10:33)
--- NOTE | 2019-01-28 14:08 | PN ---
[facility] CIWA - CIWA Score Nausea/Vomitin-Mild Nausea/No Vomiting Muscle Tremors: 2 Anxiety: 3 Agitation: 2 Paroxysmal Sweats: 3 Orientation: 0-Oriented Tacttile Disturbances: 0-None Auditory Disturbances: 0-None Visual Disturbances: 0-None Headache: 0-None Present CIWA-Ar Total Score: 11 [facility] Progress Note (SOAP) Subjective: Nausea, body ache, sweating, chills, interrupted sleep Objective: 01/28/19 14:05 Last Vital Signs Temp Pulse Resp BP Pulse Ox 97.2 F L 82 18 120/71 01/28/19 13:36 01/28/19 13:36 01/28/19 13:36 01/28/19 13:36 Laboratory Tests 01/27/19 01/27/19 01/27/19 07:35 07:35 07:35 WBC 6.2 RBC 4.37 Hgb 12.4 Hct 37.9 MCV 86.8 MCH 28.5 MCHC 32.9 RDW 15.7 Plt Count 352 MPV 8.4 Sodium 138 Potassium 4.7 Chloride 106 Carbon Dioxide 25 Anion Gap 8 BUN 17 Creatinine 1.0 Est GFR (CKD-EPI)AfAm 91.13 Est GFR (CKD-EPI)NonAf 78.63 Random Glucose 102 Calcium 9.2 Total Bilirubin 0.2 AST 8 L ALT 16 Alkaline Phosphatase 63 Total Protein 7.0 Albumin 3.2 L RPR Titer Nonreactive Labs reviewed Assessment: 01/28/19 14:08 Withdrawal symptoms Plan: Continue detox Encouraged PO water intake
[2019-01-28] MEDS: hydrOXYzine PAMOATE 25 MG CAPSULE (FP) PO PRN (15:46)
[2019-01-28] MEDS: LATANOPROST 0.005% OPHTH SOLN 2.5ML BOTTLE OU SCH (22:49)
[2019-01-28] MEDS: THIAMINE HCL 100 MG TABLET (FP) PO SCH (22:49)
[2019-01-29 09:10] VITALS: BP 147/85; PULSE 90; TEMP 97.2
--- NOTE | 2019-01-29 13:31 | DS ---
[facility] Detox Discharge Summary Admission Date: 01/26/19 Discharge Date: 01/29/19 - History Present History: Alcohol Dependence, Cocaine Dependence Additional Comments: PATIENT RETURNING HOME FOR TIME BEING. PATIENT ADVISED TO CONSIDER REHAB ADMISSION FOR A LATER DATE OR ELSE TO CONSIDER LOCAL 12-STEP / NA / AA OUTPATIENT SUPPORT GROUP PROGRAM FOR AFTERCARE. PATIENT VERBALIZED UNDERSTANDING OF ALL RECOMMENDATIONS PRESENTED TO HIM AT TIME OF DISCHARGE FROM DETOX UNIT. PATIENT DECLINED OFFER OF MEDICATION PRESCRIPTION FOR HOME MEDICATION AT TIME OF DISCHARGE FROM DETOX, NOTING THAT HE CURRENTLY HAS ADEQUATE SUPPLIES OF ALL PRESCRIBED HOME MEDICATIONS AT HOME. PATIENT WAS DISCHARGED FROM DETOX UNIT IN STABLE MEDICAL CONDITION. Pertinent Past History: Nicotine Dependence, History Of Glaucoma (Bilateral), G.E.R.D., History Of Perforated Nasal Septum, History Of Herniated L3-L4 Disc, Lower Back Pain, HTN, History Of Plantar Fascitis, Borderline DM, Anxiety, Depression, History Of Anemia. - Physical Exam Results Vital Signs: Vital Signs Temperature 97.2 F L 01/29/19 09:09 Pulse Rate 90 01/29/19 09:09 Respiratory Rate 18 01/29/19 09:09 Blood Pressure 147/85 01/29/19 09:09 O2 Sat by Pulse Oximetry (%) Pertinent Admission Physical Exam Findings: WITHDRAWAL SYMPTOMS. Laboratory Tests 01/27/19 01/27/19 01/27/19 07:35 07:35 07:35 WBC 6.2 RBC 4.37 Hgb 12.4 Hct 37.9 MCV 86.8 MCH 28.5 MCHC 32.9 RDW 15.7 Plt Count 352 MPV 8.4 Sodium 138 Potassium 4.7 Chloride 106 Carbon Dioxide 25 Anion Gap 8 BUN 17 Creatinine 1.0 Est GFR (CKD-EPI)AfAm 91.13 Est GFR (CKD-EPI)NonAf 78.63 Random Glucose 102 Calcium 9.2 Total Bilirubin 0.2 AST 8 L ALT 16 Alkaline Phosphatase 63 Total Protein 7.0 Albumin 3.2 L RPR Titer Nonreactive LABS NOTED. - Treatment Hospital Course: Detox Protocol Followed, Detoxed Safely, Responded well, Discharged Condition Good Patient has Accepted a Rehab Referral to: PT. WILL CONSIDER [facility] FOR A LATER DATE. - Medication Discharge Medications: Ambulatory Orders Pantoprazole Sodium [Protonix -] 20 mg PO DAILY 08/21/18 Dorzolamide HCl [Trusopt 2% -] 1 drop OU BID 01/26/19 Latanoprost 0.005% Eye Drops [Xalatan 0.005% Eye Drops -] 1 drop OU HS 01/26/19 - Diagnosis (1) Alcohol dependence with uncomplicated withdrawal Status: Acute (2) Cocaine dependence, uncomplicated Status: Chronic (3) Nicotine dependence Status: Chronic Qualifiers: Nicotine product type: cigarettes Substance use status: uncomplicated Qualified Code(s): F17.210 - Nicotine dependence, cigarettes, uncomplicated - AMA Did Patient Leave Against Medical Advice: No
== END 2019-01-29 09:49 | disposition home or self-care (01) | DRG 897 ==
LOC: YASAS 09:10 → Y6N 10:42
PROVIDERS: ADMIT Surgery; ATTEND Surgery
PROC: HZ2ZZZZ Detoxification Services for Substance Abuse Treatment (ICD-10-PCS; principal; 2019-01-26)
DX: F10.230 Alcohol dependence with withdrawal, uncomplicated (principal); F14.20 Cocaine dependence, uncomplicated; F13.20 Sedative, hypnotic or anxiolytic dependence, uncomplicated; F12.20 Cannabis dependence, uncomplicated; F17.210 Nicotine dependence, cigarettes, uncomplicated; F41.9 Anxiety disorder, unspecified; I10 Essential (primary) hypertension; E11.9 Type 2 diabetes mellitus without complications; M54.5 Low back pain; K21.9 Gastro-esophageal reflux disease without esophagitis; D50.9 Iron deficiency anemia, unspecified; Z88.0 Allergy status to penicillin; Z91.013 Allergy to seafood
CPT/HCPCS: 36415; 80053; 85027; 86593; J0735

== ENCOUNTER 2019-07-14 14:16 | Inpatient (IN) | payer OTHER ==
[2019-07-14 17:13] VITALS: BMI 21.2
--- NOTE | 2019-07-14 18:52 | HP ---
COWS - Scale Resting Pulse: 0= [place] 80 or Below Sweatin=Flushed/Facial Moisture Restless Observation: 1= Difficult to Sit Still Pupil Size: 1= Pupils >than Normal Bone or Joint Aches: 2= Severe Diffuse Aches Runny Nose/ Eye Tearin= Runny Nose/Eyes GI Upset > 30mins: 2= Nausea/Diarrhea Tremor Observation: 2= Slight Tremor Visible Yawning Observation: 1= 1-2x During Session Anxiety or Irritability: 2=Irritable/Anxious Goose Flesh Skin: 3=Piloerection COWS Score: 18 CIWA Score Nausea/Vomitin Muscle Tremors: 3 Anxiety: 2 Agitation: 2 Paroxysmal Sweats: 2 Orientation: 0-Oriented Tacttile Disturbances: 1-Very Mild Itch/Numbness Auditory Disturbances: 0-None Visual Disturbances: 0-None Headache: 2-Mild CIWA-Ar Total Score: 14 - Admission Criteria OASAS Guidelines: Admission for Medically Managed Detox: Requires at least one of the followin. CIWA greater than 12 2. Seizures within the past 24 hours 3. Delirium tremens within the past 24 hours 4. Hallucinations within the past 24 hours 5. Acute intervention needed for co occurring medical disorder 6. Acute intervention needed for co occurring psychiatric disorder 7. Severe withdrawal that cannot be handled at a lower level of care (continued vomiting, continued diarrhea, abnormal vital signs) requiring intravenous medication and/or fluids 8. Patient presents the following: CIWA greater than 12 Admission Criteria Met: Admission criteria met Admitting History and Physical - Smoking History Smoking history: Current every day smoker Have you smoked in the past 12 months: Yes Aproximately how many cigarettes per day: 10 - Alcohol/Substance Use Hx Alcohol Use: Yes Admission ROS [facility] Chief Complaint: I am here for detox Allergies/Adverse Reactions: Allergies Allergy/AdvReac Type Severity Reaction Status Date / Time Penicillins Allergy Severe Hives Verified 01/26/19 09:21 shellfish derived Allergy Severe Hives Verified 01/26/19 09:23 rice Allergy Intermediate Hives Verified 01/26/19 09:22 History of Present Illness: Patient is a 64 years old man who presents for detox from alcohol and heroin, patient has been here several time for treatment. He reports blackouts from intoxication, last episode was 2 months ago. He denies alcohol related seizures. Exam Limitations: No Limitations - Ebola screening Have you traveled outside of the country in the last 21 days: No (N) Have you had contact with anyone from an Ebola affected area: No Have you been sick,other than usual withdrawal symptoms: No Do you have a fever: No - Review of Systems Constitutional: Chills, Loss of Appetite, Unintentional Wgt. Loss (about 25lbs loss) EENT: reports: Nose Congestion Respiratory: reports: SOB with Exertion Cardiac: reports: No Symptoms Reported GI: reports: Nausea, Poor Appetite, Poor Fluid Intake, Abdominal cramping : reports: No Symptoms Reported Musculoskeletal: reports: Back Pain, Joint Pain, Muscle Pain Integumentary: reports: Dryness Neuro: reports: Headache, Numbness, Tingling, Tremors Endocrine: reports: No Symptoms Reported Hematology: reports: Anemia Psychiatric: reports: Anxious, Depressed Other Systems: Reviewed and Negative Patient History - Patient Medical History Hx Anemia: Yes (Iron-Deficiency - Not on medication.) Hx Asthma: No Hx Chronic Obstructive Pulmonary Disease (COPD): No Hx Cancer: No Hx Cardiac Disorders: No Hx Congestive Heart Failure: No Hx Hypertension: Yes Hx Hypercholesterolemia: No Hx Pacemaker: No HX Cerebrovascular Accident: No Hx Seizures: No Hx Dementia: No Hx Diabetes: No Hx Gastrointestinal Disorders: No Hx Liver Disease: No Hx Genitourinary Disorders: No Hx Sexually Transmitted Disorders: No Hx Renal Disease (ESRD): No Hx Thyroid Disease: No Hx Human Immunodeficiency Virus (HIV): No Hx Hepatitis C: No Hx Depression: Yes Hx Suicide Attempt: No Hx Bipolar Disorder: No Hx Schizophrenia: No - Patient Surgical History Past Surgical History: Yes Hx Neurologic Surgery: No Hx Cataract Extraction: No Hx Cardiac Surgery: No Hx Lung Surgery: No Hx Breast Surgery: No Hx Breast Biopsy: No Hx Abdominal Surgery: No Hx Appendectomy: No Hx Cholecystectomy: No Hx Genitourinary Surgery: No Hx Section: No Hx Orthopedic Surgery: Yes (fx, right forearm in 1997.) Other Surgical History: Lipoma removed from Left shoulder Anesthesia Reaction: No - PPD History Previous Implant?: Yes Documented Results: Negative w/proof Implanted On Prior R Admission?: Yes Date: 04/27/18 Results: 0 mm PPD to be Administered?: Yes - Smoking Cessation Smoking history: Current every day smoker Have you smoked in the past 12 months: Yes Aproximately how many cigarettes per day: 20 Cigars Per Day: 0 Hx Chewing Tobacco Use: No Initiated information on smoking cessation: Yes 'Breaking Loose' booklet given: 07/14/19 - Substances abused Alprazolam (Xanax) Substance route: Inhalation Frequency: Daily Amount used: "6 footballs" Age of first use: 53 Date of last use: 01/23/19 Alcohol Substance route: Oral Frequency: Daily Amount used: 1 pints Age of first use: 13 Date of last use: 07/13/19 Cocaine Substance route: Inhalation Frequency: 3-6 times per week Amount used: 3 bags Age of first use: 25 Date of last use: 07/12/19 Heroin Other (specify): sniff Frequency: Daily Amount used: 4 to 6 bags Age of first use: 28 Date of last use: 07/12/19 Admission Physical Exam [facility] - Vital Signs Vital Signs: Vital Signs - 24 hr 07/14/19 17:08 Temperature 98 F Pulse Rate 75 Respiratory 18 Rate Blood Pressure 148/79 - Physical General Appearance: Yes: No Apparent Distress HEENTM: Yes: Hearing grossly Normal, Normal Voice, Pharynx Normal Respiratory: Yes: Chest Non-Tender, Lungs Clear, Normal Breath Sounds, No Respiratory Distress, No Accessory Muscle Use Neck: Yes: No masses,lesions,Nodules, Supple Breast: Yes: Breast Exam Deferred Cardiology: Yes: Regular Rhythm, Regular Rate, S1, S2 Abdominal: Yes: Normal Bowel Sounds, Soft Genitourinary: Yes: Within Normal Limits Back: Yes: Normal Inspection Musculoskeletal: Yes: full range of Motion Extremities: Yes: Non-Tender, Tremors Neurological: Yes: Fully Oriented, Motor Strength 5/5, Normal Mood/Affect, Normal Response Integumentary: Yes: Clammy Lymphatic: Yes: Within Normal Limits - Diagnostic (1) Alcohol dependence with uncomplicated withdrawal Current Visit: No Status: Acute (2) Sedative, hypnotic or anxiolytic dependence with withdrawal, unspecified Current Visit: Yes Status: Acute (3) Anemia Current Visit: Yes Status: Chronic Qualifiers: Anemia type: iron deficiency (4) GERD (gastroesophageal reflux disease) Current Visit: Yes Status: Chronic Qualifiers: Esophagitis presence: without esophagitis Qualified Code(s): K21.9 - Gastro -esophageal reflux disease without esophagitis (5) Glaucoma Current Visit: Yes Status: Chronic Qualifiers: Glaucoma type: open-angle Open angle glaucoma type: unspecified type Laterality: bilateral Glaucoma stage: stage unspecified Qualified Code(s): H40.10X0 - Unspecified open-angle glaucoma, stage unspecified (6) HTN (hypertension) Current Visit: No Status: Chronic Qualifiers: Hypertension type: essential hypertension Qualified Code(s): I10 - Essential (primary) hypertension (7) Osteoarthritis Current Visit: No Status: Chronic Qualifiers: Osteoarthritis location: multiple joints Osteoarthritis type: primary Qualified Code(s): M15.0 - Primary generalized (osteo)arthritis (8) Opioid dependence Current Visit: Yes Status: Acute Qualifiers: Substance use status: uncomplicated Qualified Code(s): F11.20 - Opioid dependence, uncomplicated Cleared for Admission [facility] - Detox or Rehab [facility] Level of Care: Medically Managed Detox Regimen/Protocol: Methadone/Valium Claeared for Rehab Admission: No Breathalyzer - Breathalyzer Breathalyzer: 0 Urine Drug Screen - Test Device Lot number: [id number] Expiration date: 03/28/21 - Control Is test valid?: Yes - Results Drug screen NEGATIVE: No Urine drug screen results: LEYLA-Cocaine, MTD-Methadone, BZO-Benzodiazepines Inpatient Rehab Admission - Rehab Decision to Admit Inpatient rehab admission?: No
[2019-07-14] MEDS ORDERED: MELATONIN 5 MG TABLETS PO PRN (18:58)
[2019-07-14] MEDS ORDERED: MAGNESIUM HYDROX 2400MG/30ML ORAL SUSPENSION 30 ML CUP PO PRN (18:58)
[2019-07-14] MEDS ORDERED: METHOCARBAMOL 500 MG TABLET PO PRN (18:58)
[2019-07-14] MEDS ORDERED: MAG HYDROX/AL HYDROX/SIMETH 30 ML UNIT-DOSE CUP PO PRN (18:58)
[2019-07-14] MEDS ORDERED: ACETAMINOPHEN 325 MG TABLET (FP) PO PRN ×2 (18:58)
[2019-07-14] MEDS ORDERED: NALOXONE HCL 0.4 MG/ML VIAL IM PRN (18:58)
[2019-07-14] MEDS ORDERED: BISMUTH SUBSALICYLATE 524 MG/30 ML UD PO PRN (18:58)
[2019-07-14] MEDS ORDERED: NICOTINE POLACRILEX 2 MG GUM BUC PRN (18:58)
[2019-07-14] MEDS ORDERED: MENTHOL/PHENOL 1 EACH UD MM PRN (18:58)
[2019-07-14] MEDS ORDERED: IBUPROFEN 400 MG TABLET (FP) PO PRN (18:58)
[2019-07-14] MEDS ORDERED: cloNIDine HCL 0.1 MG TABLET PO PRN (18:58)
[2019-07-14] MEDS ORDERED: MAGNESIUM CITRATE 300 ML BOTTLE PO PRN (18:58)
[2019-07-14] MEDS ORDERED: METHADONE HCL 10 MG TABLET (FOR DETOX USE ONLY) PO ONE (19:30)
[2019-07-14] MEDS: NICOTINE 14 MG/24 HOURS TOPICAL PATCH TD SCH (20:47)
[2019-07-14] MEDS ORDERED: diphenhydrAMINE HCL 25 MG CAPSULE (FP) PO ONE (22:00)
[2019-07-14] MEDS: diazePAM 5 MG TABLET PO SCH (22:13)
[2019-07-14] MEDS: THIAMINE HCL 100 MG TABLET (FP) PO SCH (22:13)
[2019-07-14] MEDS: LATANOPROST 0.005% OPHTH SOLN 2.5ML BOTTLE OU SCH (22:14)
[2019-07-14] MEDS: DORZOLAMIDE 2% HCL OPHTHALMIC SOLUTION 10 ML BOTTLE OU SCH (22:14)
[2019-07-15] MEDS: diazePAM 5 MG TABLET PO SCH ×3 (05:05→22:19)
[2019-07-15] MEDS ORDERED: METHADONE HCL 5 MG TABLET (FOR DETOX USE ONLY) PO ONE (10:00)
[2019-07-15] MEDS: DORZOLAMIDE 2% HCL OPHTHALMIC SOLUTION 10 ML BOTTLE OU SCH ×2 (10:26→22:18)
[2019-07-15] MEDS: NICOTINE 14 MG/24 HOURS TOPICAL PATCH TD SCH (10:27)
[2019-07-15] MEDS: PRENATAL VITAMINS W/ FOLIC ACID TABLET (FP) PO SCH (10:27)
[2019-07-15] MEDS: diazePAM 5 MG TABLET PO PRN (10:27)
--- NOTE | 2019-07-15 14:39 | PN ---
S CIWA - CIWA Score Nausea/Vomitin-No Nausea/No Vomiting Muscle Tremors: 4-Moderate,w/Arms Extend Anxiety: 3 Agitation: 2 Paroxysmal Sweats: 2 Orientation: 0-Oriented Tacttile Disturbances: 1-Very Mild Itch/Numbness Auditory Disturbances: 0-None Visual Disturbances: 0-None Headache: 2-Mild CIWA-Ar Total Score: 14 [facility] COWS - Scale Resting Pulse: 0= [place] 80 or Below Sweatin= Chills/Flushing Restless Observation: 0= Sits Still Pupil Size: 1= Pupils >than Normal Bone or Joint Aches: 2= Severe Diffuse Aches Runny Nose/ Eye Tearin= Nasal Congestion GI Upset > 30mins: 1= Stomach Cramp Tremor Observation of Outstretched Hands: 2= Slight Tremor Visible Yawning Observation: 1= 1-2x During Session Anxiety or Irritability: 2=Irritable/Anxious Goose Flesh Skin: 3=Piloerection COWS Score: 14 S Progress Note (SOAP) Subjective: 64 years old male admitted on 07/14/19 for alcohol benzo opiate withdrawal sx management treated wtih valium and methadone detox regimen report doing well and feeling better today ensure supplement Objective: 07/15/19 14:41 Vital Signs Temperature 95.7 F L 07/15/19 09:54 Pulse Rate 68 07/15/19 09:54 Respiratory Rate 18 07/15/19 09:54 Blood Pressure 119/73 07/15/19 09:54 O2 Sat by Pulse Oximetry (%) Laboratory Last Values RPR Titer Nonreactive (NONREACTIVE) 07/15/19 07:40 07/15/19 14:43 see 01/2019 lab report Assessment: 07/15/19 14:43 alcohol benzo opiate withdrawal sx Plan: continue valium and methadone detox regimen
[2019-07-15] MEDS: THIAMINE HCL 100 MG TABLET (FP) PO SCH (22:18)
[2019-07-15] MEDS: LATANOPROST 0.005% OPHTH SOLN 2.5ML BOTTLE OU SCH (22:18)
[2019-07-16] MEDS: diazePAM 5 MG TABLET PO SCH ×2 (05:19→17:22)
[2019-07-16] MEDS ORDERED: METHADONE HCL 10 MG TABLET (FOR DETOX USE ONLY) PO ONE (10:00)
[2019-07-16] MEDS: PRENATAL VITAMINS W/ FOLIC ACID TABLET (FP) PO SCH (10:22)
[2019-07-16] MEDS: NICOTINE 14 MG/24 HOURS TOPICAL PATCH TD SCH (10:23)
[2019-07-16] MEDS: DORZOLAMIDE 2% HCL OPHTHALMIC SOLUTION 10 ML BOTTLE OU SCH ×2 (10:23→22:11)
--- NOTE | 2019-07-16 10:49 | PN ---
S CIWA - CIWA Score Nausea/Vomitin-No Nausea/No Vomiting Muscle Tremors: 2 Anxiety: 1-Mildly Anxious Agitation: 0-Normal Activity Paroxysmal Sweats: 1-Minimal Palms Moist Orientation: 0-Oriented Tacttile Disturbances: 0-None Auditory Disturbances: 0-None Visual Disturbances: 0-None Headache: 0-None Present CIWA-Ar Total Score: 4 [facility] Progress Note (SOAP) Subjective: 64 years old male admitted on 07/14/19 for alcohol benzo opiate withdrawal sx management treated with valium and methadone detox regimen sleep better at night less tremor mild anxiety discuss medication assisted treatment program and grape picker narcan from pharmacy Objective: 07/16/19 10:48 Vital Signs Temperature 97.0 F L 07/16/19 09:12 Pulse Rate 72 07/16/19 09:12 Respiratory Rate 18 07/16/19 09:12 Blood Pressure 119/71 07/16/19 09:12 O2 Sat by Pulse Oximetry (%) Laboratory Last Values RPR Titer Nonreactive (NONREACTIVE) 07/15/19 07:40 lab see 01/2019 report Assessment: 07/16/19 10:48 alcohol benzo opiate withdrawal sx Plan: continue valium and methadone detox regimen
[2019-07-16] MEDS: diazePAM 5 MG TABLET PO PRN ×2 (15:45→22:16)
[2019-07-16] MEDS: LATANOPROST 0.005% OPHTH SOLN 2.5ML BOTTLE OU SCH (22:11)
[2019-07-16] MEDS: THIAMINE HCL 100 MG TABLET (FP) PO SCH (22:11)
[2019-07-17] MEDS ORDERED: METHADONE HCL 5 MG TABLET (FOR DETOX USE ONLY) PO ONE (06:00)
[2019-07-17] MEDS ORDERED: diazePAM 5 MG TABLET PO ONE (06:00)
[2019-07-17 09:16] VITALS: PULSE 74
[2019-07-17] MEDS: PRENATAL VITAMINS W/ FOLIC ACID TABLET (FP) PO SCH (10:33)
[2019-07-17] MEDS: DORZOLAMIDE 2% HCL OPHTHALMIC SOLUTION 10 ML BOTTLE OU SCH (10:33)
[2019-07-17] MEDS: NICOTINE 14 MG/24 HOURS TOPICAL PATCH TD SCH (10:34)
--- NOTE | 2019-07-17 11:46 | PN ---
[facility] CIWA - CIWA Score Nausea/Vomitin-Mild Nausea/No Vomiting Muscle Tremors: 3 Anxiety: 2 Agitation: 1-Slight > Activity Paroxysmal Sweats: 2 Orientation: 0-Oriented Tacttile Disturbances: 1-Very Mild Itch/Numbness Auditory Disturbances: 0-None Visual Disturbances: 0-None Headache: 0-None Present CIWA-Ar Total Score: 10 [facility] COWS - Scale Resting Pulse: 0= [place] 80 or Below Sweatin= Chills/Flushing Restless Observation: 0= Sits Still Pupil Size: 1= Pupils >than Normal Bone or Joint Aches: 1= Mild Discomfort Runny Nose/ Eye Tearin= Nasal Congestion GI Upset > 30mins: 1= Stomach Cramp Tremor Observation of Outstretched Hands: 2= Slight Tremor Visible Yawning Observation: 1= 1-2x During Session Anxiety or Irritability: 2=Irritable/Anxious Goose Flesh Skin: 0=Smooth Skin COWS Score: 10
--- NOTE | 2019-07-17 11:48 | DS ---
[facility] Detox Discharge Summary Admission Date: 07/14/19 Discharge Date: 07/17/19 - History Present History: Alcohol Dependence, Opioid Dependence, Sedative Dependence Additional Comments: 64 years old male admitted on 07/14/19 for alcohol benzo opiate withdrawal sx management treated wtih valium and methadone detox regimen patient is alert oriented x 3 cardiac S1S2 regular rate rhythm respiratory clear lung bilaterally on auscultation extremities full range of motion - Physical Exam Results Vital Signs: Vital Signs Temperature 96.2 F L 07/17/19 09:15 Pulse Rate 74 07/17/19 09:15 Respiratory Rate 18 07/17/19 09:15 Blood Pressure 115/67 07/17/19 09:15 O2 Sat by Pulse Oximetry (%) Pertinent Admission Physical Exam Findings: alcohol benzo opiate withdrawal sx Laboratory Last Values RPR Titer Nonreactive (NONREACTIVE) 07/15/19 07:40 lab see 01/2019 report - Treatment Hospital Course: Detox Protocol Followed, Detoxed Safely, Responded well, Discharged Condition Good, Rehab Referral Accepted Patient has Accepted a Rehab Referral to: [facility] - Medication Discharge Medications: Ambulatory Orders Dorzolamide HCl [Trusopt 2% -] 1 drop OU BID 01/26/19 Latanoprost 0.005% Eye Drops [Xalatan 0.005% Eye Drops -] 1 drop OU HS 01/26/19 Naloxone HCl [Narcan] 4 mg NS ASDIR PRN #1 spray 07/16/19 - Diagnosis (1) Opioid dependence Current Visit: Yes Status: Acute Qualifiers: Substance use status: uncomplicated Qualified Code(s): F11.20 - Opioid dependence, uncomplicated (2) Sedative, hypnotic or anxiolytic dependence with withdrawal, unspecified Current Visit: Yes Status: Acute (3) GERD (gastroesophageal reflux disease) Current Visit: Yes Status: Chronic Qualifiers: Esophagitis presence: without esophagitis Qualified Code(s): K21.9 - Gastro -esophageal reflux disease without esophagitis (4) Glaucoma Current Visit: Yes Status: Chronic Qualifiers: Glaucoma type: open-angle Open angle glaucoma type: unspecified type Laterality: bilateral Glaucoma stage: stage unspecified Qualified Code(s): H40.10X0 - Unspecified open-angle glaucoma, stage unspecified (5) Alcohol dependence with uncomplicated withdrawal Current Visit: Yes Status: Acute (6) Weight loss Current Visit: Yes Status: Acute (7) HTN (hypertension) Current Visit: Yes Status: Chronic Qualifiers: Hypertension type: essential hypertension Qualified Code(s): I10 - Essential (primary) hypertension (8) Nicotine dependence Current Visit: Yes Status: Acute Qualifiers: Nicotine product type: cigarettes Substance use status: in withdrawal Qualified Code(s): F17.213 - Nicotine dependence, cigarettes, with withdrawal (9) Substance induced mood disorder Current Visit: Yes Status: Suspected - AMA Did Patient Leave Against Medical Advice: No CIWA Score - CIWA Score Nausea/Vomitin-No Nausea/No Vomiting Muscle Tremors: 2 Anxiety: 1-Mildly Anxious Agitation: 1-Slight > Activity Paroxysmal Sweats: 1-Minimal Palms Moist Orientation: 0-Oriented Tacttile Disturbances: 0-None Auditory Disturbances: 0-None Visual Disturbances: 0-None Headache: 0-None Present CIWA-Ar Total Score: 5 COWS (PN) - Opiate Withdrawal Resting Pulse: 0= [place] 80 or Below Sweatin= Chills/Flushing Restless Observation: 0= Sits Still Pupil Size: 0= Normal to Room Light Bone or Joint Aches: 1= Mild Discomfort Runny Nose/ Eye Tearin= Nasal Congestion GI Upset > 30mins: 0= None Tremor Observation of Outstretched Hands: 1= Tremor [place], Not Seen Yawning Observation: 0= None Anxiety or Irritability: 1=Feels Anxious/Irritable Goose Flesh Skin: 0=Smooth Skin COWS Score: 5
[2019-07-17 13:15] VITALS: BP 131/80; TEMP 98.1
== END 2019-07-17 17:20 | disposition home or self-care (01) | DRG 897 ==
LOC: YASAS 14:16 → Y3N 19:29
PROVIDERS: ADMIT Allergy & Immunology; ATTEND Allergy & Immunology
PROC: HZ2ZZZZ Detoxification Services for Substance Abuse Treatment (ICD-10-PCS; principal; 2019-07-14)
DX: F11.23 Opioid dependence with withdrawal (principal); F10.230 Alcohol dependence with withdrawal, uncomplicated; F13.230 Sedative, hypnotic or anxiolytic dependence with withdrawal, uncomplicated; F17.213 Nicotine dependence, cigarettes, with withdrawal; F19.24 Other psychoactive substance dependence with psychoactive substance-induced mood disorder; I10 Essential (primary) hypertension; K21.9 Gastro-esophageal reflux disease without esophagitis; H40.10X0 Unspecified open-angle glaucoma, stage unspecified; R63.4 Abnormal weight loss; Z88.0 Allergy status to penicillin; Z91.013 Allergy to seafood; Z91.018 Allergy to other foods
CPT/HCPCS: 36415; 86593

== ENCOUNTER 2019-08-18 10:21 | Inpatient (IN) | payer OTHER ==
[2019-08-18 11:32] VITALS: BMI 22.4
--- NOTE | 2019-08-18 12:09 | HP ---
CIWA Score Nausea/Vomitin Muscle Tremors: 3 Anxiety: 3 Agitation: 3 Paroxysmal Sweats: 1-Minimal Palms Moist Orientation: 0-Oriented Tacttile Disturbances: 1-Very Mild Itch/Numbness Auditory Disturbances: 0-None Visual Disturbances: 0-None Headache: 2-Mild CIWA-Ar Total Score: 15 - Admission Criteria OASAS Guidelines: Admission for Medically Managed Detox: Requires at least one of the followin. CIWA greater than 12 2. Seizures within the past 24 hours 3. Delirium tremens within the past 24 hours 4. Hallucinations within the past 24 hours 5. Acute intervention needed for co occurring medical disorder 6. Acute intervention needed for co occurring psychiatric disorder 7. Severe withdrawal that cannot be handled at a lower level of care (continued vomiting, continued diarrhea, abnormal vital signs) requiring intravenous medication and/or fluids 8. Admitting History and Physical - Admission Chief Complaint: i need help to stop drinking alcohol,xanax and cocaine History of Present Illness: this 64 years old male with alcohol,xanax dependence and cocaine dependence, seeking detox,withdrawal symptom syncope last detox 07/14/19 to 07/17/19 History Source: Patient - Past Medical History [employer]: Yes: Syncope Psych: Yes: Anxiety, Depression, Other (insomnia) Additional Past Medical History: low back pain herniated disc - Past Surgical History Additional Past Surgical History: fx of right forearm removal of lipoma of upper back - Smoking History Smoking history: Current every day smoker Have you smoked in the past 12 months: Yes Aproximately how many cigarettes per day: 10 - Alcohol/Substance Use Hx Alcohol Use: Yes History of Substance Use: reports: Cocaine - Social History Usual Living Arrangement: Yes: Alone Occupation: retired History of Recent Travel: Yes Other Social History: this 64 years old male with alcohol,cocaine and xanax dependence,nicotine dependence,retired,seeking detox Admission ROS S - HPI Chief Complaint: i need help to stop drinking alcohol,cocaine,xanax Allergies/Adverse Reactions: Allergies Allergy/AdvReac Type Severity Reaction Status Date / Time Penicillins Allergy Severe Hives Verified 08/18/19 11:21 shellfish derived Allergy Severe Hives Verified 08/18/19 11:21 rice Allergy Intermediate Hives Verified 08/18/19 11:21 History of Present Illness: this 64 years old male with alcohol,cocaine,xnax dependence,seeking detox, withdrawal symptom, has admissions in this facility ,last detox [facility] 07/14/19 to 07/17/19 syncope alcohol related denied seizure anxiety,depression,insomnia longest period of sobriety 4 years may go to rehab history of anemia on iron daily Exam Limitations: No Limitations - Ebola screening Have you traveled outside of the country in the last 21 days: No (N) Have you had contact with anyone from an Ebola affected area: No Do you have a fever: No - Review of Systems Constitutional: Loss of Appetite, Night Sweats, Weakness, Unintentional Wgt. Loss EENT: reports: No Symptoms Reported, Other (glaucoma) Respiratory: reports: No Symptoms reported Cardiac: reports: No Symptoms Reported GI: reports: Diarrhea, Nausea, Poor Appetite : reports: No Symptoms Reported Musculoskeletal: reports: Back Pain, Muscle Pain Integumentary: reports: Dryness Neuro: reports: Headache, Tremors Endocrine: reports: No Symptoms Reported Hematology: reports: No Symptoms Reported, Anemia Psychiatric: reports: No Sypmtoms Reported, Judgement Intact, Mood/Affect Appropiate, Orientated x3, Anxious, Depressed Other Systems: Reviewed and Negative Patient History - Patient Medical History Hx Anemia: Yes (Iron-Deficiency - Not on medication.) Hx Asthma: No Hx Chronic Obstructive Pulmonary Disease (COPD): No Hx Cancer: No Hx Cardiac Disorders: No Hx Congestive Heart Failure: No Hx Hypertension: No Hx Hypercholesterolemia: No Hx Pacemaker: No HX Cerebrovascular Accident: No Hx Seizures: No Hx Dementia: No Hx Diabetes: No Hx Gastrointestinal Disorders: No Hx Liver Disease: No Hx Genitourinary Disorders: No Hx Sexually Transmitted Disorders: No Hx Renal Disease (ESRD): No Hx Thyroid Disease: No Hx Human Immunodeficiency Virus (HIV): No (last 05/17 negative) Hx Hepatitis C: No Hx Depression: Yes (depression,insomnia) Hx Suicide Attempt: No Hx Bipolar Disorder: No Hx Schizophrenia: No Other Medical History: no suicidal,no homicidal - Patient Surgical History Past Surgical History: Yes Hx Neurologic Surgery: No Hx Cataract Extraction: No Hx Cardiac Surgery: No Hx Lung Surgery: No Hx Breast Surgery: No Hx Breast Biopsy: No Hx Abdominal Surgery: No Hx Appendectomy: No Hx Cholecystectomy: No Hx Genitourinary Surgery: No Hx Section: No Hx Orthopedic Surgery: Yes (fx, right forearm in 1997.) Other Surgical History: Lipoma removed from Left shoulder Anesthesia Reaction: No - PPD History Previous Implant?: Yes Documented Results: Negative w/proof Implanted On Prior [facility] Admission?: Yes Date: 07/16/19 Results: 0 mm PPD to be Administered?: No - Smoking Cessation Smoking history: Current every day smoker Have you smoked in the past 12 months: Yes Aproximately how many cigarettes per day: 10 Cigars Per Day: 0 Hx Chewing Tobacco Use: No Initiated information on smoking cessation: Yes 'Breaking Loose' booklet given: 08/18/19 - Substance & Tx. History Hx Alcohol Use: Yes Hx Substance Use: Yes Substance Use Type: Alcohol, Tranquilizers Hx Substance Use Treatment: Yes ([facility] 07/14/19 to 07/17/19) - Substances abused Alprazolam (Xanax) Substance route: Inhalation Frequency: Daily Amount used: "6 footballs" 6 mgs Age of first use: 53 Date of last use: 01/23/19 Alcohol Substance route: Oral Frequency: Daily Amount used: 2pints of vodka daily Age of first use: 13 Date of last use: 08/17/19 Cocaine Substance route: Inhalation Frequency: 3-6 times per week Amount used: 1 gram daily Age of first use: 25 Date of last use: 08/16/19 Heroin Other (specify): sniff Substance route: Inhalation Frequency: 3-6 times per week Amount used: 4 to 6 bags Age of first use: 28 Date of last use: 03/01/19 Admission Physical Exam [facility] - Vital Signs Vital Signs: Vital Signs - 24 hr 08/18/19 11:17 Temperature 97.0 F L Pulse Rate 61 Respiratory 18 Rate Blood Pressure 129/88 - Physical General Appearance: Yes: Moderate Distress, Tremorous, Irritable, Sweating, Anxious HEENTM: Yes: Normocephalic, ARNIE, Pharynx Normal, Other (glaucoma) Respiratory: Yes: Within Normal Limits Neck: Yes: Within Normal Limits, Supple, Trachea in good position Breast: Yes: Within Normal Limits Cardiology: Yes: Within Normal Limits, Regular Rhythm, Regular Rate, S1, S2 Abdominal: Yes: Within Normal Limits, Normal Bowel Sounds, Non Tender, Soft Genitourinary: Yes: Within Normal Limits Musculoskeletal: Yes: Back pain, Muscle Pain (herniated disc) Extremities: Yes: Tremors, Other (fx of right forearm) Neurological: Yes: [place] II-XII NML intact, Fully Oriented, Alert, Motor Strength 5/5 Integumentary: Yes: Dry Lymphatic: Yes: Within Normal Limits - Diagnostic (1) Alcohol dependence with uncomplicated withdrawal Current Visit: No Status: Acute (2) Cocaine dependence Current Visit: Yes Status: Acute (3) Nicotine dependence Current Visit: No Status: Acute Qualifiers: Nicotine product type: cigarettes Substance use status: in withdrawal Qualified Code(s): F17.213 - Nicotine dependence, cigarettes, with withdrawal (4) Sedative, hypnotic or anxiolytic dependence with withdrawal, unspecified Current Visit: No Status: Acute (5) Weight loss Current Visit: No Status: Acute (6) Anemia Current Visit: No Status: Chronic Qualifiers: Anemia type: iron deficiency (7) Chronic lower back pain Current Visit: No Status: Chronic Qualifiers: Back pain laterality: right Sciatica presence: without sciatica Qualified Code(s): M54.5 - Low back pain; G89.29 - Other chronic pain (8) Herniated disc Current Visit: No Status: Chronic Qualifiers: Mid-cervical spinal level: unspecified (9) Insomnia secondary to depression with anxiety Current Visit: Yes Status: Acute Cleared for Admission S - Detox or Rehab [facility] Level of Care: Medically Managed Detox Regimen/Protocol: Valium Breathalyzer - Breathalyzer Breathalyzer: 0 Urine Drug Screen - Test Device Lot number: [id number] Expiration date: 03/28/21 - Control Is test valid?: Yes - Results Drug screen NEGATIVE: No Urine drug screen results: LEYLA-Cocaine, BZO-Benzodiazepines Inpatient Rehab Admission - Rehab Decision to Admit Inpatient rehab admission?: No
[2019-08-18] MEDS ORDERED: MAG HYDROX/AL HYDROX/SIMETH 30 ML UNIT-DOSE CUP PO PRN (12:36)
[2019-08-18] MEDS ORDERED: MENTHOL/PHENOL 1 EACH UD MM PRN (12:36)
[2019-08-18] MEDS ORDERED: ACETAMINOPHEN 325 MG TABLET (FP) PO PRN ×2 (12:36)
[2019-08-18] MEDS ORDERED: METHOCARBAMOL 500 MG TABLET PO PRN (12:36)
[2019-08-18] MEDS ORDERED: MAGNESIUM CITRATE 300 ML BOTTLE PO PRN (12:36)
[2019-08-18] MEDS ORDERED: hydrOXYzine PAMOATE 25 MG CAPSULE (FP) PO PRN (12:36)
[2019-08-18] MEDS ORDERED: BISMUTH SUBSALICYLATE 524 MG/30 ML UD PO PRN (12:36)
[2019-08-18] MEDS ORDERED: diazePAM 5 MG TABLET PO PRN (12:36)
[2019-08-18] MEDS ORDERED: IBUPROFEN 400 MG TABLET (FP) PO PRN (12:36)
[2019-08-18] MEDS ORDERED: MELATONIN 5 MG TABLETS PO PRN (12:36)
[2019-08-18] MEDS ORDERED: MAGNESIUM HYDROX 2400MG/30ML ORAL SUSPENSION 30 ML CUP PO PRN (12:36)
[2019-08-18] MEDS ORDERED: NICOTINE POLACRILEX 2 MG GUM BUC PRN (12:36)
[2019-08-18] MEDS: NICOTINE 21 MG/24 HOURS TOPICAL PATCH TD SCH (14:30)
[2019-08-18] MEDS: diazePAM 5 MG TABLET PO SCH ×2 (14:30→22:23)
[2019-08-18] MEDS: THIAMINE HCL 100 MG TABLET (FP) PO SCH (22:23)
[2019-08-18] MEDS: DORZOLAMIDE 2% HCL OPHTHALMIC SOLUTION 10 ML BOTTLE OU SCH (22:25)
[2019-08-18] MEDS: LATANOPROST 0.005% OPHTH SOLN 2.5ML BOTTLE OU SCH (22:26)
[2019-08-18] MEDS: diphenhydrAMINE HCL 25 MG CAPSULE (FP) PO PRN (22:26)
[2019-08-19] MEDS: diazePAM 5 MG TABLET PO SCH ×3 (05:41→22:10)
[2019-08-19] MEDS: PRENATAL VITAMINS W/ FOLIC ACID TABLET (FP) PO SCH (10:24)
[2019-08-19] MEDS: DORZOLAMIDE 2% HCL OPHTHALMIC SOLUTION 10 ML BOTTLE OU SCH ×2 (10:24→22:09)
[2019-08-19] MEDS: FERROUS SO4 325 MG TABLET (FP) PO SCH (10:24)
[2019-08-19] MEDS: NICOTINE 21 MG/24 HOURS TOPICAL PATCH TD SCH (10:24)
[2019-08-19 10:36] LABS: HEMATOCRIT 39.5 % (35.4-49); HEMOGLOBIN 12.9 GM/dL (11.7-16.9); MCH 28.4 pg (25.7-33.7); MCHC 32.7 g/dl (32.0-35.9); MEAN PLT VOLUME 8.8 fl (7.5-11.1); PLATELET COUNT 272 K/MM3 (134-434); RBC 4.54 M/mm3 (4.00-5.60); RDW 15.3 % (11.9-15.9); WHITE BLOOD COUNT 4.9 K/mm3 (4.0-10.0)
[2019-08-19 10:50] LABS: ALBUMIN 3.2 g/dl (3.4-5.0); BILIRUBIN,TOTAL 0.1 mg/dL (0.2-1); BLOOD UREA NITROGEN 24.5 mg/dL (7-18); CALCIUM 8.8 mg/dL (8.5-10.1); CREATININE 1.2 mg/dL (0.55-1.3); POTASSIUM 4.3 mmol/L (3.5-5.1); TOT PROT 6.3 g/dl (6.4-8.2)
--- NOTE | 2019-08-19 11:38 | PN ---
[facility] CIWA - CIWA Score Nausea/Vomitin-No Nausea/No Vomiting Muscle Tremors: 2 Anxiety: 3 Agitation: 0-Normal Activity Paroxysmal Sweats: 3 Orientation: 0-Oriented Tacttile Disturbances: 0-None Auditory Disturbances: 0-None Visual Disturbances: 0-None Headache: 2-Mild CIWA-Ar Total Score: 10 S Progress Note (SOAP) Subjective: c/o sweats, anxiety, headache, and interrupted sleep. Objective: 08/19/19 11:36 Vital Signs 08/19/19 08/19/19 05:57 09:58 Temperature 97.9 F 96 F L Pulse Rate 74 75 Respiratory 18 16 Rate Blood Pressure 144/86 136/84 Laboratory Last Values WBC 4.9 K/mm3 (4.0-10.0) 08/19/19 07:35 RBC 4.54 M/mm3 (4.00-5.60) 08/19/19 07:35 Hgb 12.9 GM/dL (11.7-16.9) 08/19/19 07:35 Hct 39.5 % (35.4-49) 08/19/19 07:35 MCV 87.0 fl (80-96) 08/19/19 07:35 MCH 28.4 pg (25.7-33.7) 08/19/19 07:35 MCHC 32.7 g/dl (32.0-35.9) 08/19/19 07:35 RDW 15.3 % (11.9-15.9) 08/19/19 07:35 Plt Count 272 K/MM3 (134-434) D 08/19/19 07:35 MPV 8.8 fl (7.5-11.1) 08/19/19 07:35 Sodium 137 mmol/L (136-145) 08/19/19 07:35 Potassium 4.3 mmol/L (3.5-5.1) 08/19/19 07:35 Chloride 107 mmol/L (98-107) 08/19/19 07:35 Carbon Dioxide 24 mmol/L (21-32) 08/19/19 07:35 Anion Gap 6 MMOL/L (8-16) L 08/19/19 07:35 BUN 24.5 mg/dL (7-18) H 08/19/19 07:35 Creatinine 1.2 mg/dL (0.55-1.3) 08/19/19 07:35 Est GFR (CKD-EPI)AfAm 72.59 08/19/19 07:35 Est GFR (CKD-EPI)NonAf 62.63 08/19/19 07:35 Random Glucose 121 mg/dL (74-106) H 08/19/19 07:35 Calcium 8.8 mg/dL (8.5-10.1) 08/19/19 07:35 Total Bilirubin 0.1 mg/dL (0.2-1) L 08/19/19 07:35 AST 17 U/L (15-37) 08/19/19 07:35 ALT 21 U/L (13-61) 08/19/19 07:35 Alkaline Phosphatase 52 U/L (45-117) 08/19/19 07:35 Total Protein 6.3 g/dl (6.4-8.2) L 08/19/19 07:35 Albumin 3.2 g/dl (3.4-5.0) L 08/19/19 07:35 Labs noted. Assessment: 08/19/19 11:38 AOX3, in no acute respiratory distress. Full ROM, ambulating in the unit. Withdrawal symptoms Plan: continue detox.
[2019-08-19] MEDS: THIAMINE HCL 100 MG TABLET (FP) PO SCH (22:10)
[2019-08-19] MEDS: LATANOPROST 0.005% OPHTH SOLN 2.5ML BOTTLE OU SCH (22:12)
[2019-08-20] MEDS: diazePAM 5 MG TABLET PO SCH ×2 (06:06→17:04)
[2019-08-20] MEDS: DORZOLAMIDE 2% HCL OPHTHALMIC SOLUTION 10 ML BOTTLE OU SCH ×2 (09:38→22:11)
[2019-08-20] MEDS: FERROUS SO4 325 MG TABLET (FP) PO SCH (09:38)
[2019-08-20] MEDS: NICOTINE 21 MG/24 HOURS TOPICAL PATCH TD SCH (09:38)
[2019-08-20] MEDS: PRENATAL VITAMINS W/ FOLIC ACID TABLET (FP) PO SCH (09:38)
--- NOTE | 2019-08-20 11:39 | PN ---
S CIWA - CIWA Score Nausea/Vomitin Muscle Tremors: 2 Anxiety: 2 Agitation: 2 Paroxysmal Sweats: No Perspiration Orientation: 0-Oriented Tacttile Disturbances: 0-None Auditory Disturbances: 0-None Visual Disturbances: 0-None Headache: 0-None Present CIWA-Ar Total Score: 8 BHS Progress Note (SOAP) Subjective: alert,irritable,anxious,interrupted sleep,nausea Objective: 08/20/19 11:36 Vital Signs Temperature 97.8 F 08/20/19 09:16 Pulse Rate 87 08/20/19 09:16 Respiratory Rate 18 08/20/19 09:16 Blood Pressure 124/81 08/20/19 09:16 O2 Sat by Pulse Oximetry (%) Laboratory Last Values WBC 4.9 K/mm3 (4.0-10.0) 08/19/19 07:35 RBC 4.54 M/mm3 (4.00-5.60) 08/19/19 07:35 Hgb 12.9 GM/dL (11.7-16.9) 08/19/19 07:35 Hct 39.5 % (35.4-49) 08/19/19 07:35 MCV 87.0 fl (80-96) 08/19/19 07:35 MCH 28.4 pg (25.7-33.7) 08/19/19 07:35 MCHC 32.7 g/dl (32.0-35.9) 08/19/19 07:35 RDW 15.3 % (11.9-15.9) 08/19/19 07:35 Plt Count 272 K/MM3 (134-434) D 08/19/19 07:35 MPV 8.8 fl (7.5-11.1) 08/19/19 07:35 Sodium 137 mmol/L (136-145) 08/19/19 07:35 Potassium 4.3 mmol/L (3.5-5.1) 08/19/19 07:35 Chloride 107 mmol/L (98-107) 08/19/19 07:35 Carbon Dioxide 24 mmol/L (21-32) 08/19/19 07:35 Anion Gap 6 MMOL/L (8-16) L 08/19/19 07:35 BUN 24.5 mg/dL (7-18) H 08/19/19 07:35 Creatinine 1.2 mg/dL (0.55-1.3) 08/19/19 07:35 Est GFR (CKD-EPI)AfAm 72.59 08/19/19 07:35 Est GFR (CKD-EPI)NonAf 62.63 08/19/19 07:35 Random Glucose 121 mg/dL (74-106) H 08/19/19 07:35 Calcium 8.8 mg/dL (8.5-10.1) 08/19/19 07:35 Total Bilirubin 0.1 mg/dL (0.2-1) L 08/19/19 07:35 AST 17 U/L (15-37) 08/19/19 07:35 ALT 21 U/L (13-61) 08/19/19 07:35 Alkaline Phosphatase 52 U/L (45-117) 08/19/19 07:35 Total Protein 6.3 g/dl (6.4-8.2) L 08/19/19 07:35 Albumin 3.2 g/dl (3.4-5.0) L 08/19/19 07:35 RPR Titer Nonreactive (NONREACTIVE) 08/19/19 07:35 Assessment: 08/20/19 11:37 withdrawal symptom Plan: continue detox valium regimen,encourage oral fluid,discharge in am
[2019-08-20] MEDS: THIAMINE HCL 100 MG TABLET (FP) PO SCH (22:12)
[2019-08-20] MEDS: LATANOPROST 0.005% OPHTH SOLN 2.5ML BOTTLE OU SCH (22:12)
[2019-08-20] MEDS: diphenhydrAMINE HCL 25 MG CAPSULE (FP) PO PRN (22:13)
[2019-08-21] MEDS ORDERED: diazePAM 5 MG TABLET PO ONE (06:00)
--- NOTE | 2019-08-21 08:09 | DS ---
[facility] Detox Discharge Summary Admission Date: 08/18/19 Discharge Date: 08/21/19 - History Present History: Alcohol Dependence, Cocaine Dependence - Physical Exam Results Vital Signs: Vital Signs Temperature 96.8 F L 08/21/19 05:59 Pulse Rate 87 08/21/19 05:59 Respiratory Rate 18 08/21/19 05:59 Blood Pressure 156/85 08/21/19 05:59 O2 Sat by Pulse Oximetry (%) Pertinent Admission Physical Exam Findings: Vital Signs Temperature 96.8 F L 08/21/19 05:59 Pulse Rate 87 08/21/19 05:59 Respiratory Rate 18 08/21/19 05:59 Blood Pressure 156/85 08/21/19 05:59 O2 Sat by Pulse Oximetry (%) Laboratory Tests 08/19/19 08/19/19 08/19/19 07:35 07:35 07:35 WBC 4.9 RBC 4.54 Hgb 12.9 Hct 39.5 MCV 87.0 MCH 28.4 MCHC 32.7 RDW 15.3 Plt Count 272 D MPV 8.8 Sodium 137 Potassium 4.3 Chloride 107 Carbon Dioxide 24 Anion Gap 6 L BUN 24.5 H Creatinine 1.2 Est GFR (CKD-EPI)AfAm 72.59 Est GFR (CKD-EPI)NonAf 62.63 Random Glucose 121 H Calcium 8.8 Total Bilirubin 0.1 L AST 17 ALT 21 Alkaline Phosphatase 52 Total Protein 6.3 L Albumin 3.2 L RPR Titer Nonreactive aaox3 ambulating no acute distress - Treatment Hospital Course: Detox Protocol Followed, Detoxed Safely, Responded well, Discharged Condition Good, Rehab Referral Accepted Patient has Accepted a Rehab Referral to: [facility] - Medication Discharge Medications: Ambulatory Orders Dorzolamide HCl [Trusopt 2% -] 1 drop OU BID 01/26/19 Latanoprost 0.005% Eye Drops [Xalatan 0.005% Eye Drops -] 1 drop OU HS 01/26/19 - Diagnosis (1) Cocaine dependence Current Visit: Yes Status: Chronic Qualifiers: Substance use status: uncomplicated Qualified Code(s): F14.20 - Cocaine dependence, uncomplicated (2) Insomnia secondary to depression with anxiety Current Visit: Yes Status: Acute (3) Alcohol dependence Current Visit: No Status: Acute (4) Alcohol dependence with uncomplicated withdrawal Current Visit: Yes Status: Chronic (5) Impulse control disorder Current Visit: No Status: Acute (6) Nicotine dependence Current Visit: Yes Status: Chronic Qualifiers: Nicotine product type: cigarettes Substance use status: uncomplicated Qualified Code(s): F17.210 - Nicotine dependence, cigarettes, uncomplicated (7) Sedative, hypnotic or anxiolytic dependence with withdrawal, unspecified Current Visit: No Status: Acute (8) Substance-induced sleep disorder Current Visit: No Status: Acute (9) Weight loss Current Visit: No Status: Acute (10) Alcohol dependence, episodic Current Visit: No Status: Chronic (11) Anxiety Current Visit: No Status: Chronic (12) Carpal tunnel syndrome, bilateral Current Visit: No Status: Chronic (13) Chronic lower back pain Current Visit: No Status: Chronic Qualifiers: Back pain laterality: right Sciatica presence: without sciatica Qualified Code(s): M54.5 - Low back pain; G89.29 - Other chronic pain (14) Cocaine dependence Current Visit: No Status: Chronic Qualifiers: Substance use status: uncomplicated Qualified Code(s): F14.20 - Cocaine dependence, uncomplicated (15) Cocaine dependence Current Visit: No Status: Chronic (16) Cocaine dependence Current Visit: No Status: Chronic (17) Cocaine dependence, uncomplicated Current Visit: No Status: Chronic (18) Depression (emotion) Current Visit: No Status: Chronic Qualifiers: Depression Type: dysthymia Qualified Code(s): F34.1 - Dysthymic disorder (19) GERD (gastroesophageal reflux disease) Current Visit: No Status: Chronic Qualifiers: Esophagitis presence: without esophagitis Qualified Code(s): K21.9 - Gastro -esophageal reflux disease without esophagitis (20) Glaucoma Current Visit: No Status: Chronic Qualifiers: Glaucoma type: open-angle Open angle glaucoma type: unspecified type Laterality: bilateral Glaucoma stage: stage unspecified Qualified Code(s): H40.10X0 - Unspecified open-angle glaucoma, stage unspecified (21) HTN (hypertension) Current Visit: No Status: Chronic Qualifiers: Hypertension type: essential hypertension Qualified Code(s): I10 - Essential (primary) hypertension (22) Herniated disc Current Visit: No Status: Chronic Qualifiers: Mid-cervical spinal level: unspecified (23) Herniated intervertebral disc of lumbar spine Current Visit: No Status: Chronic (24) History of borderline diabetes mellitus Current Visit: No Status: Chronic (25) History of herniated intervertebral disc Current Visit: No Status: Chronic (26) Hyperlipidemia Current Visit: No Status: Chronic Qualifiers: Hyperlipidemia type: unspecified Qualified Code(s): E78.5 - Hyperlipidemia , unspecified (27) Insomnia Current Visit: No Status: Chronic Qualifiers: Insomnia type: unspecified Qualified Code(s): G47.00 - Insomnia, unspecified (28) Non-compliance Current Visit: No Status: Chronic (29) Nontraumatic perforated nasal septum Current Visit: No Status: Chronic (30) Opioid dependence Current Visit: No Status: Chronic (31) Osteoarthritis Current Visit: No Status: Chronic Qualifiers: Osteoarthritis location: multiple joints Osteoarthritis type: primary Qualified Code(s): M15.0 - Primary generalized (osteo)arthritis (32) Plantar fasciitis Current Visit: No Status: Chronic (33) Sedative hypnotic or anxiolytic dependence Current Visit: No Status: Chronic (34) Substance induced mood disorder Current Visit: No Status: Chronic (35) Superficial bruising of lower leg Current Visit: No Status: Chronic Qualifiers: Encounter type: initial encounter Laterality: right Qualified Code(s): S80.11XA - Contusion of right lower leg, initial encounter (36) Tinea pedis Current Visit: No Status: Chronic Qualifiers: Laterality: bilateral Qualified Code(s): B35.3 - Tinea pedis (37) Uncomplicated alcohol dependence Current Visit: No Status: Chronic (38) Cardiac murmur Current Visit: No Status: Suspected (39) History of anemia Current Visit: No Status: Suspected (40) Substance induced mood disorder Current Visit: No Status: Suspected (41) Opioid dependence with withdrawal Current Visit: No Status: Resolved - AMA Did Patient Leave Against Medical Advice: No
[2019-08-21 09:26] VITALS: BP 134/82; PULSE 76; TEMP 96.3
[2019-08-21 10:38] LABS: PH,URINE 5.5 (5.0-8.0); URINE APPEARANCE CLEAR; URINE BILIRUBIN NEGATIVE (NEGATIVE); URINE COLOR YELLOW; URINE GLUCOSE (UA) NEGATIVE (NEGATIVE); URINE KETONE NEGATIVE (NEGATIVE); URINE LEUK ESTERASE NEGATIVE (NEGATIVE); URINE NITRITE NEGATIVE (NEGATIVE); URINE PROTEIN NEGATIVE (NEGATIVE); URINE UROBILINOGEN 0.2 mg/dL (0.2-1.0)
== END 2019-08-21 09:02 | disposition home or self-care (01) | DRG 897 ==
LOC: YASAS 10:21 → Y6N 12:54
PROVIDERS: ADMIT Allergy & Immunology; ATTEND Allergy & Immunology
PROC: HZ2ZZZZ Detoxification Services for Substance Abuse Treatment (ICD-10-PCS; principal; 2019-08-18)
DX: F10.230 Alcohol dependence with withdrawal, uncomplicated (principal); F14.20 Cocaine dependence, uncomplicated; F19.282 Other psychoactive substance dependence with psychoactive substance-induced sleep disorder; F13.230 Sedative, hypnotic or anxiolytic dependence with withdrawal, uncomplicated; F17.210 Nicotine dependence, cigarettes, uncomplicated; F51.05 Insomnia due to other mental disorder; F63.9 Impulse disorder, unspecified; F19.24 Other psychoactive substance dependence with psychoactive substance-induced mood disorder; F41.9 Anxiety disorder, unspecified; F34.1 Dysthymic disorder; I10 Essential (primary) hypertension; R63.4 Abnormal weight loss; G56.03 Carpal tunnel syndrome, bilateral upper limbs; M54.5 Low back pain; G89.29 Other chronic pain; K21.9 Gastro-esophageal reflux disease without esophagitis; R01.1 Cardiac murmur, unspecified; H40.10X0 Unspecified open-angle glaucoma, stage unspecified; E78.5 Hyperlipidemia, unspecified; G47.00 Insomnia, unspecified; M15.0 Primary generalized (osteo)arthritis; Z91.19 Patient's noncompliance with other medical treatment and regimen; M51.26 Other intervertebral disc displacement, lumbar region; B35.3 Tinea pedis; Z91.013 Allergy to seafood; Z91.018 Allergy to other foods
CPT/HCPCS: 36415; 80053; 81003; 85027; 86593

== ENCOUNTER 2019-09-23 08:47 | Inpatient (IN) | payer OTHER ==
[2019-09-23 09:32] VITALS: BMI 21.9
--- NOTE | 2019-09-23 10:19 | HP ---
CIWA Score Nausea/Vomitin Muscle Tremors: 2 Anxiety: 2 Agitation: 2 Paroxysmal Sweats: 2 Orientation: 0-Oriented Tacttile Disturbances: 1-Very Mild Itch/Numbness Auditory Disturbances: 0-None Visual Disturbances: 0-None Headache: 2-Mild CIWA-Ar Total Score: 13 - Admission Criteria OASAS Guidelines: Admission for Medically Managed Detox: Requires at least one of the followin. CIWA greater than 12 2. Seizures within the past 24 hours 3. Delirium tremens within the past 24 hours 4. Hallucinations within the past 24 hours 5. Acute intervention needed for co occurring medical disorder 6. Acute intervention needed for co occurring psychiatric disorder 7. Severe withdrawal that cannot be handled at a lower level of care (continued vomiting, continued diarrhea, abnormal vital signs) requiring intravenous medication and/or fluids 8. 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 Psych: Yes: Anxiety, Depression, Other (insomnia) - Smoking History Smoking history: Current every day smoker Have you smoked in the past 12 months: Yes Aproximately how many cigarettes per day: 10 - Alcohol/Substance Use Hx Alcohol Use: Yes History of Substance Use: reports: Cocaine - Social History Occupation: retired History of Recent Travel: Yes Admission ROS [facility] Chief Complaint: I need detox from alcohol, been drinking everyday Allergies/Adverse Reactions: Allergies Allergy/AdvReac Type Severity Reaction Status Date / Time Penicillins Allergy Severe Hives Verified 09/23/19 09:19 shellfish derived Allergy Severe Hives Verified 09/23/19 09:19 rice Allergy Intermediate Hives Verified 09/23/19 09:19 History of Present Illness: Patient is a 64 years old male with alcohol dependence, he presents for detox from alcohol. He denies alcohol related seizures, reports last blackout in July of last year. His last detox at [facility] was 08/18/19 to 08/21/19. - Ebola screening Have you traveled outside of the country in the last 21 days: No (N) Have you had contact with anyone from an Ebola affected area: No Have you been sick,other than usual withdrawal symptoms: No Do you have a fever: No - Review of Systems Constitutional: Chills, Loss of Appetite, Unintentional Wgt. Loss EENT: reports: No Symptoms Reported Respiratory: reports: No Symptoms reported Cardiac: reports: No Symptoms Reported GI: reports: Nausea, Poor Appetite, Poor Fluid Intake, Abdominal cramping : reports: No Symptoms Reported Musculoskeletal: reports: Back Pain (r/t herniated disc and generalized OA), Joint Pain, Muscle Pain, Muscle Weakness Integumentary: reports: Sweating, Other (right elbow bruise) Neuro: reports: Headache, Numbness, Tremors Endocrine: reports: No Symptoms Reported Hematology: reports: Anemia Psychiatric: reports: Depressed Other Systems: Reviewed and Negative Patient History - Patient Medical History Hx Anemia: Yes (Iron-Deficiency - Not on medication.) Hx Asthma: No Hx Chronic Obstructive Pulmonary Disease (COPD): No Hx Cancer: No Hx Cardiac Disorders: No Hx Congestive Heart Failure: No Hx Hypertension: No Hx Hypercholesterolemia: No Hx Pacemaker: No HX Cerebrovascular Accident: No Hx Seizures: No Hx Dementia: No Hx Diabetes: No Hx Gastrointestinal Disorders: Yes (GERD) Hx Liver Disease: No Hx Genitourinary Disorders: No Hx Sexually Transmitted Disorders: No Hx Renal Disease (ESRD): No Hx Thyroid Disease: No Hx Human Immunodeficiency Virus (HIV): No Hx Hepatitis C: No Hx Depression: Yes (depression,insomnia) Hx Suicide Attempt: No Hx Bipolar Disorder: No Hx Schizophrenia: No - Patient Surgical History Past Surgical History: Yes Hx Neurologic Surgery: No Hx Cataract Extraction: No Hx Cardiac Surgery: No Hx Lung Surgery: No Hx Breast Surgery: No Hx Breast Biopsy: No Hx Abdominal Surgery: No Hx Appendectomy: No Hx Cholecystectomy: No Hx Genitourinary Surgery: No Hx Section: No Hx Orthopedic Surgery: Yes (fx, right forearm in 1997.) Other Surgical History: Lipoma removed from Left shoulder Anesthesia Reaction: No - PPD History Previous Implant?: Yes Documented Results: Negative w/proof Implanted On Prior R Admission?: Yes Date: 07/16/19 Results: 0 mm PPD to be Administered?: No - Smoking Cessation Smoking history: Current every day smoker Have you smoked in the past 12 months: Yes Aproximately how many cigarettes per day: 10 Cigars Per Day: 0 Hx Chewing Tobacco Use: No Initiated information on smoking cessation: Yes 'Breaking Loose' booklet given: 09/23/19 - Substance & Tx. History Hx Alcohol Use: Yes (vodka, scotch, beer) Hx Substance Use: Yes Substance Use Type: Alcohol, Cocaine Hx Substance Use Treatment: Yes - Substances abused Alcohol Other (specify): vodka, scotch and beer Substance route: Oral Frequency: Daily Amount used: 1L, 6 22 oz bottles Age of first use: 16 Date of last use: 09/22/19 Admission Physical Exam BHS - Vital Signs Vital Signs: Vital Signs - 24 hr 09/23/19 09:25 Temperature 97.1 F L Pulse Rate 62 Respiratory 16 Rate Blood Pressure 143/78 - Physical General Appearance: Yes: No Apparent Distress HEENTM: Yes: Hearing grossly Normal, Normocephalic, Normal Voice, ARNIE, Pharynx Normal, Other (full upper dentures, missing lower set of dentures) Respiratory: Yes: Chest Non-Tender, Lungs Clear, Normal Breath Sounds, No Respiratory Distress, No Accessory Muscle Use Neck: Yes: No masses,lesions,Nodules, Supple Breast: Yes: Breast Exam Deferred Cardiology: Yes: Regular Rhythm, Regular Rate, S1, S2 Abdominal: Yes: Normal Bowel Sounds, Non Tender, Soft Genitourinary: Yes: Within Normal Limits Back: Yes: Normal Inspection Musculoskeletal: Yes: full range of Motion, Back pain, Muscle Pain, Muscle weakness Extremities: Yes: Tremors Neurological: Yes: income tax 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 II-XII NML intact, Fully Oriented, Alert, Normal Mood/ Affect, Normal Response Integumentary: Yes: Cold, Other (1 cm x 1 cm abrasion to right elbow) - Diagnostic (1) Alcohol dependence with uncomplicated withdrawal Current Visit: Yes Status: Acute (2) Chronic lower back pain Current Visit: Yes Status: Chronic Qualifiers: Back pain laterality: right Sciatica presence: without sciatica Qualified Code(s): M54.5 - Low back pain; G89.29 - Other chronic pain Comment: L3 L4 (3) Cocaine dependence, uncomplicated Current Visit: Yes Status: Acute (4) GERD (gastroesophageal reflux disease) Current Visit: Yes Status: Chronic Qualifiers: Esophagitis presence: without esophagitis Qualified Code(s): K21.9 - Gastro -esophageal reflux disease without esophagitis (5) Herniated intervertebral disc of lumbar spine Current Visit: Yes Status: Chronic Comment: L3-L4. (6) Nicotine dependence Current Visit: Yes Status: Chronic Qualifiers: Nicotine product type: cigarettes Substance use status: uncomplicated Qualified Code(s): F17.210 - Nicotine dependence, cigarettes, uncomplicated (7) Osteoarthritis Current Visit: Yes Status: Chronic Qualifiers: Osteoarthritis location: multiple joints Osteoarthritis type: primary Qualified Code(s): M15.0 - Primary generalized (osteo)arthritis (8) Abrasion of right elbow Current Visit: Yes Status: Acute Qualifiers: Encounter type: initial encounter Qualified Code(s): S50.311A - Abrasion of right elbow, initial encounter Cleared for Admission B[facility] - Detox or Rehab S Level of Care: Medically Managed Detox Regimen/Protocol: Valium Claeared for Rehab Admission: No Breathalyzer - Breathalyzer Breathalyzer: 0 Urine Drug Screen - Test Device Lot number: [id number] Expiration date: 03/28/21 - Control Is test valid?: Yes - Results Drug screen NEGATIVE: No Urine drug screen results: LEYLA-Cocaine Inpatient Rehab Admission - Rehab Decision to Admit Inpatient rehab admission?: No
[2019-09-23] MEDS ORDERED: MAGNESIUM HYDROX 2400MG/30ML ORAL SUSPENSION 30 ML CUP PO PRN (10:30)
[2019-09-23] MEDS ORDERED: MAGNESIUM CITRATE 300 ML BOTTLE PO PRN (10:30)
[2019-09-23] MEDS ORDERED: NICOTINE POLACRILEX 2 MG GUM BUC PRN (10:30)
[2019-09-23] MEDS ORDERED: ACETAMINOPHEN 325 MG TABLET (FP) PO PRN ×2 (10:30)
[2019-09-23] MEDS ORDERED: MAG HYDROX/AL HYDROX/SIMETH 30 ML UNIT-DOSE CUP PO PRN (10:30)
[2019-09-23] MEDS ORDERED: MELATONIN 5 MG TABLETS PO PRN (10:30)
[2019-09-23] MEDS ORDERED: METHOCARBAMOL 500 MG TABLET PO PRN (10:30)
[2019-09-23] MEDS ORDERED: hydrOXYzine PAMOATE 25 MG CAPSULE (FP) PO PRN (10:30)
[2019-09-23] MEDS ORDERED: MENTHOL/PHENOL 1 EACH UD MM PRN (10:30)
[2019-09-23] MEDS ORDERED: IBUPROFEN 400 MG TABLET (FP) PO PRN (10:30)
[2019-09-23] MEDS ORDERED: BISMUTH SUBSALICYLATE 524 MG/30 ML UD PO PRN (10:30)
[2019-09-23] MEDS ORDERED: diazePAM 5 MG TABLET PO PRN (10:35)
[2019-09-23] MEDS: NICOTINE 14 MG/24 HOURS TOPICAL PATCH TD SCH (11:33)
[2019-09-23] MEDS: BACITRACIN 15 GM TUBE TOPICAL OINTMENT TP SCH (11:34)
[2019-09-23] MEDS: diazePAM 5 MG TABLET PO SCH ×2 (14:46→22:28)
[2019-09-23] MEDS ORDERED: THIAMINE HCL 100 MG TABLET (FP) PO SCH (22:00)
[2019-09-23] MEDS ORDERED: LATANOPROST 0.005% OPHTH SOLN 2.5ML BOTTLE OU SCH (22:00)
[2019-09-23] MEDS: DORZOLAMIDE 2% HCL OPHTHALMIC SOLUTION 10 ML BOTTLE OU SCH (23:00)
[2019-09-24] MEDS: diazePAM 5 MG TABLET PO SCH (05:57)
[2019-09-24 09:35] LABS: HEMATOCRIT 36.4 % (35.4-49); MCH 28.5 pg (25.7-33.7); MCHC 33.1 g/dl (32.0-35.9); MEAN PLT VOLUME 8.7 fl (7.5-11.1); PLATELET COUNT 238 K/MM3 (134-434); RBC 4.23 M/mm3 (4.00-5.60); RDW 15.4 % (11.9-15.9); WHITE BLOOD COUNT 5.3 K/mm3 (4.0-10.0)
[2019-09-24 09:53] LABS: BILIRUBIN,TOTAL 0.1 mg/dL (0.2-1); BLOOD UREA NITROGEN 25.3 mg/dL (7-18); CALCIUM 8.7 mg/dL (8.5-10.1); POTASSIUM 4.2 mmol/L (3.5-5.1); TOT PROT 6.1 g/dl (6.4-8.2)
[2019-09-24] MEDS ORDERED: PANTOPRAZOLE 20 MG TABLET PO SCH (10:00)
[2019-09-24] MEDS ORDERED: PRENATAL VITAMINS W/ FOLIC ACID TABLET (FP) PO SCH (10:00)
[2019-09-24] MEDS: DORZOLAMIDE 2% HCL OPHTHALMIC SOLUTION 10 ML BOTTLE OU SCH (10:25)
[2019-09-24] MEDS: BACITRACIN 15 GM TUBE TOPICAL OINTMENT TP SCH (10:26)
[2019-09-24] MEDS: NICOTINE 14 MG/24 HOURS TOPICAL PATCH TD SCH (10:26)
--- NOTE | 2019-09-24 11:03 | PN ---
S CIWA - CIWA Score Nausea/Vomitin Muscle Tremors: 4-Moderate,w/Arms Extend Anxiety: 1-Mildly Anxious Agitation: 1-Slight > Activity Paroxysmal Sweats: No Perspiration Orientation: 0-Oriented Tacttile Disturbances: 0-None Auditory Disturbances: 0-None Visual Disturbances: 0-None Headache: 1-Very Mild CIWA-Ar Total Score: 10 BHS Progress Note (SOAP) Subjective: Complains of significant nausea, feels shakey, anxious and irritable. Asking for Ensure. Prefers not to take any medication for headache Objective: 09/24/19 10:59 Laboratory Last Values WBC 5.3 K/mm3 (4.0-10.0) 09/24/19 08:00 RBC 4.23 M/mm3 (4.00-5.60) 09/24/19 08:00 Hgb 12.0 GM/dL (11.7-16.9) 09/24/19 08:00 Hct 36.4 % (35.4-49) 09/24/19 08:00 MCV 86.0 fl (80-96) 09/24/19 08:00 MCH 28.5 pg (25.7-33.7) 09/24/19 08:00 MCHC 33.1 g/dl (32.0-35.9) 09/24/19 08:00 RDW 15.4 % (11.9-15.9) 09/24/19 08:00 Plt Count 238 K/MM3 (134-434) 09/24/19 08:00 MPV 8.7 fl (7.5-11.1) 09/24/19 08:00 Sodium 138 mmol/L (136-145) 09/24/19 08:00 Potassium 4.2 mmol/L (3.5-5.1) 09/24/19 08:00 Chloride 108 mmol/L (98-107) H 09/24/19 08:00 Carbon Dioxide 23 mmol/L (21-32) 09/24/19 08:00 Anion Gap 8 MMOL/L (8-16) 09/24/19 08:00 BUN 25.3 mg/dL (7-18) H 09/24/19 08:00 Creatinine 1.0 mg/dL (0.55-1.3) 09/24/19 08:00 Est GFR (CKD-EPI)AfAm 90.50 09/24/19 08:00 Est GFR (CKD-EPI)NonAf 78.08 09/24/19 08:00 Random Glucose 120 mg/dL (74-106) H 09/24/19 08:00 Calcium 8.7 mg/dL (8.5-10.1) 09/24/19 08:00 Total Bilirubin 0.1 mg/dL (0.2-1) L 09/24/19 08:00 AST 14 U/L (15-37) L 09/24/19 08:00 ALT 18 U/L (13-61) 09/24/19 08:00 Alkaline Phosphatase 56 U/L (45-117) 09/24/19 08:00 Total Protein 6.1 g/dl (6.4-8.2) L 09/24/19 08:00 Albumin 3.0 g/dl (3.4-5.0) L 09/24/19 08:00 Vital Signs Temperature 97.0 F L 09/24/19 09:32 Pulse Rate 69 09/24/19 09:32 Respiratory Rate 16 09/24/19 09:32 Blood Pressure 140/79 09/24/19 09:32 O2 Sat by Pulse Oximetry (%) Gnl: WDWn , in no distress Mental status: awake, alert, normal language Motor: normal gait Assessment: 09/24/19 11:01 1. Alcohol withdrawal Plan: 1. continue alcohol withdrawal protocol
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
[2019-09-24 12:55] VITALS: BP 147/79; PULSE 77; TEMP 96.8
[2019-09-24] MEDS ORDERED: SUVOREXANT 10 MG TABLET PO PRN (22:00)
[2019-09-25] MEDS ORDERED: diazePAM 5 MG TABLET PO SCH (06:00)
[2019-09-26] MEDS ORDERED: diazePAM 5 MG TABLET PO ONE (06:00)
== END 2019-09-24 14:15 | disposition left against medical advice (07) | DRG 894 ==
LOC: YASAS 08:47 → Y6N 10:59
PROVIDERS: ADMIT Allergy & Immunology; ATTEND Allergy & Immunology
PROC: HZ2ZZZZ Detoxification Services for Substance Abuse Treatment (ICD-10-PCS; principal; 2019-09-21)
DX: F10.230 Alcohol dependence with withdrawal, uncomplicated (principal); F14.20 Cocaine dependence, uncomplicated; F19.280 Other psychoactive substance dependence with psychoactive substance-induced anxiety disorder; F19.282 Other psychoactive substance dependence with psychoactive substance-induced sleep disorder; F17.210 Nicotine dependence, cigarettes, uncomplicated; I10 Essential (primary) hypertension; H40.9 Unspecified glaucoma; K21.9 Gastro-esophageal reflux disease without esophagitis; E78.5 Hyperlipidemia, unspecified; M54.5 Low back pain; G89.29 Other chronic pain; M51.26 Other intervertebral disc displacement, lumbar region; M15.0 Primary generalized (osteo)arthritis; R73.03 Prediabetes; Z88.0 Allergy status to penicillin; Z91.013 Allergy to seafood
CPT/HCPCS: 36415; 80053; 85027; 86593

== ENCOUNTER 2019-10-19 09:10 | Inpatient (IN) | payer OTHER ==
--- NOTE | 2019-10-19 09:22 | BHS.RME ---
Substance Use & Tx History - Substance Use History Alcohol Substance amount: / vodka Frequency of use: Daily Substance route: Oral Date of Last Use: 10/18/19 Opiates (Other) Substance amount: opioid oral and other opioids Frequency of use: Daily Substance route: Oral, Inhalation (ex: sniffing or snorting) Date of Last Use: 10/18/19 Opiates (Heroin) Substance amount: 2 bags Frequency of use: Daily Substance route: Inhalation (ex: sniffing or snorting) Date of Last Use: 10/18/19 (2 months) Physical/Psych/Mental Status - Behavior General Behavior: Increased activity (restlessness, agitation) Eye Contact: Normal - Cooperativeness Cooperativeness: Cooperative - Thinking Thought Processes: Tight, Logical, Goal Directed Thought content: Future oriented - Physical Health Problems Is patient presently having any pain?: No Does patient presently have any injuries (include location): No Does patient currently have a fever: No Is patient : No CIWA Nausea/Vomitin Muscle Tremors: 2 Anxiety: 3 Agitation: 3 Paroxysmal Sweats: 1-Minimal Palms Moist Orientation: 0-Oriented Tacttile Disturbances: 0-None Auditory Disturbances: 0-None Visual Disturbances: 0-None Headache: 1-Very Mild CIWA-Ar Total Score: 12
--- NOTE | 2019-10-19 09:34 | HP ---
CIWA Score Nausea/Vomitin Muscle Tremors: 2 Anxiety: 3 Agitation: 3 Paroxysmal Sweats: 1-Minimal Palms Moist Orientation: 0-Oriented Tacttile Disturbances: 0-None Auditory Disturbances: 0-None Visual Disturbances: 0-None Headache: 1-Very Mild CIWA-Ar Total Score: 12 - Admission Criteria OASAS Guidelines: Admission for Medically Managed Detox: Requires at least one of the followin. CIWA greater than 12 2. Seizures within the past 24 hours 3. Delirium tremens within the past 24 hours 4. Hallucinations within the past 24 hours 5. Acute intervention needed for co occurring medical disorder 6. Acute intervention needed for co occurring psychiatric disorder 7. Severe withdrawal that cannot be handled at a lower level of care (continued vomiting, continued diarrhea, abnormal vital signs) requiring intravenous medication and/or fluids 8. Admitting History and Physical - Admission Chief Complaint: " I want to go to detox this time and finish and then follow up with my orthopedist about surgery." History of Present Illness: 64 year old male with history of alcohol dependence with mild withdrawals, recent opioid use disorder due to chronic low back pain secondary to problem with herniated lumbar disc disease. Last admission here was in detox 09/23-2019 and signed out AMA due to his mother who was having a problem with the [employer] [facility] and she had to go to [place] due to mold issues. PMH: Anemia (iron deficient but no meds), GERD, OA, H?O lumbar disck herniation L3-L4 and Glaucoma Psurg: Right forearm fx 1997, Lipoma L shoulder Psych: Depression, Insomnia (seen by psychiatry here last time and not placed on any anti depressant because unwarranted, just given belsomra for sleep) Alcohol: 1/5 vodka and beers daily, denies seizures, though has had blackouts in the past. Nicotine: 10 ciggs per day Heroin: New onset for 2 months now due to chronic low back pain, IN 2 bags daily and he also endorses sometimes oral opioids as well. Patient is undomiciled and has poor judgment. Poor environment. He is seeking detox and then will follow up with his Orthopedist as to treating his underlying chronic back pain from the disc herniation. 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 Gastrointestinal: Yes: GERD Psych: Yes: Anxiety, Depression, Other (insomnia) Rheumatology: Yes: Other (osteoarthritis and chronic back pain from disc herniation L3-L4) ENT: Yes: Other (Glaucoma) - Past Surgical History Additional Past Surgical History: Right Arm Fx repair - Smoking History Smoking history: Current every day smoker Have you smoked in the past 12 months: Yes Aproximately how many cigarettes per day: 10 - Alcohol/Substance Use Hx Alcohol Use: Yes (vodka, scotch, beer) History of Substance Use: reports: Heroin - Social History Usual Living Arrangement: Yes: Alone Do you think of yourself as: Straight/Heterosexual ADL: Independent Occupation: retired History of Recent Travel: Yes Admission [facility] Allergies/Adverse Reactions: Allergies Allergy/AdvReac Type Severity Reaction Status Date / Time Penicillins Allergy Severe Hives Verified 10/19/19 09:40 shellfish derived Allergy Severe Hives Verified 10/19/19 09:40 rice Allergy Intermediate Hives Verified 10/19/19 09:40 Exam Limitations: No Limitations - Ebola screening Have you traveled outside of the country in the last 21 days: No Have you had contact with anyone from an Ebola affected area: No Have you been sick,other than usual withdrawal symptoms: No Do you have a fever: No - Review of Systems Constitutional: Chills, Unintentional Wgt. Loss EENT: reports: No Symptoms Reported Respiratory: reports: No Symptoms reported Cardiac: reports: No Symptoms Reported GI: reports: No Symptoms Reported : reports: No Symptoms Reported Musculoskeletal: reports: No Symptoms Reported Integumentary: reports: No Symptoms Reported Neuro: reports: No Symptoms reported, Headache Endocrine: reports: No Symptoms Reported Hematology: reports: No Symptoms Reported Psychiatric: reports: Judgement Intact, Orientated x3, Anxious Other Systems: Reviewed and Negative Patient History - Patient Medical History Hx Anemia: Yes (Iron-Deficiency - Not on medication.) Hx Asthma: No Hx Chronic Obstructive Pulmonary Disease (COPD): No Hx Cancer: No Hx Cardiac Disorders: No Hx Congestive Heart Failure: No Hx Hypertension: No Hx Hypercholesterolemia: No Hx Pacemaker: No HX Cerebrovascular Accident: No Hx Seizures: No Hx Dementia: No Hx Diabetes: No Hx Gastrointestinal Disorders: Yes (GERD) Hx Liver Disease: No Hx Genitourinary Disorders: No Hx Sexually Transmitted Disorders: No Hx Renal Disease (ESRD): No Hx Thyroid Disease: No Hx Human Immunodeficiency Virus (HIV): No Hx Hepatitis C: No Hx Depression: Yes (depression,insomnia) Hx Suicide Attempt: No Hx Bipolar Disorder: No Hx Schizophrenia: No - Patient Surgical History Past Surgical History: Yes Hx Neurologic Surgery: No Hx Cataract Extraction: No Hx Cardiac Surgery: No Hx Lung Surgery: No Hx Breast Surgery: No Hx Breast Biopsy: No Hx Abdominal Surgery: No Hx Appendectomy: No Hx Cholecystectomy: No Hx Genitourinary Surgery: No Hx Section: No Hx Orthopedic Surgery: Yes (fx, right forearm in 1997.) Other Surgical History: Lipoma removed from Left shoulder Anesthesia Reaction: No - PPD History Previous Implant?: Yes Documented Results: Negative w/proof Implanted On Prior [facility] Admission?: Yes Date: 07/16/19 Results: 0 mm PPD to be Administered?: No - Smoking Cessation Smoking history: Current every day smoker Have you smoked in the past 12 months: Yes Aproximately how many cigarettes per day: 10 Cigars Per Day: 0 Hx Chewing Tobacco Use: No Initiated information on smoking cessation: Yes 'Breaking Loose' booklet given: 10/19/19 - Substances abused Alcohol Substance route: Oral Frequency: Daily Amount used: 1/5 vodka Age of first use: 18 Date of last use: 10/18/19 Heroin Other (specify): 2 bags Substance route: Inhalation Frequency: Daily Amount used: 2 bags Age of first use: 64 (2 months ago) Date of last use: 10/18/19 Admission Physical Exam S - Physical General Appearance: Yes: Within Normal Limits, Nourished, Appropriately Dressed , Mild Distress HEENTM: Yes: EOMI, Hearing grossly Normal, Normal ENT Inspection, Normocephalic , Normal Voice, ARNIE, Pharynx Normal, Tm's normal Respiratory: Yes: Chest Non-Tender, Lungs Clear, Normal Breath Sounds, No Respiratory Distress, No Accessory Muscle Use Neck: Yes: No masses,lesions,Nodules, Supple, Trachea in good position Cardiology: Yes: Regular Rhythm, Regular Rate, S1, S2 Abdominal: Yes: Normal Bowel Sounds, Non Tender, Flat, Soft Genitourinary: Yes: Within Normal Limits Back: Yes: Normal Inspection Musculoskeletal: Yes: full range of Motion, Gait Steady, Pelvis Stable Extremities: Yes: Normal Capillary Refill, Normal Inspection, Normal Range of Motion, Non-Tender 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 intact, Fully Oriented, Alert, Motor Strength 5/5, Normal Mood/Affect, Normal Response Integumentary: Yes: Normal Color, Warm Lymphatic: Yes: Within Normal Limits - Diagnostic (1) Heroin abuse Current Visit: Yes Status: Acute (2) Alcohol dependence with uncomplicated withdrawal Current Visit: Yes Status: Acute (3) Substance-induced sleep disorder Current Visit: Yes Status: Acute (4) Weight loss Current Visit: Yes Status: Acute Cleared for Admission S - Detox or Rehab [facility] Level of Care: Medically Managed Detox Regimen/Protocol: Valium Screened but not Admitted - Documentation of Visit Screened but not Admitted: No Breathalyzer - Breathalyzer Breathalyzer: 0 Urine Drug Screen - Test Device Lot number: [id number] Expiration date: 03/28/21 - Control Is test valid?: Yes - Results Drug screen NEGATIVE: No Urine drug screen results: LEYLA-Cocaine Inpatient Rehab Admission - Rehab Decision to Admit Inpatient rehab admission?: No
[2019-10-19] MEDS ORDERED: IBUPROFEN 400 MG TABLET (FP) PO PRN (09:39)
[2019-10-19] MEDS ORDERED: MAGNESIUM HYDROX 2400MG/30ML ORAL SUSPENSION 30 ML CUP PO PRN (09:39)
[2019-10-19] MEDS ORDERED: MAG HYDROX/AL HYDROX/SIMETH 30 ML UNIT-DOSE CUP PO PRN (09:39)
[2019-10-19] MEDS ORDERED: MAGNESIUM CITRATE 300 ML BOTTLE PO PRN (09:39)
[2019-10-19] MEDS ORDERED: BISMUTH SUBSALICYLATE 262 MG/15 ML BTL PO PRN (09:39)
[2019-10-19] MEDS ORDERED: MENTHOL/PHENOL 1 EACH UD MM PRN (09:39)
[2019-10-19] MEDS ORDERED: ACETAMINOPHEN 325 MG TABLET (FP) PO PRN ×2 (09:39)
[2019-10-19] MEDS ORDERED: MELATONIN 5 MG TABLETS PO PRN (09:39)
[2019-10-19] MEDS: PRENATAL VITAMINS W/ FOLIC ACID TABLET (FP) PO SCH (10:51)
[2019-10-19] MEDS: NICOTINE 14 MG/24 HOURS TOPICAL PATCH TD SCH (10:51)
[2019-10-19] MEDS: PANTOPRAZOLE 20 MG TABLET PO SCH (10:52)
[2019-10-19] MEDS: diazePAM 5 MG TABLET PO PRN (10:52)
[2019-10-19] MEDS: METHOCARBAMOL 500 MG TABLET PO PRN ×2 (10:52→18:52)
[2019-10-19] MEDS: DORZOLAMIDE 2% HCL OPHTHALMIC SOLUTION 10 ML BOTTLE OU SCH ×2 (11:08→21:54)
[2019-10-19 14:33] LABS: HEMATOCRIT 43.8 % (35.4-49); HEMOGLOBIN 14.6 GM/dL (11.7-16.9); MCH 28.7 pg (25.7-33.7); MCHC 33.2 g/dl (32.0-35.9); MEAN CELL VOLUME 86.3 fl (80-96); MEAN PLT VOLUME 8.2 fl (7.5-11.1); PLATELET COUNT 335 K/MM3 (134-434); RBC 5.07 M/mm3 (4.00-5.60); RDW 15.6 % (11.9-15.9); WHITE BLOOD COUNT 6.6 K/mm3 (4.0-10.0)
[2019-10-19 14:41] LABS: ALBUMIN 3.7 g/dl (3.4-5.0); BILIRUBIN,TOTAL 0.3 mg/dL (0.2-1); BLOOD UREA NITROGEN 22.7 mg/dL (7-18); CALCIUM 9.8 mg/dL (8.5-10.1); CREATININE 1.4 mg/dL (0.55-1.3); POTASSIUM 4.7 mmol/L (3.5-5.1); TOT PROT 8.1 g/dl (6.4-8.2)
[2019-10-19] MEDS: diazePAM 5 MG TABLET PO SCH ×2 (14:41→21:54)
[2019-10-19] MEDS: THIAMINE HCL 100 MG TABLET (FP) PO SCH (21:55)
[2019-10-19 22:08] VITALS: BMI 22.8
[2019-10-19] MEDS: LATANOPROST 0.005% OPHTH SOLN 2.5ML BOTTLE OU SCH (22:54)
[2019-10-20] MEDS: diazePAM 5 MG TABLET PO SCH ×3 (05:13→23:52)
[2019-10-20] MEDS ORDERED: ONDANSETRON *ODT* 4 MG TABLET SL PRN (09:02)
[2019-10-20] MEDS: NICOTINE 14 MG/24 HOURS TOPICAL PATCH TD SCH (10:14)
[2019-10-20] MEDS: PANTOPRAZOLE 20 MG TABLET PO SCH (10:14)
[2019-10-20] MEDS: PRENATAL VITAMINS W/ FOLIC ACID TABLET (FP) PO SCH (10:14)
[2019-10-20] MEDS: DORZOLAMIDE 2% HCL OPHTHALMIC SOLUTION 10 ML BOTTLE OU SCH ×2 (10:14→23:53)
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
--- NOTE | 2019-10-20 17:03 | PN ---
S CIWA - CIWA Score Nausea/Vomitin Muscle Tremors: None Anxiety: 3 Agitation: 1-Slight > Activity Paroxysmal Sweats: No Perspiration Orientation: 0-Oriented Tacttile Disturbances: 1-Very Mild Itch/Numbness Auditory Disturbances: 0-None Visual Disturbances: 1-Very Mild Sensitivity Headache: 0-None Present CIWA-Ar Total Score: 9 BHS Progress Note (SOAP) Subjective: Diarrhea, Nausea, Anxious. Objective: PATIENT A & O X 3, OBSERVED AMBULATING ON DETOX UNIT UNASSISTED. IN NO ACUTE DISTRESS. 10/20/19 17:03 Vital Signs Temperature 97.7 F 10/20/19 12:35 Pulse Rate 76 10/20/19 12:35 Respiratory Rate 16 10/20/19 12:35 Blood Pressure 144/90 10/20/19 12:35 O2 Sat by Pulse Oximetry (%) Laboratory Tests 10/19/19 10/19/19 10/19/19 10:15 10:15 10:15 WBC 6.6 RBC 5.07 Hgb 14.6 Hct 43.8 D MCV 86.3 MCH 28.7 MCHC 33.2 RDW 15.6 Plt Count 335 D MPV 8.2 Sodium 138 Potassium 4.7 Chloride 104 Carbon Dioxide 29 Anion Gap 6 L BUN 22.7 H Creatinine 1.4 H Est GFR (CKD-EPI)AfAm 60.25 Est GFR (CKD-EPI)NonAf 51.99 Random Glucose 124 H Calcium 9.8 Total Bilirubin 0.3 AST 15 ALT 22 Alkaline Phosphatase 68 Total Protein 8.1 Albumin 3.7 RPR Titer Nonreactive HIV 1&2 Antibody Screen HIV P24 Antigen 10/19/19 10:15 WBC RBC Hgb Hct MCV MCH MCHC RDW Plt Count MPV Sodium Potassium Chloride Carbon Dioxide Anion Gap BUN Creatinine Est GFR (CKD-EPI)AfAm Est GFR (CKD-EPI)NonAf Random Glucose Calcium Total Bilirubin AST ALT Alkaline Phosphatase Total Protein Albumin RPR Titer HIV 1&2 Antibody Screen Negative HIV P24 Antigen Negative LABS NOTED. Assessment: 10/20/19 17:04 WITHDRAWAL SYMPTOMS. AZOTEMIA. 10/20/19 17:08 Plan: CONTINUE DETOX. INCREASE DAILY ORAL WATER INTAKE. BASIC METABOLIC PANEL ORDERED FOR TOMORROW AM FOR RENAL LAB ABNORMALITIES NOTED ON DETOX ADMISSION LABORATORY ASSESSMENT.
[2019-10-20] MEDS: diazePAM 5 MG TABLET PO PRN (20:06)
[2019-10-20] MEDS: THIAMINE HCL 100 MG TABLET (FP) PO SCH (23:53)
[2019-10-20] MEDS: LATANOPROST 0.005% OPHTH SOLN 2.5ML BOTTLE OU SCH (23:53)
[2019-10-20] MEDS: SUVOREXANT 10 MG TABLET PO PRN (23:58)
[2019-10-21] MEDS: diazePAM 5 MG TABLET PO SCH ×2 (06:46→17:49)
[2019-10-21] MEDS: NICOTINE 14 MG/24 HOURS TOPICAL PATCH TD SCH (10:22)
[2019-10-21] MEDS: PRENATAL VITAMINS W/ FOLIC ACID TABLET (FP) PO SCH (10:22)
[2019-10-21] MEDS: PANTOPRAZOLE 20 MG TABLET PO SCH (10:22)
[2019-10-21] MEDS: DORZOLAMIDE 2% HCL OPHTHALMIC SOLUTION 10 ML BOTTLE OU SCH ×2 (10:22→22:11)
[2019-10-21] MEDS: hydrOXYzine PAMOATE 25 MG CAPSULE (FP) PO PRN ×2 (10:26→22:27)
[2019-10-21] MEDS: diazePAM 5 MG TABLET PO PRN (14:03)
--- NOTE | 2019-10-21 15:53 | PN ---
S CIWA - CIWA Score Nausea/Vomitin-No Nausea/No Vomiting Muscle Tremors: 2 Anxiety: 2 Agitation: 0-Normal Activity Paroxysmal Sweats: 2 Orientation: 0-Oriented Tacttile Disturbances: 0-None Auditory Disturbances: 0-None Visual Disturbances: 0-None Headache: 0-None Present CIWA-Ar Total Score: 6 BHS Progress Note (SOAP) Subjective: Feels ok Objective: 10/21/19 15:53 Last Vital Signs Temp Pulse Resp BP Pulse Ox 97.0 F L 77 16 151/86 10/21/19 12:29 10/21/19 12:29 10/21/19 12:29 10/21/19 12:29 Elevated b/p noted: denies htn, not on medication Laboratory Tests 10/19/19 10/19/19 10/19/19 10:15 10:15 10:15 WBC 6.6 RBC 5.07 Hgb 14.6 Hct 43.8 D MCV 86.3 MCH 28.7 MCHC 33.2 RDW 15.6 Plt Count 335 D MPV 8.2 Sodium 138 Potassium 4.7 Chloride 104 Carbon Dioxide 29 Anion Gap 6 L BUN 22.7 H Creatinine 1.4 H Est GFR (CKD-EPI)AfAm 60.25 Est GFR (CKD-EPI)NonAf 51.99 Random Glucose 124 H Calcium 9.8 Total Bilirubin 0.3 AST 15 ALT 22 Alkaline Phosphatase 68 Total Protein 8.1 Albumin 3.7 RPR Titer Nonreactive HIV 1&2 Antibody Screen HIV P24 Antigen 10/19/19 10:15 WBC RBC Hgb Hct MCV MCH MCHC RDW Plt Count MPV Sodium Potassium Chloride Carbon Dioxide Anion Gap BUN Creatinine Est GFR (CKD-EPI)AfAm Est GFR (CKD-EPI)NonAf Random Glucose Calcium Total Bilirubin AST ALT Alkaline Phosphatase Total Protein Albumin RPR Titer HIV 1&2 Antibody Screen Negative HIV P24 Antigen Negative Labs reviewed: bun 22.7 (high), serum creatinine 1.4 (high), serum glucose 124 ( high) Assessment: 10/21/19 15:56 Withdrawal sxs Noted with CONY and hyperglycemia Plan: Continue detox CONY: encouraged PO water hydration, repeat BMP in AM Hyperglycemia: denies dm, repeat fasting glucose, check A1c Consider discharge patient tomorrow after repeated lab result available if stable
[2019-10-21] MEDS: amLODIPine BESYLATE 5 MG TABLET (FP) PO SCH (17:51)
[2019-10-21] MEDS: LATANOPROST 0.005% OPHTH SOLN 2.5ML BOTTLE OU SCH (22:11)
[2019-10-21] MEDS: THIAMINE HCL 100 MG TABLET (FP) PO SCH (22:11)
[2019-10-21] MEDS: SUVOREXANT 10 MG TABLET PO PRN (22:27)
[2019-10-22] MEDS ORDERED: diazePAM 5 MG TABLET PO ONE (06:00)
[2019-10-22] MEDS: METHOCARBAMOL 500 MG TABLET PO PRN (06:01)
[2019-10-22 09:57] VITALS: BP 151/88; PULSE 93; TEMP 97.2
--- NOTE | 2019-10-22 10:01 | DS ---
[facility] Detox Discharge Summary Admission Date: 10/19/19 Discharge Date: 10/22/19 - History Present History: Alcohol Dependence Pertinent Past History: Pt was admitted for alcohol detox. Completed today. Pt was started on norvasc for high BP. Pt has eye drops at home. Pt notified about high Cr, HTN and need to f/u. Pt will continue Norvasc. Pt cannot go to rehab today. will f/u as an outpt. Pt has a PCP at [facility] and [facility]. Pt given copy of labs. Laboratory Tests 10/19/19 10/19/19 10/19/19 10:15 10:15 10:15 WBC 6.6 RBC 5.07 Hgb 14.6 Hct 43.8 D MCV 86.3 MCH 28.7 MCHC 33.2 RDW 15.6 Plt Count 335 D MPV 8.2 Sodium 138 Potassium 4.7 Chloride 104 Carbon Dioxide 29 Anion Gap 6 L BUN 22.7 H Creatinine 1.4 H Est GFR (CKD-EPI)AfAm 60.25 Est GFR (CKD-EPI)NonAf 51.99 Random Glucose 124 H Calcium 9.8 Total Bilirubin 0.3 AST 15 ALT 22 Alkaline Phosphatase 68 Total Protein 8.1 Albumin 3.7 RPR Titer Nonreactive HIV 1&2 Antibody Screen HIV P24 Antigen 10/19/19 10:15 WBC RBC Hgb Hct MCV MCH MCHC RDW Plt Count MPV Sodium Potassium Chloride Carbon Dioxide Anion Gap BUN Creatinine Est GFR (CKD-EPI)AfAm Est GFR (CKD-EPI)NonAf Random Glucose Calcium Total Bilirubin AST ALT Alkaline Phosphatase Total Protein Albumin RPR Titer HIV 1&2 Antibody Screen Negative HIV P24 Antigen Negative - Physical Exam Results Vital Signs: Vital Signs Temperature 97.2 F L 10/22/19 09:00 Pulse Rate 93 H 10/22/19 09:00 Respiratory Rate 18 10/22/19 09:00 Blood Pressure 151/88 10/22/19 09:00 O2 Sat by Pulse Oximetry (%) - Treatment Hospital Course: Detox Protocol Followed, Detoxed Safely, Responded well, Discharged Condition Good, Rehab Referral Accepted - Medication Discharge Medications: Ambulatory Orders Dorzolamide HCl [Trusopt 2% -] 1 drop OU BID 01/26/19 Latanoprost 0.005% Eye Drops [Xalatan 0.005% Eye Drops -] 1 drop OU HS 01/26/19 Pantoprazole Sodium [Protonix -] 20 mg PO DAILY 09/23/19 Amlodipine Besylate [Norvasc -] 5 mg PO DAILY #14 tablet 10/22/19 Methocarbamol [Robaxin -] 500 mg PO BID PRN #30 tablet 10/22/19 - AMA Did Patient Leave Against Medical Advice: No
[2019-10-22] MEDS: NICOTINE 14 MG/24 HOURS TOPICAL PATCH TD SCH (10:18)
[2019-10-22] MEDS: PRENATAL VITAMINS W/ FOLIC ACID TABLET (FP) PO SCH (10:18)
[2019-10-22] MEDS: PANTOPRAZOLE 20 MG TABLET PO SCH (10:18)
[2019-10-22] MEDS: amLODIPine BESYLATE 5 MG TABLET (FP) PO SCH (10:19)
[2019-10-22] MEDS: DORZOLAMIDE 2% HCL OPHTHALMIC SOLUTION 10 ML BOTTLE OU SCH (10:19)
[2019-10-22] MEDS: hydrOXYzine PAMOATE 25 MG CAPSULE (FP) PO PRN (10:21)
[2019-10-22 10:25] LABS: BLOOD UREA NITROGEN 22.9 mg/dL (7-18); CALCIUM 9.4 mg/dL (8.5-10.1); CREATININE 1.2 mg/dL (0.55-1.3); POTASSIUM 4.7 mmol/L (3.5-5.1)
== END 2019-10-22 11:42 | disposition home or self-care (01) | DRG 897 ==
LOC: YASAS 09:10 → Y6N 09:58
PROVIDERS: ADMIT Allergy & Immunology; ATTEND Allergy & Immunology
PROC: HZ2ZZZZ Detoxification Services for Substance Abuse Treatment (ICD-10-PCS; principal; 2019-10-19)
DX: F10.230 Alcohol dependence with withdrawal, uncomplicated (principal); F11.20 Opioid dependence, uncomplicated; F14.20 Cocaine dependence, uncomplicated; F17.210 Nicotine dependence, cigarettes, uncomplicated; F41.8 Other specified anxiety disorders; F32.9 Major depressive disorder, single episode, unspecified; I10 Essential (primary) hypertension; E78.5 Hyperlipidemia, unspecified; K21.9 Gastro-esophageal reflux disease without esophagitis; H40.9 Unspecified glaucoma; D50.9 Iron deficiency anemia, unspecified; R79.89 Other specified abnormal findings of blood chemistry; R73.9 Hyperglycemia, unspecified; M54.5 Low back pain; G89.29 Other chronic pain; Z88.0 Allergy status to penicillin; Z91.013 Allergy to seafood; Z91.018 Allergy to other foods; Z59.0 Homelessness
CPT/HCPCS: 36415; 80048; 80053; 85027; 86593; 87389

== ENCOUNTER 2020-03-10 12:10 | Inpatient (IN) | payer OTHER ==
--- NOTE | 2020-03-10 12:51 | BHS.RME ---
Substance Use & Tx History - Substance Use History Alcohol Substance amount: six pack beer + 2 pints hard liquor Frequency of use: Daily Substance route: Oral Date of Last Use: 03/10/20 (2am) Xanax Substance amount: 1mg 2-3 tabs Frequency of use: Daily Substance route: Oral Date of Last Use: 03/09/20 Nicotine Substance amount: 1/2 pack Frequency of use: Daily Substance route: Smoking Date of Last Use: 03/10/20 Physical/Psych/Mental Status - Behavior General Behavior: Increased activity (restlessness, agitation) Eye Contact: Normal - Cooperativeness Cooperativeness: Cooperative - Thinking Thought Processes: Tight, Logical, Goal Directed - Physical Health Problems Is patient presently having any pain?: No Does patient presently have any injuries (include location): No Does patient currently have a fever: No Is patient : No CIWA Nausea/Vomitin Muscle Tremors: 3 Anxiety: 3 Agitation: 3 Paroxysmal Sweats: 3 Orientation: 1-Uncertain about Date Tacttile Disturbances: 0-None Auditory Disturbances: 0-None Visual Disturbances: 2-Mild Sensitivity Headache: 2-Mild CIWA-Ar Total Score: 22
--- NOTE | 2020-03-10 13:39 | HP ---
CIWA Score Nausea/Vomitin Muscle Tremors: 3 Anxiety: 3 Agitation: 3 Paroxysmal Sweats: 3 Orientation: 1-Uncertain about Date Tacttile Disturbances: 0-None Auditory Disturbances: 0-None Visual Disturbances: 2-Mild Sensitivity Headache: 2-Mild CIWA-Ar Total Score: 22 - Admission Criteria OASAS Guidelines: Admission for Medically Managed Detox: Requires at least one of the followin. CIWA greater than 12 2. Seizures within the past 24 hours 3. Delirium tremens within the past 24 hours 4. Hallucinations within the past 24 hours 5. Acute intervention needed for co occurring medical disorder 6. Acute intervention needed for co occurring psychiatric disorder 7. Severe withdrawal that cannot be handled at a lower level of care (continued vomiting, continued diarrhea, abnormal vital signs) requiring intravenous medication and/or fluids 8. Admitting History and Physical - Admission Chief Complaint: : I want to stop drinking." History of Present Illness: 64 year old male with history of alcohol dependence with withdrawal. He was last here 2 months ago and completed detox but COVID interfered with his follow up. Alcohol: 6 pack beers + 1-2 pints vodka daily, started drinking at the age of 13 and last drank today at 2AM one beer. 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 Benzo: Xanax 1 mg tabsl 2-3 tabs daily, started at age 58 and last used 03/09/20 Nicotine: 1/2 pack daily, started smoking at the age of 15 PMH: Herniated disc L3-L4, Glaucoma, Arthritis Psurg: Right arm Fx open, Left Lipoma resected, L ear Pinna re-attachment. Psych: None Lives in the [place] No legal issues pending. CIWA=22 SRAVANI: 000 Urine Tox: LEYLA, admits to sporadic use. He meets criteria because he is at high risk for relpase and has multiple medical co-morbidities. 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 Allergies/Adverse Reactions: Allergies Allergy/AdvReac Type Severity Reaction Status Date / Time Penicillins Allergy Severe Hives Verified 02/09/20 11:13 shellfish derived Allergy Severe Hives Verified 02/09/20 11:13 Exam Limitations: No Limitations - Ebola screening Have you traveled outside of the country in the last 21 days: No Have you had contact with anyone from an Ebola affected area: No Have you been sick,other than usual withdrawal symptoms: No Do you have a fever: No - Review of Systems Constitutional: Chills, Diaphoresis, Unintentional Wgt. Loss EENT: reports: No Symptoms Reported Respiratory: reports: No Symptoms reported Cardiac: reports: No Symptoms Reported GI: reports: No Symptoms Reported : reports: No Symptoms Reported Musculoskeletal: reports: No Symptoms Reported Integumentary: reports: No Symptoms Reported Neuro: reports: No Symptoms reported Endocrine: reports: No Symptoms Reported Hematology: reports: No Symptoms Reported Psychiatric: reports: Judgement Intact, Orientated x3, Agitated, Anxious Other Systems: Reviewed and Negative Patient History - Patient Medical History Hx Anemia: Yes (Iron-Deficiency - Not on medication.) Hx Asthma: No Hx Chronic Obstructive Pulmonary Disease (COPD): No Hx Cancer: No Hx Cardiac Disorders: No Hx Congestive Heart Failure: No Hx Hypertension: No Hx Hypercholesterolemia: No Hx Pacemaker: No HX Cerebrovascular Accident: No Hx Seizures: No Hx Dementia: No Hx Diabetes: No Hx Gastrointestinal Disorders: No Hx Liver Disease: No Hx Genitourinary Disorders: No Hx Sexually Transmitted Disorders: No Hx Renal Disease (ESRD): No Hx Thyroid Disease: No Hx Human Immunodeficiency Virus (HIV): No Hx Hepatitis C: No Hx Depression: Yes (depression,insomnia) Hx Suicide Attempt: No Hx Bipolar Disorder: No Hx Schizophrenia: No - Patient Surgical History Past Surgical History: Yes Hx Neurologic Surgery: No Hx Cataract Extraction: No Hx Cardiac Surgery: No Hx Lung Surgery: No Hx Breast Surgery: No Hx Breast Biopsy: No Hx Abdominal Surgery: No Hx Appendectomy: No Hx Cholecystectomy: No Hx Genitourinary Surgery: No Hx Section: No Hx Orthopedic Surgery: Yes (fx, right forearm in 1997.) Other Surgical History: Lipoma removed from Left shoulder Anesthesia Reaction: No - PPD History Previous Implant?: Yes Implanted On Prior [facility] Admission?: Yes Date: 07/16/19 Results: NEGATIVE PPD to be Administered?: Yes - Smoking Cessation Smoking history: Current every day smoker Have you smoked in the past 12 months: Yes Aproximately how many cigarettes per day: 10 Cigars Per Day: 0 Hx Chewing Tobacco Use: No Initiated information on smoking cessation: Yes 'Breaking Loose' booklet given: 03/10/20 - Substances abused Alcohol Substance route: Oral Frequency: Daily Amount used: six pack beer Age of first use: 13 Date of last use: 03/10/20 (1 beer today only) Alprazolam (Xanax) Substance route: Oral Frequency: Daily (1mg 2-3 tabs) Amount used: 1 mg 2-3 tabs Age of first use: 58 Date of last use: 03/09/20 Admission Physical Exam S - Physical General Appearance: Yes: Mild Distress, Thin, Tremorous, Irritable, Sweating, Anxious HEENTM: Yes: EOMI, Hearing grossly Normal, Normal ENT Inspection, Normocephalic, Normal Voice, ARNIE, Pharynx Normal, Tm's normal Respiratory: Yes: Chest Non-Tender, Lungs Clear, Normal Breath Sounds, No Respiratory Distress, No Accessory Muscle Use Neck: Yes: No masses,lesions,Nodules, Supple, Trachea in good position Breast: Yes: Within Normal Limits Cardiology: Yes: Regular Rhythm, Regular Rate, S1, S2, Diastolic Murmur Abdominal: Yes: Normal Bowel Sounds, Non Tender, Flat, Soft Genitourinary: Yes: Within Normal Limits Back: Yes: Normal Inspection Musculoskeletal: Yes: full range of Motion, Gait Steady, Pelvis Stable Extremities: Yes: Normal Capillary Refill, Normal Inspection, Normal Range of Motion, Non-Tender 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 NML intact, Fully Oriented, Alert, Motor Strength 5/5, Normal Mood/Affect, Normal Response Integumentary: Yes: Within Normal Limits, Normal Color, Dry, Warm Lymphatic: Yes: Within Normal Limits - Diagnostic (1) Nicotine dependence Current Visit: Yes Status: Chronic Qualifiers: Nicotine product type: cigarettes Substance use status: uncomplicated Qualified Code(s): F17.210 - Nicotine dependence, cigarettes, uncomplicated (2) Alcohol dependence with uncomplicated withdrawal Current Visit: Yes Status: Chronic (3) Chronic lower back pain Current Visit: Yes Status: Chronic Qualifiers: Back pain laterality: right Sciatica presence: without sciatica Qualified Code(s): M54.5 - Low back pain; G89.29 - Other chronic pain Comment: L3 L4 (4) Cocaine dependence Current Visit: Yes Status: Chronic Qualifiers: Substance use status: uncomplicated Qualified Code(s): F14.20 - Cocaine dependence, uncomplicated (5) GERD (gastroesophageal reflux disease) Current Visit: Yes Status: Chronic Qualifiers: Esophagitis presence: without esophagitis Qualified Code(s): K21.9 - Gastro-esophageal reflux disease without esophagitis (6) Herniated intervertebral disc of lumbar spine Current Visit: Yes Status: Chronic Comment: L3-L4. (7) History of herniated intervertebral disc Current Visit: Yes Status: Chronic (8) Insomnia Current Visit: Yes Status: Chronic Qualifiers: Insomnia type: unspecified Qualified Code(s): G47.00 - Insomnia, unspecified (9) Non-compliance Current Visit: Yes Status: Chronic (10) Osteoarthritis Current Visit: Yes Status: Chronic Qualifiers: Osteoarthritis location: multiple joints Osteoarthritis type: primary (11) Cardiac murmur Current Visit: Yes Status: Chronic Comment: Unsure if has a history of murmur Cleared for Admission [facility] - Detox or Rehab [facility] Level of Care: Medically Managed Detox Regimen/Protocol: Librium Claeared for Rehab Admission: No Screened but not Admitted - Documentation of Visit Screened but not Admitted: No Breathalyzer - Breathalyzer Breathalyzer: 0 Urine Drug Screen - Test Device Lot number: [id number] Expiration date: 04/28/21 - Control Is test valid?: Yes - Results Drug screen NEGATIVE: No Urine drug screen results: LEYLA-Cocaine Inpatient Rehab Admission - Rehab Decision to Admit Inpatient rehab admission?: No
[2020-03-10] MEDS ORDERED: MAG HYDROX/AL HYDROX/SIMETH 30 ML UNIT-DOSE CUP PO PRN (13:44)
[2020-03-10] MEDS ORDERED: MENTHOL/PHENOL 1 EACH UD MM PRN (13:44)
[2020-03-10] MEDS ORDERED: MAGNESIUM HYDROX 2400MG/30ML ORAL SUSPENSION 30 ML CUP PO PRN (13:44)
[2020-03-10] MEDS ORDERED: ACETAMINOPHEN 325 MG TABLET (FP) PO PRN ×2 (13:44)
[2020-03-10] MEDS ORDERED: MAGNESIUM CITRATE 300 ML BOTTLE PO PRN (13:44)
[2020-03-10] MEDS ORDERED: IBUPROFEN 400 MG TABLET (FP) PO PRN (13:44)
[2020-03-10] MEDS ORDERED: chlordiazePOXIDE HCL 25 MG CAPSULE PO PRN (13:44)
[2020-03-10] MEDS ORDERED: NICOTINE POLACRILEX 2 MG GUM BUC PRN (13:44)
[2020-03-10] MEDS ORDERED: ONDANSETRON *ODT* 4 MG TABLET SL ONE (13:44)
[2020-03-10] MEDS ORDERED: METHOCARBAMOL 500 MG TABLET PO PRN (13:44)
[2020-03-10] MEDS ORDERED: BISMUTH SUBSALICYLATE 262 MG/15 ML BTL PO PRN (13:44)
[2020-03-10 14:16] VITALS: BMI 22.1
[2020-03-10] MEDS: chlordiazePOXIDE HCL 25 MG CAPSULE PO SCH ×3 (16:00→22:11)
[2020-03-10] MEDS: hydrOXYzine PAMOATE 25 MG CAPSULE (FP) PO SCH ×3 (16:01→22:11)
[2020-03-10] MEDS: PRENATAL VITAMINS W/ FOLIC ACID TABLET (FP) PO SCH (16:01)
[2020-03-10] MEDS: NICOTINE 7 MG/24 HOURS TOPICAL PATCH TD SCH (16:01)
[2020-03-10 17:24] LABS: HEMATOCRIT 43.8 % (35.4-49); HEMOGLOBIN 14.3 GM/dL (11.7-16.9); MCH 28.3 pg (25.7-33.7); MCHC 32.6 g/dl (32.0-35.9); MEAN CELL VOLUME 86.9 fl (80-96); MEAN PLT VOLUME 8.9 fl (7.5-11.1); PLATELET COUNT 286 K/MM3 (134-434); RBC 5.04 M/mm3 (4.00-5.60); RDW 15.3 % (11.9-15.9); WHITE BLOOD COUNT 5.7 K/mm3 (4.0-10.0)
[2020-03-10 17:38] LABS: ALBUMIN 3.6 g/dl (3.4-5.0); BILIRUBIN,TOTAL 0.4 mg/dL (0.2-1); BLOOD UREA NITROGEN 19.8 mg/dL (7-18); CALCIUM 9.3 mg/dL (8.5-10.1); CREATININE 1.3 mg/dL (0.55-1.3); POTASSIUM 4.9 mmol/L (3.5-5.1); TOT PROT 7.7 g/dl (6.4-8.2)
[2020-03-10] MEDS: THIAMINE HCL 100 MG TABLET (FP) PO SCH (22:11)
[2020-03-10] MEDS: MELATONIN 5 MG TABLETS PO SCH (22:11)
[2020-03-10] MEDS: MUPIROCIN CA 2% TOPICAL CREAM 15 GM TUBE TP SCH (22:12)
[2020-03-10] MEDS: LATANOPROST 0.005% OPHTH SOLN 2.5ML BOTTLE OU SCH (22:14)
[2020-03-11] MEDS: chlordiazePOXIDE HCL 25 MG CAPSULE PO SCH ×4 (06:20→22:01)
[2020-03-11] MEDS: hydrOXYzine PAMOATE 25 MG CAPSULE (FP) PO SCH ×5 (06:20→22:01)
[2020-03-11] MEDS: PRENATAL VITAMINS W/ FOLIC ACID TABLET (FP) PO SCH (10:29)
[2020-03-11] MEDS: NICOTINE 7 MG/24 HOURS TOPICAL PATCH TD SCH (10:29)
[2020-03-11] MEDS: MUPIROCIN CA 2% TOPICAL CREAM 15 GM TUBE TP SCH ×2 (10:30→22:03)
[2020-03-11] MEDS ORDERED: PATIENT'S OWN MEDICATION (NON-FORMULARY) (Dorzolamide Hcl/Timolol Maleat [Cosopt Eye Drops OP SCH (12:00)
--- NOTE | 2020-03-11 13:46 | PN ---
[facility] CIWA - CIWA Score Nausea/Vomitin-Mild Nausea/No Vomiting Muscle Tremors: 1-None Visible, but [place] Anxiety: 3 Agitation: 1-Slight > Activity Paroxysmal Sweats: 7-Drenching Sweats Orientation: 0-Oriented Tacttile Disturbances: 1-Very Mild Itch/Numbness Auditory Disturbances: 0-None Visual Disturbances: 0-None Headache: 0-None Present CIWA-Ar Total Score: 14 [facility] Progress Note (SOAP) Subjective: Complaining of sweats during the night and severe back pain. 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 Laboratory Last Values WBC 5.7 K/mm3 (4.0-10.0) 03/10/20 14:15 RBC 5.04 M/mm3 (4.00-5.60) 03/10/20 14:15 Hgb 14.3 GM/dL (11.7-16.9) 03/10/20 14:15 Hct 43.8 % (35.4-49) 03/10/20 14:15 MCV 86.9 fl (80-96) 03/10/20 14:15 MCH 28.3 pg (25.7-33.7) 03/10/20 14:15 MCHC 32.6 g/dl (32.0-35.9) 03/10/20 14:15 RDW 15.3 % (11.9-15.9) 03/10/20 14:15 Plt Count 286 K/MM3 (134-434) 03/10/20 14:15 MPV 8.9 fl (7.5-11.1) 03/10/20 14:15 Sodium 138 mmol/L (136-145) 03/10/20 14:15 Potassium 4.9 mmol/L (3.5-5.1) 03/10/20 14:15 Chloride 106 mmol/L (98-107) 03/10/20 14:15 Carbon Dioxide 26 mmol/L (21-32) 03/10/20 14:15 Anion Gap 6 MMOL/L (8-16) L 03/10/20 14:15 BUN 19.8 mg/dL (7-18) H 03/10/20 14:15 Creatinine 1.3 mg/dL (0.55-1.3) 03/10/20 14:15 Est GFR (CKD-EPI)AfAm 65.90 03/10/20 14:15 Est GFR (CKD-EPI)NonAf 56.86 03/10/20 14:15 Random Glucose 109 mg/dL (74-106) H 03/10/20 14:15 Calcium 9.3 mg/dL (8.5-10.1) 03/10/20 14:15 Total Bilirubin 0.4 mg/dL (0.2-1) 03/10/20 14:15 AST 16 U/L (15-37) 03/10/20 14:15 ALT 22 U/L (13-61) 03/10/20 14:15 Alkaline Phosphatase 56 U/L (45-117) 03/10/20 14:15 Total Protein 7.7 g/dl (6.4-8.2) 03/10/20 14:15 Albumin 3.6 g/dl (3.4-5.0) 03/10/20 14:15 Syphilis Serology Non-reactive (NONREACTIVE) 03/10/20 14:15 Vital Signs Period Temp Pulse Resp BP Sys/Tello Pulse Ox Last 24 Hr 97.1 F-98.1 F 65-75 12-20 115-148/67-85 94-96 intact, Fully Oriented, Alert, 03/11/20 13:50 Assessment: Withdrawal from alcohol Lower Back Pain 03/11/20 13:52 03/11/20 13:53 Plan: continue detox Encourage hydration & Nutrition Encouraged to ask for medication for comfort and symptom relief. LBP: Lidoderm patch ordered.
[2020-03-11] MEDS: TIMOLOL 0.5% OPHTHALMIC SOL 5 ML BOTTLE OU SCH ×2 (14:12→22:02)
[2020-03-11] MEDS: DORZOLAMIDE 2% HCL OPHTHALMIC SOLUTION 10 ML BOTTLE OU SCH ×2 (14:12→22:02)
[2020-03-11] MEDS: LIDOCAINE 5% TOPICAL PATCH TP SCH (14:13)
[2020-03-11] MEDS: MELATONIN 5 MG TABLETS PO SCH (22:01)
[2020-03-11] MEDS: LIDOCAINE PATCH REMOVAL MC SCH (22:01)
[2020-03-11] MEDS: THIAMINE HCL 100 MG TABLET (FP) PO SCH (22:01)
[2020-03-11] MEDS: LATANOPROST 0.005% OPHTH SOLN 2.5ML BOTTLE OU SCH (22:02)
[2020-03-12] MEDS: chlordiazePOXIDE HCL 25 MG CAPSULE PO SCH ×4 (06:36→22:33)
[2020-03-12] MEDS: hydrOXYzine PAMOATE 25 MG CAPSULE (FP) PO SCH ×5 (06:36→22:33)
[2020-03-12] MEDS: LIDOCAINE 5% TOPICAL PATCH TP SCH (10:25)
[2020-03-12] MEDS: PRENATAL VITAMINS W/ FOLIC ACID TABLET (FP) PO SCH (10:25)
[2020-03-12] MEDS: DORZOLAMIDE 2% HCL OPHTHALMIC SOLUTION 10 ML BOTTLE OU SCH ×2 (10:28→22:31)
[2020-03-12] MEDS: TIMOLOL 0.5% OPHTHALMIC SOL 5 ML BOTTLE OU SCH ×2 (10:30→22:33)
[2020-03-12] MEDS: MUPIROCIN CA 2% TOPICAL CREAM 15 GM TUBE TP SCH ×2 (10:30→22:31)
[2020-03-12] MEDS: NICOTINE 7 MG/24 HOURS TOPICAL PATCH TD SCH (10:31)
--- NOTE | 2020-03-12 13:27 | PN ---
S CIWA - CIWA Score Nausea/Vomitin-No Nausea/No Vomiting Muscle Tremors: 3 Anxiety: 4-Mod. Anxious/Guarded Agitation: 3 Paroxysmal Sweats: 3 Orientation: 0-Oriented Tacttile Disturbances: 0-None Auditory Disturbances: 0-None Visual Disturbances: 0-None Headache: 0-None Present CIWA-Ar Total Score: 13 [facility] Progress Note (SOAP) Subjective: Pt c/o anxiety sweats body aches Objective: 03/12/20 13:24 Vital Signs - 24 hr 03/11/20 03/11/20 03/12/20 16:45 20:45 06:14 Temperature 97.5 F L 97.8 F 98.0 F Pulse Rate 70 78 88 Respiratory 18 16 16 Rate Blood Pressure 127/67 142/74 110/63 O2 Sat by Pulse 96 94 L Oximetry (%) Laboratory Tests 03/10/20 03/10/20 03/10/20 14:15 14:15 14:15 WBC 5.7 RBC 5.04 Hgb 14.3 Hct 43.8 MCV 86.9 MCH 28.3 MCHC 32.6 RDW 15.3 Plt Count 286 MPV 8.9 Sodium 138 Potassium 4.9 Chloride 106 Carbon Dioxide 26 Anion Gap 6 L BUN 19.8 H Creatinine 1.3 Est GFR (CKD-EPI)AfAm 65.90 Est GFR (CKD-EPI)NonAf 56.86 Random Glucose 109 H Calcium 9.3 Total Bilirubin 0.4 AST 16 ALT 22 Alkaline Phosphatase 56 Total Protein 7.7 Albumin 3.6 Syphilis Serology Non-reactive HIV Ag/Ab Combo Qual 03/11/20 08:15 WBC RBC Hgb Hct MCV MCH MCHC RDW Plt Count MPV Sodium Potassium Chloride Carbon Dioxide Anion Gap BUN Creatinine Est GFR (CKD-EPI)AfAm Est GFR (CKD-EPI)NonAf Random Glucose Calcium Total Bilirubin AST ALT Alkaline Phosphatase Total Protein Albumin Syphilis Serology HIV Ag/Ab Combo Qual Negative labs noted covid-19 results pending alert o x 3 nad oob ambulating with steady gait Assessment: 03/12/20 13:25 withdrawal sx Plan: cont detox increase po fluids maintain safety Robaxin prn as directed Lidocaine patch as directed.
[2020-03-12] MEDS: LIDOCAINE PATCH REMOVAL MC SCH (22:31)
[2020-03-12] MEDS: LATANOPROST 0.005% OPHTH SOLN 2.5ML BOTTLE OU SCH (22:32)
[2020-03-12] MEDS: THIAMINE HCL 100 MG TABLET (FP) PO SCH (22:33)
[2020-03-12] MEDS: MELATONIN 5 MG TABLETS PO SCH (22:33)
[2020-03-13] MEDS ORDERED: chlordiazePOXIDE HCL 10 MG CAPSULE PO PRN
[2020-03-13] MEDS: chlordiazePOXIDE HCL 10 MG CAPSULE PO SCH ×4 (05:57→22:33)
[2020-03-13] MEDS: hydrOXYzine PAMOATE 25 MG CAPSULE (FP) PO SCH ×5 (05:57→22:33)
[2020-03-13] MEDS: NICOTINE 7 MG/24 HOURS TOPICAL PATCH TD SCH (10:21)
[2020-03-13] MEDS: LIDOCAINE 5% TOPICAL PATCH TP SCH (10:21)
[2020-03-13] MEDS: DORZOLAMIDE 2% HCL OPHTHALMIC SOLUTION 10 ML BOTTLE OU SCH ×2 (10:22→22:34)
[2020-03-13] MEDS: MUPIROCIN CA 2% TOPICAL CREAM 15 GM TUBE TP SCH ×2 (10:22→22:35)
[2020-03-13] MEDS: PRENATAL VITAMINS W/ FOLIC ACID TABLET (FP) PO SCH (10:24)
[2020-03-13] MEDS: TIMOLOL 0.5% OPHTHALMIC SOL 5 ML BOTTLE OU SCH ×2 (10:24→22:34)
--- NOTE | 2020-03-13 12:04 | PN ---
[facility] CIWA - CIWA Score Nausea/Vomitin-No Nausea/No Vomiting Muscle Tremors: 2 Anxiety: 4-Mod. Anxious/Guarded Agitation: 3 Paroxysmal Sweats: 1-Minimal Palms Moist Orientation: 0-Oriented Tacttile Disturbances: 0-None Auditory Disturbances: 0-None Visual Disturbances: 0-None Headache: 0-None Present CIWA-Ar Total Score: 10 [facility] Progress Note (SOAP) Subjective: c/o Anxiety Lower Back Pain Objective: 03/13/20 12:02 Vital Signs - 24 hr 03/12/20 03/12/20 03/12/20 13:04 17:00 20:48 Temperature 96.9 F L 97.5 F L 97.1 F L Pulse Rate 67 75 80 Respiratory 18 18 18 Rate Blood Pressure 122/72 127/75 134/93 O2 Sat by Pulse 95 97 Oximetry (%) 03/13/20 07:00 Temperature 97.8 F Pulse Rate 74 Respiratory 18 Rate Blood Pressure 127/76 O2 Sat by Pulse 97 Oximetry (%) Laboratory Tests 03/10/20 03/10/20 03/10/20 14:15 14:15 14:15 WBC 5.7 RBC 5.04 Hgb 14.3 Hct 43.8 MCV 86.9 MCH 28.3 MCHC 32.6 RDW 15.3 Plt Count 286 MPV 8.9 Sodium 138 Potassium 4.9 Chloride 106 Carbon Dioxide 26 Anion Gap 6 L BUN 19.8 H Creatinine 1.3 Est GFR (CKD-EPI)AfAm 65.90 Est GFR (CKD-EPI)NonAf 56.86 Random Glucose 109 H Calcium 9.3 Total Bilirubin 0.4 AST 16 ALT 22 Alkaline Phosphatase 56 Total Protein 7.7 Albumin 3.6 Syphilis Serology Non-reactive COVID-19 (SIDRA) HIV Ag/Ab Combo Qual 03/10/20 03/11/20 15:00 08:15 WBC RBC Hgb Hct MCV MCH MCHC RDW Plt Count MPV Sodium Potassium Chloride Carbon Dioxide Anion Gap BUN Creatinine Est GFR (CKD-EPI)AfAm Est GFR (CKD-EPI)NonAf Random Glucose Calcium Total Bilirubin AST ALT Alkaline Phosphatase Total Protein Albumin Syphilis Serology COVID-19 (SIDRA) Not detected HIV Ag/Ab Combo Qual Negative Assessment: 03/13/20 12:03 withdrawal sx Plan: cont detox increase po fluids maintain safety Motrin prn
[2020-03-13] MEDS: LIDOCAINE PATCH REMOVAL MC SCH (22:33)
[2020-03-13] MEDS: THIAMINE HCL 100 MG TABLET (FP) PO SCH (22:33)
[2020-03-13] MEDS: MELATONIN 5 MG TABLETS PO SCH (22:33)
[2020-03-13] MEDS: LATANOPROST 0.005% OPHTH SOLN 2.5ML BOTTLE OU SCH (22:34)
[2020-03-13 23:03] LABS: URINE APPEARANCE CLEAR; URINE BILIRUBIN NEGATIVE (NEGATIVE); URINE COLOR YELLOW; URINE GLUCOSE (UA) NEGATIVE (NEGATIVE); URINE KETONE NEGATIVE (NEGATIVE); URINE LEUK ESTERASE NEGATIVE (NEGATIVE); URINE NITRITE NEGATIVE (NEGATIVE); URINE PROTEIN NEGATIVE (NEGATIVE); URINE UROBILINOGEN 0.2 mg/dL (0.2-1.0)
[2020-03-14] MEDS: chlordiazePOXIDE HCL 10 MG CAPSULE PO SCH ×2 (07:15→17:56)
[2020-03-14] MEDS: hydrOXYzine PAMOATE 25 MG CAPSULE (FP) PO SCH ×5 (07:15→22:51)
[2020-03-14] MEDS: DORZOLAMIDE 2% HCL OPHTHALMIC SOLUTION 10 ML BOTTLE OU SCH ×2 (10:23→22:50)
[2020-03-14] MEDS: LIDOCAINE 5% TOPICAL PATCH TP SCH (10:23)
[2020-03-14] MEDS: PRENATAL VITAMINS W/ FOLIC ACID TABLET (FP) PO SCH (10:24)
[2020-03-14] MEDS: TIMOLOL 0.5% OPHTHALMIC SOL 5 ML BOTTLE OU SCH ×2 (10:24→22:51)
[2020-03-14] MEDS: NICOTINE 7 MG/24 HOURS TOPICAL PATCH TD SCH (10:25)
[2020-03-14] MEDS: MUPIROCIN CA 2% TOPICAL CREAM 15 GM TUBE TP SCH ×2 (10:26→22:50)
--- NOTE | 2020-03-14 13:46 | PN ---
S CIWA - CIWA Score Nausea/Vomitin-No Nausea/No Vomiting Muscle Tremors: 1-None Visible, but [place] Anxiety: 2 Agitation: 2 Paroxysmal Sweats: No Perspiration Orientation: 0-Oriented Tacttile Disturbances: 0-None Auditory Disturbances: 0-None Visual Disturbances: 0-None Headache: 0-None Present CIWA-Ar Total Score: 5 S Progress Note (SOAP) Subjective: Pt reports detox proceeding well. Decreased withdrawal sx and Lower back pain feels better with treatment. Saw pt during rounds exercise-walking on the hallways. Anticipating for his discharge tomorrow. Objective: 03/14/20 13:34 Vital Signs - 24 hr 03/13/20 03/13/20 03/14/20 16:35 20:20 05:55 Temperature 98.0 F 96.9 F L 98.7 F Pulse Rate 84 84 79 Respiratory 18 18 18 Rate Blood Pressure 122/98 154/77 132/78 O2 Sat by Pulse 95 96 Oximetry (%) 03/14/20 09:18 Temperature 97.5 F L Pulse Rate 85 Respiratory 20 Rate Blood Pressure 119/77 O2 Sat by Pulse 97 Oximetry (%) Laboratory Tests 03/10/20 03/10/20 03/10/20 14:15 14:15 14:15 WBC 5.7 RBC 5.04 Hgb 14.3 Hct 43.8 MCV 86.9 MCH 28.3 MCHC 32.6 RDW 15.3 Plt Count 286 MPV 8.9 Sodium 138 Potassium 4.9 Chloride 106 Carbon Dioxide 26 Anion Gap 6 L BUN 19.8 H Creatinine 1.3 Est GFR (CKD-EPI)AfAm 65.90 Est GFR (CKD-EPI)NonAf 56.86 Random Glucose 109 H Calcium 9.3 Total Bilirubin 0.4 AST 16 ALT 22 Alkaline Phosphatase 56 Total Protein 7.7 Albumin 3.6 Urine Color Urine Appearance Urine pH Ur Specific [place] Urine Protein Urine Glucose (UA) Urine Ketones Urine Blood Urine Nitrite Urine Bilirubin Urine Urobilinogen Ur Leukocyte Esterase Syphilis Serology Non-reactive COVID-19 (SIDRA) HIV Ag/Ab Combo Qual 03/10/20 03/11/20 03/13/20 15:00 08:15 17:25 WBC RBC Hgb Hct MCV MCH MCHC RDW Plt Count MPV Sodium Potassium Chloride Carbon Dioxide Anion Gap BUN Creatinine Est GFR (CKD-EPI)AfAm Est GFR (CKD-EPI)NonAf Random Glucose Calcium Total Bilirubin AST ALT Alkaline Phosphatase Total Protein Albumin Urine Color Yellow Urine Appearance Clear Urine pH 5.0 Ur Specific [place] 1.009 L Urine Protein Negative Urine Glucose (UA) Negative Urine Ketones Negative Urine Blood Negative Urine Nitrite Negative Urine Bilirubin Negative Urine Urobilinogen 0.2 Ur Leukocyte Esterase Negative Syphilis Serology COVID-19 (SIDRA) Not detected HIV Ag/Ab Combo Qual Negative covid-19 not detected alert o x 3 nad oob ambulating with steady gait Assessment: 03/14/20 13:53 mild withdrawal sx medically stable Plan: cont detox increase po fluids maintain safety pt may d/c in am if medically stable.
[2020-03-14] MEDS: LATANOPROST 0.005% OPHTH SOLN 2.5ML BOTTLE OU SCH (22:50)
[2020-03-14] MEDS: THIAMINE HCL 100 MG TABLET (FP) PO SCH (22:51)
[2020-03-14] MEDS: LIDOCAINE PATCH REMOVAL MC SCH (22:51)
[2020-03-14] MEDS: MELATONIN 5 MG TABLETS PO SCH (22:51)
[2020-03-15] MEDS ORDERED: chlordiazePOXIDE HCL 10 MG CAPSULE PO ONE (05:00)
[2020-03-15] MEDS: hydrOXYzine PAMOATE 25 MG CAPSULE (FP) PO SCH ×2 (06:21→10:24)
[2020-03-15] MEDS: LIDOCAINE 5% TOPICAL PATCH TP SCH (10:23)
[2020-03-15] MEDS: NICOTINE 7 MG/24 HOURS TOPICAL PATCH TD SCH (10:24)
[2020-03-15] MEDS: PRENATAL VITAMINS W/ FOLIC ACID TABLET (FP) PO SCH (10:24)
[2020-03-15] MEDS: DORZOLAMIDE 2% HCL OPHTHALMIC SOLUTION 10 ML BOTTLE OU SCH (10:25)
[2020-03-15] MEDS: TIMOLOL 0.5% OPHTHALMIC SOL 5 ML BOTTLE OU SCH (10:26)
[2020-03-15] MEDS: MUPIROCIN CA 2% TOPICAL CREAM 15 GM TUBE TP SCH (10:26)
--- NOTE | 2020-03-15 11:51 | DS ---
[facility] Detox Discharge Summary Admission Date: 03/10/20 Discharge Date: 03/15/20 - History Present History: Alcohol Dependence Additional Comments: Pt is medically cleared and discharged today. Pt completed the detox protocol. Pt is encouraged to follow-up with an outpatient CD program and also to follow- up with his pmd which he verbalized understanding. Pt is AOX3, in no acute respiratory distress, Full ROM, and ambulatory. Pertinent Past History: h/o alcohol use disorder. - Physical Exam Results Vital Signs: Vital Signs Temperature 97.5 F L 03/15/20 08:34 Pulse Rate 83 03/15/20 08:34 Respiratory Rate 18 03/15/20 08:34 Blood Pressure 144/76 03/15/20 08:34 O2 Sat by Pulse Oximetry (%) 95 03/15/20 08:34 Vital Signs 03/15/20 03/15/20 05:53 08:34 Temperature 97.7 F 97.5 F L Pulse Rate 76 83 Respiratory 18 18 Rate Blood Pressure 135/73 144/76 O2 Sat by Pulse 95 95 Oximetry (%) Laboratory Last Values WBC 5.7 K/mm3 (4.0-10.0) 03/10/20 14:15 RBC 5.04 M/mm3 (4.00-5.60) 03/10/20 14:15 Hgb 14.3 GM/dL (11.7-16.9) 03/10/20 14:15 Hct 43.8 % (35.4-49) 03/10/20 14:15 MCV 86.9 fl (80-96) 03/10/20 14:15 MCH 28.3 pg (25.7-33.7) 03/10/20 14:15 MCHC 32.6 g/dl (32.0-35.9) 03/10/20 14:15 RDW 15.3 % (11.9-15.9) 03/10/20 14:15 Plt Count 286 K/MM3 (134-434) 03/10/20 14:15 MPV 8.9 fl (7.5-11.1) 03/10/20 14:15 Sodium 138 mmol/L (136-145) 03/10/20 14:15 Potassium 4.9 mmol/L (3.5-5.1) 03/10/20 14:15 Chloride 106 mmol/L (98-107) 03/10/20 14:15 Carbon Dioxide 26 mmol/L (21-32) 03/10/20 14:15 Anion Gap 6 MMOL/L (8-16) L 03/10/20 14:15 BUN 19.8 mg/dL (7-18) H 03/10/20 14:15 Creatinine 1.3 mg/dL (0.55-1.3) 03/10/20 14:15 Est GFR (CKD-EPI)AfAm 65.90 03/10/20 14:15 Est GFR (CKD-EPI)NonAf 56.86 03/10/20 14:15 Random Glucose 109 mg/dL (74-106) H 03/10/20 14:15 Calcium 9.3 mg/dL (8.5-10.1) 03/10/20 14:15 Total Bilirubin 0.4 mg/dL (0.2-1) 03/10/20 14:15 AST 16 U/L (15-37) 03/10/20 14:15 ALT 22 U/L (13-61) 03/10/20 14:15 Alkaline Phosphatase 56 U/L (45-117) 03/10/20 14:15 Total Protein 7.7 g/dl (6.4-8.2) 03/10/20 14:15 Albumin 3.6 g/dl (3.4-5.0) 03/10/20 14:15 Urine Color Yellow 03/13/20 17:25 Urine Appearance Clear 03/13/20 17:25 Urine pH 5.0 (5.0-8.0) 03/13/20 17:25 Ur Specific [place] 1.009 (1.010-1.035) L 03/13/20 17:25 Urine Protein Negative (NEGATIVE) 03/13/20 17:25 Urine Glucose (UA) Negative (NEGATIVE) 03/13/20 17:25 Urine Ketones Negative (NEGATIVE) 03/13/20 17:25 Urine Blood Negative (NEGATIVE) 03/13/20 17:25 Urine Nitrite Negative (NEGATIVE) 03/13/20 17:25 Urine Bilirubin Negative (NEGATIVE) 03/13/20 17:25 Urine Urobilinogen 0.2 mg/dL (0.2-1.0) 03/13/20 17:25 Ur Leukocyte Esterase Negative (NEGATIVE) 03/13/20 17:25 Syphilis Serology Non-reactive (NONREACTIVE) 03/10/20 14:15 COVID-19 (SIDRA) Not detected (Not Detected) 03/10/20 15:00 HIV Ag/Ab Combo Qual Negative (NEGATIVE) 03/11/20 08:15 Labs noted. Pertinent Admission Physical Exam Findings: withdrawal symptoms. - Treatment Hospital Course: Detox Protocol Followed, Detoxed Safely, Responded well, Discharged Condition Good - Medication Discharge Medications: Ambulatory Orders Dorzolamide HCl/Timolol Maleat [Cosopt Eye Drops] 10 ml OP BID 03/10/20 Latanoprost 0.005% Eye Drops [Xalatan 0.005% Eye Drops -] 1 drop OU HS 03/10/20 Methocarbamol 500 mg PO PRN PRN 03/10/20 Mupirocin Cream [Bactroban 2% Cream -] 1 applic TP BID 03/10/20 - Diagnosis (1) Alcohol dependence with uncomplicated withdrawal Current Visit: Yes Status: Acute (2) Nicotine dependence Current Visit: Yes Status: Chronic Qualifiers: Nicotine product type: cigarettes Substance use status: uncomplicated Qualified Code(s): F17.210 - Nicotine dependence, cigarettes, uncomplicated (3) HTN (hypertension) Current Visit: No Status: Chronic Qualifiers: Hypertension type: essential hypertension Qualified Code(s): I10 - Essential (primary) hypertension (4) Hyperlipidemia Current Visit: No Status: Chronic Qualifiers: Hyperlipidemia type: moderate mixed hyperlipidemia not requiring statin therapy Qualified Code(s): E78.2 - Mixed hyperlipidemia (5) Alcohol use disorder Current Visit: Yes Status: Chronic - AMA Did Patient Leave Against Medical Advice: No
[2020-03-15 11:52] VITALS: BP 113/83; PULSE 80; TEMP 97.1
--- NOTE | 2020-03-15 12:31 | PN ---
[facility] Progress Note Note: patient was transferred from [address] for continue further level of care,on arrival on the unit patient changed his mind not to continue treatment the high risk of relapsing explained,patient understood seen by counselor Vital Signs Temperature 97.1 F L 03/15/20 11:52 Pulse Rate 80 03/15/20 11:52 Respiratory Rate 18 03/15/20 11:52 Blood Pressure 113/83 03/15/20 11:52 O2 Sat by Pulse Oximetry (%) 95 03/15/20 08:34 patient alerted,oriented x3 lung clear on auscultation bilaterally no abdominal pain stable for discharge follow up with after care program as arrangement
--- NOTE | 2020-03-15 20:19 | DS ---
[facility] Detox Discharge Summary Admission Date: 03/10/20 Discharge Date: 03/15/20 - History Present History: Alcohol Dependence, Cocaine Dependence Additional Comments: alert,oriented x 3 ambulation on the unit abdomen soft,no pain,no tenderness patient changed his mind on arrival on the rehab unit,do not want to continue further level of care in rehab,left the unit in stable condition high risk of relapsing explained,patient would like to go home and stay with his son stable to be discharged home,follow up with after care program iop for follow up total discharge time spending 35 minutes Pertinent Past History: low back pain gerd insomnia glaucoma - Physical Exam Results Vital Signs: Vital Signs Temperature 97.1 F L 03/15/20 11:52 Pulse Rate 80 03/15/20 11:52 Respiratory Rate 18 03/15/20 11:52 Blood Pressure 113/83 03/15/20 11:52 O2 Sat by Pulse Oximetry (%) 95 03/15/20 08:34 Pertinent Admission Physical Exam Findings: Vital Signs Temperature 97.1 F L 03/15/20 11:52 Pulse Rate 80 03/15/20 11:52 Respiratory Rate 18 03/15/20 11:52 Blood Pressure 113/83 03/15/20 11:52 O2 Sat by Pulse Oximetry (%) 95 03/15/20 08:34 Laboratory Last Values WBC 5.7 K/mm3 (4.0-10.0) 03/10/20 14:15 RBC 5.04 M/mm3 (4.00-5.60) 03/10/20 14:15 Hgb 14.3 GM/dL (11.7-16.9) 03/10/20 14:15 Hct 43.8 % (35.4-49) 03/10/20 14:15 MCV 86.9 fl (80-96) 03/10/20 14:15 MCH 28.3 pg (25.7-33.7) 03/10/20 14:15 MCHC 32.6 g/dl (32.0-35.9) 03/10/20 14:15 RDW 15.3 % (11.9-15.9) 03/10/20 14:15 Plt Count 286 K/MM3 (134-434) 03/10/20 14:15 MPV 8.9 fl (7.5-11.1) 03/10/20 14:15 Sodium 138 mmol/L (136-145) 03/10/20 14:15 Potassium 4.9 mmol/L (3.5-5.1) 03/10/20 14:15 Chloride 106 mmol/L (98-107) 03/10/20 14:15 Carbon Dioxide 26 mmol/L (21-32) 03/10/20 14:15 Anion Gap 6 MMOL/L (8-16) L 03/10/20 14:15 BUN 19.8 mg/dL (7-18) H 03/10/20 14:15 Creatinine 1.3 mg/dL (0.55-1.3) 03/10/20 14:15 Est GFR (CKD-EPI)AfAm 65.90 03/10/20 14:15 Est GFR (CKD-EPI)NonAf 56.86 03/10/20 14:15 Random Glucose 109 mg/dL (74-106) H 03/10/20 14:15 Calcium 9.3 mg/dL (8.5-10.1) 03/10/20 14:15 Total Bilirubin 0.4 mg/dL (0.2-1) 03/10/20 14:15 AST 16 U/L (15-37) 03/10/20 14:15 ALT 22 U/L (13-61) 03/10/20 14:15 Alkaline Phosphatase 56 U/L (45-117) 03/10/20 14:15 Total Protein 7.7 g/dl (6.4-8.2) 03/10/20 14:15 Albumin 3.6 g/dl (3.4-5.0) 03/10/20 14:15 Urine Color Yellow 03/13/20 17:25 Urine Appearance Clear 03/13/20 17:25 Urine pH 5.0 (5.0-8.0) 03/13/20 17:25 Ur Specific [place] 1.009 (1.010-1.035) L 03/13/20 17:25 Urine Protein Negative (NEGATIVE) 03/13/20 17:25 Urine Glucose (UA) Negative (NEGATIVE) 03/13/20 17:25 Urine Ketones Negative (NEGATIVE) 03/13/20 17:25 Urine Blood Negative (NEGATIVE) 03/13/20 17:25 Urine Nitrite Negative (NEGATIVE) 03/13/20 17:25 Urine Bilirubin Negative (NEGATIVE) 03/13/20 17:25 Urine Urobilinogen 0.2 mg/dL (0.2-1.0) 03/13/20 17:25 Ur Leukocyte Esterase Negative (NEGATIVE) 03/13/20 17:25 Syphilis Serology Non-reactive (NONREACTIVE) 03/10/20 14:15 COVID-19 (SIDRA) Not detected (Not Detected) 03/10/20 15:00 HIV Ag/Ab Combo Qual Negative (NEGATIVE) 03/11/20 08:15 - Treatment Hospital Course: Detox Protocol Followed, Responded well, Discharged Condition Good, Rehab Referral Accepted Patient has Accepted a Rehab Referral to: [facility] - Medication Discharge Medications: Ambulatory Orders Dorzolamide HCl/Timolol Maleat [Cosopt Eye Drops] 10 ml OP BID 03/10/20 Latanoprost 0.005% Eye Drops [Xalatan 0.005% Eye Drops -] 1 drop OU HS 03/10/20 Methocarbamol 500 mg PO PRN PRN 03/10/20 Mupirocin Cream [Bactroban 2% Cream -] 1 applic TP BID 03/10/20 - Diagnosis (1) Alcohol dependence with uncomplicated withdrawal Status: Acute (2) Chronic lower back pain Status: Chronic Qualifiers: Back pain laterality: right Sciatica presence: without sciatica Qualified Code(s): M54.5 - Low back pain; G89.29 - Other chronic pain (3) Cocaine dependence Status: Chronic Qualifiers: Substance use status: uncomplicated Qualified Code(s): F14.20 - Cocaine dependence, uncomplicated (4) Glaucoma Status: Chronic Qualifiers: Glaucoma type: open-angle Open angle glaucoma type: primary Laterality: bilateral Glaucoma stage: stage unspecified Qualified Code(s): H40.1130 - Primary open-angle glaucoma, bilateral, stage unspecified (5) HTN (hypertension) Status: Chronic Qualifiers: Hypertension type: essential hypertension Qualified Code(s): I10 - Essential (primary) hypertension (6) History of herniated intervertebral disc Status: Chronic (7) Nicotine dependence Status: Chronic Qualifiers: Nicotine product type: cigarettes Substance use status: uncomplicated Qualified Code(s): F17.210 - Nicotine dependence, cigarettes, uncomplicated (8) Osteoarthritis Status: Chronic Qualifiers: Osteoarthritis location: multiple joints Osteoarthritis type: primary - AMA Did Patient Leave Against Medical Advice: No
== END 2020-03-15 12:28 | disposition home or self-care (01) | DRG 897 ==
LOC: YASAS 12:10 → Y5N DETOX 14:29 → UNDODISIN 03-15 11:25 → Y3W 03-15 11:48
PROVIDERS: ADMIT Allergy & Immunology; ATTEND Allergy & Immunology
PROC: HZ2ZZZZ Detoxification Services for Substance Abuse Treatment (ICD-10-PCS; principal; 2020-03-10)
DX: F10.230 Alcohol dependence with withdrawal, uncomplicated (principal); F13.20 Sedative, hypnotic or anxiolytic dependence, uncomplicated; F17.210 Nicotine dependence, cigarettes, uncomplicated; F41.8 Other specified anxiety disorders; F32.9 Major depressive disorder, single episode, unspecified; G47.00 Insomnia, unspecified; I10 Essential (primary) hypertension; E78.2 Mixed hyperlipidemia; D50.9 Iron deficiency anemia, unspecified; K21.9 Gastro-esophageal reflux disease without esophagitis; M51.26 Other intervertebral disc displacement, lumbar region; M19.90 Unspecified osteoarthritis, unspecified site; H40.9 Unspecified glaucoma; R01.1 Cardiac murmur, unspecified; Z98.890 Other specified postprocedural states; Z88.0 Allergy status to penicillin; Z91.013 Allergy to seafood
CPT/HCPCS: 36415; 80053; 81003; 85027; 86780; 87389; Q0162; U0003

== ENCOUNTER 2020-04-21 09:52 | Inpatient (IN) | payer OTHER ==
--- NOTE | 2020-04-21 11:23 | BHS.RME ---
Substance Use & Tx History - Substance Use History Alcohol Substance amount: 2 pints vodka + 6-8 beers Frequency of use: Daily Substance route: Oral Date of Last Use: 04/20/20 Cocaine- Powder Substance amount: 1 gram Frequency of use: Less than 3 times per week Substance route: Inhalation (ex: sniffing or snorting) Date of Last Use: 04/20/20 Nicotine Substance amount: 1/2 pack Frequency of use: Daily Substance route: Smoking Date of Last Use: 04/21/20 Physical/Psych/Mental Status - Behavior General Behavior: Increased activity (restlessness, agitation) Eye Contact: Normal - Cooperativeness Cooperativeness: Cooperative - Thinking Thought Processes: Tight, Logical, Goal Directed Thought content: Future oriented - Physical Health Problems Is patient presently having any pain?: No Does patient presently have any injuries (include location): No Does patient currently have a fever: No Is patient : No CIWA Nausea/Vomitin Muscle Tremors: 3 Anxiety: 4-Mod. Anxious/Guarded Agitation: 4-Moderately Restless Paroxysmal Sweats: 4-Forehead w/Sweat Beads Orientation: 0-Oriented Tacttile Disturbances: 0-None Auditory Disturbances: 0-None Visual Disturbances: 1-Very Mild Sensitivity Headache: 2-Mild CIWA-Ar Total Score: 21
[2020-04-21 11:49] VITALS: BMI 21.8
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
[2020-04-21] MEDS ORDERED: MAG HYDROX/AL HYDROX/SIMETH 30 ML UNIT-DOSE CUP PO PRN (12:08)
[2020-04-21] MEDS ORDERED: MENTHOL/PHENOL 1 EACH UD MM PRN (12:08)
[2020-04-21] MEDS ORDERED: ONDANSETRON *ODT* 4 MG TABLET SL ONE (12:08)
[2020-04-21] MEDS ORDERED: NICOTINE POLACRILEX 2 MG GUM BUC PRN (12:08)
[2020-04-21] MEDS ORDERED: BISMUTH SUBSALICYLATE 524 MG/30 ML UD PO PRN (12:08)
[2020-04-21] MEDS ORDERED: IBUPROFEN 400 MG TABLET (FP) PO PRN (12:08)
[2020-04-21] MEDS ORDERED: MAGNESIUM HYDROX 2400MG/30ML ORAL SUSPENSION 30 ML CUP PO PRN (12:08)
[2020-04-21] MEDS ORDERED: METHOCARBAMOL 500 MG TABLET PO PRN ×2 (12:08→12:10)
[2020-04-21] MEDS ORDERED: MAGNESIUM CITRATE 300 ML BOTTLE PO PRN (12:08)
[2020-04-21] MEDS ORDERED: ACETAMINOPHEN 325 MG TABLET (FP) PO PRN ×2 (12:08)
[2020-04-21] MEDS ORDERED: chlordiazePOXIDE HCL 25 MG CAPSULE PO PRN (12:08)
[2020-04-21] MEDS: NICOTINE 7 MG/24 HOURS TOPICAL PATCH TD SCH (12:54)
[2020-04-21] MEDS: PRENATAL VITAMINS W/ FOLIC ACID TABLET (FP) PO SCH (12:54)
[2020-04-21] MEDS: chlordiazePOXIDE HCL 25 MG CAPSULE PO SCH ×3 (12:54→23:09)
[2020-04-21] MEDS: hydrOXYzine PAMOATE 25 MG CAPSULE (FP) PO SCH ×3 (14:11→23:09)
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
[2020-04-21 18:35] LABS: HEMATOCRIT 43.3 % (35.4-49); HEMOGLOBIN 14.3 GM/dL (11.7-16.9); MCH 28.8 pg (25.7-33.7); MCHC 33.1 g/dl (32.0-35.9); MEAN CELL VOLUME 87.1 fl (80-96); MEAN PLT VOLUME 9.2 fl (7.5-11.1); PLATELET COUNT 263 K/MM3 (134-434); RBC 4.97 M/mm3 (4.00-5.60); RDW 15.5 % (11.9-15.9); WHITE BLOOD COUNT 6.2 K/mm3 (4.0-10.0)
[2020-04-21 18:45] LABS: ALBUMIN 3.6 g/dl (3.4-5.0); BILIRUBIN,TOTAL 0.6 mg/dL (0.2-1); BLOOD UREA NITROGEN 24.4 mg/dL (7-18); CALCIUM 9.1 mg/dL (8.5-10.1); CREATININE 1.2 mg/dL (0.55-1.3); POTASSIUM 4.8 mmol/L (3.5-5.1); TOT PROT 7.6 g/dl (6.4-8.2)
[2020-04-21] MEDS ORDERED: PATIENT'S OWN MEDICATION (NON-FORMULARY) (Dorzolamide Hcl/Timolol Maleat [Cosopt Eye Drops OP SCH (22:00)
[2020-04-21] MEDS: LATANOPROST 0.005% OPHTH SOLN 2.5ML BOTTLE OU SCH (23:07)
[2020-04-21] MEDS: MUPIROCIN CA 2% TOPICAL CREAM 15 GM TUBE TP SCH (23:08)
[2020-04-21] MEDS: MELATONIN 5 MG TABLETS PO SCH (23:09)
[2020-04-21] MEDS: THIAMINE HCL 100 MG TABLET (FP) PO SCH (23:09)
[2020-04-22] MEDS: hydrOXYzine PAMOATE 25 MG CAPSULE (FP) PO SCH ×5 (06:22→23:19)
[2020-04-22] MEDS: chlordiazePOXIDE HCL 25 MG CAPSULE PO SCH ×4 (06:22→23:16)
[2020-04-22] MEDS ORDERED: MASKS NR ONE (08:21)
[2020-04-22] MEDS: NICOTINE 7 MG/24 HOURS TOPICAL PATCH TD SCH (10:22)
[2020-04-22] MEDS: PRENATAL VITAMINS W/ FOLIC ACID TABLET (FP) PO SCH (10:22)
[2020-04-22] MEDS: MUPIROCIN CA 2% TOPICAL CREAM 15 GM TUBE TP SCH ×2 (10:24→23:18)
--- NOTE | 2020-04-22 13:42 | PN ---
S CIWA - CIWA Score Nausea/Vomitin-Mild Nausea/No Vomiting Muscle Tremors: 2 Anxiety: 3 Agitation: 4-Moderately Restless Paroxysmal Sweats: 1-Minimal Palms Moist Orientation: 0-Oriented Tacttile Disturbances: 1-Very Mild Itch/Numbness Auditory Disturbances: 0-None Visual Disturbances: 2-Mild Sensitivity Headache: 2-Mild CIWA-Ar Total Score: 16 BHS Progress Note (SOAP) Subjective: 64 years old male was admitted on 04/21/20 for alcohol withdrawal sx management treating with librium detox regiment [facility]bi 21.8 ensure 120 ml po tid with meals mr mckeon states that he feels tired and wants to resting in the bed limited conversation with staff Objective: 04/22/20 13:41 Vital Signs - 24 hr 04/21/20 04/21/20 04/22/20 16:47 20:20 05:59 Temperature 97.5 F L 97.8 F 97.8 F Pulse Rate 69 74 70 Respiratory 18 18 18 Rate Blood Pressure 140/68 119/85 133/81 O2 Sat by Pulse 97 98 99 Oximetry (%) 04/22/20 04/22/20 08:48 12:51 Temperature 98.1 F 97.1 F L Pulse Rate 77 72 Respiratory 18 18 Rate Blood Pressure 140/83 124/72 O2 Sat by Pulse 100 Oximetry (%) Laboratory Tests 04/21/20 04/21/20 04/21/20 12:10 12:10 12:10 WBC 6.2 RBC 4.97 Hgb 14.3 Hct 43.3 MCV 87.1 MCH 28.8 MCHC 33.1 RDW 15.5 Plt Count 263 MPV 9.2 Sodium 139 Potassium 4.8 Chloride 106 Carbon Dioxide 22 Anion Gap 10 BUN 24.4 H Creatinine 1.2 Est GFR (CKD-EPI)AfAm 72.59 Est GFR (CKD-EPI)NonAf 62.63 Random Glucose 99 Calcium 9.1 Total Bilirubin 0.6 AST 15 ALT 23 Alkaline Phosphatase 57 Total Protein 7.6 Albumin 3.6 Syphilis Serology Non-reactive 04/22/20 13:41 covid pending Assessment: 04/22/20 13:41 alcohol withdrawal Plan: librium regiment
[2020-04-22] MEDS: THIAMINE HCL 100 MG TABLET (FP) PO SCH (23:17)
[2020-04-22] MEDS: MELATONIN 5 MG TABLETS PO SCH (23:17)
[2020-04-22] MEDS: LATANOPROST 0.005% OPHTH SOLN 2.5ML BOTTLE OU SCH (23:19)
[2020-04-23] MEDS: chlordiazePOXIDE HCL 25 MG CAPSULE PO SCH ×3 (05:56→18:20)
[2020-04-23] MEDS: hydrOXYzine PAMOATE 25 MG CAPSULE (FP) PO SCH ×4 (05:56→18:20)
[2020-04-23] MEDS: NICOTINE 7 MG/24 HOURS TOPICAL PATCH TD SCH (10:09)
[2020-04-23] MEDS: MUPIROCIN CA 2% TOPICAL CREAM 15 GM TUBE TP SCH (10:09)
[2020-04-23] MEDS: PRENATAL VITAMINS W/ FOLIC ACID TABLET (FP) PO SCH (10:09)
[2020-04-23] MEDS ORDERED: chlordiazePOXIDE HCL 25 MG CAPSULE PO PRN (11:49)
--- NOTE | 2020-04-23 11:50 | PN ---
[facility] CIWA - CIWA Score Nausea/Vomitin-Mild Nausea/No Vomiting Muscle Tremors: 2 Anxiety: 2 Agitation: 2 Paroxysmal Sweats: 2 Orientation: 0-Oriented Tacttile Disturbances: 1-Very Mild Itch/Numbness Auditory Disturbances: 0-None Visual Disturbances: 1-Very Mild Sensitivity Headache: 0-None Present CIWA-Ar Total Score: 11 S Progress Note (SOAP) Subjective: 64 years old male was admitted on 04/21/20 for alcohol withdrawal sx management treating with librium detox regiment requests swallow librium as whole to avoid stomach irritation discontinue open capsule order close capsule for librium administration Objective: 04/23/20 11:51 Vital Signs - 24 hr 04/22/20 04/22/20 04/22/20 12:51 16:50 20:45 Temperature 97.1 F L 97.5 F L 97.7 F Pulse Rate 72 72 69 Respiratory 18 18 18 Rate Blood Pressure 124/72 114/76 126/78 O2 Sat by Pulse 100 99 Oximetry (%) 04/23/20 04/23/20 05:47 08:35 Temperature 97.1 F L 97.2 F L Pulse Rate 73 100 H Respiratory 20 18 Rate Blood Pressure 126/76 111/70 O2 Sat by Pulse 98 98 Oximetry (%) Laboratory Tests 04/21/20 04/21/20 04/21/20 12:10 12:10 12:10 WBC 6.2 RBC 4.97 Hgb 14.3 Hct 43.3 MCV 87.1 MCH 28.8 MCHC 33.1 RDW 15.5 Plt Count 263 MPV 9.2 Sodium 139 Potassium 4.8 Chloride 106 Carbon Dioxide 22 Anion Gap 10 BUN 24.4 H Creatinine 1.2 Est GFR (CKD-EPI)AfAm 72.59 Est GFR (CKD-EPI)NonAf 62.63 Random Glucose 99 Calcium 9.1 Total Bilirubin 0.6 AST 15 ALT 23 Alkaline Phosphatase 57 Total Protein 7.6 Albumin 3.6 Syphilis Serology Non-reactive COVID-19 (SIDRA) 04/21/20 12:40 WBC RBC Hgb Hct MCV MCH MCHC RDW Plt Count MPV Sodium Potassium Chloride Carbon Dioxide Anion Gap BUN Creatinine Est GFR (CKD-EPI)AfAm Est GFR (CKD-EPI)NonAf Random Glucose Calcium Total Bilirubin AST ALT Alkaline Phosphatase Total Protein Albumin Syphilis Serology COVID-19 (SIDRA) Not detected lab noted Assessment: 04/23/20 11:52 alcohol withdrawal Plan: librium regiment
[2020-04-23 17:24] VITALS: BP 147/92; PULSE 71; TEMP 97.1
--- NOTE | 2020-04-23 18:47 | DS ---
[facility] Detox Discharge Summary Admission Date: 04/21/20 - History Additional Comments: pt requesting to leave , states he ddoe not like being confined in "a 24 hr lockdown " , feels claustrophobic . Denies symptoms " I feel great " . Claims " I know all about after care , I have a CASAC-T " . Declined further medical assistance . Risks of leaving prior to completing detox explained to pt at length . Pt verbalized an understanding and stated he wished to proceed w/ d/c . AAOx 3 , ambulating freely on the unit. Nursing aware . Vital Signs - 24 hr 04/22/20 04/23/20 04/23/20 20:45 05:47 08:35 Temperature 97.7 F 97.1 F L 97.2 F L Pulse Rate 69 73 100 H Respiratory 18 20 18 Rate Blood Pressure 126/78 126/76 111/70 O2 Sat by Pulse 99 98 98 Oximetry (%) 04/23/20 04/23/20 12:35 16:25 Temperature 97.3 F L 97.1 F L Pulse Rate 78 71 Respiratory 18 18 Rate Blood Pressure 122/80 147/92 O2 Sat by Pulse 99 99 Oximetry (%) - Physical Exam Results Vital Signs: Vital Signs Temperature 97.1 F L 04/23/20 16:25 Pulse Rate 71 04/23/20 16:25 Respiratory Rate 18 04/23/20 16:25 Blood Pressure 147/92 04/23/20 16:25 O2 Sat by Pulse Oximetry (%) 99 04/23/20 16:25 - Medication Discharge Medications: Ambulatory Orders Dorzolamide HCl/Timolol Maleat [Cosopt Eye Drops] 10 ml OP BID 03/10/20 Latanoprost 0.005% Eye Drops [Xalatan 0.005% Eye Drops -] 1 drop OU HS 03/10/20 Mupirocin Cream [Bactroban 2% Cream -] 1 applic TP BID 03/10/20 Methocarbamol [Robaxin -] 500 mg PO BID PRN 04/21/20 - AMA Did Patient Leave Against Medical Advice: Yes
[2020-04-24] MEDS ORDERED: chlordiazePOXIDE HCL 10 MG CAPSULE PO PRN ×2
[2020-04-24] MEDS ORDERED: chlordiazePOXIDE HCL 10 MG CAPSULE PO SCH ×2 (05:00)
[2020-04-25] MEDS ORDERED: chlordiazePOXIDE HCL 10 MG CAPSULE PO SCH ×2 (05:00)
[2020-04-26] MEDS ORDERED: chlordiazePOXIDE HCL 10 MG CAPSULE PO ONE ×2 (05:00)
== END 2020-04-23 06:45 | disposition left against medical advice (07) | DRG 894 ==
LOC: YASAS 09:52 → Y3N 11:44
PROVIDERS: ADMIT Allergy & Immunology; ATTEND Allergy & Immunology
PROC: HZ2ZZZZ Detoxification Services for Substance Abuse Treatment (ICD-10-PCS; principal; 2020-04-21)
DX: F10.230 Alcohol dependence with withdrawal, uncomplicated (principal); F14.10 Cocaine abuse, uncomplicated; F17.210 Nicotine dependence, cigarettes, uncomplicated; F19.24 Other psychoactive substance dependence with psychoactive substance-induced mood disorder; I10 Essential (primary) hypertension; E78.5 Hyperlipidemia, unspecified; K21.9 Gastro-esophageal reflux disease without esophagitis; G47.00 Insomnia, unspecified; H40.9 Unspecified glaucoma; M51.26 Other intervertebral disc displacement, lumbar region; Z87.81 Personal history of (healed) traumatic fracture; Z98.890 Other specified postprocedural states; Z88.8 Allergy status to other drugs, medicaments and biological substances; Z91.013 Allergy to seafood; Z91.19 Patient's noncompliance with other medical treatment and regimen; Z56.0 Unemployment, unspecified
CPT/HCPCS: 36415; 80053; 85027; 86780; Q0162; U0003

== ENCOUNTER 2020-07-20 13:59 | Inpatient (IN) | payer OTHER ==
[2020-07-20 15:39] VITALS: BMI 21.2
[2020-07-20] MEDS ORDERED: MENTHOL/PHENOL 1 EACH UD MM PRN (17:27)
[2020-07-20] MEDS ORDERED: diazePAM 5 MG TABLET PO PRN (17:27)
[2020-07-20] MEDS ORDERED: MAGNESIUM CITRATE 300 ML BOTTLE PO PRN (17:27)
[2020-07-20] MEDS ORDERED: IBUPROFEN 400 MG TABLET (FP) PO PRN (17:27)
[2020-07-20] MEDS ORDERED: ONDANSETRON *ODT* 4 MG TABLET SL PRN (17:27)
[2020-07-20] MEDS ORDERED: MAGNESIUM HYDROX 2400MG/30ML ORAL SUSPENSION 30 ML CUP PO PRN (17:27)
[2020-07-20] MEDS ORDERED: BISMUTH SUBSALICYLATE 524 MG/30 ML UD PO PRN (17:27)
[2020-07-20] MEDS ORDERED: diazePAM 5 MG TABLET PO ONE (17:27)
[2020-07-20] MEDS ORDERED: NICOTINE POLACRILEX 2 MG GUM BUC PRN (17:27)
[2020-07-20] MEDS ORDERED: ACETAMINOPHEN 325 MG TABLET (FP) PO PRN ×2 (17:27)
[2020-07-20] MEDS ORDERED: MAG HYDROX/AL HYDROX/SIMETH 30 ML UNIT-DOSE CUP PO PRN (17:27)
[2020-07-20] MEDS ORDERED: METHOCARBAMOL 500 MG TABLET PO PRN (17:27)
[2020-07-20] MEDS: THIAMINE HCL 100 MG TABLET (FP) PO SCH (22:27)
[2020-07-20] MEDS: PATIENT'S OWN MEDICATION (NON-FORMULARY) (Dorzolamide Hcl/Timolol Maleat [Cosopt Eye Drops OU SCH (22:27)
[2020-07-20] MEDS: MELATONIN 5 MG TABLETS PO SCH (22:27)
[2020-07-20] MEDS: diazePAM 5 MG TABLET PO SCH (22:28)
[2020-07-20] MEDS: LATANOPROST 0.005% OPHTH SOLN 2.5ML BOTTLE OU SCH (22:30)
[2020-07-21] MEDS: diazePAM 5 MG TABLET PO SCH ×4 (05:30→22:17)
[2020-07-21] MEDS: NICOTINE 14 MG/24 HOURS TOPICAL PATCH TD SCH (10:19)
[2020-07-21] MEDS: PRENATAL VITAMINS W/ FOLIC ACID TABLET (FP) PO SCH (10:19)
[2020-07-21] MEDS: PATIENT'S OWN MEDICATION (NON-FORMULARY) (Dorzolamide Hcl/Timolol Maleat [Cosopt Eye Drops OU SCH ×2 (10:20→22:16)
[2020-07-21 10:22] LABS: POTASSIUM 5.1 mmol/L (3.5-5.1)
[2020-07-21 10:23] LABS: HEMATOCRIT 40.7 % (35.4-49); HEMOGLOBIN 13.5 GM/dL (11.7-16.9); MCH 28.9 pg (25.7-33.7); MCHC 33.1 g/dl (32.0-35.9); MEAN CELL VOLUME 87.4 fl (80-96); MEAN PLT VOLUME 8.3 fl (7.5-11.1); PLATELET COUNT 353 K/MM3 (134-434); RBC 4.66 M/mm3 (4.00-5.60); WHITE BLOOD COUNT 5.9 K/mm3 (4.0-10.0)
[2020-07-21 10:38] LABS: ALBUMIN 3.3 g/dl (3.4-5.0); BLOOD UREA NITROGEN 22.3 mg/dL (7-18)
[2020-07-21 10:41] LABS: CREATININE 1.2 mg/dL (0.55-1.3)
[2020-07-21 10:42] LABS: BILIRUBIN,TOTAL 0.3 mg/dL (0.2-1)
[2020-07-21] MEDS ORDERED: hydrOXYzine PAMOATE 25 MG CAPSULE (FP) PO PRN (17:49)
[2020-07-21] MEDS: THIAMINE HCL 100 MG TABLET (FP) PO SCH (22:17)
[2020-07-21] MEDS: LATANOPROST 0.005% OPHTH SOLN 2.5ML BOTTLE OU SCH (22:17)
[2020-07-21] MEDS: MELATONIN 5 MG TABLETS PO SCH (22:17)
[2020-07-22] MEDS: diazePAM 5 MG TABLET PO SCH ×2 (06:08→13:30)
[2020-07-22] MEDS: PRENATAL VITAMINS W/ FOLIC ACID TABLET (FP) PO SCH (10:14)
[2020-07-22] MEDS: PATIENT'S OWN MEDICATION (NON-FORMULARY) (Dorzolamide Hcl/Timolol Maleat [Cosopt Eye Drops OU SCH (10:14)
[2020-07-22] MEDS: NICOTINE 14 MG/24 HOURS TOPICAL PATCH TD SCH (10:14)
[2020-07-22 17:35] VITALS: BP 143/84; PULSE 72; TEMP 97.9
[2020-07-23] MEDS ORDERED: diazePAM 5 MG TABLET PO SCH (06:00)
[2020-07-24] MEDS ORDERED: diazePAM 5 MG TABLET PO ONE (06:00)
== END 2020-07-22 05:55 | disposition left against medical advice (07) | DRG 894 ==
LOC: YASAS 13:59 → Y3N 16:30
PROVIDERS: ADMIT Allergy & Immunology; ATTEND Allergy & Immunology
PROC: HZ2ZZZZ Detoxification Services for Substance Abuse Treatment (ICD-10-PCS; principal; 2020-07-20)
DX: F10.230 Alcohol dependence with withdrawal, uncomplicated (principal); F14.20 Cocaine dependence, uncomplicated; F17.210 Nicotine dependence, cigarettes, uncomplicated; F41.9 Anxiety disorder, unspecified; F32.9 Major depressive disorder, single episode, unspecified; G47.00 Insomnia, unspecified; H40.10X0 Unspecified open-angle glaucoma, stage unspecified; M19.90 Unspecified osteoarthritis, unspecified site; M51.26 Other intervertebral disc displacement, lumbar region; R01.1 Cardiac murmur, unspecified; Z98.890 Other specified postprocedural states; Z88.0 Allergy status to penicillin; Z91.013 Allergy to seafood
CPT/HCPCS: 36415; 80053; 85027; 86780; 93005; 93010; C9803; U0003

== ENCOUNTER 2022-12-03 10:15 | Inpatient (IN) | payer OTHER ==
[2022-12-03 10:51] VITALS: BMI 20.7
[2022-12-03] MEDS ORDERED: BENZONATATE 200 MG CAPSULE PO PRN (11:11)
[2022-12-03] MEDS ORDERED: hydrOXYzine PAMOATE 25 MG CAPSULE (FP) PO PRN (11:11)
[2022-12-03] MEDS ORDERED: MAGNESIUM HYDROX 2400MG/30ML ORAL SUSPENSION 30 ML CUP PO PRN (11:11)
[2022-12-03] MEDS ORDERED: POLYETHYLENE GLYCOL (HEALTHYLAX) 3350 17 GM PACKET PO PRN (11:11)
[2022-12-03] MEDS ORDERED: guaiFENesin 600 MG TABLET.ER (FP) PO PRN (11:11)
[2022-12-03] MEDS ORDERED: BENZOCAINE/MENTHOL (CHLORASEPTIC ) LOZENGE MM PRN (11:11)
[2022-12-03] MEDS ORDERED: LOPERAMIDE HCL 2 MG CAPSULE PO PRN (11:11)
[2022-12-03] MEDS ORDERED: ACETAMINOPHEN 325 MG TABLET (FP) PO PRN (11:11)
[2022-12-03] MEDS ORDERED: MAG HYDROX/AL HYDROX/SIMETH 30 ML UNIT-DOSE CUP PO PRN (11:11)
[2022-12-03] MEDS ORDERED: IBUPROFEN 600 MG TABLET (FP) PO PRN (11:11)
[2022-12-03] MEDS ORDERED: NICOTINE 10 MG CARTRIDGE (INHALER) IH PRN (11:11)
[2022-12-03] MEDS ORDERED: NALOXONE HCL (KLOXXADO) 8 MG SPRAY NS PRN (11:11)
[2022-12-03] MEDS ORDERED: NALOXONE HCL 0.4 MG/ML VIAL IM PRN (11:11)
[2022-12-03] MEDS ORDERED: IBUPROFEN 400 MG TABLET (FP) PO PRN (11:11)
[2022-12-03] MEDS ORDERED: TUBERCULIN PPD 5 TU/0.1ML SYRINGE (IN PATIENT USE ONLY) ID ONE (11:11)
[2022-12-03 15:39] VITALS: RESP 18
[2022-12-03 16:20] LABS: HEMATOCRIT 38.7 % (35.4-49); HEMOGLOBIN 12.8 GM/dL (11.7-16.9); MCH 27.8 pg (25.7-33.7); MCHC 33.2 g/dl (32.0-35.9); MEAN CELL VOLUME 83.9 fl (80-96); MEAN PLT VOLUME 8.4 fl (7.5-11.1); PLATELET COUNT 294 10^3/uL (134-434); RBC 4.61 M/mm3 (4.00-5.60); RDW 15.5 % (11.9-15.9); WHITE BLOOD COUNT 4.8 K/mm3 (4.0-10.0)
[2022-12-03 16:26] LABS: ALBUMIN 3.4 g/dl (3.4-5.0); CALCIUM 9.3 mg/dL (8.5-10.1)
[2022-12-03 16:27] LABS: BLOOD UREA NITROGEN 26.6 mg/dL (7-18)
[2022-12-03 16:29] LABS: CREATININE 1.3 mg/dL (0.55-1.3)
[2022-12-03 16:31] LABS: BILIRUBIN,TOTAL 0.3 mg/dL (0.2-1); TOT PROT 7.4 g/dl (6.4-8.2)
[2022-12-03 16:58] VITALS: BP 119/73; PULSE 79; TEMP 98.1
[2022-12-03] MEDS ORDERED: MELATONIN 5 MG TABLETS PO SCH (22:00)
[2022-12-03] MEDS ORDERED: THIAMINE HCL 100 MG TABLET (FP) PO SCH (22:00)
[2022-12-04] MEDS ORDERED: PRENATAL VITAMINS W/ FOLIC ACID TABLET (FP) PO SCH (10:00)
== END 2022-12-03 17:10 | disposition left against medical advice (07) | DRG 894 ==
LOC: YASAS 10:15 → Y3W 14:35 → Y3E 16:36
PROVIDERS: ADMIT Allergy & Immunology; ATTEND Psychiatry & Neurology Pain Medicine
PROC: HZ42ZZZ Group Counseling for Substance Abuse Treatment, Cognitive-Behavioral (ICD-10-PCS; principal; 2022-12-03)
DX: F10.20 Alcohol dependence, uncomplicated (principal); F14.20 Cocaine dependence, uncomplicated; F17.210 Nicotine dependence, cigarettes, uncomplicated; F32.A Depression, unspecified; F41.9 Anxiety disorder, unspecified; H40.10X0 Unspecified open-angle glaucoma, stage unspecified; K21.9 Gastro-esophageal reflux disease without esophagitis; Z88.0 Allergy status to penicillin; Z91.013 Allergy to seafood
CPT/HCPCS: 36415; 80053; 85027; 86780; C9803-CS; U0003; U0005

== ENCOUNTER 2025-06-10 10:05 | Inpatient (IN) | payer OTHER ==
[2025-06-10 10:35] VITALS: BMI 21.2
[2025-06-10] MEDS ORDERED: ONDANSETRON *ODT* 4 MG TABLET SL PRN (10:50)
[2025-06-10] MEDS ORDERED: DICYCLOMINE HCL 10 MG CAPSULE PO PRN (10:50)
[2025-06-10] MEDS ORDERED: MAG HYDROX/AL HYDROX/SIMETH 30 ML UNIT-DOSE CUP PO PRN (10:50)
[2025-06-10] MEDS ORDERED: BENZOCAINE/MENTHOL (CHLORASEPTIC ) LOZENGE MM PRN (10:50)
[2025-06-10] MEDS ORDERED: IBUPROFEN 400 MG TABLET (FP) PO PRN (10:50)
[2025-06-10] MEDS ORDERED: hydrOXYzine PAMOATE 25 MG CAPSULE (FP) PO PRN (10:50)
[2025-06-10] MEDS ORDERED: IBUPROFEN 600 MG TABLET (FP) PO PRN (10:50)
[2025-06-10] MEDS ORDERED: MAGNESIUM HYDROX 2400MG/30ML ORAL SUSPENSION 30 ML CUP PO PRN (10:50)
[2025-06-10] MEDS ORDERED: METHOCARBAMOL 500 MG TABLET PO PRN (10:50)
[2025-06-10] MEDS ORDERED: NALOXONE (NARCAN) HCL 4 MG/0.1 ML SPRAY NS PRN (10:50)
[2025-06-10] MEDS ORDERED: ACETAMINOPHEN 325 MG TABLET (FP) PO PRN (10:50)
[2025-06-10] MEDS ORDERED: guaiFENesin 600 MG TABLET.ER (FP) PO PRN (10:50)
[2025-06-10] MEDS ORDERED: POLYETHYLENE GLYCOL (HEALTHYLAX) 3350 17 GM PACKET PO PRN (10:50)
[2025-06-10] MEDS ORDERED: BENZONATATE 200 MG CAPSULE PO PRN (10:50)
[2025-06-10] MEDS: UMECLIDINIUM/VILANTEROL (ANORO) 62.5/25 MCG INHALER IH SCH (13:25)
[2025-06-10] MEDS: NON-FORMULARY MED OU SCH (14:16)
[2025-06-10] MEDS: DORZOLAMIDE HCL/TIMOLOL OPHTHALMIC SOLUTION 10 ML BOTTLE OU SCH (22:02)
[2025-06-10] MEDS: MELATONIN 5 MG TABLETS PO SCH (22:02)
[2025-06-10] MEDS: THIAMINE 100 MG TABLET PO SCH (22:04)
[2025-06-10] MEDS: LATANOPROST 0.005% OPHTH SOLN 2.5ML BOTTLE OU SCH (22:04)
[2025-06-10] MEDS: MIRTAZAPINE 15 MG TABLET (FP) PO SCH (22:05)
[2025-06-11 10:14] LABS: MCHC 31.1 g/dl (32.3-36.5); MEAN CELL VOLUME 89.4 fl (79.0-92.2); MEAN PLT VOLUME 10.5 fl (9.4-12.4); RDW 16.0 % (12.2-16.6)
[2025-06-11] MEDS: PRENATAL VITAMINS W/ FOLIC ACID TABLET (FP) PO SCH (10:26)
[2025-06-11 11:05] LABS: GLUCOSE,RANDOM 72.0 mg/dL (74-106)
[2025-06-11 11:06] LABS: TOT PROT 7.1 g/dl (6.4-8.2)
[2025-06-11 11:07] LABS: CO2 25.0 mmol/L (21-32)
[2025-06-11 11:08] LABS: ALK PHOS 53.0 U/L (40-150)
[2025-06-11 11:11] LABS: CREATININE 1.03 mg/dL (0.55-1.3); SGOT/AST 24.0 U/L (5-34); SGPT/ALT 18.0 U/L (0-55)
[2025-06-11] MEDS: NICOTINE POLACRILEX 2 MG GUM BUC PRN (17:29)
[2025-06-11] MEDS: BISMUTH SUBSALICYLATE 524 MG/30 ML PO PRN (22:30)
[2025-06-12] MEDS: LOPERAMIDE HCL 2 MG CAPSULE PO PRN (17:11)
[2025-06-12] MEDS: SUVOREXANT 5 MG TABLET PO PRN (22:11)
[2025-06-13] MEDS: UMECLIDINIUM/VILANTEROL (ANORO) 62.5/25 MCG INHALER IH SCH (13:54)
[2025-06-13] MEDS: FERROUS SO4 325 MG TABLET (FP) PO SCH (22:26)
[2025-06-15 10:00] LABS: MCHC 31.8 g/dl (32.3-36.5); MEAN CELL VOLUME 87.6 fl (79.0-92.2); MEAN PLT VOLUME 10.5 fl (9.4-12.4); RDW 15.5 % (12.2-16.6)
[2025-06-16 14:59] VITALS: BP 123/77; PULSE 85; RESP 18; TEMP 97.1
== END 2025-06-16 14:21 | disposition left against medical advice (07) | DRG 894 ==
LOC: SUATTDRO 10:05 → YASAS 10:05 → Y3N 11:32 → UNDODISIN 06-14 13:16 → Y3NR 06-14 13:25 → Y3W 06-16 14:01
PROVIDERS: ADMIT Family Medicine; ATTEND Psychiatry & Neurology Pain Medicine
PROC: HZ2ZZZZ Detoxification Services for Substance Abuse Treatment (ICD-10-PCS; 2025-06-10)
PROC: HZ42ZZZ Group Counseling for Substance Abuse Treatment, Cognitive-Behavioral (ICD-10-PCS; principal; 2025-06-14)
DX: F10.20 Alcohol dependence, uncomplicated (principal); F19.282 Other psychoactive substance dependence with psychoactive substance-induced sleep disorder; F14.20 Cocaine dependence, uncomplicated; F19.280 Other psychoactive substance dependence with psychoactive substance-induced anxiety disorder; F17.210 Nicotine dependence, cigarettes, uncomplicated; F19.24 Other psychoactive substance dependence with psychoactive substance-induced mood disorder; F34.1 Dysthymic disorder; G47.00 Insomnia, unspecified; I10 Essential (primary) hypertension; K21.9 Gastro-esophageal reflux disease without esophagitis; M54.50 Low back pain, unspecified; G89.29 Other chronic pain; Z88.0 Allergy status to penicillin
CPT/HCPCS: 36415; 80053; 80305; 80307; 85027; 93005; 93010